=== PATIENT | female | born 1990 | race Caucasian/White ===

== ENCOUNTER 2017-10-12 15:37 | Emergency (ER) | payer MEDICAID, SELFPAY ==
[2017-10-12 15:39] VITALS: BP 134/77; PULSE 123; RESP 15; TEMP 36.8; O2SAT 99; BMI 17.4
--- NOTE | 2017-10-12 16:13 | ED.VIS.GEN ---
History of Present Illness Chief Complaint: Allergic Reaction Informant: Patient Onset: Yesterday Context: Gradual Onset Timing: Continuous Quality: itchy hives Location: all over Current Severity: Severe Maximum Severity: Moderate Worsened by: nothing in particular Relieved by: benadryl yest but hasn't tried any today. cool shower. Associated Symptoms: cough, congestion x 3d. mild chest discomfort and SOB now. Narrative: States she has had this before and has a history of environmental allergies her testing that she had remotely. She states she has not been outside today, the only thing she can think of is that there is black mold growing in the basement and she is allergic to that. She denies any lightheadedness, syncope, oral mucous membrane involvement, or skin pain. Past Medical History - Allergies and Home Meds Allergies/Adverse Reactions: Allergies No Known Allergies Allergy (Verified 10/12/17 15:38) Primary Care Physician: Syed Terry MD [Primary Care Provider] - Past Medical History: - - environmental allergies Smoking Status: Never smoker Drugs: None Review of Systems All systems negative except as indicated General: Denies: Chills, Fever ENT: Denies: Bilateral ear pain Cardiovascular: Reports: Chest pain Respiratory: Reports: Dyspnea, Cough, Sputum Gastrointestinal: Denies: Abdominal pain, Nausea, Vomiting, Diarrhea, Melena, Hematochezia Genitourinary: Denies: Dysuria, Hematuria, Frequency Skin: Reports: Rash Allergy: Reports: Uticaria. Denies: Swelling of the mouth, Swelling of the tongue Physical Exam Vital Signs/Narrative: Vital Signs Temp Pulse Resp BP Pulse Ox 10/12/17 15:39 98.2 F 123 H 15 134/77 H 99 Inital Vital Signs reviewed: Yes General: Well nourished, Well developed, - - Well-appearing, NAD Head: Normocephalic, Atraumatic Eyes: Perrl, EOMI ENT: Moist mucous membranes, No rhinorrhea, - - Posterior oropharynx clear. No oral mucosal lesions. No trismus. Neck: Supple, Nontender, No lymphadenopathy Cardiovascular: Regular rate, Regular rhythm Respiratory: No distress, CTA bilaterally, Chest nontender Extremities: Nontender, No edema Skin: Rash - Diffuse urticaria of various sizes, no bullae. Nontender. No petechiae. Neurological: Alert, Oriented x3, Cranial nerves II-XII grossly intact, Normal Strength, Normal Sensation Psychological: Normal affect Diagnostic/Tx/Re-eval Chest X-Ray - ED: 2 View, Read by Radiologist, No Acute Disease Clinical Impression(s) from Imaging Studies Chest X-Ray 10/12/17 16:20 IMPRESSION: Normal x-ray examination of the chest. Electronically Signed: Chencho Hinson MD at 16:35 EDT , Service support , - Medical Decision Making Improved after Benadryl. Chest x-ray is normal, she likely has a viral illness with regards to her URI symptoms, and a separate environmental allergic reaction that I will treat her with prednisone for. She is comfortable with that plan, supportive care otherwise advised and close outpatient follow-up. ED Disposition - Plan for ED Patient: Disposition: Home or Assisted Living Chief Complaint: Allergic Reaction Diagnosis: Allergic urticaria, Viral URI with cough Instructions: ED Allergic Reaction General Other, ED Upper Resp Infec No Abx Tx Prescriptions: Benzonatate [Tessalon Perle] 200 mg PO TID PRN PRN #20 cap PRN Reason: Cough Prednisone 40 mg PO DAILY #10 tab Referrals: Syed Terry MD [Primary Care Provider] - 1 Week if not improving
[2017-10-12] MEDS: predniSONE 20 MG Tablet 40 MG PO (16:14)
[2017-10-12] MEDS: DiphenhydrAMINE 25 MG Capsule 50 MG PO (16:14)
[2017-10-12 16:17] VITALS: BP 141/95; PULSE 97; RESP 16; O2SAT 100
--- NOTE | 2017-10-12 16:20 | RAD_ITS ---
STUDY: X-RAY CHEST REASON FOR EXAM: Female, 26 years old. Cough and short of breath. TECHNIQUE: Frontal and lateral views of the chest. COMPARISON: 04/08/2016. FINDINGS: The lungs are clear and expanded. There is no demonstrated pleural abnormality. Normal size heart. Normal mediastinum and jason. Normal visualized pulmonary arteries. Normal visualized aortic arch and descending thoracic aorta. Normal visualized thoracic spine. Normal visualized ribs, clavicles, and shoulders. There is no demonstrated abnormality of the visualized soft tissue structures of the upper abdomen. RAD/Chest PA and Lateral IMPRESSION: Normal x-ray examination of the chest. Electronically Signed: Chencho Hinson MD at 16:35 EDT , Service support ,
== END 2017-10-12 17:21 | disposition home or self-care (01) ==
PROVIDERS: Emergency Provider Emergency Medicine; Family Provider Family Medicine; PCP Family Medicine
DX: L50.0 Allergic urticaria (principal); J06.9 Acute upper respiratory infection, unspecified; R05 Cough
CPT/HCPCS: 71046; 99281

== ENCOUNTER 2018-08-30 14:33 | Emergency (ER) | payer MEDICAID, SELFPAY ==
[2018-08-30 14:35] VITALS: BP 95/81; PULSE 83; RESP 18; TEMP 37.1; O2SAT 100; BMI 22.2
--- NOTE | 2018-08-30 15:03 | ED.VISSUMM ---
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 Otherwise unremarkable. Patient states yesterday evening started having nausea vomiting. No diarrhea. No abdominal pain. States she feels lightheaded as a mail keep much down. Denies any dysuria. No vaginal bleeding or discharge. No fever. Denies any abdominal pain. Physical Examination: Young female vital signs initial blood pressure is 95/81. Heart rate 83. Afebrile. Pulse ox 100% on room air. Patient does not look septic or toxic. She does look mildly dehydrated. H EENT exam mild dry mixed memories. Otherwise unremarkable. Neck nontender no lymphadenopathy. Lungs clear to auscultation bilaterally. Heart regular rhythm no murmur rate of 83. Abdomen soft, nontender, nondistended normal bowel sounds no peritoneal signs. No signs of obstruction. No hernias or masses. No right upper right lower quadrant tenderness. Patient moving all 4 extremities. Neurovascular intact. Skin is pallor. Neurologically patient awake alert with no focal motor deficits. Test Results: Chemistry panel shows no acute abnormality. Normal gap. Normal BUN and creatinine. Emergency Department Course and Treatment: Clinically this appears to be a viral syndrome. Patient appears dehydrated. Will be treated with a liter normal saline and Zofran. P.o. challenge to be obtained. He is having no abdominal pain or tenderness. Repeat exam patient is a liter of fluid. She tried to hold down some apple juice which she threw up. Explained though we should not do apple juice may be tried water. Given a second dose of Zofran another liter of fluid and reassess. Treatment Plan: Zofran at home for nausea. Fluids and rest. Return if worse or follow-up if not improving. Disposition: Discharge Impression: Acute nausea and vomiting secondary to viral syndrome Dehydration This note was generated with [employer] dictation software. It may contain incorrect words, spelling, and punctuation that were not noted in review of the chart prior to signing ED Disposition - Plan for ED Patient: Referrals: Syed Terry MD [Primary Care Provider] -
[2018-08-30] MEDS: 0.9% Normal Saline 1,000 ML 1000 ML IV (15:12)
[2018-08-30] MEDS: Ondansetron 4 MG/2 ML Vial IV ×2 (15:12→16:24)
[2018-08-30 15:21] LABS: Anion Gap 9 (5-15); BUN 12 mg/dL (7-18); BUN/Creat Ratio 14.1 RATIO (10-20); Calcium,Total 9.1 mg/dL (8.5-10.1); Chloride 106 mmol/L (98-107); Creatinine, Serum 0.85 mg/dL (0.55-1.02); EST Glomerular Filtration Rate 85 mL/min (>60); Est Glom Filt Rate - Afr Amer 102 mL/min (>60); Estimated Creatinine Clearance 93.07 ml/min; Glucose 111 mg/dL (74-106); Potassium 3.8 mmol/L (3.5-5.1); Sodium Level 138 mmol/L (136-145)
--- NOTE | 2018-08-30 15:52 | ED.RN ---
pt drinking apple juice. states remains dizzy. tolerating po well
[2018-08-30] MEDS: 0.9% Normal Saline 1,000 ML 999 ML IV (16:24)
--- NOTE | 2018-08-30 16:38 | ED.DEP ---
ED Disposition - Plan for ED Patient: Disposition: Home or Assisted Living Prescriptions: Ondansetron [Zofran Odt] 4 mg PO Q8H PRN PRN #7 tab PRN Reason: Nausea Prescription Printed Referrals: Syed Terry MD [Primary Care Provider] - 1-2 Days if not improving Additional Instructions: Zofran as needed for nausea. Plenty of fluids and rest. Start with water and increase your diet very slowly. Follow-up with your doctor if not feeling better return if you are feeling worse.
[2018-08-30 17:14] VITALS: BP 109/72; PULSE 65; RESP 17; O2SAT 100
--- NOTE | 2018-08-30 17:14 | ED.RN ---
IV DC'ED, CATHETER INTACT, SMALL GAUZE DRESSING PLACED. DISCHARGE INSTRUCTIONS GIVEN TO AND REVIEWED WITH PATIENT, PATIENT DENIES QUESTIONS OR CONCERNS AND VOICES UNDERSTANDING OF DISCHARGE INSTRUCTIONS. PT AMBULATES OUT OF ROOM WITHOUT DIFFICULTY.
== END 2018-08-30 17:14 | disposition home or self-care (01) ==
PROVIDERS: Emergency Provider Emergency Medicine; Family Provider Family Medicine; PCP Family Medicine
DX: R11.2 Nausea with vomiting, unspecified (principal); B34.9 Viral infection, unspecified; E86.0 Dehydration; Z72.0 Tobacco use
CPT/HCPCS: 80048; 96361; 96374; 96376; 99285; J7030; A4216; J2405

== ENCOUNTER 2018-10-01 21:08 | Emergency (ER) | payer MEDICAID, SELFPAY ==
[2018-10-01 21:09] VITALS: BP 135/81; PULSE 60; RESP 18; TEMP 36.7; O2SAT 98; BMI 18.3
--- NOTE | 2018-10-01 21:35 | ED.RN ---
EDEMA UNDERNEATH HER RIGHT MIDDLE FINGER THAT HAS A VERY TIGHT RING ON IT.
--- NOTE | 2018-10-01 21:40 | ED.DEP ---
ED Disposition - Plan for ED Patient: Instructions: ALLERGIC REACTION, Other (General) Prescriptions: Prednisone [Deltasone] 40 mg PO DAILY #10 tablet Referrals: Syed Terry MD [Primary Care Provider] -
--- NOTE | 2018-10-01 21:42 | ED.VISSUMM ---
- ER Visit Summary Date of Service: 10/01/18 Chief Complaint: Allergic reaction History of Present Illness: The patient is a 27 F presenting with allergic reaction. Patient states this started today. She states that she has frequent hives. She states she is usually treated with prednisone. She states she has been diagnosed with environmental allergies. She has no known new irritants. She denies new soaps, lotions, medications, pets, foods. She denies difficulty breathing or swallowing. She complains of rash to left lower extremity and right hand. She had difficulty removing her ring from her right middle finger today. Denies other complaints. Physical Examination: Vitals are stable. Patient is afebrile. Alert no acute distress. HEENT exam is unremarkable. No tongue swelling. No pharyngeal edema. Neck is supple. Lungs are clear and equal bilaterally. Heart is regular rate and rhythm. Abdomen is soft nontender nondistended. Extremities are unremarkable. Skin is warm and dry. Scattered urticaria left lower extremity, right hand. No focal neurologic deficit. Remainder of exam is unremarkable. Emergency Department Course and Treatment: Patient was given prednisone. Attempted removal of ring without success. She will continue to ice at home. She declines further attempts. She has normal cap refill. Advised to return to the ED for worsening complaints. Disposition: Discharge home Impression: Allergic reaction This note was generated with [employer] dictation software. It may contain incorrect words, spelling, and punctuation that were not noted in review of the chart prior to signing ED Disposition - Plan for ED Patient: Instructions: ALLERGIC REACTION, Other (General) Prescriptions: Prednisone [Deltasone] 40 mg PO DAILY #10 tab Prescription Printed Referrals: Syed Terry MD [Primary Care Provider] -
--- NOTE | 2018-10-01 22:03 | ED.RN ---
MULTIPLE ATTEMPTS MADE TO GET HER RING OFF. THE RING IS A DOUBLE RING MADE OUT OF [employer] STEEL. DR. BENNETT WAS MADE AWARE OF THIS AND WE ARE TRYING DECREASE SWELLING WITH ICE AND WATER.
[2018-10-01] MEDS: predniSONE 20 MG Tablet 60 MG PO (22:07)
[2018-10-01 22:25] VITALS: BP 139/82; PULSE 62; RESP 20; O2SAT 96
--- NOTE | 2018-10-01 22:25 | ED.RN ---
PATIENT FEELS COMFORTABLE TO GO HOME AND ICE AND ELEVATE HER FINGER TO TRY AND DECREASE SWELLING SO SHE CAN GET HER RING OFF. DR. BENNETT AWARE.
== END 2018-10-01 22:26 | disposition home or self-care (01) ==
LOC: ED 22:20
PROVIDERS: Emergency Provider Emergency Medicine; Family Provider Family Medicine; PCP Family Medicine
DX: T78.40XA Allergy, unspecified, initial encounter (principal); L50.0 Allergic urticaria; X58.XXXA Exposure to other specified factors, initial encounter; Z87.891 Personal history of nicotine dependence
CPT/HCPCS: 99283

== ENCOUNTER 2022-02-24 18:53 | Emergency (ER) | payer MEDICAID, SELFPAY ==
[2022-02-24 18:54] VITALS: BP 117/93; PULSE 93; RESP 18; TEMP 36.4; O2SAT 96; BMI 16.8
--- NOTE | 2022-02-24 19:05 | EX.ED.DYSGE1 ---
HPI History of Present Illness Chief Complaint: General Illness Detail of Chief Complaint: Cough, congestion, fever, body aches Informant: patient Onset/Context/Timing Onset: Days (3 days) Context: Gradual Onset Narrative Narrative: Patient present secondary to congestion, cough, fever, body aches. Her daughter was ill first and then she got sick 2 days ago. She had some vomiting but that seems to be improving. PFSH PFSH Medical History no medical history no medical history Home Medications prednisone 20 mg tablet 40 mg PO DAILY #10 tabs 10/01/18 [Rx Last Taken Unknown] Allergy/AdvReac Type Severity Reaction Status Date / Time No Known Allergies Allergy Verified 02/24/22 18:55 Social History Smoking Status: Former smoker ROS ROS ED Constitutional Constitutional ED: Reports chills and fever(s) Eyes Eyes: Denies change in vision or discharge from eye(s) ENT ENT ED: Reports other Details: Congestion ; Denies discharge from eye(s), rhinorrhea or sore throat Cardiovascular Cardiovascular: Denies chest pain or palpitations Respiratory/Chest Respiratory/Chest: Reports cough; Denies dyspnea Gastrointestinal Gastrointestinal: Reports nausea and vomiting; Denies abdominal pain or diarrhea Genitourinary Genitourinary ED: Denies difficulty urinating or dysuria Musculoskeletal Musculoskeletal: Reports myalgias; Denies back pain or extremity pain Integumentary Denies Abrasions or rash Neurologic Neurologic: Denies headache(s) or weakness Psychiatric Psychiatric: Denies anxiety or depression Allergic/Immunologic Allergic/Immunologic ED: Denies lip swelling or urticaria EXAM Physical Exam Const Vital Signs: 02/24/22 18:54 02/24/22 19:07 Temperature 97.6 F L Temperature Source Temporal Pulse Rate 93 Respiratory Rate 18 Respiratory Effort Normal Blood Pressure 117/93 H Blood Pressure Mean 101 Pulse Ox 96 Oxygen Delivery Method Room Air Positive well nourished and well developed General Appearance ED: well developed HEENT Reports normocephalic, head/scalp atraumatic and moist mucous membranes Eyes PERRL and EOMs intact bilaterally Neck supple Chest Wall inspection of chest normal and palpation of chest normal Resp normal respiratory effort and clear to auscultation bilaterally Cardio regular rate and regular rhythm GI normal to inspection, nondistended, normoactive bowel sounds Palpation: soft Back/Spine no CVA tenderness Extremity normal to inspection Neuro oriented x3 and no sensory deficits noted Sensorium / Orientation: alert Motor Exam: strength 5/5 throughout Psych mental status grossly normal Skin no rashes or lesions noted MDM MDM MDM Narrative Medical decision making narrative: Swab for COVID and influenza sent. COVID test is negative. Influenza test is positive for flu A. Patient is outside the window for Tamiflu. Supportive cares discussed. Return instructions given. Discharge Plan Triage Chief Complaint: General Illness ED Provider: Aislinn Guadalupe Dx/Rx/DC Orders Clinical Impression: Influenza A Instructions: ED Influenza (Adult) Prescriptions: No Action prednisone 20 MG tablet 40 mg PO DAILY Qty: 10 0RF Rx Instructions: With food Primary Care Provider: Syed Terry Referrals: Syed Terry MD [Primary Care Provider] - As Needed Disposition Disposition: Home, Self Care
== END 2022-02-24 19:57 | disposition home or self-care (01) ==
PROVIDERS: Emergency Provider Emergency Medicine; PCP Family Medicine; Visit Provider Emergency Medicine
DX: J10.1 Influenza due to other identified influenza virus with other respiratory manifestations (principal); Z87.891 Personal history of nicotine dependence
CPT/HCPCS: 87428; 99282

== ENCOUNTER 2022-11-06 17:57 | Emergency (ER) | payer MEDICAID, SELFPAY ==
[2022-11-06 17:59] VITALS: BP 113/99; PULSE 130; RESP 14; TEMP 36.7; O2SAT 94; BMI 18.0
--- NOTE | 2022-11-06 18:11 | EDS_ITS ---
<Statement entered by Aislinn Guadalupe MD - 11/06/22 18:51> I have personally performed a face to face assessment of the patient and have reviewed the HUBER Note. Patient presents secondary to urticaria. She has a history of multiple allergies and is currently undergoing allergy injections. Due to some head congestion and sinus pressure recently she took 3 doses of Sudafed yesterday. She thinks her last dose was at 4 AM this morning. She noted generalized hives and itching. She is taking Benadryl. She states she knows when she gets hives as bad she usually requires a course of steroids. Head neck examination unremarkable. Patient speaks with a strong voice and is tolerating secretions well. Heart is tachycardic and regular. Lung sounds are clear. Abdomen is soft and nontender. Skin examination reveals urticarial lesions diffusely on her face, trunk, extremities. No evidence of infection. Patient treated with p.o. prednisone and Pepcid. Prescription sent to the pharmacy for her. She will also continue Benadryl. Return instructions provided. HPI History of Present Illness Chief Complaint: Rash Narrative Narrative: Patient is a 31-year-old female with history of seasonal allergies who presents to the emergency department for hives. Patient states that she has been having some congestion, runny nose and she took a Sudafed 2 doses yesterday. Patient today woke up with significant hives on her face, upper and lower extremity as well as her trunk. Patient denies any shortness of breath, denies any rash in her mouth. PFSH PFSH Medical History no medical history Home Medications prednisone 20 mg tablet 40 mg (2 x 20 mg) PO DAILY #10 tabs 10/01/18 [Rx Last Taken Unknown] famotidine 40 mg tablet (Pepcid) 40 mg PO DAILY #14 tabs 11/06/22 [Rx Last Taken Unknown] prednisone 50 mg tablet 50 mg PO DAILY #5 tabs 11/06/22 [Rx Last Taken Unknown] Allergy/AdvReac Type Severity Reaction Status Date / Time pseudoephedrine Allergy Mild Rash Verified 11/06/22 18:25 Social History Smoking Status: Former smoker ROS ROS ED ROS Narrative Constitutional: Negative for fever, chills, weight loss, weakness Eyes: Negative for vision loss, vision change, double vision ENT: Negative for any sore throat, ear pain, congestion Cardiovascular: Negative for any chest pain, tightness, palpitations Respiratory: Negative for any cough, sputum production, hemoptysis, dyspnea, dyspnea on exertion, orthopnea Gastrointestinal: Negative for any abdominal pain, nausea, vomiting, diarrhea, constipation, blood in stool, blood in vomit : Negative for any urinary frequency, dysuria, retention, blood in urine Muscle skeletal: Negative for any muscle joint pain, stiffness, myalgias, arthralgias, neck pain, back pain Neurological: Negative for any headache, syncope, numbness or tingling, dizziness Skin: Negative for any lumps, itching, abrasions, lacerations. Positive for rash full body, hives Psychiatric: Negative for any depression, anxiety, stress, suicidal ideation, homicidal ideation Hematologic: Negative for any easy bruising, excessive bruising, easy bleeding Allergies: Negative for any eczema, hives, rash EXAM Physical Exam Narrative Exam Narrative: Vital signs reviewed. Patient appears generally well, patient is in no respiratory distress. HEET: Head normocephalic atraumatic, TMs clear bilaterally. Posterior pharynx is clear, moist mucous membranes. Nares clear bilaterally. Patient does have hives over the left eyebrow, slight redness to the neck. Posterior pharynx clear, no stridor. No oral lesions Neck: Supple with no lymphadenopathy or tenderness. No signs of meningismus, negative jolt sign. Cardiac: Regular rate and rhythm no murmurs gallops or rubs, equal peripheral pulses bilaterally. Respiratory: Lungs clear to auscultation bilaterally. No chest tenderness. Abdomen: Soft, nontender, nondistended. No abdominal bruit or pulsatile masses. No hepatosplenomegaly Extremities: No peripheral edema, no signs of gross trauma or deformity. Active full range of motion of all extremities. Hives to both arms, legs. Neuro: Cranial nerves II through XII intact, no focal neurological deficits. Skin: Clean dry and intact with no rash, purpura, petechiae, vesicles or pustules. Backs/flank: No CVA tenderness, no midline spinal tenderness, no deformity. Psych: Normal mood and affect. No SI, HI or acute psychosis. Const Vital Signs: 11/06/22 17:59 08/26/23 18:22 Temperature 98.0 F Temperature Source Temporal Pulse Rate 130 H 95 Respiratory Rate 14 Blood Pressure 113/99 H Blood Pressure Mean 103 Pulse Ox 94 95 Oxygen Delivery Method Room Air Room Air Positive well nourished and well developed General Appearance ED: well developed MDM MDM Treatment and Re-Evaluation :: Patient appears generally well, patient appears nontoxic, vital signs are stable. Patient presents to the emergency department for hives following taking Sudafed yesterday. Patient has been taking Benadryl however she think she needs steroids. Patient does have history of this and has had hives this severe in the past. Patient will be given Pepcid, Benadryl, prednisone 60 mg here. She begin a prescription for Pepcid as well as prednisone. The prednisone to be for 5 days. All questions answered, patient stable for discharge. At this time, is no evidence of anaphylaxis, cellulitis. Discharge Plan Triage Chief Complaint: Rash ED Midlevel Provider: Vamshi Caruso ED Provider: Aislinn Guadalupe Dx/Rx/DC Orders Clinical Impression: Acute urticaria Instructions: ED Hives (Adult) Prescriptions: New prednisone 50 mg tablet 50 mg PO DAILY Qty: 5 0RF famotidine [Pepcid] 40 mg tablet 40 mg PO DAILY Qty: 14 0RF No Action prednisone 20 MG tablet 40 mg PO DAILY Qty: 10 0RF Rx Instructions: With food Primary Care Provider: Syed Terry Referrals: Syed Terry MD [Primary Care Provider] - Activity Restrictions/Additional Instructions: Please take prednisone until finished. May use the Pepcid. Continue take Benadryl. Cool showers may help. Disposition Disposition: Home, Self Care
[2022-11-06] MEDS: predniSONE 20 MG Tablet 60 MG PO (18:20)
[2022-11-06] MEDS: DiphenhydrAMINE 25 MG Capsule PO (18:20)
[2022-11-06] MEDS: Famotidine 20 MG Tablet 40 MG PO (18:20)
[2022-11-06 18:22] VITALS: PULSE 95; O2SAT 95
== END 2022-11-06 18:52 | disposition home or self-care (01) ==
LOC: ED 18:50
PROVIDERS: Emergency Provider Emergency Medicine; Visit Provider Emergency Medicine
DX: L50.9 Urticaria, unspecified (principal); Z87.891 Personal history of nicotine dependence
CPT/HCPCS: 99283

== ENCOUNTER 2023-01-02 13:15 | Emergency (ER) | payer MEDICAID, SELFPAY ==
[2023-01-02 13:16] VITALS: BP 120/60; PULSE 77; RESP 18; TEMP 35.5; O2SAT 99; BMI 18.0
--- NOTE | 2023-01-02 13:29 | EDS_ITS ---
<Statement entered by Aislinn Guadalupe MD - 01/02/23 13:46> I have personally performed a face to face assessment of the patient and have reviewed the HUBER Note. Patient presents secondary to left upper back pain. About a week ago she was carrying a laundry basket down some steps when she slipped and twisted. She had pain to the left upper back and around her left axilla since that time. Pain is worse with movement of her left arm and deep breathing. Patient sitting in bedside chair in no acute distress. Head and neck examination feels no external sign of trauma. Heart is regular rate and rhythm. Lung sounds are clear with good air movement bilaterally. Abdomen is soft and nontender. Back examination reveals reproducible muscular tenderness in the left upper mit[address] and over the lateral upper chest wall. Full range of motion of the arms. I do not feel imaging is needed at this time. Patient be treated with anti- inflammatories. Return instructions given. HPI History of Present Illness Chief Complaint: Back Narrative Narrative: Patient is a 32-year-old female with history of anxiety presents to the emergency department with complaints of left upper back pain. Patient states 1 week ago she was carrying down her laundry basket when she tripped down the stairs, turning while carrying a basket. Since then, she had pain in her armpit area on the left as well as the right with worsening pain on rotation. PFSH PFS Home Medications prednisone 20 mg tablet 40 mg (2 x 20 mg) PO DAILY #10 tabs 10/01/18 [Rx Last Taken Unknown] famotidine 40 mg tablet (Pepcid) 40 mg PO DAILY #14 tabs 11/06/22 [Rx Last Taken Unknown] prednisone 50 mg tablet 50 mg PO DAILY #5 tabs 11/06/22 [Rx Last Taken Unknown] naproxen 500 mg tablet (Naprosyn) 500 mg PO BID PRN pain #20 tabs 01/02/23 [Rx Last Taken Unknown] Allergy/AdvReac Type Severity Reaction Status Date / Time pseudoephedrine Allergy Mild Rash Verified 01/02/23 13:17 Social History Smoking Status: Former smoker ROS ROS ED ROS Narrative Constitutional: Negative for fever, chills, weight loss, weakness Eyes: Negative for vision loss, vision change, double vision ENT: Negative for any sore throat, ear pain, congestion Cardiovascular: Negative for any chest pain, tightness, palpitations Respiratory: Negative for any cough, sputum production, hemoptysis, dyspnea, dyspnea on exertion, orthopnea Gastrointestinal: Negative for any abdominal pain, nausea, vomiting, diarrhea, constipation, blood in stool, blood in vomit : Negative for any urinary frequency, dysuria, retention, blood in urine Muscle skeletal: Negative for any muscle joint pain, stiffness, myalgias, arthralgias, neck pain. Positive for left upper back pain, left anterior chest pain. Neurological: Negative for any headache, syncope, numbness or tingling, dizziness Skin: Negative for any rashes, lumps, itching, abrasions, lacerations Psychiatric: Negative for any depression, anxiety, stress, suicidal ideation, homicidal ideation Hematologic: Negative for any easy bruising, excessive bruising, easy bleeding Allergies: Negative for any eczema, hives, rash EXAM Physical Exam Narrative Exam Narrative: Vital signs reviewed. HEET: Head normocephalic atraumatic, TMs clear bilaterally. Posterior pharynx is clear, moist mucous membranes. Nares clear bilaterally. Neck: Supple with no lymphadenopathy or tenderness. No signs of meningismus, negative jolt sign. Cardiac: Regular rate and rhythm no murmurs gallops or rubs, equal peripheral pulses bilaterally. Respiratory: Lungs clear to auscultation bilaterally. Patient is worsening pain on palpation to the anterior chest to the lateral and anterior chest. Just below the axilla. Equal breath sounds in all quadrants. Worsening pain with moving her arms and rotation. Abdomen: Soft, nontender, nondistended. No abdominal bruit or pulsatile masses. No hepatosplenomegaly Extremities: No peripheral edema, no signs of gross trauma or deformity. Active full range of motion of all extremities. Neuro: Cranial nerves II through XII intact, no focal neurological deficits. Skin: Clean dry and intact with no rash, purpura, petechiae, vesicles or pustules. Backs/flank: No CVA tenderness, no midline spinal tenderness, no deformity. Psych: Normal mood and affect. No SI, HI or acute psychosis. Const Vital Signs: 01/02/23 13:16 Temperature 96 F L Temperature Source Temporal Pulse Rate 77 Respiratory Rate 18 Blood Pressure 120/60 Blood Pressure Mean 80 Pulse Ox 99 Oxygen Delivery Method Room Air [facility] Treatment and Re-Evaluation :: Patient appears generally well, patient appears nontoxic, vital signs are stable. Presents the emergency department with upper back pain after a slip while carrying a laundry basket 1 week ago. Physical examination consistent with muscle skeletal pain. Initial diagnosis include pneumonia, thoracic strain, chest wall strain. Patient be treated with naproxen, there is no indication for any advanced imaging. She denies any shortness of breath, fever or chills. Patient will continue to perform gentle stretching, ice and heat as well as giving a prescription for naproxen. Stable for discharge. Discharge Plan Triage Chief Complaint: Back ED Midlevel Provider: Vamshi Caruso ED Provider: Aislinn Guadalupe Dx/Rx/DC Orders Clinical Impression: Acute thoracic myofascial strain, Chest wall muscle strain Instructions: ED Back Sprain/Strain, ED Chest Wall Strain Prescriptions: New naproxen [Naprosyn] 500 mg tablet 500 mg PO BID PRN (Reason: pain) Qty: 20 0RF No Action prednisone 20 MG tablet 40 mg PO DAILY Qty: 10 0RF Rx Instructions: With food prednisone 50 mg tablet 50 mg PO DAILY Qty: 5 0RF famotidine [Pepcid] 40 mg tablet 40 mg PO DAILY Qty: 14 0RF Primary Care Provider: Care Physician,No Primary Referrals: Care Physician,No Primary [Primary Care Provider] - Activity Restrictions/Additional Instructions: Please follow-up outpatient. Disposition Disposition: Home, Self Care
== END 2023-01-02 14:04 | disposition home or self-care (01) ==
LOC: ED 13:55
PROVIDERS: Emergency Provider Emergency Medicine; Visit Provider Emergency Medicine
DX: S29.011A Strain of muscle and tendon of front wall of thorax, initial encounter (principal); S29.012A Strain of muscle and tendon of back wall of thorax, initial encounter; X58.XXXA Exposure to other specified factors, initial encounter; Z87.891 Personal history of nicotine dependence
CPT/HCPCS: 99282

== ENCOUNTER 2023-02-09 13:32 | Emergency (ER) | payer MEDICAID, SELFPAY ==
[2023-02-09 13:33] VITALS: BP 133/99; PULSE 90; RESP 16; TEMP 36.3; O2SAT 98; BMI 18.1
--- NOTE | 2023-02-09 14:08 | EDS_ITS ---
HPI History of Present Illness Chief Complaint: Allergic Reaction Detail of Chief Complaint: Generalized hives. Informant: patient Onset/Context/Timing Onset: Days Context: Gradual Onset Timing: Continuous Current Severity: Mild Maximum Severity: Mild Narrative Narrative: 32-year-old female history of generalized allergic reactions in which she gets hives. Thinks she may have ate some several days ago that she had allergic reaction to. She has hives on her back and upper and lower extremities. She has been using Benadryl but is not resolved. She has needed steroids before due to resolve this. Currently no trouble breathing or swallowing. Prior similar symptoms: Yes Recent Illness/Hospitalization: No PFSH PFSH Home Medications prednisone 20 mg tablet 40 mg (2 x 20 mg) PO DAILY #10 tabs 10/01/18 [Rx Last Taken Unknown] famotidine 40 mg tablet (Pepcid) 40 mg PO DAILY #14 tabs 11/06/22 [Rx Last Taken Unknown] prednisone 50 mg tablet 50 mg PO DAILY #5 tabs 11/06/22 [Rx Last Taken Unknown] naproxen 500 mg tablet (Naprosyn) 500 mg PO BID PRN pain #20 tabs 01/02/23 [Rx Last Taken Unknown] prednisone 20 mg tablet 40 mg (2 x 20 mg) PO DAILY 7 days #14 tabs 02/09/23 [Rx Last Taken Unknown] Allergy/AdvReac Type Severity Reaction Status Date / Time pseudoephedrine Allergy Mild Rash Verified 02/09/23 13:35 Social History Smoking Status: Former smoker ROS ROS ED ROS Narrative No recent illness. Itching and hives. Review of Systems ROS Unobtainable: Denies due to encephalopathy Constitutional Constitutional ED: Denies chills or fever(s) Eyes Eyes: Denies blurry vision ENT ENT ED: Denies ear pain Cardiovascular Cardiovascular: Denies chest pain Respiratory/Chest Respiratory/Chest: Denies cough or dyspnea Gastrointestinal Gastrointestinal: Denies abdominal pain Genitourinary Genitourinary ED: Denies dysuria or hematuria Musculoskeletal Musculoskeletal: Denies arthralgias, back pain, myalgias or neck pain Integumentary Reports rash and other Details: Hives. ; Denies abscess or Abrasions Neurologic Neurologic: Denies headache(s) Psychiatric Psychiatric: Denies anxiety Endocrine Endocrinology: Denies cold intolerance Hematologic/Lymphatic Hematologic/Lymphatic: Reports none Allergic/Immunologic Allergic/Immunologic ED: Denies mouth swelling, tongue swelling or urticaria EXAM Physical Exam Narrative Exam Narrative: Wearing 32-year-old female. Vital signs are stable afebrile. Pulse ox is 98% on room air. No hypoxia. No respiratory distress. H EENT exam unremarkable. She will neck nontender. Lungs are clear equal and symmetrical bilaterally. No wheezing. Heart regular rhythm no murmur rate about 85. Abdomen soft nontender. Moving all 4 extremities. 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 Back nontender. Skin diffuse hives on lower extremities and back. No petechiae or purpura. She is awake and alert. Const Vital Signs: 02/09/23 13:33 Temperature 97.4 F L Temperature Source Temporal Pulse Rate 90 Respiratory Rate 16 Blood Pressure 133/99 H Blood Pressure Mean 110 Pulse Ox 98 Oxygen Delivery Method Room Air Positive well nourished and well developed; Negative for obese, cachectic, contractures or unkempt General Appearance ED: well developed and NAD; Negative for unkempt, cachectic, contractures, cyanotic, diaphoretic or pallor Nutritional Appearance: Negative for cachectic or obese HEENT Reports moist mucous membranes; Denies dry mucous membranes Negative for trauma or tenderness Mouth ED: No dry mucous membranes Mouth: No dry mucous membranes Eyes PERRL and EOMs intact bilaterally General Eye ED: Negative for pale conjunctiva, scleral icterus or other Neck no lymphadenopathy, supple and no JVD General: Negative for tenderness Lymph Lymphatic: Negative for other Chest Wall inspection of chest normal and palpation of chest normal Chest: Negative for other Resp normal respiratory effort and clear to auscultation bilaterally Effort and Inspection: Negative for retractions Auscultation: Negative for rales, rhonchi or wheezes Cardio regular rate, regular rhythm, S1 normal heart sound, S2 normal heart sound and no murmurs Rhythm: Negative for abnormal rhythm GI normal to inspection, nondistended, normoactive bowel sounds, non-tender, non- distended and no masses Inspection: Negative for abdominal distention Auscultation: normoactive bowel sounds Palpation: soft; Negative for tender or guarding Back/Spine no CVA tenderness General Back: Negative for CVA tenderness Cervical Spine: Negative for cervical spine tenderness Thoracic Spine / Upper Back: Negative for thoracic spinal tenderness Lumbar Spine / Lower Back: Negative for lumbar spinal tenderness Extremity normal to inspection Extremity Narrative: Hives. General Extremety ED: Negative for edema or tenderness General Extremity: Negative for edema Neuro oriented x3 and CN's II-XII intact bilaterally Sensorium / Orientation: alert; Negative for orientation impaired Motor Exam: strength 5/5 throughout Psych mental status grossly normal Appearance: Negative for unkempt Attitude: No agitated Mood & Affect: Negative for depressed, anxious or tearful Skin No no rashes or lesions noted, no wounds and skin turgor normal Skin Narrative: Hives. General Skin Exam: elasticity normal; Negative for jaundice or pallor Lesions: No lesion noted Rashes: rashes noted Trauma: Negative for abrasion Wounds: Negative for wounds noted MDM MDM MDM Narrative Medical decision making narrative: 32-year-old female history of food allergies with prior allergic reactions. She has gotten hives before in the past. She has had this for 3 days. She been taking Benadryl. She will be started on prednisone given first dose here in 40 mg a day for a week but she may we will stop it early. Patient is comfortable with the plan. Discharge Plan Triage Chief Complaint: Allergic Reaction ED Provider: Jamison Jordan Dx/Rx/DC Orders Clinical Impression: Hives, Allergic reaction Instructions: ED General Allergic Reactions, ED Hives (Adult) Prescriptions: New prednisone 20 mg tablet 40 mg PO DAILY 7 Days Qty: 14 0RF No Action prednisone 20 MG tablet 40 mg PO DAILY Qty: 10 0RF Rx Instructions: With food prednisone 50 mg tablet 50 mg PO DAILY Qty: 5 0RF famotidine [Pepcid] 40 mg tablet 40 mg PO DAILY Qty: 14 0RF naproxen [Naprosyn] 500 mg tablet 500 mg PO BID PRN (Reason: pain) Qty: 20 0RF Primary Care Provider: Care Physician,No Primary Referrals: Parvin Joshi MD [Med Staff - Active Staff] - As Needed Care Physician,No Primary [Primary Care Provider] - Activity Restrictions/Additional Instructions: Prednisone 40 mg a day until the hives are gone. Continue to use your Benadryl. Follow-up with your doctor as needed. Return if feeling worse. Disposition Disposition: Home, Self Care
[2023-02-09] MEDS: predniSONE 20 MG Tablet 60 MG PO (14:20)
== END 2023-02-09 14:26 | disposition home or self-care (01) ==
LOC: ED 14:25
PROVIDERS: Emergency Provider Emergency Medicine; Visit Provider Emergency Medicine
DX: L50.9 Urticaria, unspecified (principal); T78.40XA Allergy, unspecified, initial encounter; Z87.891 Personal history of nicotine dependence; X58.XXXA Exposure to other specified factors, initial encounter
CPT/HCPCS: 99282

== ENCOUNTER 2023-04-29 11:42 | Emergency (ER) | payer MEDICAID, SELFPAY ==
[2023-04-29 11:43] VITALS: BP 111/101; PULSE 104; RESP 16; TEMP 36.6; O2SAT 100; BMI 17.7
--- NOTE | 2023-04-29 12:41 | EX.ED.DYSGE1 ---
HPI History of Present Illness Chief Complaint: General Illness Informant: patient Narrative Narrative: Patient is a 32-year-old female with history of multiple environmental allergies (receives allergy shots regularly) and recent surgery for influenza from her son who actually had to be admitted for myositis at [facility] presenting with flulike symptoms and hives. Patient started having symptoms 2 days ago including congestion, cough and hives. She is she does have a history of hives with viral illnesses as well as bronchitis. Has been taking Benadryl most recently had it last night. She is complaining of itchy rash on her extremities and back. She had some mild nausea but no vomiting. Denies any fever. Does have myalgias, sore throat, headache and cough that is nonproductive. She also notes that she had some Ho chocolates and some ketchup which has tomatoes in it which could also be causing her hives. She has difficulty breathing. Patient takes a mood stabilizer for her anxiety (she thinks it starts with a P) as well as hydroxyzine and vitamin D supplement. Denies any recent change in medications. Denies any sores in her mouth or pain with urination/genital sores. No other complaints or concerns at this time. PFSH PFSH Home Medications prednisone 20 mg tablet 40 mg (2 x 20 mg) PO DAILY #10 tabs 10/01/18 [Rx Last Taken Unknown] famotidine 40 mg tablet (Pepcid) 40 mg PO DAILY #14 tabs 11/06/22 [Rx Last Taken Unknown] prednisone 50 mg tablet 50 mg PO DAILY #5 tabs 11/06/22 [Rx Last Taken Unknown] naproxen 500 mg tablet (Naprosyn) 500 mg PO BID PRN pain #20 tabs 01/02/23 [Rx Last Taken Unknown] prednisone 20 mg tablet 40 mg (2 x 20 mg) PO DAILY 7 days #14 tabs 02/09/23 [Rx Last Taken Unknown] albuterol sulfate 90 mcg/actuation aerosol inhaler (Ventolin HFA) 1 - 2 puff inhalation Q4H PRN PRN Wheezing #1 inh 04/29/23 [Rx Last Taken Unknown] epinephrine 0.3 mg/0.3 mL injection, auto-injector (EpiPen) 0.3 mg (0.3 mL) IM Q15M PRN anaphylaxis #2 ea 04/29/23 [Rx Last Taken Unknown] famotidine 20 mg tablet (Pepcid) 20 mg PO BID #14 tabs 04/29/23 [Rx Last Taken Unknown] prednisone 20 mg tablet 40 mg (2 x 20 mg) PO DAILY #8 TABLETS 04/29/23 [Rx Last Taken Unknown] Allergy/AdvReac Type Severity Reaction Status Date / Time pseudoephedrine Allergy Mild Rash Verified 04/29/23 11:44 Social History Smoking Status: Former smoker ROS ROS ED Constitutional Constitutional ED: Denies chills or fever(s) Eyes Eyes: Denies change in vision ENT ENT ED: Reports sore throat and other Details: Positive nasal congestion ; Denies ear pain or rhinorrhea Cardiovascular Cardiovascular: Denies chest pain Respiratory/Chest Respiratory/Chest: Reports cough; Denies dyspnea, dyspnea on exertion or sputum Gastrointestinal Gastrointestinal: Reports nausea; Denies abdominal pain or vomiting Musculoskeletal Musculoskeletal: Reports myalgias; Denies arthralgias Integumentary Reports rash Neurologic Neurologic: Reports headache(s); Denies paresthesias or weakness Psychiatric Psychiatric: Reports anxiety EXAM Physical Exam Const Vital Signs: 04/29/23 11:43 04/29/23 12:48 04/29/23 14:38 Temperature 98 F Temperature Source Temporal Pulse Rate 104 H 95 100 Respiratory Rate 16 17 20 H Respiratory Pattern Normal Blood Pressure 111/101 H 115/99 H Blood Pressure Mean 104 104 Pulse Ox 100 94 Oxygen Delivery Method Room Air Room Air 04/29/23 15:41 Temperature 98 F Temperature Source Pulse Rate 60 Respiratory Rate 16 Respiratory Pattern Blood Pressure 139/87 H Blood Pressure Mean 104 Pulse Ox 98 Oxygen Delivery Method Positive well nourished and well developed General Appearance ED: well developed and NAD HEENT Reports moist mucous membranes HEENT Narrative: Dry lips but mucosal membranes are moist. Injection and mild erythema of the posterior oropharynx. No exudate of the tonsils or enlargement appreciated. Uvula is midline. Normal phonation. Eyes PERRL and EOMs intact bilaterally Neck supple and no JVD Neck Narrative: No stridor Chest Wall inspection of chest normal and palpation of chest normal Resp normal respiratory effort Resp Narrative: Slightly diminished breath sounds (right worse than left). No wheezing appreciated. Auscultation: Negative for rhonchi or wheezes Cardio regular rate and regular rhythm GI normal to inspection, nondistended, normoactive bowel sounds and non-tender Back/Spine no CVA tenderness Extremity normal to inspection Extremity Narrative: Congenital deformity to the left distal arm/hand General Extremety ED: Negative for edema or tenderness General Extremity: Negative for edema Neuro oriented x3 Sensorium / Orientation: alert Motor Exam: Negative for general weakness Psych mental status grossly normal Skin Skin Narrative: Scattered erythematous/raised lesions on the extremities as well as the back consistent with urticaria. Negative Nikolsky sign, no petechia. MDM MDM MDM Narrative Medical decision making narrative: Patient evaluated for flulike symptoms with exposure to influenza as well as rash. Rash is most consistent hives. She does not have findings concerning for anaphylaxis. Patient is given prednisone and Pepcid in the emergency room. She drove here with her son so do not want to give her Benadryl. She was given a breathing treatments for her cough and symptoms slightly diminished breath sounds. At this time I do not think she requires an EpiPen. Did discuss IV fluids as she looks mildly dehydrated however patient is currently drinking Sprite. Patient is comfortable to taking oral medicines at this time. Is ordered Tylenol, Pepcid and prednisone. On repeat evaluation and patient is stable. No significant progression of her hives. Is continue to drink fluids. Has negative flu, COVID/RSV swab. Will be treated symptomatically with steroids, given a refill of her EpiPen (her prior EpiPen's overall ) and a prescription for an HFA inhaler and Pepcid. Will continue to make Benadryl at home. Given return precautions. Discussed that this could be an allergic reaction versus viral syndrome causing hives. She verbalized agreement understanding with this. Discharge Plan Triage Chief Complaint: General Illness Other Complaint: Rash ED Provider: Raysa Garcia Dx/Rx/DC Orders Clinical Impression: Hives, Acute viral syndrome Instructions: ED Hives (Adult), ED Viral Syndrome (Adult) Prescriptions: New albuterol sulfate [Ventolin HFA] 90 mcg/actuation HFA aerosol inhaler 1 - 2 puff inhalation Q4H PRN PRN (Reason: Wheezing) Qty: 1 0RF prednisone 20 mg tablet 40 mg PO DAILY Qty: 8 0RF famotidine [Pepcid] 20 mg tablet 20 mg PO BID Qty: 14 0RF epinephrine [EpiPen] 0.3 mg/0.3 mL auto-injector 0.3 mg IM Q15M PRN (Reason: anaphylaxis) Qty: 2 0RF No Action prednisone 20 MG tablet 40 mg PO DAILY Qty: 10 0RF Rx Instructions: With food prednisone 50 mg tablet 50 mg PO DAILY Qty: 5 0RF famotidine [Pepcid] 40 mg tablet 40 mg PO DAILY Qty: 14 0RF prednisone 20 mg tablet 40 mg PO DAILY 7 Days Qty: 14 0RF naproxen [Naprosyn] 500 mg tablet 500 mg PO BID PRN (Reason: pain) Qty: 20 0RF Primary Care Provider: Care Physician,No Primary Referrals: Lilia Juarez [Non-Staff] - As soon as possible Care Physician,No Primary [Primary Care Provider] - Disposition Disposition: Home, Self Care Discharge Date/Time: 04/29/23 15:42
--- OUTSIDE RECORDS SUMMARY | 2023-04-29 12:44 | XMS RPT_ITS | CCD ---
Author Name Unknown Address [facility] [address] [place] [address] Organization [facility] Care Team Providers Care Boardinghouse Keeper Name Role Phone PROVIDER, UNKNOWN Admitting Unavailable NOE VILLA Attending Unavailable PATIENT, SELF Referring Unavailable CAORLE MENDOZA Referring Unavailable Allergies Allergy Classification Reported Allergen(s) Allergy Type Date of Onset Reaction(s) Facility (1 source) Environmental allergy; Translations: [ENVIRONMENTAL] Propensity to adverse reactions (disorder) [facility] ([facility]) OTHER; Translations: [OTHER] Propensity to adverse reactions (disorder) 5 [facility] Repository Problems Problem Classification Problem Date Documented Da te Episodic/Chronic Nutritional deficiencies (1 source) Vitamin D deficiency, unspecified; Translations: [Vitamin D deficiency] Onset: 01-18-2023 Chronic Other aftercare (1 source) Other nursing home (current) drug therapy; Translations: [Encounter for long-term (current) drug use] Onset: 01-18-2023 Episodic Results Test Name Value Interpretation Reference Range Facil ity Encounters Encounter Date Encounter Type Care Provider Facility Start: 01-18-2023 End: 01-19-2023 ambulatory CAROLE MENDOZA Facility:[facility] Start: 06-20-2015 Patient encounter procedure UNKNOWN PROVIDER Facility:[facility] Procedures Date Procedure Procedure Detail Performing Clinician Start: 06-20-2015 Extraction erupted tooth/exr UNKNOWN PROVIDER Payers Date Payer Category Payer Medicaid [id number] 2013 Unknown [id number] 1990 Unknown [id number] Summary Purpose Family History No Family History Records FoundNo Family History Records Found Advance Directives No Advanced Directives Records FoundNo Advanced Directives Records Found Additional Source Comments INFORMATION SOURCE (unrecogn ized section and content) DATE CREATED AUTHOR AUTHOR'S AGUSTO LOWRY 01/19/2023 [facility] FOR RECORDS PERTAINING TO PATIENTS WHO ARE OR HAVE BEEN ENROLLED IN A CHEMICAL DEPENDENCY/SUBSTANCEABUSE PROGRAM, SOME INFORMATION MAY BE OMITTED. This clinical summary was aggregated from multiple sources. Caution should be exercised in using it in the provision of clinical care. This summary normalizes information from multiple sources, and as a consequence, information in this document may materially change the coding, format and clinical context of patient data. In addition, data may be omitted in some cases. CLINICAL DECISIONS SHOULD BE BASED ON THE PRIMARY CLINICAL RECORDS. [employer] provides no warranty or guarantee of the accuracy or completeness of information in this document.
[2023-04-29] MEDS: Ipratropium/Albuterol Sulfate 3 ML AMPUL.NEB INHALATION (12:47)
[2023-04-29 12:48] VITALS: PULSE 95; RESP 17
[2023-04-29] MEDS: Acetaminophen 325 MG Tablet 650 MG PO (13:46)
[2023-04-29] MEDS: predniSONE 20 MG Tablet 60 MG PO (13:46)
[2023-04-29] MEDS: Famotidine 20 MG Tablet PO (13:46)
[2023-04-29 14:38] VITALS: BP 115/99; PULSE 100; RESP 20; O2SAT 94
[2023-04-29 15:41] VITALS: BP 139/87; PULSE 60; RESP 16; TEMP 36.6; O2SAT 98
== END 2023-04-29 15:42 | disposition home or self-care (01) ==
PROVIDERS: Emergency Provider Emergency Medicine; Visit Provider Emergency Medicine
DX: B34.9 Viral infection, unspecified (principal); L50.8 Other urticaria; Z20.828 Contact with and (suspected) exposure to other viral communicable diseases; Z79.52 Long term (current) use of systemic steroids; Z87.891 Personal history of nicotine dependence
CPT/HCPCS: 87631; 94640; 99283

== ENCOUNTER 2023-06-07 18:42 | Emergency (ER) | payer MEDICAID, SELFPAY ==
[2023-06-07] VITALS (10 sets, daily range): BP systolic 90–146; BP diastolic 43–119; PULSE 76–112; RESP 12–19; TEMP 36.2–36.8; O2SAT 97–98; BMI 18.0
[2023-06-07] MEDS: MethylPREDNISolone 125 MG/2 ML Vial IV (18:55)
[2023-06-07] MEDS: Epi Pen (EQUIV) 0.3 MG Syringe IM (18:55)
--- NOTE | 2023-06-07 18:55 | EX.ED.DYSGE1 ---
HPI History of Present Illness Chief Complaint: Allergic Reaction Detail of Chief Complaint: Allergic reaction with hives and change in voice Informant: patient Onset/Context/Timing Onset: Yesterday Context: Sudden Onset Timing: Continuous Quality: Hives and change in voice Location: Generalized Current Severity: Moderate Maximum Severity: Moderate Worsened by: Unknown Relieved by: Nothing Associated Symptoms Associated Symptoms: Complains of shortness of breath as well Narrative Narrative: Patient is at 32-year-old woman with history of allergies. She is seeing by ENT. She is getting allergy shots. The cause of her urticaria per patient is unknown. Yesterday she noted to have a rash. She also had a change in voice. She has some difficulty swallowing. She denies fever, chills night sweats. She denies headache, visual, ocular auditory symptoms. She denies neck pain, drooling or inability to swallow. She denies chest pain, shortness of breath, dyspnea on exertion. She denies abdominal pain, nausea, vomiting or diarrhea. She states she contacted ENT with and not be able to see until later the week. Prior similar symptoms: Yes Recent Illness/Hospitalization: No [facility] Medical History (Updated 06/07/23 @ 22:[address] Collin Allen MD) Anxiety Home Medications prednisone 20 mg tablet 40 mg (2 x 20 mg) PO DAILY #10 tabs 10/01/18 [Rx Last Taken Unknown] famotidine 40 mg tablet (Pepcid) 40 mg PO DAILY #14 tabs 11/06/22 [Rx Last Taken Unknown] prednisone 50 mg tablet 50 mg PO DAILY #5 tabs 11/06/22 [Rx Last Taken Unknown] naproxen 500 mg tablet (Naprosyn) 500 mg PO BID PRN pain #20 tabs 01/02/23 [Rx Last Taken Unknown] prednisone 20 mg tablet 40 mg (2 x 20 mg) PO DAILY 7 days #14 tabs 02/09/23 [Rx Last Taken Unknown] albuterol sulfate 90 mcg/actuation aerosol inhaler (Ventolin HFA) 1 - 2 puff inhalation Q4H PRN PRN Wheezing #1 inh 04/29/23 [Rx Last Taken Unknown] epinephrine 0.3 mg/0.3 mL injection, auto-injector (EpiPen) 0.3 mg (0.3 mL) IM Q15M PRN anaphylaxis #2 ea 04/29/23 [Rx Last Taken Unknown] famotidine 20 mg tablet (Pepcid) 20 mg PO BID #14 tabs 04/29/23 [Rx Last Taken Unknown] prednisone 20 mg tablet 40 mg (2 x 20 mg) PO DAILY #8 TABLETS 04/29/23 [Rx Last Taken Unknown] famotidine 20 mg tablet (Pepcid) 20 mg PO BID #8 tabs 06/07/23 [Rx Last Taken Unknown] prednisone 20 mg tablet 40 mg (2 x 20 mg) PO DAILY #8 TABLETS 06/07/23 [Rx Last Taken Unknown] Allergy/AdvReac Type Severity Reaction Status Date / Time pseudoephedrine Allergy Mild Rash Verified 06/07/23 18:45 Environmental Allergies: Allergy Hives Verified 06/07/23 18:45 Uncoded Social History Smoking Status: Former smoker ROS ROS ED Constitutional Constitutional ED: Denies chills, fever(s), subjective, sweats or weight loss Eyes Eyes: Denies blurry vision, change in vision or diplopia ENT ENT ED: Reports other Details: Change in voice ; Denies ear pain, rhinorrhea or sore throat Cardiovascular Cardiovascular: Denies chest pain, orthopnea, palpitations or paroxysmal nocturnal dyspnea Respiratory/Chest Respiratory/Chest: Reports dyspnea; Denies cough, dyspnea on exertion, orthopnea or paroxysmal nocturnal dyspnea Gastrointestinal Gastrointestinal: Denies abdominal pain, constipation, diarrhea, nausea or vomiting Genitourinary Genitourinary ED: Denies dysuria or hematuria Musculoskeletal Musculoskeletal: Denies back pain or neck pain Integumentary Reports rash Neurologic Neurologic: Denies headache(s) Endocrine Endocrinology: Denies cold intolerance or heat intolerance Hematologic/Lymphatic Hematologic/Lymphatic: Reports systems reviewed and no addt'l complaints, except as documented Allergic/Immunologic Allergic/Immunologic ED: Reports mouth swelling and urticaria; Denies tongue swelling EXAM Physical Exam Const Vital Signs: 06/07/23 18:43 06/07/23 19:00 06/07/23 19:30 Temperature 97.2 F L Temperature Source Temporal Pulse Rate 76 112 H 104 H Respiratory Rate 16 17 15 Blood Pressure 118/102 H 146/99 H 135/88 H Blood Pressure Mean 107 114 103 Pulse Ox 97 Oxygen Delivery Method Room Air 06/07/23 20:00 06/07/23 20:30 06/07/23 21:00 Temperature Temperature Source Pulse Rate 93 79 Respiratory Rate 19 H 19 H Blood Pressure 90/43 L 116/83 H 134/119 H Blood Pressure Mean 53 94 125 Pulse Ox Oxygen Delivery Method 06/07/23 21:30 06/07/23 22:00 Temperature Temperature Source Pulse Rate 77 79 Respiratory Rate 12 18 Blood Pressure 122/85 H 115/78 Blood Pressure Mean 97 89 Pulse Ox Oxygen Delivery Method Positive well nourished and well developed Constitutional Narrative: Vital signs are noted. She is not hypoxic. Patient has a muffled voice. General Appearance ED: well developed and NAD; Negative for pallor HEENT Reports moist mucous membranes HEENT Narrative: There is swelling of the uvula and soft palate. There is no trismus. There is no swelling of the tongue or lips. There is no erythema or exudate of the posterior pharynx. Eyes PERRL and EOMs intact bilaterally General Eye ED: Negative for pale conjunctiva or scleral icterus Neck no lymphadenopathy, supple and no JVD Neck Narrative: Trachea is midline. There is no inspiratory expiratory stridor. 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 Neuro oriented x3, CN's II-XII intact bilaterally and no sensory deficits noted Sensorium / Orientation: alert Motor Exam: strength 5/5 throughout Psych mental status grossly normal Skin No no rashes or lesions noted, no wounds and skin turgor normal Skin Narrative: Patient has generalized urticaria. General Skin Exam: elasticity normal; Negative for jaundice or pallor MDM MDM MDM Narrative Medical decision making narrative: Patient with known allergies seen ENT. She has evidence of angioedema with urticaria. She has a left allergic angioedema. Will treat with epinephrine, Benadryl, Solu-Medrol and IV Pepcid. Will reevaluate as needed. Treatment and Re-Evaluation :: Patient was reassessed at 1926. Rash has improved slightly. The angioedema has improved by at minimum of 50%. Her voice is no longer muffled. Patient was reassessed at 2000. Angioedema has resolved. Rash has improved markedly. Spoke to patient. She is getting allergy shots for dust and mold etc. She has environmental allergies not to any medications. Patient was assessed at 2104. Her rash is improved by 75 to 90%. Her voice is normal. There is no angioedema. Patient was able to eat without difficulty. Patient was reassessed at 2140. She has faint rash noted on her right and left leg anteriorly. Will reassess in 30 minutes. Patient was reassessed at 2228. There is no angioedema. There is no hoarse voice. There is no stridor. Lungs are clear to auscultation. Heart is regular without murmur, gallop or rub. Rate is normal. Patient has a couple of faint hives noted on the upper extremity. Plan is to discharge with prescription for prednisone and Pepcid. She is to call Dr. Jered Brady who she sees for environmental allergies and allergy shots. Critical Care Time Critical Care Time: Yes Critical care time (excluding procedures): 30-74 minutes (31), Including time spent: (History, physical, documentation, treatment for allergic angioedema with epinephrine and other IV meds, review of prior records), Discussing w/Patient &/or Family/Director Of Staff Development and Performing Direct Patient Care at Bedside Discharge Plan Triage Chief Complaint: Allergic Reaction ED Provider: Collin Allen Dx/Rx/DC Orders Clinical Impression: Allergic angioedema, Urticaria Instructions: ED General Allergic Reactions, ED Angioedema Prescriptions: New famotidine [Pepcid] 20 mg tablet 20 mg PO BID Qty: 8 0RF prednisone 20 mg tablet 40 mg PO DAILY Qty: 8 0RF No Action prednisone 20 MG tablet 40 mg PO DAILY Qty: 10 0RF Rx Instructions: With food prednisone 50 mg tablet 50 mg PO DAILY Qty: 5 0RF famotidine [Pepcid] 40 mg tablet 40 mg PO DAILY Qty: 14 0RF prednisone 20 mg tablet 40 mg PO DAILY 7 Days Qty: 14 0RF naproxen [Naprosyn] 500 mg tablet 500 mg PO BID PRN (Reason: pain) Qty: 20 0RF albuterol sulfate [Ventolin HFA] 90 mcg/actuation HFA aerosol inhaler 1 - 2 puff inhalation Q4H PRN PRN (Reason: Wheezing) Qty: 1 0RF prednisone 20 mg tablet 40 mg PO DAILY Qty: 8 0RF famotidine [Pepcid] 20 mg tablet 20 mg PO BID Qty: 14 0RF epinephrine [EpiPen] 0.3 mg/0.3 mL auto-injector 0.3 mg IM Q15M PRN (Reason: anaphylaxis) Qty: 2 0RF Primary Care Provider: Care Physician,No Primary Referrals: Jered Brady MD [Med Staff - Active Staff] - 3-5 Days Care Physician,No Primary [Primary Care Provider] - Activity Restrictions/Additional Instructions: Take 1 Benadryl tablet/capsule every 6 hours for the next 4 days Disposition Disposition: Home, Self Care
[2023-06-07] MEDS: DiphenhydrAMINE 50 MG/ML Syringe 25 MG IV (18:56)
[2023-06-07] MEDS: Famotidine 200 MG/20 ML MDV 20 MG in 0.9% Normal Saline (Pres. free 8 ML 300 MG IV (19:30)
== END 2023-06-07 22:40 | disposition home or self-care (01) ==
PROVIDERS: Emergency Provider Emergency Medicine; Visit Provider Emergency Medicine
DX: T78.3XXA Angioneurotic edema, initial encounter (principal); T78.40XA Allergy, unspecified, initial encounter; Z87.891 Personal history of nicotine dependence; X58.XXXA Exposure to other specified factors, initial encounter
CPT/HCPCS: 96374; 96375; 99282; A4216; J3490

== ENCOUNTER → 2023-07-13 | Outpatient (CLI) | payer MEDICAID, SELFPAY | END | disposition home or self-care (01) | PROVIDERS: PCP Nurse Practitioner Family; Referring Provider Otolaryngology Otolaryngology/Facial Plastic Surgery; Visit Provider Otolaryngology Otolaryngology/Facial Plastic Surgery | DX: T78.40XA Allergy, unspecified, initial encounter (principal) | CPT/HCPCS: 36415; 86003 ==

== ENCOUNTER → 2023-07-20 | Outpatient (CLI) | payer MEDICAID, SELFPAY ==
[2023-07-21 05:07] LABS: Immunoglobulin A 342 mg/dL (87-352)
== END | disposition home or self-care (01) ==
LOC: LAB 11:31
PROVIDERS: PCP Nurse Practitioner Family; Referring Provider Internal Medicine Nephrology; Visit Provider Internal Medicine Nephrology
DX: R31.29 Other microscopic hematuria (principal)
CPT/HCPCS: 36415; 82784

== ENCOUNTER → 2023-08-05 | Outpatient (CLI) | payer MEDICAID, SELFPAY ==
[2023-08-05 13:45] LABS: Bacteria 0 SEEN /hpf (None Seen); Mucous, Urine 0 SEEN /hpf (<or=2+)
[2023-08-05 14:36] LABS: Color, Urine Yellow (Yellow); Glucose, Dipstick Normal (Normal); Ketone-Dipstick Negative (Negative); Leukocyte Esterase-Dipstick 25 /ul (Negative); Nitrite-Dipstick Negative (Negative); Occult Blood-Urine 250 /ul (Negative); Protein-Dipstick Negative (Negative); Urine Bilirubin Dipstick Negative (Negative); Urine Clarity Sl. Cloudy (Clear); Urine Urobilinogen Normal (Normal); Urine pH 6.5 (5.0 - 8.0)
[2023-08-05 14:45] LABS: Red Blood Cells-Urine 25-50 SEEN /hpf (0-5); Squamous Epithelial Cells - UA 0-5 SEEN /hpf (5-10); White Blood Cells 0-5 SEEN /hpf (0-5)
== END | disposition home or self-care (01) ==
LOC: LAB 13:40
PROVIDERS: PCP Nurse Practitioner Family; Referring Provider Internal Medicine Nephrology; Visit Provider Internal Medicine Nephrology
DX: R31.29 Other microscopic hematuria (principal)
CPT/HCPCS: 81001

== ENCOUNTER 2023-08-06 12:27 | Emergency (ER) | payer MEDICAID, SELFPAY ==
[2023-08-06 12:28] VITALS: BP 159/101; PULSE 81; RESP 14; TEMP 36.6; O2SAT 98; BMI 17.4
--- NOTE | 2023-08-06 12:44 | EX.ED.DYSGE1 ---
HPI <JOHNSON Sagastume - Last Filed: 08/06/23 12:55> History of Present Illness Chief Complaint: Allergic Reaction Narrative Narrative: Patient is a 32-year-old female with no significant medical history other than anxiety, depression who presents to the emergency department with complaints hive-like rash. Patient is recently tested for multiple allergies, she is allergic to corn, peanuts, multiple foods. Patient was eating tortilla chips yesterday and states that last evening she developed some hives on her lower legs, itchiness, the hives are getting worse, she is here for evaluation. She denies any other hives on her upper body, denies any difficulty breathing, denies any chest discomfort. Denies any anaphylaxis like symptoms. Denies rash on her hands or feet PFS <JOHNSON Sagastume - Last Filed: 08/06/23 12:55> [facility] Medical History (Updated 08/06/23 @ 12:51 by JOHNSON Sagastume) Anxiety Home Medications ?Medication ?Instructions ?Recorded ?Last Taken ?Type naproxen 500 mg tablet (Naprosyn) 500 mg PO BID PRN pain #20 tabs 01/02/23 Unknown Rx epinephrine 0.3 mg/0.3 mL 0.3 mg (0.3 mL) IM Q15M PRN 04/29/23 Unknown Rx injection, auto-injector (EpiPen) anaphylaxis #2 ea cholecalciferol (vitamin D3) 50 50 mcg PO DAILY 08/06/23 Unknown History mcg (2,000 unit) capsule (Vitamin D3) famotidine 20 mg tablet (Pepcid) 20 mg PO BID #14 tabs 08/06/23 Unknown Rx fluoxetine 20 mg capsule 20 mg PO DAILY 08/06/23 Unknown History hydroxyzine pamoate 25 mg capsule 25 mg PO BID 08/06/23 Unknown History prednisone 50 mg tablet 50 mg PO DAILY #5 tabs 08/06/23 Unknown Rx Allergy/AdvReac Type Severity Reaction Status Date / Time corn Allergy Severe Hives Verified 08/06/23 12:33 peanut (peanuts) Allergy Severe Hives Verified 08/06/23 12:33 sesame seed Allergy Severe Hives Verified 08/06/23 12:33 shellfish derived Allergy Severe Hives Verified 08/06/23 12:33 pseudoephedrine Allergy Mild Rash Verified 06/07/23 18:45 Environmental Allergies: Allergy Hives Verified 06/07/23 18:45 Uncoded Family History no significant family his Social History (Updated 08/06/23 @ 12:34 by Iona Hernandez) household members: children Smoking Status: Former smoker ROS <JOHNSON Sagastume - Last Filed: 08/06/23 12:55> ROS ED ROS Narrative Constitutional: Negative for fever, chills, weight loss, weakness Eyes: Negative for vision loss, vision change, double vision ENT: Negative for any sore throat, ear pain, congestion Cardiovascular: Negative for any chest pain, tightness, palpitations Respiratory: Negative for any cough, sputum production, hemoptysis, dyspnea, dyspnea on exertion, orthopnea Gastrointestinal: Negative for any abdominal pain, nausea, vomiting, diarrhea, constipation, blood in stool, blood in vomit : Negative for any urinary frequency, dysuria, retention, blood in urine Muscle skeletal: Negative for any neck pain, back pain Neurological: Negative for any headache, syncope, dizziness Skin: Negative for any abrasions, lacerations. Positive for rash, hives to bilateral legs, right buttock Psychiatric: Negative for any depression, anxiety, stress, suicidal ideation, homicidal ideation Hematologic: Negative for any excessive bruising, easy bleeding EXAM <JOHNSON Sagastume - Last Filed: 08/06/23 12:55> Physical Exam Narrative Exam Narrative: Vital signs reviewed. HEET: Head normocephalic atraumatic, TMs clear bilaterally. Posterior pharynx is clear, moist mucous membranes. Nares clear bilaterally. No oral airway swelling, no rash to the posterior pharynx Neck: Supple with no lymphadenopathy or tenderness. No signs of meningismus. Cardiac: Regular rate and rhythm no murmurs gallops or rubs, equal peripheral pulses bilaterally. Respiratory: Lungs clear to auscultation bilaterally. No chest tenderness. Abdomen: Soft, nontender, nondistended. No abdominal bruit or pulsatile masses. No hepatosplenomegaly Extremities: No peripheral edema, no signs of gross trauma or deformity. Active full range of motion of all extremities. Neuro: Cranial nerves II through XII intact, no focal neurological deficits. Skin: Clean dry and intact with no purpura, petechiae, vesicles or pustules. Patient has hive-like rash to bilateral lower extremities, as well as the right buttock. Backs/flank: No CVA tenderness, no midline spinal tenderness, no deformity. Psych: Normal mood and affect. No SI, HI or acute psychosis. Const Vital Signs: 08/06/23 12:28 08/06/23 12:51 08/06/23 13:06 Temperature 98 F 97.6 F L Temperature Source Temporal Pulse Rate 81 80 76 Respiratory Rate 14 14 14 Blood Pressure 159/101 H 122/87 H 148/90 H Blood Pressure Mean 120 98 109 Pulse Ox 98 99 95 Oxygen Delivery Method Room Air <Dr. Lokesh Lopez DO - Last Filed: 08/06/23 13:21> Physical Exam Const Vital Signs: 08/06/23 12:28 08/06/23 12:51 08/06/23 13:06 Temperature 98 F 97.6 F L Temperature Source Temporal Pulse Rate 81 80 76 Respiratory Rate 14 14 14 Blood Pressure 159/101 H 122/87 H 148/90 H Blood Pressure Mean 120 98 109 Pulse Ox 98 99 95 Oxygen Delivery Method Room Air MDM <JOHNSON Sagastume - Last Filed: 08/06/23 12:55> MDM Treatment and Re-Evaluation :: Differential diagnosis includes however is not limited to: Anaphylaxis, food allergy, environmental allergy, hives, cellulitis Patient appears to be in no obvious respiratory distress, patient's vital signs are stable. Patient presents to the emergency department for hive-like rash. This has happened in the past. Patient does have a known allergy to the tortilla chips she ate yesterday. Patient did try Benadryl at home however the rash is continuing. I believe the patient will benefit from a short course of steroids, Pepcid. Patient is agreeable, she states she has had this combination before and it helped her. She will continue to read the ingredients of all the food she eats. She instructed to follow-up outpatient. All questions answered, stable for discharge. <Dr. Lokesh Lopez DO - Last Filed: 08/06/23 13:21> MDM Treatment and Re-Evaluation :: Differential diagnosis includes however is not limited to: Anaphylaxis, food allergy, environmental allergy, hives, cellulitis Patient appears to be in no obvious respiratory distress, patient's vital signs are stable. Patient presents to the emergency department for hive-like rash. This has happened in the past. Patient does have a known allergy to the tortilla chips she ate yesterday. Patient did try Benadryl at home however the rash is continuing. I believe the patient will benefit from a short course of steroids, Pepcid. Patient is agreeable, she states she has had this combination before and it helped her. She will continue to read the ingredients of all the food she eats. She instructed to follow-up outpatient. All questions answered, stable for discharge. I have personally performed a face to face assessment of the patient and have reviewed the HUBER Note. I performed a substantive portion of the visit including all aspects of the following. My story findings include: History is 32-year-old female with history of multiple food allergies ingested corn tortilla chips yesterday. She was unaware that it contained corn. Patient states she developed hives on her legs that are seem worse today. She has been utilizing Benadryl without success. She states she has had the same hives before and responded well to prednisone, Pepcid, Benadryl therapy. Patient denies any diarrhea. No hives on her upper torso. She denies any oral pharyngeal symptoms. Exam is patient appears to have hives of the lower extremity. No acute distress. No oral pharyngeal swelling noted. Medical Decison Making patient will continue Benadryl and take prednisone and Pepcid. Return if any concerns or not improving. Discharge Plan Triage Chief Complaint: Allergic Reaction ED Midlevel Provider: Vamshi Caruso ED Provider: Lokesh Lopez Dx/Rx/DC Orders Clinical Impression: Allergic reaction, Acute urticaria Instructions: ED Hives (Adult) Prescriptions: New prednisone 50 mg tablet 50 mg PO DAILY Qty: 5 0RF famotidine [Pepcid] 20 mg tablet 20 mg PO BID Qty: 14 0RF No Action naproxen [Naprosyn] 500 mg tablet 500 mg PO BID PRN (Reason: pain) Qty: 20 0RF epinephrine [EpiPen] 0.3 mg/0.3 mL auto-injector 0.3 mg IM Q15M PRN (Reason: anaphylaxis) Qty: 2 0RF fluoxetine 20 mg capsule 20 mg PO DAILY hydroxyzine pamoate 25 mg capsule 25 mg PO BID cholecalciferol (vitamin D3) [Vitamin D3] 50 mcg (2,000 unit) capsule 50 mcg PO DAILY Primary Care Provider: Iman Peace QUALITY ASSURANCE LAB TECHNICIAN Referrals: Iman Peace QUALITY ASSURANCE LAB TECHNICIAN, QUALITY ASSURANCE LAB TECHNICIAN-C [Primary Care Provider] - Activity Restrictions/Additional Instructions: Continue to take the prednisone, Pepcid continue to read the back of labels of the food you eat. Print Language: Yakut Disposition Disposition: Home, Self Care Discharge Date/Time: 08/06/23 13:09
[2023-08-06] MEDS: Famotidine 20 MG Tablet PO (12:50)
[2023-08-06] MEDS: predniSONE 20 MG Tablet 60 MG PO (12:50)
[2023-08-06 12:51] VITALS: BP 122/87; PULSE 80; RESP 14; O2SAT 99
[2023-08-06 13:06] VITALS: BP 148/90; PULSE 76; RESP 14; TEMP 36.4; O2SAT 95
== END 2023-08-06 13:09 | disposition home or self-care (01) ==
LOC: ED 13:03
PROVIDERS: Emergency Provider Emergency Medicine; PCP Nurse Practitioner Family; Visit Provider Emergency Medicine
DX: L50.0 Allergic urticaria (principal); Z87.891 Personal history of nicotine dependence
CPT/HCPCS: 99283

== ENCOUNTER 2023-08-12 09:30 | Outpatient (RCR) | payer MEDICAID, SELFPAY ==
--- NOTE | 2023-08-03 11:55 | HP.PTEVAL_ITS ---
Patient's Visit Information Visit Information Visit Information: KERA BELL is a 32 year old F referred to Physical Therapy by TONY SUAREZ with a diagnosis of B knee weakness. Date of Evaluation: 08/03/23 Physical Therapist: Mac Forrest DPT Visit Plan Frequency: 1x/Week Duration: 6 Weeks Plan: 1) B quad, glute and core strengthening. Initially in [place] progressing to [place] as tolerated. 2) progress core stability and knee stability exercises to reduce resting on joints for stability. 3) work on squat mechanics to prevent risk of knee injury. HEP at IE: clamshell, band bridge, SL hip series, standing hip abd and mini squats to table Subjective Subjective: Pt. is here today for her initial evaluation with diagnosis of B LE weakness. Pt. reports going to physician about getting checked out for an autoimmune disorder and was found to have some food allergies, but also physician was concerned about her hypermobility and risk for joint injuries. Pt. reports overall doing okay, but has had some pain in B knees with stairs and with prolonged activities. Pt. 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 She reports doing lots of chores around the house. No consistent exercises reported. Pt. denies N/T in either LE. Pt. reports no new sudden issues, but does report easily fatigued in her LEs. Pt. is hopeful to get exercises to work on BLE strength in prevention of further issues. PMH: 3 pregnancies, no surgeries noted. Pain R knee: Pain Intensity (Out of 10): 0 L knee: Pain Intensity (Out of 10): 0 Pain Intensity Range: 0 and 1 Objective Objective: POSTURE: Pt. has general normal posture in stance. Slight femoral IR noted, but no major knee valgus/varus noted. PALPATION: Pt. reports no pain with palpation throughout BLEs. NEURO: normal throughout. ROM: R knee 0-0-140deg, L knee 0-0-140deg. HS length excessive, hip ROM, 150deg flexion, ER 90deg, IR 45deg. Pt. is generally hypermobile throughout B knees and hips. MMT: RLE: ankle 5/5 throughout; knee: ext 34.1#, flexion 21.9#; hip: flexion 18.4#, abd 17.9#. LLE ankle 5/5 throughout; knee: ext 31.8#, flexion 20.1#; hip: flexion 19.3#, abd 17.4#. GAIT: Pt. has fairly normal gait pattern, slight increase in B IR with gait, but not consistent. STAIRS: normal without increase in symptoms. SQUAT: Pt. tends to complete more of a knee bend rather than a squat, increased anterior knee translation. Better after VCing. Special Tests R Knee Valentín - Meniscus: Negative R Knee Anterior Drawer - ACL: Negative R Knee Posterior Drawer - PCL: Negative R Knee Valgus - MCL: Negative R Knee Varus - LCL: Negative R Knee Patellar Apprehension - PFS: Negative L Knee Valentín - Meniscus: Negative L Knee Anterior Drawer - ACL: Negative L Knee Posterior Drawer - PCL: Negative L Knee Valgus - MCL: Negative L Knee Varus - LCL: Negative L Knee Patellar Apprehension - PFS: Negative Balance/Special Test Scores Lower Extremity Functional Score: 58 Goals Goal 1:: LTG: Pt. to be I with HEP for BLE and core strength. Goal Time Frame: 4-6 Weeks Goal 2:: STG: Pt. be able to perform a squat with good technique to reduce stress to B knees. Goal Time Frame: 2 Weeks Goal 3:: LTG: Pt. to have increase in B knee and hip strength by 5# throughout to reduce stress to B knee and hip joints with all recreational and household activities. 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 Goal Time Frame: 4-6 Weeks Rehabilitation Potential Physical Therapy Diagnosis: Pt. has signs and symptoms consistent with hypermobility throughout BLEs. Pt. would benefit from PT to improve her overall strength and stability in her BLEs to reduce risk of joint pathology. Rehabilitation Potential: Excellent Anticipated Interventions Patient/Client Instruction: Educate patient on: Condition, Plan of Care, Risk Factors and Benefits of Fitness Program For the Purpose of:: To facilitate caregiver knowledge, To improve self management, To prevent re-injury, To improve ability to perform tasks related to life management and To improve tolerance to ADL's Therapeutic Exercise to Include: Strength training, Power training, Endurance training and Dynamic Lumbar Stabilization For the Purpose of:: To improve nutrient delivery to tissue, To increase oxygenation perfusion, To improve muscle performance and motor function, To improve ability to perform ADL's, To increase tolerance to activity/condition/position, To improve performance and independence with ADL's and To decrease level of supervision to perform tasks Text: Thank you for the opportunity to evaluate your patient. For Medicare and Medicare HMO plans, please review the plan of care and approve it. It will need to be FAXED BACK to us at [phone] for Medicare purposes. For Medicare only, by signing this I certify the plan of care. Please let me know if there are questions or concerns regarding this plan of care. Physician Signature: Date:
== END 2023-08-12 19:00 | disposition home or self-care (01) ==
LOC: PT 09:30
PROVIDERS: PCP Nurse Practitioner Family
DX: M25.50 Pain in unspecified joint (principal)
CPT/HCPCS: 97110; 97161

== ENCOUNTER 2023-10-05 15:17 | Emergency (ER) | payer MEDICAID, SELFPAY ==
[2023-10-05 15:18] VITALS: BP 151/87; PULSE 90; RESP 16; TEMP 37.1; O2SAT 95; BMI 19.1
[2023-10-05] MEDS: predniSONE 20 MG Tablet 60 MG PO (15:33)
--- NOTE | 2023-10-05 15:33 | EX.ED.DYSGE1 ---
HPI History of Present Illness Chief Complaint: Allergic Reaction Narrative Narrative: Patient with multiple disease and recently allergy tested. She states she is allergic to corn, peanuts, shellfish, sesame seeds. She believes she used to be allergic to soy and she was better at looking out for this ingredient. She recently found out about the corner and now she believes she is having a rash on her skin secondary to eating fruit Gummies that have corn syrup. She only has the hives. She does not have any difficulty swallowing or breathing. No abdominal pain. She has had this in the past similarly. She states usually she has to be on prednisone. She tried Benadryl today and it did not help. [facility] Medical History Anxiety Home Medications ?Medication ?Instructions ?Recorded ?Last Taken ?Type naproxen 500 mg tablet (Naprosyn) 500 mg PO BID PRN pain #20 tabs 01/02/23 Unknown Rx epinephrine 0.3 mg/0.3 mL 0.3 mg (0.3 mL) IM Q15M PRN 04/29/23 Unknown Rx injection, auto-injector (EpiPen) anaphylaxis #2 ea cholecalciferol (vitamin D3) 50 50 mcg PO DAILY 08/06/23 Unknown History mcg (2,000 unit) capsule (Vitamin D3) famotidine 20 mg tablet (Pepcid) 20 mg PO BID #14 tabs 08/06/23 Unknown Rx fluoxetine 20 mg capsule 20 mg PO DAILY 08/06/23 Unknown History hydroxyzine pamoate 25 mg capsule 25 mg PO BID 08/06/23 Unknown History prednisone 50 mg tablet 50 mg PO DAILY #5 tabs 08/06/23 Unknown Rx prednisone 50 mg tablet 50 mg PO DAILY #5 tabs 10/05/23 Unknown Rx Allergy/AdvReac Type Severity Reaction Status Date / Time corn Allergy Severe Hives Verified 10/05/23 15:18 peanut (peanuts) Allergy Severe Hives Verified 10/05/23 15:18 sesame seed Allergy Severe Hives Verified 10/05/23 15:18 shellfish derived Allergy Severe Hives Verified 10/05/23 15:18 pseudoephedrine Allergy Mild Rash Verified 10/05/23 15:18 Social History household members: children Smoking Status: Former smoker ROS ROS ED Constitutional Constitutional ED: Denies chills, fever(s) or sweats Eyes Eyes: Denies blurry vision or change in vision ENT ENT ED: Denies ear pain or sore throat Cardiovascular Cardiovascular: Denies chest pain, palpitations or racing heartbeat Respiratory/Chest Respiratory/Chest: Denies cough, dyspnea or sputum Gastrointestinal Gastrointestinal: Denies abdominal pain, constipation, diarrhea, nausea or vomiting Genitourinary Genitourinary ED: Denies dysuria, hematuria or urinary frequency Musculoskeletal Musculoskeletal: Denies arthralgias, myalgias or neck pain Integumentary Reports rash; Denies abscess or Abrasions Neurologic Neurologic: Denies headache(s), paresthesias or weakness Psychiatric Psychiatric: Denies anxiety, depression, suicidal ideation or suicidal thoughts Endocrine Endocrinology: Denies polydipsia or polyuria EXAM Physical Exam Const Vital Signs: 10/05/23 15:18 Temperature 98.7 F Temperature Source Temporal Pulse Rate 90 Respiratory Rate 16 Blood Pressure 151/87 H Blood Pressure Mean 108 Pulse Ox 95 Oxygen Delivery Method Room Air Positive well nourished General Appearance ED: cyanotic Eyes PERRL and EOMs intact bilaterally Neck no lymphadenopathy and supple Chest Wall inspection of chest normal Resp normal respiratory effort and clear to auscultation bilaterally Cardio regular rate and regular rhythm Extremity normal to inspection Neuro oriented x3 Sensorium / Orientation: alert Motor Exam: strength 5/5 throughout Psych mental status grossly normal Skin Skin Narrative: Urticarial rash noted on the left lower extremity, left arm, left upper shoulder posteriorly. Nontender. MDM MDM MDM Narrative Medical decision making narrative: Patient presenting with urticarial rash. She believes it is due to allergy to corn. She request prednisone which she was given 60 mg in the ED. She is given a burst for 5 days after this. She can still use Benadryl at this return precautions were discussed. Impression: 1. Urticaria Discharge Plan Triage Chief Complaint: Allergic Reaction ED Provider: Pepe Conway Dx/Rx/DC Orders Instructions: ED General Allergic Reactions Prescriptions: New prednisone 50 mg tablet 50 mg PO DAILY Qty: 5 0RF No Action naproxen [Naprosyn] 500 mg tablet 500 mg PO BID PRN (Reason: pain) Qty: 20 0RF epinephrine [EpiPen] 0.3 mg/0.3 mL auto-injector 0.3 mg IM Q15M PRN (Reason: anaphylaxis) Qty: 2 0RF fluoxetine 20 mg capsule 20 mg PO DAILY hydroxyzine pamoate 25 mg capsule 25 mg PO BID cholecalciferol (vitamin D3) [Vitamin D3] 50 mcg (2,000 unit) capsule 50 mcg PO DAILY prednisone 50 mg tablet 50 mg PO DAILY Qty: 5 0RF famotidine [Pepcid] 20 mg tablet 20 mg PO BID Qty: 14 0RF Primary Care Provider: Iman Peace NP Referrals: Iman Peace NP, PRE PLANNING ADVISOR-C [Primary Care Provider] - Print Language: Belgian Disposition Disposition: Home, Self Care
[2023-10-05 15:38] VITALS: BP 151/87; PULSE 90; RESP 16; TEMP 37.1; O2SAT 95
== END 2023-10-05 15:40 | disposition home or self-care (01) ==
LOC: ED 15:39
PROVIDERS: Emergency Provider Student in an Organized Health Care Education/Training Program; PCP Nurse Practitioner Family; Visit Provider Student in an Organized Health Care Education/Training Program
DX: L50.0 Allergic urticaria (principal); Z87.891 Personal history of nicotine dependence
CPT/HCPCS: 99282

== ENCOUNTER 2023-10-27 10:51 | Emergency (ER) | payer MEDICAID, SELFPAY ==
[2023-10-27 10:52] VITALS: BP 174/100; PULSE 88; RESP 14; TEMP 36.6; O2SAT 98
--- NOTE | 2023-10-27 10:59 | EDS_ITS ---
HPI History of Present Illness Chief Complaint: Laceration Detail of Chief Complaint: Laceration volar surface left forearm Informant: patient Occured/Mechanism Mechanism/Context: Yes other see comment below Comment: Cutting a box open. Knife slipped. She stained a laceration of the volar surface of her left forearm. Onset/Context/Timing Onset: Hours Context: Sudden Onset Timing: Continuous Quality of Pain: - (No pain) Location: Proximal ulnar forearm on volar side Current Severity: Patient has no complaint of pain Maximum Severity: Moderate Worsened by: Initial injury Relieved by: Nonapplicable Associated Symptoms Associated Symptoms: Negative for Parasthesia, Weakness or Loss of Funtion Narrative Narrative: Patient is a 32-year-old [id number] woman who presents with laceration to the volar proximal left forearm on the ulnar side. She was cutting the box. Blade slipped. She denies paresthesia, anesthesia motors. She has a remanent of her thumb. 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 Tetanus was 17 years ago. Tetanus Immunization: >10 years Prior similar symptoms: No Recent Illness/Hospitalization: No [facility] Medical History Anxiety Home Medications ?Medication ?Instructions ?Recorded ?Last Taken ?Type naproxen 500 mg tablet (Naprosyn) 500 mg PO BID PRN pain #20 tabs 01/02/23 Unknown Rx epinephrine 0.3 mg/0.3 mL 0.3 mg (0.3 mL) IM Q15M PRN 04/29/23 Unknown Rx injection, auto-injector (EpiPen) anaphylaxis #2 ea cholecalciferol (vitamin D3) 50 50 mcg PO DAILY 08/06/23 Unknown History mcg (2,000 unit) capsule (Vitamin D3) famotidine 20 mg tablet (Pepcid) 20 mg PO BID #14 tabs 08/06/23 Unknown Rx fluoxetine 20 mg capsule 20 mg PO DAILY 08/06/23 Unknown History hydroxyzine pamoate 25 mg capsule 25 mg PO BID 08/06/23 Unknown History prednisone 50 mg tablet 50 mg PO DAILY #5 tabs 08/06/23 Unknown Rx prednisone 50 mg tablet 50 mg PO DAILY #5 tabs 10/05/23 Unknown Rx Allergy/AdvReac Type Severity Reaction Status Date / Time corn Allergy Severe Hives Verified 10/27/23 10:53 peanut (peanuts) Allergy Severe Hives Verified 10/27/23 10:53 sesame seed Allergy Severe Hives Verified 10/27/23 10:53 shellfish derived Allergy Severe Hives Verified 10/27/23 10:53 pseudoephedrine Allergy Mild Rash Verified 10/27/23 10:53 Family History no significant family his Social History household members: children Smoking Status: Former smoker ROS ROS ED Musculoskeletal Musculoskeletal: Denies back pain, myalgias or neck pain Integumentary Reports other Details: Laceration forearm. Neurologic Neurologic: Denies paresthesias or weakness Hematologic/Lymphatic Hematologic/Lymphatic: Denies easy bleeding or easy bruising EXAM Physical Exam Const Vital Signs: 10/27/23 10:52 Temperature 98 F Temperature Source Temporal Pulse Rate 88 Respiratory Rate 14 Blood Pressure 174/100 H Blood Pressure Mean 124 Pulse Ox 98 Oxygen Delivery Method Room Air Positive well nourished and well developed General Appearance ED: well developed and NAD HEENT Reports moist mucous membranes normocephalic and atraumatic Eyes PERRL and EOMs intact bilaterally Neck full ROM and supple Resp normal respiratory effort Cardio regular rate and regular rhythm Extremity Negative for normal to inspection Extremity Narrative: Sensation distal to the laceration is normal. Unable to assess for median, radial and ulnar function due to the congenital anomaly. Radial pulses palpable. Neuro oriented x3 and CN's II-XII intact bilaterally Sensorium / Orientation: alert Psych Mood & Affect: anxious Skin Skin Narrative: Laceration left forearm. MDM MDM MDM Narrative Medical decision making narrative: Patient has a laceration. Patient will require repair. Patient has no neurovascular mice and there is no concern for foreign body. Therefore imaging and testing was not indicated nor was it ordered. Procedures Other Procedures Procedure(s): Laceration left forearm 2.7 cm: Patient was prepped draped sterile fashion. Area was anesthetized by local filtration with 1% lidocaine without epinephrine. Wound was cleansed. Using 5- 0 Ethilon horizontal mattress stitches placed. Total of 5 placed. Patient tolerated procedure. Discharge Plan Triage Chief Complaint: Laceration ED Provider: Collin Allen Dx/Rx/DC Orders Clinical Impression: Laceration of forearm, left Instructions: ED Laceration Extremity Prescriptions: No Action naproxen [Naprosyn] 500 mg tablet 500 mg PO BID PRN (Reason: pain) Qty: 20 0RF epinephrine [EpiPen] 0.3 mg/0.3 mL auto-injector 0.3 mg IM Q15M PRN (Reason: anaphylaxis) Qty: 2 0RF fluoxetine 20 mg capsule 20 mg PO DAILY hydroxyzine pamoate 25 mg capsule 25 mg PO BID cholecalciferol (vitamin D3) [Vitamin D3] 50 mcg (2,000 unit) capsule 50 mcg PO DAILY prednisone 50 mg tablet 50 mg PO DAILY Qty: 5 0RF famotidine [Pepcid] 20 mg tablet 20 mg PO BID Qty: 14 0RF prednisone 50 mg tablet 50 mg PO DAILY Qty: 5 0RF Primary Care Provider: Iman Peace NP Referrals: Iman Peace NP, OUTSIDE PHYSICAL DAMAGE APPRAISER-C [Primary Care Provider] - 10 Day for suture removal Activity Restrictions/Additional Instructions: 1. Keep wound clean and dry for the next 24 to 48 hours 2. Apply bacitracin ointment 2-3 times a day Print Language: Kiswahili Disposition Disposition: Home, Self Care
[2023-10-27 11:36] VITALS: BP 153/106; PULSE 91; RESP 16; TEMP 36.6; O2SAT 98
== END 2023-10-27 11:37 | disposition home or self-care (01) ==
PROVIDERS: Emergency Provider Emergency Medicine; PCP Nurse Practitioner Family; Visit Provider Emergency Medicine
DX: S51.812A Laceration without foreign body of left forearm, initial encounter (principal); Z87.891 Personal history of nicotine dependence; W26.0XXA Contact with knife, initial encounter; Y93.89 Activity, other specified; F41.9 Anxiety disorder, unspecified; Z79.899 Other long term (current) drug therapy
CPT/HCPCS: 12002; 90471; 90715; 99283

== ENCOUNTER 2023-11-09 19:14 | Emergency (ER) | payer MEDICAID, SELFPAY ==
[2023-11-09 19:14] VITALS: BP 138/92; PULSE 78; RESP 16; TEMP 36.6; O2SAT 98; BMI 19.8
[2023-11-09] MEDS: predniSONE 20 MG Tablet 60 MG PO (20:10)
[2023-11-09] MEDS: Penicillin Vk 250 MG Tablet 500 MG PO (20:10)
[2023-11-09] MEDS: DiphenhydrAMINE 50 MG/ML Syringe 25 MG IV (20:10)
[2023-11-09 20:25] VITALS: BP 142/98; PULSE 72; RESP 18; O2SAT 95
[2023-11-09] MEDS: Famotidine 200 MG/20 ML MDV 20 MG in 0.9% Normal Saline (Pres. free 8 ML 300 MG IV (20:42)
--- NOTE | 2023-11-09 21:01 | EX.ED.DYSGE1 ---
HPI History of Present Illness Chief Complaint: Rash Detail of Chief Complaint: Urticaria and dental pain tooth #18. Informant: patient Onset/Context/Timing Onset: Days (Rash started 3 days ago. Dental problems for several days.) Context: Sudden Onset Timing: Continuous Quality: Urticaria and dental pain Location: Lower extremities predominantly Current Severity: Mild Maximum Severity: Moderate Worsened by: Eating Relieved by: Nothing Associated Symptoms Associated Symptoms: none Narrative Narrative: patient is a 32-year-old female who presents with rash and dental pain. This started several days ago. She denies lightheadedness, shortness of breath, wheezing, change, chest discomfort or swelling of her lips, tongue throat. Patient has had recurrent urticaria. She has several food allergies and is concerned she may have consumed something that contained peanuts or sesame seeds since she had a burger with bun. She denies facial swelling, she denies difficulty open closing her mouth. She denies change in voice. She denies difficulty swallowing. She denies a traumatic fever, heart murmur, SBE or being on immunosuppressive meds. Prior similar symptoms: Yes Recent Illness/Hospitalization: No [facility] Medical History Anxiety Home Medications ?Medication ?Instructions ?Recorded ?Last Taken ?Type epinephrine 0.3 mg/0.3 mL 0.3 mg (0.3 mL) IM Q15M PRN 04/29/23 Unknown Rx injection, auto-injector (EpiPen) anaphylaxis #2 ea cholecalciferol (vitamin D3) 50 50 mcg PO DAILY 08/06/23 Unknown History mcg (2,000 unit) capsule (Vitamin D3) famotidine 20 mg tablet (Pepcid) 20 mg PO BID #14 tabs 08/06/23 Unknown Rx fluoxetine 20 mg capsule 20 mg PO DAILY 08/06/23 Unknown History hydroxyzine pamoate 25 mg capsule 25 mg PO BID 08/06/23 Unknown History prednisone 50 mg tablet 50 mg PO DAILY #5 tabs 10/05/23 Unknown Rx albuterol sulfate 90 mcg/actuation 1 - 2 puff inhalation Q4H PRN PRN 11/09/23 Unknown History aerosol inhaler wheezing diphenhydramine HCl 25 mg capsule 25 mg PO TID #10 caps 11/09/23 Unknown Rx (Benadryl) famotidine 20 mg tablet (Pepcid) 20 mg PO BID #10 tabs 11/09/23 Unknown Rx naproxen 500 mg tablet 500 mg PO BID #14 tabs 11/09/23 Unknown Rx penicillin V potassium 250 mg 500 mg (2 x 250 mg) PO 4X/DAY #40 11/09/23 Unknown Rx tablet tabs prednisone 20 mg tablet 40 mg (2 x 20 mg) PO DAILY #8 11/09/23 Unknown Rx TABLETS prednisone 50 mg tablet 50 mg PO DAILY PRN allergic 11/09/23 Unknown History reaction Allergy/AdvReac Type Severity Reaction Status Date / Time corn Allergy Severe Hives Verified 11/09/23 19:17 peanut (peanuts) Allergy Severe Hives Verified 11/09/23 19:17 sesame seed Allergy Severe Hives Verified 11/09/23 19:17 shellfish derived Allergy Severe Hives Verified 11/09/23 19:17 pseudoephedrine Allergy Mild Rash Verified 11/09/23 19:17 Social History household members: children Smoking Status: Former smoker ROS ROS ED Constitutional Constitutional ED: Denies chills, fever(s), subjective or sweats Eyes Eyes: Denies blurry vision or change in vision ENT ENT ED: Denies rhinorrhea or sore throat Cardiovascular Cardiovascular: Denies chest pain or palpitations Respiratory/Chest Respiratory/Chest: Denies cough, dyspnea or dyspnea on exertion Gastrointestinal Gastrointestinal: Denies abdominal pain, diarrhea, nausea or vomiting Integumentary Reports rash Neurologic Neurologic: Denies paresthesias or weakness Endocrine Endocrinology: Denies cold intolerance or heat intolerance Hematologic/Lymphatic Hematologic/Lymphatic: Reports systems reviewed and no addt'l complaints, except as documented Allergic/Immunologic Allergic/Immunologic ED: Denies mouth swelling, tongue swelling or urticaria EXAM Physical Exam Const Vital Signs: 11/09/23 19:14 11/09/23 20:25 Temperature 97.8 F Temperature Source Temporal Pulse Rate 78 72 Respiratory Rate 16 18 Blood Pressure 138/92 H 142/98 H Blood Pressure Mean 107 112 Pulse Ox 98 95 Oxygen Delivery Method Room Air Room Air Positive well nourished and well developed General Appearance ED: well developed and NAD; Negative for cyanotic, diaphoretic or pallor HEENT Reports moist mucous membranes HEENT Narrative: Patient has poor dentition with periodontal disease and gingivitis. There is significant tartar buildup on her teeth. Tooth #18 has a large cavity. She informed that the filling fell out. She denies sensitivity to hot or cold. She denies difficulty opening closing mouth is no evidence of trismus. No evidence of facial cellulitis or facial swelling. There is no concern or evidence of Justen's angina. There is no submandibular or anterior cervical lymphadenopathy. 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 General Extremety ED: Negative for edema or tenderness General Extremity: Negative for edema Neuro oriented x3, CN's II-XII intact bilaterally and no sensory deficits noted Sensorium / Orientation: alert Motor Exam: strength 5/5 throughout Psych mental status grossly normal Skin no rashes or lesions noted, no wounds and skin turgor normal General Skin Exam: elasticity normal; Negative for jaundice or pallor MDM MDM MDM Narrative Medical decision making narrative: Patient most likely has a dental infection. Will treat with penicillin and NSAIDs for pain. Patient was treated with Cipro prednisone, Pepcid and Benadryl for her urticaria. There is no concern for systemic anaphylactic reaction and reason epinephrine was not given. Patient was reassessed at 2103. Patient's rash has essentially resolved. Plan is to discharge to home with appropriate ongoing structures and medication. She is to follow-up with a dentist. She states she has an appointment. Discharge Plan Triage Chief Complaint: Rash ED Provider: Collin Allen Dx/Rx/DC Orders Clinical Impression: Contact urticaria due to food allergen, Dental infection, Gingival and periodontal disease, Dental caries into pulp Instructions: ED Dental Abscess, ED Hives (Adult) Prescriptions: New diphenhydramine HCl [Benadryl] 25 mg capsule 25 mg PO TID Qty: 10 0RF famotidine [Pepcid] 20 mg tablet 20 mg PO BID Qty: 10 0RF penicillin V potassium 250 mg tablet 500 mg PO 4X/DAY Qty: 40 0RF prednisone 20 mg tablet 40 mg PO DAILY Qty: 8 0RF naproxen 500 mg tablet 500 mg PO BID Qty: 14 0RF No Action epinephrine [EpiPen] 0.3 mg/0.3 mL auto-injector 0.3 mg IM Q15M PRN (Reason: anaphylaxis) Qty: 2 0RF prednisone 50 mg tablet 50 mg PO DAILY PRN (Reason: allergic reaction) albuterol sulfate 90 mcg/actuation HFA aerosol inhaler 1 - 2 puff inhalation Q4H PRN PRN (Reason: wheezing) fluoxetine 20 mg capsule 20 mg PO DAILY hydroxyzine pamoate 25 mg capsule 25 mg PO BID cholecalciferol (vitamin D3) [Vitamin D3] 50 mcg (2,000 unit) capsule 50 mcg PO DAILY famotidine [Pepcid] 20 mg tablet 20 mg PO BID Qty: 14 0RF prednisone 50 mg tablet 50 mg PO DAILY Qty: 5 0RF Primary Care Provider: Iman Peace NP Referrals: Iman Peace NP, SR. OPERATIONS MANAGER-C [Primary Care Provider] - As Needed Dentist,Your [STAFF PHYSICIAN] - Keep [place] appointment Print Language: Argentine Disposition Disposition: Home, Self Care
[2023-11-09 21:33] VITALS: BP 129/90; PULSE 82; RESP 20; TEMP 36.4; O2SAT 98
== END 2023-11-09 21:35 | disposition home or self-care (01) ==
PROVIDERS: Emergency Provider Emergency Medicine; PCP Nurse Practitioner Family; Visit Provider Emergency Medicine
DX: L50.6 Contact urticaria (principal); K04.7 Periapical abscess without sinus; K02.63 Dental caries on smooth surface penetrating into pulp; K05.10 Chronic gingivitis, plaque induced; Z87.891 Personal history of nicotine dependence
CPT/HCPCS: 96374; 96375; 99282; A4216; J3490

== ENCOUNTER 2024-01-03 23:45 | Emergency (ER) | payer MEDICAID, SELFPAY ==
[2024-01-03 23:47] VITALS: BP 145/103; PULSE 91; RESP 18; TEMP 36.8; O2SAT 99
--- OUTSIDE RECORDS SUMMARY | 2024-01-04 00:23 | XMS RPT_ITS | CCD ---
Author Organization [facility] [place] [facility] Care Team Providers Care Graphic Illustrator Name Role Phone PROVIDER, UNKNOWN Admitting Unavailable NOE VILLA Attending Unavailable PATIENT, SELF Referring Unavailable Queden CPA TAX.FLEX Iman A Primary Care Provider Queden CPA TAX.FLEX Iman A Primary Care Provider QUEDEN, IMAN A Primary Care Unavailable DANIELA, RAJESH Attending Unavailable QUEDEN, IMAN A Primary Care Unavailable DANIELA, RAJESH Referring Unavailable QUEDEN, IMAN A Primary Care Unavailable QUEDEN, IMAN A Referring Unavailable DANIELA, RAJESH Attending Unavailable LUAN PRA, CAROLE A Referring Unavailable QUEDEN, IMAN A Primary Care Unavailable DANIELA, RAJESH Referring Unavailable QUEDEN, IMAN A Primary Care Unavailable DANIELA, RAJESH Referring Unavailable QUEDEN, IMAN A Primary Care Unavailable DANIELA, RAJESH Referring Unavailable QUEDEN, IMAN A Primary Care Unavailable DANIELA, RAJESH Referring Unavailable QUEDEN, IMAN A Attending Unavailable QUEDEN, IMAN A Primary Care Unavailable QUEDEN, IMAN A Referring Unavailable QUEDEN, IMAN A Primary Care Unavailable Allergies Allergy Classification Reported Allergen(s) Allergy Type Date of Onset Reaction(s) Facility (1 source) Environmental allergy; Translations: [ENVIRONMENTAL] Propensity to adverse reactions (disorder) 5 [facility] [employer] [facility] Repository (15 sources) environmental [Other] Propensity to adverse reactions 5 [facility] Work Phone: (2 sources) OTHER; Translations: [OTHER] Propensity to adverse reactions (disorder) 5 [facility] Repository Medications Current Medications Medication Drug Class(es) Dates Sig (Normalized) Sig (Original) cholecalciferol 0.05 mg oral capsule (12 sources) Vitamin D Start: 06-29-2023 take 1 capsule by mouth once daily Cholecalciferol, Vitamin D3, (VITAMIN D-3) 50 mcg (2,000 unit) cap Indications: Vitamin D insufficiency Take 1 capsule by mouth once daily. 90 capsule 1 06/29/2023 Active Comment on above: Take 1 capsule by mo [facility] once daily. diphenhydrAMINE hydrochloride 25 mg oral tablet (15 sources) Histamine-1 Receptor Antagonist take 1 tablet by mouth every six hours as needed diphenhydrAMINE (BENADRYL ALLERGY) 25 mg tablet Take 25 mg by mouth every 6 hours as needed. Active Comment on above: Take 25 mg by mouth every 6 hours as needed. famotidine 20 mg oral tablet (11 sources) Histamine-2 Receptor Antagonist Start: 06-28-2023 End: 09-26-2023 take 1 tablet by mouth every twelve hours as needed famotidine (PEPCID) 20 mg tablet Take 1 tablet by mouth two times a day as needed. 60 tablet 2 06/28/2023 09/26/2023 Active Comment on above: Take 1 tablet by [facility] two times a day as needed. FLUoxetine 20 mg oral capsule (15 sources) Serotonin Reuptake Inhibitor Start: 05-21-2023 take 1 capsule by mouth once FLUoxetine (PROZAC) 20 mg capsule Take 1 capsule by mouth every afternoon. 05/21/2023 Active Comment on above: Take 1 capsule by mo [facility] every afternoon. hydrOXYzine pamoate 25 mg oral capsule (15 sources) Antihistamine Start: 05-30-2023 take 1 capsule by mouth twice daily hydrOXYzine pamoate (VISTARIL) 25 mg capsule Take 1 Capsule By Oral Route 2 times per day 05/30/2023 Active Comment on above: Take 1 Capsule By Or al Route 2 times per day nitrofurantoin, macrocrystals 100 mg oral capsule (1 source) Nitrofuran Antibacterial Start: 07-13-2023 End: 07-18-2023 take 1 capsule by mouth twice daily nitrofurantoin macrocrystal (MACRODANTIN) 100 mg capsule 1 capsule by ORAL/FEEDING TUBE route two times a day for 5 days. 10 capsule 0 07/13/2023 07/18/2023 Active microencapsulated potassium chloride 20 meq extended release oral tablet (12 sources) Start: 06-29-2023 take 1 tablet by mouth once daily potassium chloride ER (KLOR-CON M20) 20 mEq tablet Indications: Hypokalemia Take 1 tablet by mouth once daily. 3 tablet 06/29/2023 Active Comment on above: Take 1 tablet by juliocesar th once daily. sulfamethoxazole 800 mg / trimethoprim 160 mg oral tablet (2 sources) Dihydrofolate Reductase Inhibitor Antibacterial, Sulfonamide Antimicrobial Start: 06-29-2023 End: 07-02-2023 take 1 tablet by mouth twice daily sulfamethoxazole-tr imethoprim (BACTRIM DS) 800-160 mg per tablet Indications: Acute cystitis with hematuria Take 1 tablet by mouth two times a day for 3 days. 6 tablet 0 06/29/2023 07/02/2023 Active Comment on above: Take 1 tablet by juliocesar th two times a day for 3 days. Problems Active Problems Problem Classification Problem Date Documented Date Episodic/Chronic Fluid and electrolyte disorders (1 source) Hypokalemia; Translations: [Hypokalemia] 06-29-2023 Episodic Immunizations and screening for infectious disease (2 sources) Anti-nuclear factor positive; Translations: [Other specified abnormal immunological findings in serum] Onset: 07-11-2023 07-11-2023 Episodic Malaise and fatigue (2 sources) Asthenia; Translations: [Weakness] Onset: 07-11-2023 07-11-2023 Episodic Nutritional deficiencies (4 sources) Vitamin D deficiency; Translations: [Vitamin D deficiency, unspecified] Onset: 01-18-2023 06-29-2023 Chronic Other congenital anomalies (15 sources) Congenital anomaly of upper limb; 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), including shoulder girdle] Onset: 09-19-2008 03-09-2021 Chronic Other lower respiratory disease (5 sources) Dyspnea; Translations: [Shortness of breath] 07-25-2023 Episodic Other lower respiratory disease (1 source) Shortness of breath; Translations: [Shortness of breath] Onset: 07-29-2023 Episodic Other non-traumatic joint disorders (2 sources) Joint pain; Translations: [Pain in unspecified joint] 06-27-2023 Episodic Systemic lupus erythematosus and connective tissue disorders (6 sources) Sjogren's syndrome; Translations: [Sicca syndrome, unspecified] Onset: 07-29-2023 07-25-2023 Chronic Urinary tract infections (1 source) Acute cystitis; Translations: [Acute cystitis with hematuria] 06-29-2023 Episodic Past or Other Problems Problem Classification Problem Date Documented Date Episodic/Chronic Abdominal pain (2 sources) Flank pain; Translations: [Unspecified abdominal pain] Onset: 06-27-2023 06-27-2023 Episodic Administrative/social admission (15 sources) Support system deficit; Translations: [Other specified problems related to psychosocial circumstances] Onset: 10-23-2013 03-09-2021 Episodic Allergic reactions (20 sources) Urticaria; Translations: [Urticaria, unspecified] Onset: 04-26-2007 Resolved: 09-19-2008 06-28-2023 Episodic Genitourinary symptoms and ill-defined conditions (3 sources) Blood in urine; Translations: [Hematuria, unspecified] Onset: 06-27-2023 06-27-2023 Episodic Inflammatory diseases of female pelvic organs (11 sources) Bacterial vaginosis; Translations: [Acute vaginitis] Onset: 10-25-2013 Resolved: 06-20-2014 03-09-2021 Episodic Other aftercare (1 source) Other intermediate designer (current) drug therapy; Translations: [Encounter for long-term (current) drug use] Onset: 01-18-2023 Episodic Other and unspecified benign neoplasm (11 sources) Benign neoplasm of skin of trunk; Translations: [Other benign neoplasm of skin of trunk] Onset: 02-17-2006 Resolved: 07-08-2011 07-08-2011 Episodic Other complications of (11 sources) High risk ; Translations: [Supervision of high risk , unspecified, unspecified trimester] Onset: 06-09-2009 Resolved: 10-22-2009 10-22-2009 Episodic Other complications of (11 sources) Supervision of other high risk pregnancies, unspecified trimester; Translations: [Supervision of other high-risk ] Onset: 06-10-2011 Resolved: 08-30-2011 08-30-2011 Episodic Other complications of (11 sources) Group B Streptococcus carrier; Translations: [Streptococcus B carrier state complicating ] Onset: 07-12-2011 Resolved: 08-30-2011 08-30-2011 Episodic Other complications of (11 sources) Maternal tobacco use in ; Translations: [Smoking (tobacco) complicating , unspecified trimester] Onset: 10-23-2013 Resolved: 08-20-2014 03-09-2021 Episodic Other complications of (11 sources) Uterine size for dates discrepancy; Translations: [Uterine size-date discrepancy, unspecified trimester] Onset: 03-25-2014 Resolved: 06-20-2014 06-20-2014 Episodic Other non-traumatic joint disorders (1 source) Pain in unspecified joint; Translations: [Arthralgia, unspecified joint] Onset: 06-27-2023 Episodic Other and delivery including normal (20 sources) with uncertain dates; Translations: [Encounter for supervision of normal , unspecified, unspecified trimester] Onset: 10-23-2013 Resolved: 06-20-2014 03-09-2021 Episodic Other screening for suspected conditions (not mental disorders or infectious disease) (17 sources) Abnormal cervical Papanicolaou smear; Translations: [Unspecified abnormal cytological findings in specimens from cervix uteri] Onset: 11-02-2013 03-09-2021 Episodic Other skin disorders (11 sources) Disorder of skin pigmentation; Translations: [Disorder of pigmentation, unspecified] Onset: 02-17-2006 Resolved: 07-08-2011 07-08-2011 Episodic Other skin disorders (11 sources) Keloid scar; Translations: [Hypertrophic scar] Onset: 02-17-2006 Resolved: 07-08-2011 07-08-2011 Episodic Other skin disorders (11 sources) Scar conditions and fibrosis of skin; Translations: [Scar conditions and fibrosis of skin] Onset: 02-17-2006 Resolved: 07-08-2011 07-08-2011 Episodic Viral infection (11 sources) Verruca vulgaris; Translations: [Viral wart, unspecified] Onset: 03-23-2007 Resolved: 07-08-2011 07-08-2011 Episodic Results Test Name Value Interpretation Reference Range Facility XR CHEST 2V FRONTAL/LATon XR CHEST 2V FRONTAL/LAT * * *Final Report* * * DATE OF EXAM: Jul 29 2023 8:15AM [id number] - XR CHEST 2V FRONTAL/LAT / PROCEDURE REASON: multiple diagnoses * * * * Physician Interpretation * * * * EXAMINATION: CHEST RADIOGRAPH (2 VIEW FRONTAL and LATERAL) CLINICAL HISTORY: Sjogren's syndrome, with unspecified organ involvement (HCC) Shortness of breath MQ: XC2_6 EXAM DATE/TIME: 07/29/2023 8:15 AM COMPARISON: Chest x-ray on 12/07/2018 RESULT: Lines, tubes, and devices: None. Lungs and pleura: No consolidation. No lung mass. No pleural effusion. No pneumothorax. Cardiomediastinal silhouette: Normal cardiomediastinal silhouette. Bones and soft tissues: Unremarkable. IMPRESSION: No acute radiographic abnormality. [employer]hold Appliances Service Technician: PSC Transcribe Date/Time: Jul 29 2023 9:18A Dictated by : KUNAL CLINTON MD This examination was interpreted and the report reviewed and electronically signed by: KUNAL CLINTON MD on Jul 29 2023 9:18AM EST [id number] Normal [facility] XR Chest PA and Lateralon IMPRESSION: No acute radiographic abnormality. Household Appliances Service Technician: [facility] Transcribe Date/Time: Jul 29 2023 9:18A Dictated by : KUNAL CLINTON MD This examination was interpreted and the report reviewed and electronically signed by: KUNAL CLINTON MD on Jul 29 2023 9:18AM EST DIVISION OF RADIOLOGY * * *Final Report* * * DATE OF EXAM: Jul 29 2023 8:15AM [id number] - XR CHEST 2V FRONTAL/LAT / PROCEDURE REASON: multiple diagnoses * * * * Physician Interpretation * * * * EXAMINATION: CHEST RADIOGRAPH (2 VIEW FRONTAL & LATERAL) CLINICAL HISTORY: Sjogren's syndrome, with unspecified organ involvement (HCC) Shortness of breath MQ: XC2_6 EXAM DATE/TIME: 07/29/2023 8:15 AM COMPARISON: Chest x-ray on 12/07/2018 RESULT: Lines, tubes, and devices: None. Lungs and pleura: No consolidation. No lung mass. No pleural effusion. No pneumothorax. Cardiomediastinal silhouette: Normal cardiomediastinal silhouette. Bones and soft tissues: Unremarkable. DIVISION OF RADIOLOGY Provider, [facility] - 07/29/2023 * * *Final Report* * * DATE OF EXAM: Jul 29 2023 8:15AM [id number] - XR CHEST 2V FRONTAL/LAT / PROCEDURE REASON: multiple diagnoses * * * * Physician Interpretation * * * * EXAMINATION: CHEST RADIOGRAPH (2 VIEW FRONTAL & LATERAL) CLINICAL HISTORY: Sjogren's syndrome, with unspecified organ involvement (HCC) Shortness of breath MQ: XC2_6 EXAM DATE/TIME: 07/29/2023 8:15 AM COMPARISON: Chest x-ray on 12/07/2018 RESULT: Lines, tubes, and devices: None. Lungs and pleura: No consolidation. No lung mass. No pleural effusion. No pneumothorax. Cardiomediastinal silhouette: Normal cardiomediastinal silhouette. Bones and soft tissues: Unremarkable. IMPRESSION IMPRESSION: No acute radiographic abnormality. Household Appliances Service Technician: ERIC Transcribe Date/Time: Jul 29 2023 9:18A Dictated by : KUNAL CLINTON MD This examination was interpreted and the report reviewed and electronically signed by: KUNAL CLINTON MD on Jul 29 2023 9:18AM EST [facility] Radiology Study observation (narrative) [facility] XR Chest PA and LateralOrder ed By: [facility] Provider on 07-29-2023 [facility] 07-21-2023 CNPN Telephone (RHEUMN) KERA MELENDEZ ([id number]) 1990 F Date Time Provider Department 07/21/23 RAJESH SANTIAGO During your visit today, we recorded the following information about you: Kayli Sims Ma 07/21/2023 9:11 AM Signed Patients mother called. Patient saw nephrology yesterday. She had a few lab tests done. The SSA came back normal but the SSB antibody came back abnormal. The consulting project director told her to see rheumatology for this abnormal result. Please call her mother Maryann at [phone] More Kaufman RN 07/21/2023 9:33 AM Signed Called patients mother. Can schedule virtual visit to discuss further, Dr. Spicer aware of this result per result note under lab tab. No answer, left message for her to return the call. CAMILO King Alyssa, RN 07/21/2023 11:02 AM Signed Spoke with patients mother. Patient scheduled for phone visit 07/24 to discuss further. CAMILO King Binita, MD 07/21/2023 2:[address] is Dr Santiago patient More Kaufman RN 07/21/2023 2:48 PM Signed Patient scheduled with Dr. Santiago at 330PM on 07/24. More Kaufman RN Allergies As of Date: 07/21/2023 Noted Allergy Reaction environmental [Other] 10/23/2004 Date Reviewed: 07/11/2023 Reviewed by: Trudy Dasilva MA - Fully Assessed Reason for Visit: Patient Update [1234] Prescriptions as of 07/21/2023 - potassium chloride ER (KLOR-CON M20) 20 mEq tablet Take 1 tablet by mouth once daily. - Cholecalciferol, Vitamin D3, (VITAMIN D-3) 50 mcg (2,000 unit) cap Take 1 capsule by mouth once daily. - famotidine (PEPCID) 20 mg tablet Take 1 tablet by mouth two times a day as needed. - FLUoxetine (PROZAC) 20 mg capsule Take 1 capsule by mouth every afternoon. - hydrOXYzine pamoate (VISTARIL) 25 mg capsule Take 1 Capsule By Oral Route 2 times per day - diphenhydrAMINE (BENADRYL ALLERGY) 25 mg tablet Take 25 mg by mouth every 6 hours as needed. Meds Comments as of 11/04/2010: Problem List As Of Date 07/21/2023 Noted Resolved SOLAR LENGINES///DYSCHROMIA OTHER [L81.9] 02/17/2006 07/08/2011 Benign neoplasm of skin of trunk, except scrotu*02/17/2006 07/08/2011 Keloid scar [L91.0] 02/17/2006 07/08/2011 Scar condition and fibrosis of skin [L90.5] 02/17/2006 07/08/2011 Viral warts, unspecified [B07.9] 03/23/2007 07/08/2011 DERMATITIS NEC [L25.8] 04/26/2007 09/19/2008 DERMATITIS NOS [L25.9] 04/26/2007 09/19/2008 Unspecified congenital anomaly of upper limb [Q*09/19/2008 Unspecified High-Risk [O09.90] 06/09/2009 10/22/2009 SUPRF HIGH RISK NEC [V23.89] [O09.899]06/10/2011 08/30/2011 GBS (group B Streptococcus carrier), +RV cultur*07/12/2011 08/30/2011 Support system deficit [Z65.8] 10/23/2013 Tobacco use in [O99.330] 10/23/2013 08/20/2014 Uncertain dates, antepartum [Z34.90] 10/23/2013 10/25/2013 Hives [L50.9] 10/23/2013 Bacterial vaginal infection [N76.0, B96.89] 10/25/2013 06/20/2014 Abnormal Pap smear of cervix [R87.619] 11/02/2013 Supervision of other normal [Z34.80] 11/22/2013 06/20/2014 Uterine size date discrepancy [O26.849] 03/25/2014 06/20/2014 Encounter Status:Closed by MORE KAUFMAN on 07/21/23 Normal [facility] ALDOLASE BLDon 07-11-2023 Aldolase [Catalytic activity/Vol] 3.3 mU/mL 1.5 - 8.1 U/L [facility] Comment on above: This test was fausto cruz and its performance characteristics determined by [facility]'s [employer] [facility] Pathology and Laboratory Medicine [place] ([facility]). It has not been cleared or approved by the FDA. [facility] is regulated under CLIA as qualified to perform high-complexity testing. This test is used for clinical purposes. It should not be regarded as investigational or for research. Aldolase SerPl-cCnanu 2023 Aldolase [Catalytic activity/Vol] 3.3 mU/mL Normal 1.5-8.1 [facility] Comment on above: Order Comment: Speci men Type: URINE SPECIMEN Ordering Facility: [facility] Address: [address] [place] [address] Result Comment: This test was developed and its performance characteristics determined by [facility]'s [employer] [employer] [facility] Pathology and Laboratory Medicine [place] ([facility]). It has not been cleared or approved by the FDA. [facility] is regulated under CLIA as qualified to perform high-complexity testing. This test is used for clinical purposes. It should not be regarded as investigational or for research. Performed By: #### 2 4356-8 #### [facility] CLIA [id number] [address] [place] [address] [place] Aldolase [Catalytic activity /Vol]on 07-11-2023 Interpretation and review of laboratory results Normal [facility] C3 COMPLEMENTon 07-11-2023 Complement C3 [Mass/Vol] 95 mg/dL 86 - 166 mg/dL [facility] C3 SerPl-mCncon 07-11-2023 Complement C3 [Mass/Vol] 95 mg/dL Normal 86-166 [facility] Comment on above: Order Comment: Speci men Type: BLOOD SPECIMEN Ordering Facility: [facility] Address: [address] [place] [address] Performed By: #### 2 4323-8, 3016-3, 64592-0 #### [facility] CLIA [id number] [address] [place] [address] [place] C4 COMPLEMENTon 07-11-2023 Complement C4 [Mass/Vol] 16 mg/dL 13 - 46 mg/dL [facility] C4 SerPl-mCncon 07-11-2023 Complement C4 [Mass/Vol] 16 mg/dL Normal 13-46 [facility] Comment on above: Order Comment: Speci men Type: BLOOD SPECIMEN Ordering Facility: [facility] Address: [address] [place] [address] Performed By: #### 2 4323-8, 3016-3, 37237-4 #### [facility] CLIA [id number] [address] [place] [address] [place] CK SerPl-cCncon 07-11-2023 CK [Catalytic activity/Vol] 57 U/L Normal 42-196 [facility] Comment on above: Order Comment: Speci men Type: BLOOD SPECIMEN Ordering Facility: [facility] Address: [address] [place] [address] Performed By: #### 2 4323-8, 3016-3, 38188-2 #### [facility] CLIA [id number] [address] [place] [address] [place] CNOVon 07-11-2023 CNOV Office Visit (RHEUMN ) KERA MELENDEZ ([id number]) 1990 F Date Time Provider Department 07/11/23 8:00 AM RAJESH SANTIAGO During your visit today, we recorded the following information about you: Temperature Pulse Blood pressure Weight 98.6 degrees 81/minute 126/87 54.9 kg Rajesh Santiago MD 07/11/2023 7:01 PM Signed Rheumatology CONSULTATION Date of Service: 07/11/2023 Patient: Kera Melendez Primary Care Physician: Iman Park APRN.[facility] Last Rheumatology visit: None at [facility] Referring Provider: Iman Park [address] [place] [id number] Kera Melendez is here today at request of Dr. Park specifically for consultation of my opinion in regards to the chief complaint listed below. Correspondence will be shared today via the [facility] electronic health record or through regular mail, where applicable. History of Present Illness Kera Melendez is a 32 year old White female who presents on 07/11/2023 for an in-person visit for evaluation of Abnormal Lab (+LEONOR). Kera is RF negative - 9 (06/27/2023). Her most recent LEONOR was positive (06/27/2023). LEONOR 1:60, no LAUREN nor complements checked for urticaria and arthralgia. Normal SED/CRP Symptoms started after of her second child. For 10 years she has been getting hives but over the last 5 years there has been an increase in frequency. She gets hives frequently. When she scratches this hives get bigger and bigger. Described as burning and itching. Eye lids and lips will get swollen. Last time she went to ED for this she was told that the back of her throat was swollen. After she has hives, she feels that her muscles get weak. She will get episodic weakness of her thighs but also with pain. SOB only with hives No dysphagia Shoulder, elbows, wrists, knees will ache. Upper and lower back will also ache. Back and shoulder is a consistent pain. No specific EMS Peripheral joint pain only with hives. Improves with massage and heat Exacerbated by lifting/activity She gets frequent sinus infections and bronchitis yearly (though bronchitis has improved since stopping smoking). She gets allergy shots through ENT. She to allergy 4-5 years ago in [place] and was told she is not allergic to anything. Prednisone helped the most. Benadryl just makes her sleepy. Also started on pepcid for the hives. This the allergy shots help more. 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 Pain Evaluation 10/09/2020 Pain Evaluation Pain Score 6 Location Back-Lower Description Aching;Sharp Duration (#) 1 Duration (Timeframe) Days Frequency Continuous Patient-Entered Data PROMIS Assessments No data to display No data to display No data to display No data to display RAPID 3 Charles Activities of Daily Living No Data Dress self? - Get in and out of bed? - Walk outdoors? - Wash and dry body? - Get in and out of car? - RAPID 3 Disease Activity Weighed Score Levels: 0 - 1: Near Remission 1.3 - 2.0: Low Severity 2.3 - 4.0: Moderate Severity 4.3 - 10.0: High Severity No data to display Review of Systems ROS RHEUMATOLOGYAll other reviewed and negative other than HPI. Past Medical History PAST MEDICAL HISTORY Diagnosis Date Abnormal Pap smear of cervix 11/02/2013 Chlamydia 03/2013 MRSA (methicillin resistant staph aureus) culture positive 08/2010 PMH - PAST MEDICAL HISTORY OF left hand deformity PMH - PAST MEDICAL HISTORY OF 01-12-97 normal color vision Unspecified and jaundice Hives Past Surgical History PAST SURGICAL HISTORY Procedure Laterality Date NONE Family History FAMILY HISTORY Problem Relation Age of Onset Hypothyroidism Mother other (other) Mother blood pressure Hypertension Mother other (depression [Other]) Maternal Grandmother Bipolar with suicide attempt. other (manic depression [Other]) Maternal Grandmother Alcohol/Drug Maternal Grandmother ETOH Stroke Maternal Grandfather Heart Paternal Grandfather No Known Problems Daughter No Known Problems Daughter No Known Problems Son Breast Cancer Maternal Aunt Son: vasculitis Half-sister: hives Mom: thyroid Social History Social History Tobacco Use Smoking status: Former Packs/day: 0.00 Years: 0.30 Additional pack years: 0.00 Total pack years: 0.00 Types: Cigarettes Smokeless tobacc (more content not included)... Normal [facility] CREATINE KINASE/CKon 024 CK [Catalytic activity/Vol] 57 U/L 42 - 196 U/L [facility] Centromere Ab IF Ql (S)on Centromere Ab Qn (S) <0.2 Normal <1.0 [facility] [facility] Comment on above: Order Comment: Speci men Type: BLOOD SPECIMEN Ordering Facility: [facility] Address: [address] [place] [address] Result Comment: Anti -centromere antibody is used as in aid in diagnosis of systemic sclerosis. Clinical correlation is required. Test Methodology: Multiplex flow immunoassay. Performed By: #### 5 1775-5, 20129-3, 19668-4, 96195-7, 42648-1, 54270-6, 39154-2, 70693-7 #### [facility] CLIA [id number] [address] [place] [address] [place] CENTROMERE AB QUAL Negative Normal Negative [facility] Comment on above: Order Comment: Speci men Type: BLOOD SPECIMEN Ordering Facility: [facility] Address: [address] [place] [address] Performed By: #### 5 1775-5, 94929-8, 17023-7, 24768-3, 98360-7, 12704-4, 95620-4, 10868-0 #### [facility] CLIA [id number] [address] [place] [address] [place] Chromatin Ab Qnon 07-11-2023 CHROMATIN AB QUAL Negative Normal Negative [facility] Comment on above: Order Comment: Speci men Type: BLOOD SPECIMEN Ordering Facility: [facility] Address: [address] [place] [address] Performed By: #### 5 1775-5, 16993-1, 81768-3, 36291-2, 50749-7, 03471-1, 60739-5, 74107-1 #### [facility] CLIA [id number] [address] [place] [address] [place] Chromatin Ab SerPl-aCncon Chromatin Ab Qn <0.2 Normal <1.0 [facility] Comment on above: Order Comment: Speci men Type: BLOOD SPECIMEN Ordering Facility: [facility] Address: [address] [place] [address] Result Comment: Test Methodology: Multiplex flow immunoassay. Performed By: #### 5 1775-5, 73113-8, 44807-2, 34855-4, 48757-5, 29349-0, 01664-4, 40211-4 #### [facility] CLIA [id number] [address] [place] [address] [place] LAUREN Jo1 Ab Ser-aCncon 2023 Sita-1 extractable nuclear Ab Qn (S) <0.2 Normal <1.0 [facility] Comment on above: Order Comment: Speci men Type: URINE SPECIMEN Ordering Facility: [facility] Address: [address] [place] [address] Performed By: #### 2 4356-8 #### [facility] CLIA [id number] [address] [place] [address] [place] LAUREN VENEER TAPER Ab Ser-aCncon 2023 Ribonucleoprotein extractable nuclear Ab Qn (S) <0.2 Normal <1.0 [facility] Comment on above: Order Comment: Speci men Type: BLOOD SPECIMEN Ordering Facility: [facility] Address: [address] [place] [address] Performed By: #### 5 1775-5, 93503-3, 57499-1, 54655-3, 68329-8, 03837-0, 57925-9, 30956-5 #### [facility] CLIA [id number] [address] [place] [address] [place] Order Comment: Speci men Type: URINE SPECIMEN Ordering Facility: [facility] Address: [address] [place] [address] Performed By: #### 2 4356-8 #### [facility] CLIA [id number] [address] [place] [address] [place] LAUREN SM IgG Ser-aCncon 2023 Jiménez extractable nuclear IgG Qn (S) <0.2 Normal <1.0 [facility] Comment on above: Order Comment: Speci men Type: BLOOD SPECIMEN Ordering Facility: [facility] Address: [address] [place] [address] Performed By: #### 5 1775-5, 64489-7, 56795-3, 64948-6, 52745-5, 43756-1, 64422-4, 92751-2 #### [facility] CLIA [id number] [address] [place] [address] [place] LAUREN SS-A Ab Ser-aCncon 07-10 Sjogrens syndrome-A extractable nuclear Ab Qn (S) <0.2 Normal <1.0 [facility] Comment on above: Order Comment: Speci men Type: URINE SPECIMEN Ordering Facility: [facility] Address: [address] [place] [address] Result Comment: Test Methodology: Multiplex flow immunoassay. Performed By: #### 2 4356-8 #### [facility] CLIA [id number] [address] [place] [address] [place] LAUREN SS-B Ab Ser-aCncon 07-10 Sjogrens syndrome-B extractable nuclear Ab Qn (S) 6.0 AI High <1.0 [facility] Comment on above: Order Comment: Speci men Type: BLOOD SPECIMEN Ordering Facility: [facility] Address: [address] [place] [address] Result Comment: Anti -SSB (anti-La) antibody is used as an aid in diagnosis of a variety of systemic autoimmune diseases, especially for Sjogren's syndrome and systemic lupus erythematosus. Clinical correlation is required. Test Methodology: Multiplex flow immunoassay. Performed By: #### 5 1775-5, 37745-5, 47102-2, 24731-9, 80647-9, 73279-9, 36545-8, 47977-0 #### [facility] CLIA [id number] [address] [place] [address] [place] Sita-1 extractable nuclear Ab Qn (S)on 07-11-2023 SITA 1 ANTIBODY QUAL Negative Normal Negative [facility] Comment on above: Order Comment: Speci men Type: URINE SPECIMEN Ordering Facility: [facility] Address: [address] [place] [address] Result Comment: Anti -SITA-1 antibody is used as an aid in diagnosis of polymyositis and dermatomyositis especially with pulmonary involvement. A negative result cannot rule out polymyositis or dermatomyositis. Clinical correlation is required. Test Methodology: Multiplex flow immunoassay. Performed By: #### 2 4356-8 #### [facility] CLIA [id number] [address] [place] [address] [place] No Panel Informationon 07-10 Interpretation and review of laboratory results Normal [facility] PROTEIN / CREATININE RATIOon 07-11-2023 Protein/Creatinine (U) [Mass ratio] 0.07 mg/mg NINF - 0.15 mg/mg [facility] Comment on above: Adult Proteinuria Ca tegories: <0.15 mg/mg is considered normal to mildly increased 0.15 - 0.50 mg/mg is considered moderately increased >0.50 mg/mg is considered severely increased KDIGO. (2013). KDIGO 2012 Clinical Practice Guideline for the Evaluation and Management of Chronic Kidney Disease. Official Journal of the International Society of Nephrology, 3(1), 1-150. Prot/Creat Uron 07-11-2023 Protein/Creatinine (U) [Mass ratio] 0.07 mg/mg Normal <0.15 [facility] Comment on above: Order Comment: Speci men Type: URINE SPECIMEN Ordering Facility: [facility] Address: [address] [place] [address] Result Comment: Adul t Proteinuria Categories: <0.15 mg/mg is considered normal to mildly increased 0.15 - 0.50 mg/mg is considered moderately increased >0.50 mg/mg is considered severely increased KDIGO. (2013). KDIGO 2012 Clinical Practice Guideline for the Evaluation and Management of Chronic Kidney Disease. Official Journal of the International Society of Nephrology, 3(1), 1-150. Performed By: #### 2 890-2 #### [facility] CLIA [id number] [address] [place] [address] [place] Protein/Creatinine (U) [Mass ratio]on 07-11-2023 Creatinine (U) [Mass/Vol] 145.2 mg/dL 20.0 - 300.0 mg/dL [facility] Interpretation and review of laboratory results Normal [facility] Protein (U) [Mass/Vol] 10 mg/dL 0 - 20 mg/dL [facility] Creatinine (U) [Mass/Vol] 145.2 mg/dL Normal 20.0-300.0 [facility] Comment on above: Order Comment: Speci men Type: URINE SPECIMEN Ordering Facility: [facility] Address: [address] [place] [address] Performed By: #### 2 890-2 #### [facility] CLIA [id number] [address] [place] [address] [place] Protein (U) [Mass/Vol] 10 mg/dL Normal 0-20 [facility] Comment on above: Order Comment: Speci men Type: URINE SPECIMEN Ordering Facility: [facility] Address: [address] [place] [address] Performed By: #### 2 890-2 #### [facility] CLIA [id number] [address] [place] [address] [place] Ribonucleoprotein extractabl e nuclear Ab Qn (S)on 07-11-2023 ANTI-VENEER TAPER QUAL Negative Normal Negative [facility] Comment on above: Order Comment: Speci men Type: URINE SPECIMEN Ordering Facility: [facility] Address: [address] [place] [address] Performed By: #### 2 4356-8 #### [facility] CLIA [id number] [address] [place] [address] [place] RIBOSOMAL VENEER TAPER QUAL Negative Normal Negative [facility] Comment on above: Order Comment: Speci men Type: BLOOD SPECIMEN Ordering Facility: [facility] Address: [address] [place] [address] Result Comment: Anti -Ribosomal RNA (Ribosomal P) antibody is used as an aid in diagnosis of systemic autoimmune diseases especially systemic lupus erythematosus and mixed connective tissue disease. Cross-reactivity with Anti-jiménez antibody is not uncommon. Clinical correlation is required. Test Methodology: Multiplex flow immunoassay. Performed By: #### 5 1775-5, 71158-2, 18540-8, 58557-3, 96629-0, 01842-9, 74920-0, 38911-4 #### [facility] CLIA [id number] [address] [place] [address] [place] SCL-70 extractable nuclear I gG IA Qn (S)on 07-11-2023 SCLERODERMA AB QUAL Negative Normal Negative [facility] Comment on above: Order Comment: Speci men Type: URINE SPECIMEN Ordering Facility: [facility] Address: [address] [place] [address] Performed By: #### 2 4356-8 #### [facility] CLIA [id number] [address] [place] [address] [place] SCLERODERMA IGG AB <0.2 Normal <1.0 [facility] Comment on above: Order Comment: Speci men Type: URINE SPECIMEN Ordering Facility: [facility] Address: [address] [place] [address] Result Comment: Scl- 70/Scleroderma antibody test is used as an aid in diagnosis of systemic sclerosis especially the diffuse cutaneous form. A negative result cannot rule out systemic sclerosis. The final interpretation should consider clinical picture and other test results such as anti-centromere antibody. Test Methodology: Multiplex flow immunoassay. Performed By: #### 2 4356-8 #### [facility] CLIA [id number] [address] [place] [address] [place] Sjogrens syndrome-A extracta ble nuclear Ab Qn (S)on 07-11-2023 SSA ANTIBODY QUAL Negative Normal Negative [facility] Comment on above: Order Comment: Speci men Type: URINE SPECIMEN Ordering Facility: [facility] Address: [address] [place] [address] Performed By: #### 2 4356-8 #### [facility] CLIA [id number] [address] [place] [address] [place] Sjogrens syndrome-B extracta ble nuclear Ab Qn (S)on 07-11-2023 SSB ANTIBODY QUAL Positive Abnormal Negative [facility] Comment on above: Order Comment: Speci men Type: BLOOD SPECIMEN Ordering Facility: [facility] Address: [address] [place] [address] Performed By: #### 5 1775-5, 05209-3, 83003-7, 14594-4, 36723-6, 06006-7, 84662-9, 86201-3 #### [facility] CLIA [id number] [address] [place] [address] [place] Jiménez extractable nuclear Ig G Qn (S)on 07-11-2023 SM ANTIBODY QUAL Negative Normal Negative [facility] Comment on above: Order Comment: Speci men Type: BLOOD SPECIMEN Ordering Facility: [facility] Address: [address] [place] [address] Result Comment: Anti -Sm (Jiménez) antibody is used as an aid in diagnosis of systemic lupus erythematosus and its presence is associated with renal disease. A negative result cannot rule out systemic lupus erythematosus. Clinical correlation is required. Test Methodology: Multiplex flow immunoassay. Performed By: #### 5 1775-5, 01564-4, 51583-2, 77008-9, 56672-6, 91921-7, 52925-5, 91090-3 #### [facility] CLIA [id number] [address] [place] [address] [place] Urinalysis complete panel (U )on 07-11-2023 Bacteria uL 1375.9 uL High Negative [facility] Bilirubin Ql (U) Negative Negative [facility] Clarity (Unsp spec) Clear Clear [facility] Color (U) Yellow Yellow [facility] Epithelial cells LM.HPF (Urine sed) [#/Area] Moderate /HPF [facility] Glucose Test strip (U) [Mass/Vol] Negative Negative [facility] Hemoglobin Ql (U) 3+ Abnormal Negative [facility] Hyaline casts (Urine sed) [#/Area] 0 /[LPF] 0 /LPF [facility] Interpretation and review of laboratory results Abnormal [facility] Ketones Ql (U) Negative Negative [facility] Leukocyte esterase Test strip Ql (U) 1+ [facility]normal [facility] Nitrite Ql (U) Negative Negative [facility] pH (U) 5.5 [pH] NINF - 8.5 [facility] Protein (U) [Mass/Vol] Negative Negative [facility] RBC LM.HPF (Urine sed) [#/Area] 3-5 /HPF Abnormal 0-2 /HPF [facility] Specific gravity (U) [Rel density] 1.019 1.005 - 1.030 [facility] Urobilinogen Ql (U) 0.2 EU/dL 0.2-1.0 EU/dL [facility] WBC LM.HPF (Urine sed) [#/Area] 6-10 /HPF Abnormal 0-5 /HPF [facility] This test was developed and its performance characteristics determined by [facility]'s [facility] [place] ([facility]). It has not been cleared or approved by the FDA. -[facility] is regulated under CLIA as qualified to perform high-complexity testing. This test is used for clinical purposes. It should not be regarded as investigational or for research. [facility] BACTERIA UL 1375.9 uL High Negative [facility] Comment on above: Order Comment: Speci men Type: URINE SPECIMEN Ordering Facility: [facility] Address: [address] [place] [address] Performed By: #### 2 4356-8 #### [facility] CLIA [id number] [address] [place] [address] [place] Bilirubin Ql (U) Negative Normal Negative [facility] Comment on above: Order Comment: Speci men Type: URINE SPECIMEN Ordering Facility: [facility] Address: [address] [place] [address] Performed By: #### 2 4356-8 #### [facility] CLIA [id number] [address] [place] [address] [place] Clarity (Unsp spec) Clear Normal Clear [facility] Comment on above: Order Comment: Speci men Type: URINE SPECIMEN Ordering Facility: [facility] Address: [address] [place] [address] Performed By: #### 2 4356-8 #### [facility] CLIA [id number] [address] [place] [address] [place] Color (U) Yellow Normal Yellow [facility] Comment on above: Order Comment: Speci men Type: URINE SPECIMEN Ordering Facility: [facility] Address: [address] [place] [address] Performed By: #### 2 4356-8 #### [facility] CLIA [id number] [address] [place] [address] [place] Epithelial cells LM.HPF (Urine sed) [#/Area] Moderate Normal [facility] Comment on above: Order Comment: Speci men Type: URINE SPECIMEN Ordering Facility: [facility] Address: [address] [place] [address] Performed By: #### 2 4356-8 #### [facility] CLIA [id number] [address] [place] [address] [place] Glucose Test strip (U) [Mass/Vol] Negative Normal Negative [facility] Comment on above: Order Comment: Speci men Type: URINE SPECIMEN Ordering Facility: [facility] Address: [address] [place] [address] Performed By: #### 2 4356-8 #### [facility] CLIA [id number] [address] [place] [address] [place] Hemoglobin Ql (U) 3+ Abnormal Negative [facility] Comment on above: Order Comment: Speci men Type: URINE SPECIMEN Ordering Facility: [facility] Address: [address] [place] [address] Performed By: #### 2 4356-8 #### [facility] CLIA [id number] [address] [place] [address] [place] Hyaline casts (Urine sed) [#/Area] 0 /[LPF] Normal 0 /LPF [facility] Comment on above: Order Comment: Speci men Type: URINE SPECIMEN Ordering Facility: [facility] Address: [address] [place] [address] Performed By: #### 2 4356-8 #### [facility] CLIA [id number] [address] [place] [address] [place] Ketones Ql (U) Negative Normal Negative [facility] Comment on above: Order Comment: Speci men Type: URINE SPECIMEN Ordering Facility: [facility] Address: [address] [place] [address] Performed By: #### 2 4356-8 #### [facility] CLIA [id number] [address] [place] [address] [place] Leukocyte esterase Test strip Ql (U) 1+ Abnormal Negative [facility] Comment on above: Order Comment: Speci men Type: URINE SPECIMEN Ordering Facility: [facility] Address: [address] [place] [address] Performed By: #### 2 4356-8 #### [facility] CLIA [id number] [address] [place] [address] [place] Nitrite Ql (U) Negative Normal Negative [facility] Comment on above: Order Comment: Speci men Type: URINE SPECIMEN Ordering Facility: [facility] Address: [address] [place] [address] Performed By: #### 2 4356-8 #### [facility] CLIA [id number] [address] [place] [address] [place] pH (U) 5.5 [pH] Normal <8.5 [facility] Comment on above: Order Comment: Speci men Type: URINE SPECIMEN Ordering Facility: [facility] Address: [address] [place] [address] Performed By: #### 2 4356-8 #### [facility] CLIA [id number] [address] [place] [address] [place] Protein (U) [Mass/Vol] Negative Normal Negative [facility] Comment on above: Order Comment: Speci men Type: URINE SPECIMEN Ordering Facility: [facility] Address: [address] [place] [address] Performed By: #### 2 4356-8 #### [facility] CLIA [id number] [address] [place] [address] [place] RBC LM.HPF (Urine sed) [#/Area] 3-5 /HPF Abnormal 0-2 /HPF [facility] Comment on above: Order Comment: Speci men Type: URINE SPECIMEN Ordering Facility: [facility] Address: [address] [place] [address] Performed By: #### 2 4356-8 #### [facility] CLIA [id number] [address] [place] [address] [place] Specific gravity (U) [Rel density] 1.019 Normal 1.005-1.030 [facility] Comment on above: Order Comment: Speci men Type: URINE SPECIMEN Ordering Facility: [facility] Address: [address] [place] [address] Performed By: #### 2 4356-8 #### [facility] CLIA [id number] [address] [place] [address] [place] Urobilinogen Ql (U) 0.2 EU/dL Normal 0.2-1.0 EU/dL [facility] Comment on above: Order Comment: Speci men Type: URINE SPECIMEN Ordering Facility: [facility] Address: [address] [place] [address] Performed By: #### 2 4356-8 #### [facility] CLIA [id number] [address] [place] [address] [place] WBC LM.HPF (Urine sed) [#/Area] 6-10 /HPF Abnormal 0-5 /HPF [facility] Comment on above: Order Comment: Speci men Type: URINE SPECIMEN Ordering Facility: [facility] Address: [address] [place] [address] Performed By: #### 2 4356-8 #### [facility] CLIA [id number] [address] [place] [address] [place] LEONOR BY IFA SCREENon 06-29-19 Nuclear Ab pattern (S) [Interp] Nuclear homogeneous [facility] Nuclear Ab Ql (S) Positive Abnormal Negative [facility] Nuclear Ab Ql (S) 1:640 [facility] CNPNon 06-29-2023 CNPN Telephone (AGFAMPLE) KERA MELENDEZ ([id number]) 1990 F Date Time Provider Department 06/29/23 IMAN PARK AGFAMPLE During your visit today, we recorded the following information about you: Marissa Doran MA 06/29/2023 12:57 PM Signed Patients mother lm on requesting lab results. Please advise. FANNY Caraballo Brittny A, APRN.[facility] 06/29/2023 1:20 PM Signed LEONOR is still pending. Her potassium was on low end of normal- will send in 3 day replacement. Vitamin D was low- will need daily replacement of 2,000 international unit(s) daily. BS was 72 on CMP but this is not concerningly low. Will monitor periodically. Make sure she is eating regularly. Remaining labs were normal. Inflammatory markers and Rheumatoid factor was negative. Iman Park APRN.[facility] 06/29/2023 1:24 PM Signed Addended by: IMAN PARK on: 06/29/2023 01:24 PM Modules accepted: Marissa Banks MA 06/29/2023 5:06 PM Signed Pt. Received my chart message. FANNY Caraballo Brittny A, APRN.[facility] 06/30/2023 10:37 AM Signed LEONOR was positive (marker for possible autoimmune). Referral placed for Rheumatology. There is a practice at [facility] [phone] [facility] Appointment: Iman Park APRN.CNP 06/30/2023 10:37 AM Signed Addended by: IMAN PARK on: 06/30/2023 10:37 AM Modules accepted: Marissa Banks MA 07/01/2023 10:03 AM Signed Patient read her my chart message. Marissa Doran MA Allergies As of Date: 06/29/2023 Noted Allergy Reaction environmental [Other] 10/23/2004 Date Reviewed: 06/27/2023 Reviewed by: Iman Park APRN.[facility] - Fully Assessed Reason for Visit: Results [95] Primary Visit Diagnosis:Hypokalemia [E87.6] Other Visit Diagnoses:Vitamin D insufficiency [E55.9] Positive LEONOR (antinuclear antibody) [R76.8] Order(s):potassium chloride ER (KLOR-CON M20) 20 mEq tabletTake 1 tablet by mouth once daily.Disp: 3 tabletRfl: 0 Cholecalciferol, Vitamin D3, (VITAMIN D-3) 50 mcg (2,000 unit) capTake 1 capsule by mouth once daily.Disp: 90 capsuleRfl: 1 CONSULT TO RHEUM/IMMUN DISEASE [9039] Order #: [id number]: 1 FUTURE Prescriptions as of 07/01/2023 - sulfamethoxazole-trime thoprim (BACTRIM DS) 800-160 mg per tablet Take 1 tablet by mouth two times a day for 3 days. - potassium chloride ER (KLOR-CON M20) 20 mEq tablet Take 1 tablet by mouth once daily. - Cholecalciferol, Vitamin D3, (VITAMIN D-3) 50 mcg (2,000 unit) cap Take 1 capsule by mouth once daily. - famotidine (PEPCID) 20 mg tablet Take 1 tablet by mouth two times a day as needed. - FLUoxetine (PROZAC) 20 mg capsule Take 1 capsule by mouth every afternoon. - hydrOXYzine pamoate (VISTARIL) 25 mg capsule Take 1 Capsule By Oral Route 2 times per day - diphenhydrAMINE (BENADRYL ALLERGY) 25 mg tablet Take 25 mg by mouth every 6 hours as needed. 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 Unspecified High-Risk [O09.90] 06/09/2009 10/22/2009 SUPRF HIGH RISK NEC [V23.89] [O09.899]06/10/2011 08/30/2011 GBS (group B Streptococcus carrier), +RV cultur*07/12/2011 08/30/2011 Support system deficit [Z65.8] 10/23/2013 Tobacco use in [O99.330] 10/23/2013 08/20/2014 Uncertain dates, antepartum [Z34.90] 10/23/2013 10/25/2013 Hives [L50.9] 10/23/2013 Bacterial vaginal infection [N76.0, B96.89] 10/25/2013 06/20/2014 Abnormal Pap smear of cervix [R87.619] 11/02/2013 Supervision of other normal [Z34.80] 11/22/2013 06/20/2014 Uterine size date discrepancy [O26.849] 03/25/2014 06/20/2014 Prescriptions ordered this encounter Disp Refills Start End POTASSIUM CHLORIDE ER 20 MEQ TABLET,* 3 ta* 0 06/29/2023 Route: ORAL Sig: Take 1 tablet by mouth once daily. CHOLECALCIFEROL (VITAMIN D3) 50 MCG * 90 c* 1 06/29/2023 Route: ORAL Sig: Take 1 capsule by mouth once daily. Encounter Status:Closed by MARISSA DORAN on 06/29/23 [facility] CNPN Telephone (FALE) KERA MELENDEZ ([id number]) 1990 F Date Time Provider Department 06/29/23 [facility] During your visit today, we recorded the following information about you: Anuradha Delong MA 06/29/2023 12:23 PM Signed Patient's mother left message stating they saw patient's results on MyChart and she is worried she needs an antibiotic due to her UA results. Please advise. FANNY Sullivan Kimberly C, DO 06/29/2023 12:27 PM Signed I will send in Rx for antibiotic DO Nancy Tran Mary, MA 06/29/2023 12:57 PM Signed Patients mother notified. Marissa Doran MA Allergies As of Date: 06/29/2023 Noted Allergy Reaction environmental [Other] 10/23/2004 Date Reviewed: 06/27/2023 Reviewed by: Iman Park APRN.BOAT DECKHAND - Fully Assessed Reason for Visit: Patient Question [0257] Results [95] Primary Visit Diagnosis:Acute cystitis with hematuria [N30.01] Order(s):sulfamethoxaz ole-trimethoprim (BACTRIM DS) 800-160 mg per tabletTake 1 tablet by mouth two times a day for 3 days.Disp: 6 tabletRfl: 0 Prescriptions as of 06/29/2023 - sulfamethoxazole-trime thoprim (BACTRIM DS) 800-160 mg per tablet Take 1 tablet by mouth two times a day for 3 days. - famotidine (PEPCID) 20 mg tablet Take 1 tablet by mouth two times a day as needed. - FLUoxetine (PROZAC) 20 mg capsule Take 1 capsule by mouth every afternoon. - hydrOXYzine pamoate (VISTARIL) 25 mg capsule Take 1 Capsule By Oral Route 2 times per day - diphenhydrAMINE (BENADRYL ALLERGY) 25 mg tablet Take 25 mg by mouth every 6 hours as needed. 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 Unspecified High-Risk [O09.90] 06/09/2009 10/22/2009 SUPRF HIGH RISK NEC [V23.89] [O09.899]06/10/2011 08/30/2011 GBS (group B Streptococcus carrier), +RV cultur*07/12/2011 08/30/2011 Support system deficit [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 Encounter Status:Closed by MARISSA DORAN on 06/29/23 [facility] 06-28-2023 MARK Telephone (AGFAMPLE) NORAKERA ([id number]) 1990 F Date Time Provider Department 06/28/23 [facility] During your visit today, we recorded the following information about you: Estelle Rodriguez MA 06/28/2023 11:31 AM Signed Patient called requesting another script of Pepcid sent to [facility] because she is having another flare up of her hives FANNY Martínez Brittny A, APRN.[facility] 06/28/2023 11:47 AM Signed Rx sent in. Iman Park APRN.[facility] 06/28/2023 11:48 AM Signed Addended by: IMAN PARK on: 06/28/2023 11:48 AM Modules accepted: Orders Estelle Rodriguez MA 06/28/2023 11:50 AM Signed Patient's mother is informed Estelle Rodriguez MA Allergies As of Date: 06/28/2023 Noted Allergy Reaction environmental [Other] 10/23/2004 Date Reviewed: 06/27/2023 Reviewed by: Iman Park APRN.BOAT DECKHAND - Fully Assessed Reason for Visit: Refill Request [94] Primary Visit Diagnosis:Urticaria [L50.9] Order(s):famotidine (PEPCID) 20 mg tabletTake 1 tablet by mouth two times a day as needed.Disp: 60 tabletRfl: 2 Prescriptions as of 06/28/2023 - famotidine (PEPCID) 20 mg tablet Take 1 tablet by mouth two times a day as needed. - FLUoxetine (PROZAC) 20 mg capsule Take 1 capsule by mouth every afternoon. - hydrOXYzine pamoate (VISTARIL) 25 mg capsule Take 1 Capsule By Oral Route 2 times per day - diphenhydrAMINE (BENADRYL ALLERGY) 25 mg tablet Take 25 mg by mouth every 6 hours as needed. 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 Unspecified High-Risk [O09.90] 06/09/2009 10/22/2009 SUPRF HIGH RISK NEC [V23.89] [O09.899]06/10/2011 08/30/2011 GBS (group B Streptococcus carrier), +RV cultur*07/12/2011 08/30/2011 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 Encounter Status:Closed by ESTELLE RODRIGUEZ on 06/28/23 Normal [facility] RHEUMATOID FACTORon 06-28-19 24 Rheumatoid factor Qn <16 IU/mL [facility] THYROID PEROXIDASE ANTIBODYo n 06-28-2023 TPO Ab Qn <5.6 IU/mL [facility] 25(OH)D3 SerPl-mCncon 2023 25-hydroxyvitamin D3 [Mass/Vol] 26.6 ng/mL Low >=30.0 [facility] Comment on above: Order Comment: Ingrid mariee Type: BLOOD SPECIMEN Ordering Facility: [facility] Address: [address] [place] [address] Result Comment: Clas sification of 25 [place] Vitamin D status: Deficiency: <= 20.0 ng/ml. Insufficiency: 21.0-29.0 ng/ml. Sufficiency: >= 30.0 ng/ml. Performed By: #### 1 989-3 #### [facility] CLIA [id number] [address] [place] [address] STATES OF [facility] LEONOR BY IFA SCREENon 06-27-19 Nuclear Ab pattern (S) [Interp] Nuclear homogeneous Normal [facility] Comment on above: Order Comment: Ingrid mariee Type: BLOOD SPECIMEN Ordering Facility: [facility] Address: [address] [place] [address] Performed By: #### A NAIFS #### [facility] CLIA [id number] [address] [place] [address] [place] Nuclear Ab Ql (S) Positive Abnormal Negative [place] Comment on above: Order Comment: Ingrid mariee Type: BLOOD SPECIMEN Ordering Facility: [facility] Address: [address] [place] [address] Result Comment: Anti -nuclear antibody test is used as an aid in diagnosis of systemic autoimmune diseases. Where positive and clinically warranted, follow-up using disease-specific testing is recommended. Low positive titers are not uncommon with advanced age, certain chronic infections, and malignancies among others. Test methodology: Indirect fluorescence immunoassay (IFA) using HEp-2 cells. 1:640 Performed By: #### A NAIFS #### [facility] CLIA [id number] [address] [place] [address] [place] C-REACTIVE PROTEINon 024 CRP [Mass/Vol] <0.9 mg/dL [facility] CBC W Auto Differential pane l (Bld)on 06-27-2023 Basophils (Bld) [#/Vol] <0.11 k/uL [facility] Basophils/100 WBC (Bld) 0.2 % [facility] Differential cell count method Nom (Bld) Auto [facility] Eosinophils (Bld) [#/Vol] 0.35 10*3/uL <0.46 k/uL [facility] Eosinophils/100 WBC (Bld) 5.4 % [facility] Erythrocyte distribution width (RBC) [Ratio] 13.4 % 11.5 - 15.0 % [facility] Hematocrit (Bld) [Volume fraction] 42.2 % 36.0 - 46.0 % [facility] Hemoglobin (Bld) [Mass/Vol] 13.8 g/dL 11.5 - 15.5 g/dL [facility] Immature granulocytes (Bld) [#/Vol] <0.10 k/uL [facility] Immature granulocytes/100 WBC (Bld) 0.2 % [facility] Lymphocytes (Bld) [#/Vol] 1.56 10*3/uL 1.00 - 4.00 k/uL [facility] Lymphocytes/100 WBC (Bld) 24.2 % [facility] MCH (RBC) [Entitic mass] 29.1 pg 26.0 - 34.0 pg [facility] MCHC (RBC) [Mass/Vol] 32.7 g/dL 30.5 - 36.0 g/dL [facility] MCV (RBC) [Entitic vol] 89.0 fL 80.0 - 100.0 fL [facility] Monocytes (Bld) [#/Vol] 0.36 10*3/uL <0.87 k/uL [facility] Monocytes/100 WBC (Bld) 5.6 % [facility] Neutrophils (Bld) [#/Vol] 4.15 10*3/uL 1.45 - 7.50 k/uL [facility] Neutrophils/100 WBC (Bld) 64.4 % [facility] Nucleated RBC (Bld) [#/Vol] [facility] Nucleated RBC/100 WBC (Bld) [Ratio] [facility] Platelet mean volume (Bld) [Entitic vol] 9.0 fL 9.0 - 12.7 fL [facility] Platelets (Bld) [#/Vol] 310 10*3/uL 150 - 400 k/uL [facility] RBC (Bld) [#/Vol] 4.74 10*6/uL 3.90 - 5.2 0 m/uL [facility] WBC (Bld) [#/Vol] 6.44 10*3/uL 3.70 - 11. 00 k/uL [facility] Basophils (Bld) [#/Vol] 10*3/uL Normal <0.11 [facility] Comment on above: Order Comment: Speci men Type: BLOOD SPECIMEN Ordering Facility: [facility] Address: [address] [place] [address] Performed By: #### 5 7021-8 #### [facility] CLIA [id number] [address] [place] [address] [place] Basophils/100 WBC (Bld) 0.2 % Normal [facility] Comment on above: Order Comment: Speci men Type: BLOOD SPECIMEN Ordering Facility: [facility] Address: [address] [place] [address] Performed By: #### 5 7021-8 #### [facility] CLIA [id number] [address] [place] [address] [place] Differential cell count method Nom (Bld) Auto Normal [facility] Comment on above: Order Comment: Speci men Type: BLOOD SPECIMEN Ordering Facility: [facility] Address: [address] [place] [address] Performed By: #### 5 7021-8 #### [facility] CLIA [id number] [address] [place] [address] [place] Eosinophils (Bld) [#/Vol] 0.35 10*3/uL Normal <0.46 [facility] Comment on above: Order Comment: Speci men Type: BLOOD SPECIMEN Ordering Facility: [facility] Address: [address] [place], [place] [address] Performed By: #### 5 7021-8 #### [facility] CLIA [id number] [address] [place] [address] [place] Eosinophils/100 WBC (Bld) 5.4 % Normal [facility] Comment on above: Order Comment: Speci men Type: BLOOD SPECIMEN Ordering Facility: [facility] Address: [address] [place] [address] Performed By: #### 5 7021-8 #### [facility] CLIA [id number] [address] [place] [address] [place] Erythrocyte distribution width (RBC) [Ratio] 13.4 % Normal 11.5-15.0 [facility] Comment on above: Order Comment: Speci men Type: BLOOD SPECIMEN Ordering Facility: [facility] Address: [address] [place] [address] Performed By: #### 5 7021-8 #### [facility] CLIA [id number] [address] [place] [address] [place] Hematocrit (Bld) [Volume fraction] 42.2 % Normal 36.0-46.0 [facility] Comment on above: Order Comment: Speci men Type: BLOOD SPECIMEN Ordering Facility: [facility] Address: [address] [place] [address] Performed By: #### 5 7021-8 #### [facility] CLIA [id number] [address] [place] [address] [place] Hemoglobin (Bld) [Mass/Vol] 13.8 g/dL Normal 11.5-15.5 [facility] Comment on above: Order Comment: Speci men Type: BLOOD SPECIMEN Ordering Facility: [facility] Address: [address] [place] [address] Performed By: #### 5 7021-8 #### [facility] CLIA [id number] [address] [place] [address] [place] Immature granulocytes (Bld) [#/Vol] 10*3/uL Normal <0.10 [facility] Comment on above: Order Comment: Speci men Type: BLOOD SPECIMEN Ordering Facility: [facility] Address: [address] [place] [address] Performed By: #### 5 7021-8 #### [facility] CLIA [id number] [address] [place] [address] [facility] Immature granulocytes/100 WBC (Bld) 0.2 % Normal [facility] Comment on above: Order Comment: Speci men Type: BLOOD SPECIMEN Ordering Facility: [facility] Address: [address] [place] [address] Performed By: #### 5 7021-8 #### [facility] CLIA [id number] [address] [place] [id number] [place] Lymphocytes (Bld) [#/Vol] 1.56 10*3/uL Normal 1.00-4.00 [facility] Comment on above: Order Comment: Speci men Type: BLOOD SPECIMEN Ordering Facility: [facility] Address: [address] [place] [address] Performed By: #### 5 7021-8 #### [facility] CLIA [id number] [address] Lymphocytes/100 WBC (Bld) 24.2 % Normal [facility] Comment on above: Order Comment: Speci men Type: BLOOD SPECIMEN Ordering Facility: [facility] Address: [address] [place] [address] Performed By: #### 5 7021-8 #### [facility] CLIA [id number] [address] [place] [address] [place] MCH (RBC) [Entitic mass] 29.1 pg Normal 26.0-34.0 [facility] Comment on above: Order Comment: Speci men Type: BLOOD SPECIMEN Ordering Facility: [facility] Address: [address] [place] [address] Performed By: #### 5 7021-8 #### [facility] CLIA [id number] [address] [place], [place] [id number] [place] [address] [place] MCHC (RBC) [Mass/Vol] 32.7 g/dL Normal 30.5-36.0 [facility] Comment on above: Order Comment: Speci men Type: BLOOD SPECIMEN Ordering Facility: [facility] Address: [address] [place] [address] Performed By: #### 5 7021-8 #### [facility] CLIA [id number] [address] [place] [address] [place] MCV (RBC) [Entitic vol] 89.0 fL Normal 80.0-100.0 [facility] Comment on above: Order Comment: Speci men Type: BLOOD SPECIMEN Ordering Facility: [facility] Address: [address] [place] [address] Performed By: #### 5 7021-8 #### [facility] CLIA [id number] [address] [place] [address] [place] Monocytes (Bld) [#/Vol] 0.36 10*3/uL Normal <0.87 [facility] Comment on above: Order Comment: Speci men Type: BLOOD SPECIMEN Ordering Facility: [facility] Address: [address] [place] [address] Performed By: #### 5 7021-8 #### [facility] CLIA [id number] [address] [place], [place] [address] [place] [address] [place] Monocytes/100 WBC (Bld) 5.6 % Normal [facility] Comment on above: Order Comment: Speci men Type: BLOOD SPECIMEN Ordering Facility: [facility] Address: [address] [place] [address] Performed By: #### 5 7021-8 #### [facility] CLIA [id number] [address] [place] [address] [place] Neutrophils (Bld) [#/Vol] 4.15 10*3/uL Normal 1.45-7.50 [facility] Comment on above: Order Comment: Speci men Type: BLOOD SPECIMEN Ordering Facility: [facility] Address: [address] [place], [place] [address] Performed By: #### 5 7021-8 #### [facility] CLIA [id number] [address] [place] [address] [place] Neutrophils/100 WBC (Bld) 64.4 % Normal [facility] Comment on above: Order Comment: Speci men Type: BLOOD SPECIMEN Ordering Facility: [facility] Address: [address] [place] [address] Performed By: #### 5 7021-8 #### [facility] CLIA [id number] [address] [place] [address] [place] Nucleated RBC (Bld) [#/Vol] Normal [facility] Comment on above: Order Comment: Speci men Type: BLOOD SPECIMEN Ordering Facility: [facility] Address: [address] [place] [address] Performed By: #### 5 7021-8 #### [facility] CLIA [id number] [address] [place] [address] [place] Nucleated RBC/100 WBC (Bld) [Ratio] Normal [facility] Comment on above: Order Comment: Speci men Type: BLOOD SPECIMEN Ordering Facility: [facility] Address: [address] [place] [address] Performed By: #### 5 7021-8 #### [facility] CLIA [id number] [address] [place] [address] [place] Platelet mean volume (Bld) [Entitic vol] 9.0 fL Normal 9.0-12.7 [facility] Comment on above: Order Comment: Speci men Type: BLOOD SPECIMEN Ordering Facility: [facility] Address: [address] [place] [address] Performed By: #### 5 7021-8 #### [facility] CLIA [id number] [address] [place] [address] [place] Platelets (Bld) [#/Vol] 310 10*3/uL Normal 150-400 [facility] Comment on above: Order Comment: Speci men Type: BLOOD SPECIMEN Ordering Facility: [facility] Address: [address] [place], [place] [address] Performed By: #### 5 7021-8 #### [facility] CLIA [id number] [address] [place] [address] [facility] RBC (Bld) [#/Vol] 4.74 10*6/uL Normal 3.90-5.20 [facility] Comment on above: Order Comment: Speci men Type: BLOOD SPECIMEN Ordering Facility: [facility] Address: [address] [place] [address] Performed By: #### 5 7021-8 #### [facility] CLIA [id number] [address] [place] [address] [facility] WBC (Bld) [#/Vol] 6.44 10*3/uL Normal 3.70-11.00 [facility] Comment on above: Order Comment: Speci men Type: BLOOD SPECIMEN Ordering Facility: [facility] Address: [address] [place] [address] Performed By: #### 5 7021-8 #### [facility] CLIA [id number] [address] [place] [address] [facility] CNOVon 06-27-2023 CNOV Office Visit (AGFAMPLE) KERA MELENDEZ ([id number]) 1990 F Date Time Provider Department 06/27/23 10:40 AM [facility]AN P[facility] During your visit today, we recorded the following information about you: Temperature Pulse Respiration Blood pressure 98.1 degrees 83/minute 16/minute 118/70 Weight Height 53.5 kg 1.708 m Iman Park, CPA TAX.BOAT DECKHAND 06/30/2023 12:03 PM Signed [facility] Iman Park CPA TAX-BOAT DECKHAND [address] [place] [address] Dept Dept. Visit Date: June 27, 2023 Ms.Sarah Irma Melendez Date of : 1990 MRN/E #: [id number] Chief Complaint: Patient presents with: New Patient: Establish care previous pcp was Dr. Terry. Would like to discuss allergies hives/swelling on legs, arms, face last time she was in the ER she was told her throat was swollen and they gave he an Epi pen injection. Worried it is an immune issue. History of Present Illness Kera Melendez is a 32 year old female presents today as a new patient. Her mother is with her today. I reviewed past medical, surgical, social, and family histories today and updated chart. Allergies, chronic medications, and supplements were also reviewed. Their main concern today is recurrent hives. Urticaria- unknown etiology Angioedema with throat [facility] in May for urticaria and angioedema Has been tested for food allergies Has been to the ER about 5 times in the last 6 months Always gets Pepcid and Prednisone Get itchy, hot Spreads all over Takes Benadryl prn Has an Epi-pen Albuterol inhaler Doesn't get them with food or environmental exposure Mother thinks it is may be from toxins, mold? Son is 9 years old and developed vasculitis in 2020 Influenza A and then developed the myositis Dad had hx of thrombosis Hx of panic attacks, anxiety Sees psychiatry Quit smoking 2 years ago Does not drink alcohol No vaping or marijuana use PAST MEDICAL HISTORY Diagnosis Date Abnormal Pap smear of cervix 11/02/2013 Chlamydia 03/2013 MRSA (methicillin resistant staph aureus) culture positive 08/2010 [facility] - PAST MEDICAL HISTORY OF left hand deformity [facility] - PAST MEDICAL HISTORY OF 01-12-97 normal color vision Unspecified and jaundice PAST SURGICAL HISTORY Procedure Laterality Date NONE Social History Tobacco Use Smoking status: Former Packs/day: 0.00 Years: 0.30 Additional pack years: 0.00 Total pack years: 0.00 Types: Cigarettes Smokeless tobacco: Never Tobacco comments: 5-6 CIGARETTES A DAY for 4 years Vaping Use Vaping Use: Never used Substance Use Topics Alcohol use: Yes Comment: rarely Drug use: No Social History Social History Narrative Not on file Family History Reviewed Including Cardiac Diseases, Psychiatric Diseases, AND Substance Abuse Problem: Hypothyroidism Relation: Mother Age of Onset: (Not Specified) Problem: other (other) Relation: Mother Age of Onset: (Not Specified) Comment: blood pressure Problem: Hypertension Relation: Mother Age of Onset: (Not Specified) Problem: other (depression [Other]) Relation: Maternal Grandmother Age of Onset: (Not Specified) Comment: Bipolar with suicide attempt. Problem: other (manic depression [Other]) Relation: Maternal Grandmother Age of Onset: (Not Specified) Problem: Alcohol/Drug Relation: Maternal Grandmother Age of Onset: (Not Specified) Comment: ETOH Problem: Stroke Relation: Maternal Grandfather Age of Onset: (Not Specified) Problem: Heart Relation: Paternal Grandfather Age of Onset: (Not Specified) Comment: Problem: No Known Problems Relation: Daughter Age of Onset: (Not Specified) Problem: No Known Problems Relation: Daughter Age of Onset: (Not Specified) Problem: No Known Problems Relation: Son Age of Onset: (Not Specified) Problem: Breast Cancer Relation: Maternal Aunt Age of Onset: (Not Specified) Comment: ALLERGIES Allergen Reactions Environmental [Othe* Current Outpatient Medications Medication Sig FLUoxetine (PROZAC) 20 mg capsule Take 1 capsule by mouth every afternoon. hydrOXYzine pamoate (VISTARIL) 25 mg capsule Take 1 Capsule By Oral Route 2 times per day diphenhydrAMINE (BENADRYL ALLERGY) 25 mg tablet Take 25 mg by mouth every 6 hours as needed. sulfamethoxazole-trime thoprim (BACTRIM DS) 800-160 mg per tablet Take 1 tablet by mouth two times a day for 3 days. potassium chloride ER (KLOR-CON M20) 20 mEq tablet Take 1 tablet by mouth once daily. Cholecalciferol, Vitamin D3, (VITAMIN D-3) 50 mcg (2,000 unit) cap Take 1 capsule by mouth once daily. famotidine (PEPCID) 20 mg tablet Take 1 tablet by mouth two times a day as needed. No current facility-administered medications for this visit. Review of Systems (more content not included)... Normal [facility] CRP SerPl-mCncon 06-27-2023 CRP [Mass/Vol] mg/L Normal <0.9 [facility] Comment on above: Order Comment: Speci men Type: BLOOD SPECIMENOrdering Facility: [facility] Address: [address] [place] [address] Performed By: #### 2 4323-8, 1987-, 3016-3 ####[facility]ART[facility] [place] LABCLIA [id number] [place] [address] [facility] Comprehensive metabolic 2000 panelon 06-27-2023 Albumin [Mass/Vol] 4.0 g/dL 3.9 - 4.9 g/dL [facility] ALP [Catalytic activity/Vol] 53 U/L 34 - 123 U/L [facility] ALT With P-5'-P [Catalytic activity/Vol] 12 U/L 7 - 38 U/L [facility] Anion gap [Moles/Vol] 11 mmol/L 9 - 18 mmol/L [facility] AST With P-5'-P [Catalytic activity/Vol] 17 U/L 13 - 35 U/L [facility] Bilirubin [Mass/Vol] 0.4 mg/dL 0.2 - 1 .3 mg/dL [facility] Calcium [Mass/Vol] 9.0 mg/dL 8.5 - 10. 2 mg/dL [facility] Chloride [Moles/Vol] 103 mmol/L 97 - 10 5 mmol/L [facility] CO2 [Moles/Vol] 25 mmol/L 22 - 30 mmol/L [facility] Creatinine [Mass/Vol] 0.90 mg/dL 0.58 - 0.96 mg/dL [facility] Estimated Glomerular Filtration Rate 87 mL/min/1.73m >=60 mL/min/1.73m [facility] Glucose [Mass/Vol] 72 mg/dL Low 74 - 99 mg/dL [facility] Potassium [Moles/Vol] 3.5 mmol/L Low 3.7 - 5.1 mmol/L [facility] Protein [Mass/Vol] 7.1 g/dL 6.3 - 8.0 g/dL [facility] Sodium [Moles/Vol] 139 mmol/L 136 - 144 mmol/L [facility] Urea nitrogen [Mass/Vol] 10 mg/dL 7 - 21 mg/dL [facility] Albumin [Mass/Vol] 4.0 g/dL Normal 3.9-4.9 [facility] Comment on above: Order Comment: Speci men Type: BLOOD SPECIMENOrdering Facility: [facility] Address: [address] [place] [address] Performed By: #### 2 4328, 1987-07, 3015-05 ####[facility] LABCLIA [id number] [place] [address] [place] [facility] ALP [Catalytic activity/Vol] 53 U/L Normal 34-123 [facility] Comment on above: Order Comment: Speci men Type: BLOOD SPECIMENOrdering Facility: [facility] Address: [address] [place] [address] Performed By: #### 2 4328, 1987-07, 3015-05 ####[facility] LABCLIA [id number] [facility] [place] [address] [place] [facility] ALT With P-5'-P [Catalytic activity/Vol] 12 U/L Normal 7-38 [facility] Comment on above: Order Comment: Speci men Type: BLOOD SPECIMENOrdering Facility: [facility] Address: [address] [place] [address] Performed By: #### 2 4328, 1987-07, 3015-05 ####[facility] LABCLIA [id number] [facility] [place] [address] [place] [facility] Anion gap [Moles/Vol] 11 mmol/L Normal 9-18 [facility] Comment on above: Order Comment: Speci men Type: BLOOD SPECIMENOrdering Facility: [facility] Address: [address] [place] [address] Performed By: #### 2 43238, 1987-07, 3015-05 ####[facility] [place] LABCLIA [id number] [facility] [place] [address] [place] [facility] AST With P-5'-P [Catalytic activity/Vol] 17 U/L Normal 13-35 [facility] Comment on above: Order Comment: Speci men Type: BLOOD SPECIMENOrdering Facility: [facility] Address: [address] [place] [address] Performed By: #### 2 4328, 1987-07, 3015-05 ####[facility] [place] LABCLIA [id number] [place] [address] [place] Bilirubin [Mass/Vol] 0.4 mg/dL Normal 0.2-1.3 [facility] Comment on above: Order Comment: Speci men Type: BLOOD SPECIMENOrdering Facility: [facility] Address: [address] [place], [place] [address] Performed By: #### 2 4328, 1987-07, 3015-05 ####[facility] [place] LABCLIA [id number] [place] [address] [place] Calcium [Mass/Vol] 9.0 mg/dL Normal 8.5-10.2 [facility] Comment on above: Order Comment: Speci men Type: BLOOD SPECIMENOrdering Facility: [facility] Address: [address] [place] [address] Performed By: #### 2 4328, 1987-07, 3015-05 ####[facility] LABCLIA [id number] [place] [address] [place] Chloride [Moles/Vol] 103 mmol/L Normal 97-105 [facility] Comment on above: Order Comment: Speci men Type: BLOOD SPECIMENOrdering Facility: [facility] Address: [address] [place] [address] Performed By: #### 2 4328, 1987-07, 3015-05 ####[facility] LABCLIA [id number] [place] [address] [place] CO2 [Moles/Vol] 25 mmol/L Normal 22-30 [facility] Comment on above: Order Comment: Speci men Type: BLOOD SPECIMENOrdering Facility: [facility] Address: [address] [place] [address] Performed By: #### 2 43205-19, 1987-07, 3015-05 ####[facility] LABCLIA [id number] [place] [address] [place] [facility] Creatinine [Mass/Vol] 0.90 mg/dL Normal 0.58-0.96 [facility] Comment on above: Order Comment: Ingrid mariee Type: BLOOD SPECIMENOrdering Facility: [facility] Address: [address] [place] [address] Performed By: #### 2 43205-19, 1987-07, 3015-05 ####[facility] LABIA [id number] [place] [address] [facility] Creatinine and Glomerular filtration rate.predicted panel (S/P/Bld) 87 mL/min/1.73m??? Normal >=60 [facility] Comment on above: Order Comment: [facility] Type: BLOOD SPECIMENOrdering Facility: [facility] Address: [address] [place] [address] Result Comment: Areli mated Glomerular Filtration Rate (eGFR) is calculated using the 2020 CKD-EPI creatinine equation. This equation utilizes serum creatinine, sex, and age as parameters. The creatinine assay has traceable calibration to isotope dilution-mass spectrometry. Refer to KDIGO guidelines for clinical interpretation. In patients with unstable renal function, e.g. those with acute kidney injury, the eGFR may not accurately reflect actual GFR. Performed By: #### 2 4322-10, 1987-07, 3015-05 ####[facility] LABIA [id number] [place] [address] [place] Glucose [Mass/Vol] 72 mg/dL Low 74-99 [facility] Comment on above: Order Comment: In[facility] Type: BLOOD SPECIMENOrdering Facility: [facility] Address: [address] [place] [address] Result Comment: The [place] Diabetes Association (ADA) provides guidance for cutoff values for fasting glucose and random glucose. The ADA defines fasting as no caloric intake for at least 8 hours. Fasting plasma glucose results between 100 to 125 mg/dL indicate increased risk for diabetes (prediabetes). Fasting plasma glucose results greater than or equal to 126 mg/dL meet the criteria for diagnosis of diabetes. In the absence of unequivocal hyperglycemia, results should be confirmed by repeat testing. In a patient with classic symptoms of hyperglycemia or hyperglycemic crisis, random plasma glucose results greater than or equal to 200 mg/dL meet the criteria for diagnosis of diabetes. Reference: Standards of Medical Care in Diabetes 2016, [place] Diabetes Association. Diabetes Care. 2016.39(Suppl 1). Performed By: #### 2 4328, 1987-07, 3015-05 ####[facility] [employer] LABCLIA [id number] [place] [address] [place] Potassium [Moles/Vol] 3.5 mmol/L Low 3.7-5.1 [facility] Comment on above: Order Comment: Ingrid mariee Type: BLOOD SPECIMENOrdering Facility: [facility] Address: [address] [place], [place] [address] Performed By: #### 2 43205-19, 1987-07, 3015-05 ####[facility] [employer] LABCLIA [id number] [place] [address] [place] Protein [Mass/Vol] 7.1 g/dL Normal 6.3-8.0 [facility] Comment on above: Order Comment: Ingrid mariee Type: BLOOD SPECIMENOrdering Facility: [facility] Address: [address] [place], [place] [address] Performed By: #### 2 4328, 1987-07, 3015-05 ####[facility] [employer] LABCLIA [id number] [place] [address] [place] Sodium [Moles/Vol] 139 mmol/L Normal 136-144 [facility] Comment on above: Order Comment: Ingrid mariee Type: BLOOD SPECIMENOrdering Facility: [facility] Address: [address] [place] [address] Performed By: #### 2 4328, 1987-07, 3015-05 ####[facility] [employer] LABCLIA [id number] [place] [address] [place] Urea nitrogen [Mass/Vol] 10 mg/dL Normal 7-21 [facility] Comment on above: Order Comment: Speci men Type: BLOOD SPECIMENOrdering Facility: [facility] Address: [address] [place] [address] Performed By: #### 2 4323-8, 1988-5, 3016-3 ####[facility] LABCLIA [id number] [place] [address] [place] ESR Westergren method (Bld) [Velocity]on 06-27-2023 ESR (Bld) [Velocity] 6 mm/h 0 - 20 mm/hr Cl [facility] ESR (Bld) [Velocity] 6 mm/h Normal 0-20 [facility] Comment on above: Order Comment: Speci men Type: BLOOD SPECIMENOrdering Facility: [facility] Address: [address] [place] [address] Performed By: #### 4 537-7 ####[facility] LABCLIA [id number] [place] [id number] [place] Rheumatoid fact SerPl-aCncon 06-27-2023 Rheumatoid factor Qn [IU]/mL Normal <16 [facility] Comment on above: Order Comment: Speci men Type: BLOOD SPECIMEN [facility] Address: [address] [place] [address] Performed By: #### 1 1572-5 #### [facility] CLIA [id number] [address] [place] [address] OF [place] THYROID PEROXIDASE ANTIBODYo n 06-27-2023 TPO Ab Qn [IU]/mL Normal <5.6 [facility] Comment on above: Order Comment: Speci men Type: BLOOD SPECIMEN [facility] Address: [address] [place] [address] Result Comment: Thyr oid Peroxidase Antibody test is used as an aid in diagnosis of autoimmune thyroid disease. Clinical correlation is required. Performed By: #### M ICRO #### [facility] CLIA [id number] [address] [id number] [address] [place] THYROID STIMULATING HORMONEo n 06-27-2023 TSH Qn 2.100 m[IU]/L 0.270 - 4.200 mIU/L [facility] TSH SerPl-aCncon 06-27-2023 TSH Qn 2.100 m[IU]/L Normal 0.270-4.200 [facility] Comment on above: Order Comment: Speci men Type: BLOOD SPECIMENOrdering Facility: [facility] Address: [address] [place] [address] Result Comment: If t he patient is , TSH reference range varies by gestational period: First Trimester (weeks 9-12): 0.180-2.990 mIU/L Second Trimester: 0.110-3.980 mIU/L Third Trimester: 0.480-4.710 mIU/L [employer] Perez et al. A Practical Approach for the Verifications and Determination of Site- and Trimester-Specific Reference Intervals for Thyroid Function tests in . Thyroid, 2019:29:3:412-420. Xu Varela, et al. 2017 Guidelines of the [place] Thyroid Association for the Diagnosis and Management of Thyroid Disease during and the . Thyroid, 2017:27:3:315-389. Performed By: #### 2 4323-8, 1988-5, 3016-3 ####[facility] LABCLIA [id number] [place] [address] [place] Urinalysis complete panel (U )on 06-27-2023 Bacteria LM.HPF (Urine sed) [#/Area] Moderate Abnormal None Seen /HPF [facility] Bilirubin Ql (U) Negative Negative [facility] Clarity (Unsp spec) Slightly Cloudy Abnormal Clear [facility] Color (U) Yellow [facility] Epithelial cells LM.HPF (Urine sed) [#/Area] Few Abnormal None Seen /HPF [facility] Glucose Test strip (U) [Mass/Vol] Negative Negative [facility] Hemoglobin Ql (U) 2+ Abnormal Negative [facility] Ketones Ql (U) Negative Negative [facility] Leukocyte esterase Test strip Ql (U) Negative Negative [facility] Nitrite Ql (U) Negative Negative [facility] pH (U) 5.5 [pH] 5.0 - 8.0 [facility] Protein (U) [Mass/Vol] Negative Negative [facility] RBC LM.HPF (Urine sed) [#/Area] 3-5 /HPF Abnormal 0-3 /HPF [facility] Specific gravity (U) [Rel density] High 1.005 - 1.030 [facility] Urobilinogen Ql (U) 0.2 EU/dL 0.2-1.0 EU/dL [facility] WBC LM.HPF (Urine sed) [#/Area] 0-5 /HPF 0-5 /HPF [facility] Bacteria LM.HPF (Urine sed) [#/Area] Moderate Abnormal None Seen [facility] Comment on above: Order Comment: Speci men Type: URINE SPECIMEN [facility] Address: [address] [place] [address] Performed By: #### 2 4356-8 #### [facility] CLIA [id number] [address] [place] [address] [place] Bilirubin Ql (U) Negative Normal Negative [facility] Comment on above: Order Comment: Speci men Type: URINE SPECIMEN [facility] Address: [address] [place] [address] Performed By: #### 2 4356-8 #### [facility] LAB CLIA [id number] [address] [place] [address] [facility] [place] Clarity (Unsp spec) Slightly Cloudy Abnormal Clear [facility] Comment on above: Order Comment: Speci men Type: URINE SPECIMEN [facility] Address: [address] [place] [address] Performed By: #### 2 4356-8 #### [facility] CLIA [id number] [address] [place] [address] [facility] [place] Color (U) Yellow Normal Yellow [facility] Comment on above: Order Comment: Speci men Type: URINE SPECIMEN [facility] Address: [address] [place] [address] Performed By: #### 2 4356-8 #### [facility] CLIA [id number] [address] [place] [address] [facility] Epithelial cells LM.HPF (Urine sed) [#/Area] Few Normal [facility] Comment on above: Order Comment: Speci men Type: URINE SPECIMEN [facility] Address: [address] [place] [address] Result Comment: Few Performed By: #### 2 4356-8 #### [facility] CLIA [id number] [address] [place] [address] [facility] [place] Glucose Test strip (U) [Mass/Vol] Negative Normal Negative [facility] Comment on above: Order Comment: Speci men Type: URINE SPECIMEN [facility] Address: [address] [place] [address] Performed By: #### 2 4356-8 #### [facility] CLIA [id number] [address] [place] [address] [facility] Hemoglobin Ql (U) 2+ Abnormal Negative [facility] [place] [facility] Comment on above: Order Comment: Speci men Type: URINE SPECIMEN [facility] Address: [address] [place] [address] Performed By: #### 2 4356-8 #### [facility] CLIA [id number] [address] [place] [address] [facility] [place] Ketones Ql (U) Negative Normal Negative [facility] Comment on above: Order Comment: Speci men Type: URINE SPECIMEN [facility] Address: [address] [place] [address] Performed By: #### 2 4356-8 #### [facility] CLIA [id number] [address] [place] [address] [facility] [place] Leukocyte esterase Test strip Ql (U) Negative Normal Negative [facility] Comment on above: Order Comment: Speci men Type: URINE SPECIMEN [facility] Address: [address] [place] [address] Performed By: #### 2 4356-8 #### [facility] CLIA [id number] [address] [place] [address] [place] Nitrite Ql (U) Negative Normal Negative [facility] Comment on above: Order Comment: Speci men Type: URINE SPECIMEN [facility] Address: [address] [place] [address] Performed By: #### 2 4356-8 #### [facility] CLIA [id number] [address] [place] [address] [place] pH (U) 5.5 [pH] Normal 5.0-8.0 [facility] Comment on above: Order Comment: Speci men Type: URINE SPECIMEN [facility] Address: [address] [place] [address] Performed By: #### 2 4356-8 #### [facility] CLIA [id number] [address] Protein (U) [Mass/Vol] Negative Normal Negative [facility] Comment on above: Order Comment: Speci men Type: URINE SPECIMEN [facility] Address: [address] [place] [address] Performed By: #### 2 4356-8 #### [facility] CLIA [id number] [address] [place] [address] [place] RBC LM.HPF (Urine sed) [#/Area] 3-5 /HPF Abnormal 0-3 /HPF [facility] Comment on above: Order Comment: Speci men Type: URINE SPECIMEN [facility] Address: [address] [place] [address] Performed By: #### 2 4356-8 #### [facility] CLIA [id number] [address] [place], [place] [id number] [facility] [place] Specific gravity (U) [Rel density] >=1.030 High 1.005-1.030 [facility] Comment on above: Order Comment: Speci men Type: URINE SPECIMEN [facility] Address: [address] [place] [address] Performed By: #### 2 4356-8 #### [facility] CLIA [id number] [address] [place] [address] [place] Urobilinogen Ql (U) 0.2 EU/dL Normal 0.2-1.0 EU/dL [facility] Comment on above: Order Comment: Speci men Type: URINE SPECIMEN [facility] Address: [address] [place] [address] Performed By: #### 2 4356-8 #### [facility] CLIA [id number] [address] [place] [address] [place] WBC LM.HPF (Urine sed) [#/Area] 0-5 /HPF Normal 0-5 /HPF [facility] Comment on above: Order Comment: Speci men Type: URINE SPECIMEN [facility] Address: [address] [place] [address] Performed By: #### 2 4356-8 #### [facility] CLIA [id number] [address] [place], [place] [id number] [place] VITAMIN D 25 HYDROXYon 06-26 25-hydroxyvitamin D3 [Mass/Vol] 26.6 ng/mL Low >=30.0 ng/mL [facility] 25(OH)D3 SerPl-ncon 2022 25-hydroxyvitamin D3 [Mass/Vol] 10.8 ng/mL Low 31.0-80.0 [facility] Comment on above: Order Comment: Speci men Type: BLOOD SPECIMEN [facility] Address: [address] [place] [address] Performed By: #### 2 4323-8, 3016-3, 80105-6 #### [facility] CLIA [id number] [address] [place] [address] [place] CBC panel Auto (Bld)on 01-18 Erythrocyte distribution width (RBC) [Ratio] 12.9 % Normal 11.5-15.0 [facility] Comment on above: Order Comment: Speci men Type: BLOOD SPECIMEN [facility]ing [facility]: [facility] Address: [address] [place] [address] Performed By: #### 2 4323-8, 6-3, 01371-4 #### [facility] CLIA [id number] [address] [place] [address] [place] Hematocrit (Bld) [Volume fraction] 44.0 % Normal 36.0-46.0 [facility] Comment on above: Order Comment: Speci men Type: BLOOD SPECIMEN Ordering Facility: [facility] Address: [address] [place], [place] [address] Performed By: #### 2 4323-8, 3, 29646-8 #### [facility] CLIA [id number] [address] [place] [address] [place] Hemoglobin (Bld) [Mass/Vol] 14.2 g/dL Normal 11.5-15.5 [facility] Comment on above: Order Comment: Speci men Type: BLOOD SPECIMEN Ordering Facility: [facility] Address: [address] [place] [address] Performed By: #### 2 4323-8, 3015-3, 40160-2 #### [facility] CLIA [id number] [address] [place] [address] [place] MCH (RBC) [Entitic mass] 29.8 pg Normal 26.0-34.0 [facility] Comment on above: Order Comment: Speci men Type: BLOOD SPECIMEN Ordering Facility: [facility] Address: [address] [place] [address] Performed By: #### 2 4323-8, 3015-3, 87533-3 #### [facility] CLIA [id number] [address] [place] [address] [place] MCHC (RBC) [Mass/Vol] 32.3 g/dL Normal 30.5-36.0 [facility] Comment on above: Order Comment: Speci men Type: BLOOD SPECIMEN Ordering Facility: [facility] Address: [address] [place] [address] Performed By: #### 2 4323-8, 3015-3, 80879-0 #### [facility] CLIA [id number] [address] [address] [place] MCV (RBC) [Entitic vol] 92.2 fL Normal 80.0-100.0 [facility] Comment on above: Order Comment: Speci men Type: BLOOD SPECIMEN Ordering Facility: [facility] Address: [address] [place] [address] Performed By: #### 2 4323-8, 3, 04313-9 #### [facility] CLIA [id number] [address] [place] [address] [place] Nucleated RBC (Bld) [#/Vol] 10*3/uL Normal <0.01 [facility] Comment on above: Order Comment: Speci men Type: BLOOD SPECIMEN Ordering Facility: [facility] Address: [address] [place] [address] Performed By: #### 2 4323-8, 3, 82212-3 #### [facility] CLIA [id number] [address] [place] [id number] [place] Platelet mean volume (Bld) [Entitic vol] 11.0 fL Normal 9.0-12.7 [facility] Comment on above: Order Comment: Speci men Type: BLOOD SPECIMEN Ordering Facility: [facility] Address: [address] [place] [address] Performed By: #### 2 4323-8, 3, 74840-0 #### [facility] CLIA [id number] [address] [place] [id number] [place] Platelets (Bld) [#/Vol] 284 10*3/uL Normal 150-400 [facility] Comment on above: Order Comment: Speci men Type: BLOOD SPECIMEN Ordering Facility: [facility] Address: [address] [place] [address] Performed By: #### 2 4323-8, 3016-3, 99840-9 #### [facility] CLIA [id number] [address] [address] [place] RBC (Bld) [#/Vol] 4.77 10*6/uL Normal 3.90-5.20 [facility] Comment on above: Order Comment: Speci men Type: BLOOD SPECIMEN Ordering Facility: [facility] Address: [address] [place] [address] Performed By: #### 2 4323-8, 3016-3, 16019-8 #### [facility] CLIA [id number] [address] [place] [address] [place] WBC (Bld) [#/Vol] 5.10 10*3/uL Normal 3.70-11.00 [facility] Comment on above: Order Comment: Speci men Type: BLOOD SPECIMEN Ordering Facility: [facility] Address: [address] [place] [address] Performed By: #### 2 4323-8, 3016-3, 60100-1 #### [facility] CLIA [id number] [address] [place] [id number] [place] Comprehensive metabolic 2000 panelon 01-18-2023 Albumin [Mass/Vol] 4.1 g/dL Normal 3.9-4.9 [facility] Comment on above: Order Comment: Speci men Type: BLOOD SPECIMEN Ordering Facility: [facility] Address: [address] [place] [address] Performed By: #### 2 4323-8, 3016-3, 58633-5 #### [facility] CLIA [id number] [address] [address] [place] ALP [Catalytic activity/Vol] 49 U/L Normal 34-123 [facility] Comment on above: Order Comment: Speci men Type: BLOOD SPECIMEN Ordering Facility: [facility] Address: [address] [place] [address] Performed By: #### 2 4323-8, 3016-3, 82693-0 #### [facility] CLIA [id number] [address] [place] [id number] [place] ALT [Catalytic activity/Vol] 9 U/L Normal 7-38 [facility] Comment on above: Order Comment: Speci men Type: BLOOD SPECIMEN Ordering Facility: [facility] Address: [address] [place] [address] Performed By: #### 2 4323-8, 6-3, 74451-6 #### [facility] CLIA [id number] [address] [place] [address] [place] Anion gap [Moles/Vol] 12 mmol/L Normal 9-18 [facility] Comment on above: Order Comment: Speci men Type: BLOOD SPECIMEN Ordering Facility: [facility] Address: [address] [place] [address] Performed By: #### 2 4323-8, 3016-3, 98371-5 #### [facility] CLIA [id number] [address] [place] [id number] [place] AST [Catalytic activity/Vol] 15 U/L Normal 13-35 [facility] Comment on above: Order Comment: Speci men Type: BLOOD SPECIMEN Ordering Facility: [facility] Address: [address] [place] [address] Performed By: #### 2 4323-8, 3016-3, 24299-1 #### [facility] CLIA [id number] [address] [place] [address] [place] Bilirubin [Mass/Vol] 0.4 mg/dL Normal 0.2-1.3 [facility] Comment on above: Order Comment: Speci men Type: BLOOD SPECIMEN Ordering Facility: [facility] Address: [address] [place] [address] Performed By: #### 2 4323-8, 3016-3, 64495-8 #### [facility] CLIA [id number] [address] [place] [address] [place] Calcium [Mass/Vol] 9.2 mg/dL Normal 8.5-10.2 [facility] Comment on above: Order Comment: Speci men Type: BLOOD SPECIMEN Ordering Facility: [facility] Address: [address] [place] [address] Performed By: #### 2 4323-8, 6-3, 96378-0 #### [facility] CLIA [id number] [address] [place] [address] [place] Chloride [Moles/Vol] 103 mmol/L Normal 97-105 [facility] Comment on above: Order Comment: Speci men Type: BLOOD SPECIMEN Ordering Facility: [facility] Address: [address] [place] [address] Performed By: #### 2 4323-8, 3016-3, 75288-7 #### [facility] CLIA [id number] [address] [place] [id number] [place] CO2 [Moles/Vol] 21 mmol/L Low 22-30 [facility] Comment on above: Order Comment: Speci men Type: BLOOD SPECIMEN Ordering Facility: [facility] Address: [address] [place] [address] Performed By: #### 2 4323-8, 3016-3, 68432-6 #### [facility] CLIA [id number] [address] [address] [place] Creatinine [Mass/Vol] 0.89 mg/dL Normal 0.58-0.96 [facility] Comment on above: Order Comment: Ingrid mariee Type: BLOOD SPECIMEN Ordering Facility: [facility] Address: [address] [place] [address] Performed By: #### 2 4323-8, 3016-3, 93553-3 #### [facility] CLIA [id number] [address] [place] [address] [place] Creatinine and Glomerular filtration rate.predicted panel (S/P/Bld) 88 mL/min/1.73m??? Normal >=60 [facility] Comment on above: Order Comment: Ingrid mariee Type: BLOOD SPECIMEN Ordering Facility: [facility] Address: [address] [place] [address] Result Comment: Areli mated Glomerular Filtration Rate (eGFR) is calculated using the 2020 CKD-EPI creatinine equation. This equation utilizes serum creatinine, sex, and age as parameters. The creatinine assay has traceable calibration to isotope dilution-mass spectrometry. Refer to KDIGO guidelines for clinical interpretation. In patients with unstable renal function, e.g. those with acute kidney injury, the eGFR may not accurately reflect actual GFR. Performed By: #### 2 4323-8, 3016-3, 42520-7 #### [facility] CLIA [id number] [address] [place], [place] [id number] [place] Glucose [Mass/Vol] 63 mg/dL Low 74-99 [facility] Comment on above: Order Comment: Speci men Type: BLOOD SPECIMEN Ordering Facility: [facility] Address: [address] [place] [address] Result Comment: The [place] Diabetes Association (ADA) provides guidance for cutoff values for fasting glucose and random glucose. The ADA defines fasting as no caloric intake for at least 8 hours. Fasting plasma glucose results between 100 to 125 mg/dL indicate increased risk for diabetes (prediabetes). Fasting plasma glucose results greater than or equal to 126 mg/dL meet the criteria for diagnosis of diabetes. In the absence of unequivocal hyperglycemia, results should be confirmed by repeat testing. In a patient with classic symptoms of hyperglycemia or hyperglycemic crisis, random plasma glucose results greater than or equal to 200 mg/dL meet the criteria for diagnosis of diabetes. Reference: Standards of Medical Care in Diabetes 2016, [place] Diabetes Association. Diabetes Care. 2016.39(Suppl 1). Performed By: #### 2 4323-8, 6-3, 91538-5 #### [facility] CLIA [id number] [address] [place] [address] [place] Potassium [Moles/Vol] 4.5 mmol/L Normal 3.7-5.1 [facility] Comment on above: Order Comment: Speci men Type: BLOOD SPECIMEN Ordering Facility: [facility] Address: [address] [place] [address] Performed By: #### 2 4323-8, 3015-3, 30156-7 #### [facility] CLIA [id number] [address] [place] [address] [place] Protein [Mass/Vol] 6.9 g/dL Normal 6.3-8.0 [facility] Comment on above: Order Comment: Speci men Type: BLOOD SPECIMEN Ordering Facility: [facility] Address: [address] [place] [address] Performed By: #### 2 4323-8, 3015-3, 94522-6 #### [facility] CLIA [id number] [address] [place] [address] [place] Sodium [Moles/Vol] 136 mmol/L Normal 136-144 [facility] Comment on above: Order Comment: Speci men Type: BLOOD SPECIMEN Ordering Facility: [facility] Address: [address] [place] [address] Performed By: #### 2 4323-8, 3015-3, 72022-5 #### [facility] CLIA [id number] [address] [place] [address] [place] Urea nitrogen [Mass/Vol] 10 mg/dL Normal 7-21 [facility] Comment on above: Order Comment: Ingrid mariee Type: BLOOD SPECIMEN Ordering Facility: [facility] Address: [address] [place] [address] Performed By: #### 2 4323-8, 6-3, 57560-7 #### [facility] CLIA [id number] [facility] [place] [address] [place] HbA1c (Bld)on 01-18-2023 Average glucose Estimated from glycated hemoglobin (Bld) [Mass/Vol] 82 mg/dL Normal [facility] Comment on above: Order Comment: Ingrid mariee Type: BLOOD SPECIMEN Ordering Facility: [facility] Address: [address] [place] [address] Result Comment: eAG: (Estimated average glucose) is a calculated value from HgbA1c and is retail sales representative of the average blood glucose level in the last 2-3 month period. Performed By: #### 2 4323-8, 3015-3, 42405-6 #### [facility] CLIA [id number] [address] [place] [address] [place] HbA1c (Bld) [Mass fraction] 4.5 % Normal 4.3-5.6 [facility] Comment on above: Order Comment: Ingrid mariee Type: BLOOD SPECIMEN Ordering Facility: [facility] Address: [address] [place] [address] Result Comment: [place] Diabetes Association guidelines indicate that patients with HgbA1c in the range 5.7-6.4% are at increased risk for development of diabetes, and intervention by lifestyle modification may be beneficial. HgbA1c greater or equal to 6.5% is considered diagnostic of diabetes. Performed By: #### 2 4323-8, 6-3, 85530-8 #### [facility] CLIA [id number] [address] [place] [address] [place] Iron and Iron binding capaci ty panelon 01-18-2023 Iron [Mass/Vol] 79 ug/dL Normal 41-186 [facility] Comment on above: Order Comment: Speci men Type: BLOOD SPECIMEN Ordering Facility: [facility] Address: [address] [place] [address] Performed By: #### 2 4323-8, 3016-3, 47468-9 #### [facility] CLIA [id number] [address] [place] [address] [place] Iron binding capacity [Mass/Vol] 286 ug/dL Normal 232-386 [facility] Comment on above: Order Comment: Speci men Type: BLOOD SPECIMEN Ordering Facility: [facility] Address: [address] [place] [address] Performed By: #### 2 4323-8, 3016-3, 19790-4 #### [facility] CLIA [id number] [address] [place] [address] [place] Iron/TIBC [Molar ratio] 27.6 % Normal 15.0-57.0 [facility] Comment on above: Order Comment: Speci men Type: BLOOD SPECIMEN Ordering Facility: [facility] Address: [address] [place] [address] Performed By: #### 2 4323-8, 3016-3, 80889-9 #### [facility] CLIA [id number] [address] [place], [place] [address] [place] TSH SerPl-aCncon 01-18-2023 TSH Qn 1.290 m[IU]/L Normal 0.270-4.200 [facility] Comment on above: Order Comment: Speci men Type: BLOOD SPECIMEN Ordering Facility: [facility] Address: [address] [place] [address] Result Comment: If t he patient is , TSH reference range varies by gestational period: First Trimester (weeks 9-12): 0.180-2.990 mIU/L Second Trimester: 0.110-3.980 mIU/L Third Trimester: 0.480-4.710 mIU/L Grupo Perez et al. A Practical Approach for the Verifications and Determination of Site- and Trimester-Specific Reference Intervals for Thyroid Function tests in . Thyroid, 2019:29:3:412-420. Xu E, et al. 2017 Guidelines of the [place] Thyroid Association for the Diagnosis and Management of Thyroid Disease during and the . Thyroid, 2017:27:3:315-389. Performed By: #### 2 4323-8, 3016-3, 21239-6 #### [facility] CLIA [id number] [address] [place] [address] [place] [facility] Vital Signs Date Time Vital Sign Value Performing Clinician Alanna snow 07-29-2023 08:58-0400 Body height 171 cm Pulm Wstr Work Phone: [facility] 07-29-2023 08:58-0400 Body mass index (BMI) [Ratio] 18.61 kg/m2 Pulm Wstr Work Phone: [facility] 07-29-2023 08:58-0400 Body weight 54.43 kg Pulm Wstr Work Phone: [facility] 07-29-2023 08:58-0400 Heart rate 83 /min Pulm Wstr Work Phone: [facility] 07-29-2023 08:58-0400 Respiratory rate 14 /min Pulm Wstr Work Phone: [facility] 07-29-2023 08:58-0400 SaO2% (BldA) [Mass fraction] 97 % Pulm Wstr Work Phone: [facility] 07-11-2023 07:56-0400 Body mass index (BMI) [Ratio] 18.82 kg/m2 Rajesh Santiago MD Work Phone: [facility] 07-11-2023 07:56-0400 Body temperature 98.6 [degF] Rajesh Santiago MD Work Phone: [facility] 07-11-2023 07:56-0400 Body weight 54.9 kg Rajesh Santiago MD Work Phone: [facility] 07-11-2023 07:56-0400 Diastolic blood pressure 87 mm[Hg] Rajesh Santiago MD Work Phone: [facility] 07-11-2023 07:56-0400 Heart rate 81 /min Rajesh Santiago MD Work Phone: [facility] 07-11-2023 07:56-0400 Systolic blood pressure 126 mm[Hg] Rajesh Santiago MD Work Phone: [facility] 06-27-2023 10:43-0400 Body height 170.8 cm Iman Queden [employer] Work Phone: [facility] 06-27-2023 10:43-0400 Body temperature 98.1 [degF] Iman Queden [employer] Work Phone: [facility] 06-27-2023 10:43-0400 Body weight 53.52 kg Iman Queden [employer] Work Phone: [facility] 06-27-2023 10:43-0400 Diastolic blood pressure 70 mm[Hg] Iman Queden [employer] Work Phone: [facility] 06-27-2023 10:43-0400 Heart rate 83 /min Iman Queden [employer] Work Phone: [facility] 06-27-2023 10:43-0400 Respiratory rate 16 /min Iman Queden [employer] Work Phone: [facility] 06-27-2023 10:43-0400 SaO2% (BldA) [Mass fraction] 98 % Iman Queden [employer] Work Phone: [facility] 06-27-2023 10:43-0400 Systolic blood pressure 118 mm[Hg] Iman Queden [employer] Work Phone: [facility] Encounters Encounter Date Encounter Type Care Provider Facility Start: 11-11-2023 End: 11-11-2023 ambulatory Capri Elizabeth TERMINAL CARMAN [facility] Start: 10-28-2023 ambulatory [facility] Start: 10-06-2023 ambulatory Capri Elizabeth TERMINAL [facility] Start: 07-29-2023 End: 07-29-2023 ambulatory IMAN Cindy VIVIAN Facility:[facility] Start: 07-29-2023 End: 07-29-2023 ambulatory Pulm [facility] Work Phone: PULM LAB [facility] Comment on above: Spirometry Start: 07-29-2023 End: 07-29-2023 Patient encounter procedure [facility] Work Phone: PULM LAB [facility] Start: 07-29-2023 End: 07-29-2023 Subsequent hospital visit by physician X[facility] Sebastian Mob Work Phone: Radiology Comment on above: Sjogren's syndrome, with unspecified organ involvement (HCC) [M35.00] Start: 07-25-2023 End: 07-26-2023 ambulatory IMAN Cindy VIVIAN Facility:[facility] Start: 07-25-2023 End: 07-25-2023 ambulatory Rajesh Santiago MD Work Phone: Rheumatology Comment on above: Sjogren's syndrome, with unspecified organ involvement (HCC) (Primary Dx); Shortness of breath Start: 07-25-2023 End: 07-25-2023 Telemedicine consultation with patient Rajesh Santiago MD Work Phone: Rheumatology Start: 07-21-2023 Telephone encounter Rajesh Funez Work Phone: Rheumatology Comment on above: Patient Update Start: 07-13-2023 Orders Only Rajesh Santiago MD Work Phone: Rheumatology Comment on above: Hematuria, unspecifi ed type (Primary Dx) Start: 07-11-2023 End: 07-12-2023 ambulatory IMAN PARK Facility:[facility] Start: 07-11-2023 End: 07-11-2023 Office outpatient new 60 minutes Rajesh Santiago MD Work Phone: Rheumatology Comment on above: Urticaria (Primary D x); Positive LEONOR (antinuclear antibody); Hypermobility arthralgia; Weakness Start: 06-29-2023 Telephone encounter Iman Park [employer] Work Phone: [facility] Comment on above: Patient Question; Re sults Results Start: 06-28-2023 Telephone encounter Iman Park [employer] Work Phone: [facility] Comment on above: Refill Request Start: 06-27-2023 End: 06-27-2023 ambulatory IMAN PARK Facility:[facility] Start: 06-27-2023 End: 06-27-2023 Patient encounter procedure Iman Park [employer] Work Phone: [facility] Comment on above: Urticaria (Primary D x); Arthralgia, unspecified joint; Vitamin D deficiency; Hematuria, unspecified type; Flank pain; Screening for thyroid disorder Start: 06-27-2023 End: 06-27-2023 ambulatory IMAN PARK Facility:[facility] Start: 01-18-2023 End: 01-19-2023 ambulatory CAROLE White LUAN ALTMAN Facility:[facility] Start: 06-20-2015 Patient encounter procedure UNKNOWN PROVIDER Facility:[facility] Procedures Date Procedure Procedure Detail Performing Clinician Start: 07-29-2023 Brncdilat rspse spmt ry pre&post-brncdilat admn Rajesh Santiago MD Work Phone: Start: 07-29-2023 Radiologic exam ches t 2 views Rajesh Santiago MD Work Phone: Start: 06-20-2015 Extraction erupted tooth/exr UNKNOWN PROVIDER Plan of Treatment Date Care Activity Detail Author Start: 10-26-2033 Urine microalbumin profile DTaP,Tdap,Td Vaccine (9 - Td or Tdap) [facility] Start: 10-21-2025 Screening for malign ant neoplasm of cervix [facility] Start: 06-26-2024 Covid-19 Vaccine () Covid-19 Vaccine () [facility] Comment on above: Postponed from 11/12 (Declined at this time) Start: 03-11-2024 Urine microalbumin profile DTaP,Tdap,Td Vaccine (8 - Td or Tdap) [facility] Start: 11-13-2023 Influenza vaccination C [facility] Start: 07-25-2023 End: 07-25-2023 Follow-up encounter 07/25/2023 3:30 PM EDT [facility] [address] [place] [id number] Rajesh Santiago MD [address] [address] Follow up Rheumatology Comment on above: Follow up Start: 07-11-2023 End: 10-10-2023 Extractable nuclear Ab panel - Serum [facility] Work Phone: Comment on above: Expected: 07/11/2023 , Expires: 10/10/2023 Start: 03-14-2023 Behavioral Health Screening Behavioral Health Screening [facility] Start: 2020 Screening for malign ant neoplasm of cervix HPV Testing [facility] Start: 2008 Anxiety Screening Anxiety Screening [facility] Start: 2008 Depression Screening Depression Scre ening [facility] End: 08-23-2024 LUNG DIFFUSION CAPACITY (DLCO) LUNG DIFFUSION CAPACITY (DLCO) PFT Routine Sjogren's syndrome, with unspecified organ involvement (HCC) Shortness of breath 1 Occurrences starting 07/25/2023 until 08/23/2024 [facility] Comment on above: 1 Occurrences starti ng 07/25/2023 until 08/23/2024 LUNG DIFFUSION CAPAC ITY (DLCO) LUNG DIFFUSION CAPACITY (DLCO) PFT Routine Sjogren's syndrome, with unspecified organ involvement (HCC) Shortness of breath 07/29/2023 8:18 AM EDT [facility] Work Phone: End: 08-23-2024 LUNG VOLUMES LUNG VOLUMES PFT Routine Sjogren's syndrome, with unspecified organ involvement (HCC) Shortness of breath 1 Occurrences starting 07/25/2023 until 08/23/2024 [facility] Work Phone: Comment on above: 1 Occurrences starti ng 07/25/2023 until 08/23/2024 LUNG VOLUMES LUNG VOLUMES PFT Routine Sjogren's syndrome, with unspecified organ involvement (HCC) Shortness of breath 07/29/2023 8:18 AM EDT [facility] Work Phone: End: 08-23-2024 SPIROMETRY - BASELINE AND POST DILATOR SPIROMETRY - BASELINE AND POST DILATOR PFT Routine Sjogren's syndrome, with unspecified organ involvement (HCC) Shortness of breath 1 Occurrences starting 07/25/2023 until 08/23/2024 [facility] Comment on above: 1 Occurrences starti ng 07/25/2023 until 08/23/2024 SPIROMETRY - BASELIN E AND POST DILATOR SPIROMETRY - BASELINE AND POST DILATOR PFT Routine Sjogren's syndrome, with unspecified organ involvement (HCC) Shortness of breath 07/29/2023 8:18 AM EDT [facility] Work Phone: End: 08-23-2024 XR Chest PA and Lateral XR CHEST 2V FRONTAL/LAT Radiology Routine Sjogren's syndrome, with unspecified organ involvement (HCC) Shortness of breath 1 Occurrences starting 07/25/2023 until 08/23/2024 [facility] Comment on above: 1 Occurrences starti ng 07/25/2023 until 08/23/2024 Immunizations Immunization Date Immunization Notes Care Provider Hardik [facility] 01-10-2018 influenza, injectabl e, quadrivalent, preservative free Iman Queden [employer] Work Phone: [facility] 01-10-2018 influenza virus vaccine, unspecified formulation Iman Queden [employer] Work Phone: [facility] 01-22-2016 influenza, injectabl e, quadrivalent, contains preservative Iman Queden [employer] Work Phone: [facility] 03-11-2014 tetanus toxoid, redu alfonso diphtheria toxoid, and acellular pertussis vaccine, adsorbed Iman Queden [facility] Work Phone: [facility] 12-20-2013 influenza, seasonal, injectable Iman Queden [employer] Work Phone: [facility] 01-24-2013 influenza, injectabl e, quadrivalent, preservative free Iman Queden [employer] Work Phone: [facility] 01-22-2012 influenza virus vaccine, unspecified formulation Iman Queden [employer] Work Phone: [facility] 01-22-2010 influenza virus vaccine, unspecified formulation Iman Queden [employer] Work Phone: [facility] 12-31-2008 influenza virus vaccine, live, attenuated, for intranasal use Iman Queden [employer] Work Phone: [facility] Work Phone: 03-20-2008 human papilloma viru s vaccine, quadrivalent Iman Queden [employer] Work Phone: [facility] Work Phone: 01-19-2008 influenza virus vaccine, unspecified formulation Iman Queden [employer] Work Phone: [facility] Work Phone: 11-17-2007 human papilloma viru s vaccine, quadrivalent Iman Queden [employer] Work Phone: [facility] Work Phone: 09-16-2007 human papilloma viru s vaccine, quadrivalent Iman Queden [employer] Work Phone: [facility] Work Phone: 04-24-2007 hepatitis A vaccine, unspecified formulation Iman Queden [employer] Work Phone: [facility] Work Phone: 01-17-2007 influenza virus vaccine, unspecified formulation Iman Queden [employer] Work Phone: [facility] 10-10-2006 hepatitis A vaccine, unspecified formulation Iman Queden [employer] Work Phone: [facility] 10-10-2006 Meningococcal, MCV4, unspecified conjugate formulation(groups A, C, Y and W-135) Iman Queden [employer] Work Phone: [facility] 10-10-2006 tetanus toxoid, redu alfonso diphtheria toxoid, and acellular pertussis vaccine, adsorbed Iman Queden [employer] Work Phone: [facility] 01-18-2003 influenza, seasonal, injectable Iman Queden [employer] Work Phone: [facility] 01-25-2002 influenza virus vaccine, unspecified formulation Iman Queden [employer] Work Phone: [facility] 04-01-2001 tuberculin skin test ; purified protein derivative solution, intradermal Capri Castle LPN [facility] 03-08-2001 hepatitis B vaccine, pediatric or pediatric/adolescent dosage Iman Queden CPA TAX.BOAT DECKHAND Work Phone: [facility] 02-06-2001 influenza virus vaccine, unspecified formulation Iman Queden CPA TAX.[employer] Work Phone: [facility] 09-22-2000 hepatitis B vaccine, pediatric or pediatric/adolescent dosage Iman Queden CPA TAX.[employer] Work Phone: [facility] 08-12-2000 hepatitis B vaccine, pediatric or pediatric/adolescent dosage Iman Queden CPA TAX.[employer] Work Phone: [facility] 08-12-2000 measles, mumps and rubella virus vaccine Iman Queden CPA TAX.[employer] Work Phone: [facility] 02-08-1996 diphtheria, tetanus toxoids and acellular pertussis vaccine Iman Queden CPA TAX.[employer] Work Phone: [facility] 02-08-1996 trivalent poliovirus vaccine, live, oral Iman Queden CPA TAX.[facility] Work Phone: [facility] Work Phone: 05-30-1995 tuberculin skin test ; purified protein derivative solution, intradermal Capri Castle LPN [facility] 03-25-1993 diphtheria, tetanus toxoids and pertussis vaccine Iman Queden CPA TAX.[employer] Work Phone: [facility] Work Phone: 03-25-1993 trivalent poliovirus vaccine, live, oral Iman Queden CPA TAX.[facility] Work Phone: [facility] Work Phone: 03-26-1992 haemophilus influenz ae type b vaccine, HbOC conjugate Iman Queden CPA TAX.[employer] Work Phone: [facility] 03-26-1992 measles, mumps and rubella virus vaccine Iman Queden CPA TAX.[employer] Work Phone: [facility] 03-14-1992 chicken pox (disease) Brittn y Queden CPA TAX.[employer] Work Phone: [facility] Work Phone: 07-16-1991 diphtheria, tetanus toxoids and pertussis vaccine Iman Queden CPA TAX.[employer] Work Phone: [facility] Work Phone: 07-16-1991 haemophilus influenz ae type b vaccine, HbOC conjugate Iman Queden CPA TAX.[employer] Work Phone: [facility] 04-17-1991 diphtheria, tetanus toxoids and pertussis vaccine Iman Queden CPA TAX.[employer] Work Phone: [facility] Work Phone: 04-17-1991 haemophilus influenz ae type b vaccine, HbOC conjugate Iman Queden CPA TAX.[employer] Work Phone: [facility] 04-17-1991 trivalent poliovirus vaccine, live, oral Iman Queden CPA TAX.[employer] Work Phone: [facility] Work Phone: 02-13-1991 diphtheria, tetanus toxoids and pertussis vaccine Iman Queden CPA TAX.[facility] Work Phone: [facility] Work Phone: 02-13-1991 haemophilus influenz ae type b vaccine, HbOC conjugate Iman Queden CPA TAX.[facility] Work Phone: [facility] 02-13-1991 trivalent poliovirus vaccine, live, oral Iman Queden CPA TAX.[facility] Work Phone: [facility] Work Phone: Payers Date Payer Category Payer Medicaid [employer] [facility] MEDICAID [id number] 2022-Present [phone] [address] [place] [address] Medicaid [id number] 2022 Medicaid [id number] 2013 Unknown [id number] 1990 Unknown [id number] Social History Date Type Detail Facility Start: [facility]27[facility]23 [facility] History of tobacco use Current smoker [facility] History of tobacco use Cigarette Smoker [facility] Start: 06-27-2023 End: 07-25-2023 Cigarette pack-years [facility] Start: 06-27-2023 Tobacco use and exposure Smoke less tobacco non-user [facility] Start: 06-27-2023 End: 07-29-2023 Alcohol intake Current drinker of alcohol (finding) [facility] Start: 06-27-2023 End: 07-25-2023 Tobacco use panel [facility] National Score (1-10 0), lower number is lower risk 89 [facility] Start: 06-27-2023 Tobacco Comment 5-6 CIGARETTES A DAY for 4 years [facility] Start: 06-27-2023 Alcohol Comment rarely [facility] Start: 1990 Sex Assigned At Not on file [facility] Clinical Notes 03-25-2014 to 11-11-2023 Capri Castle LPN - 11/11/2023 10:50 AM Capri Cardoso LPN - 10/28/2023 3:09 PM Capri Cardoso LPN - 10/06/2023 3:48 PM Krunal Daniel RPFT - 07/29/2023 8:58 AM EDT Note Date & Type Note Facility 11-11-2023 History of Presen t illness Narrative ED Follow Up: Patient discharged from [facility] ED on 11/09/2023. 1. How are you feeling since your ED visit? Left message for pt to call office. Have your symptoms improved or resolved? Left message for pt to call office. 2. Were you prescribed any medications while in the ED or advised to stop any medication? Left message for pt to call office. - If yes, were you able to fill your prescriptions? Left message for pt to call office. -if stopped medication, what was the medication? Left message for pt to call office. 3. Were you advised to schedule a follow up appointment with your provider? Left message for pt to call office. - If no, Do you feel like you need an appointment scheduled? Left message for pt to call office. - If yes, Do you need this scheduled now or has this already been scheduled? Left message for pt to call office. 4. Were you able to contact the office or cash applications specialist provider prior to your ED visit? Left message for pt to call office. 5. Is there anything else I can do for you today? Left message for pt to call office. documented in this encounter [facility] 10-28-2023 Note HNO ID: [id number] Author: CAPRI CASTLE LPN Service: ? Author Type: LICENSED NURSE Type: Progress Notes Filed: 10/28/2023 15:11 Note Text: ED Follow Up: Patient discharged from [facility] ED on 10/27/2023. 1. How are you feeling since your ED visit? Left message for pt to call office. Have your symptoms improved or resolved? Left message for pt to call office. 2. Were you prescribed any medications while in the ED or advised to stop any medication? Left message for pt to call office. - If yes, were you able to fill your prescriptions? Left message for pt to call office. -if stopped medication, what was the medication? Left message for pt to call office. 3. Were you advised to schedule a follow up appointment with your provider? Left message for pt to call office. - If no, Do you feel like you need an appointment scheduled? Left message for pt to call office. - If yes, Do you need this scheduled now or has this already been scheduled? Left message for pt to call office. 4. Were you able to contact the office or cash applications specialist provider prior to your ED visit? Left message for pt to call office. 5. Is there anything else I can do for you today? Left message for pt to call office. [facility] 10-28-2023 History of Presen t illness Narrative ED Follow Up: Patient discharged from [facility] ED on 10/27/2023. 1. How are you feeling since your ED visit? Left message for pt to call office. Have your symptoms improved or resolved? Left message for pt to call office. 2. Were you prescribed any medications while in the ED or advised to stop any medication? Left message for pt to call office. - If yes, were you able to fill your prescriptions? Left message for pt to call office. -if stopped medication, what was the medication? Left message for pt to call office. 3. Were you advised to schedule a follow up appointment with your provider? Left message for pt to call office. - If no, Do you feel like you need an appointment scheduled? Left message for pt to call office. - If yes, Do you need this scheduled now or has this already been scheduled? Left message for pt to call office. 4. Were you able to contact the office or cash applications specialist provider prior to your ED visit? Left message for pt to call office. 5. Is there anything else I can do for you today? Left message for pt to call office. documented in this encounter [facility] 10-28-2023 Note Patient Outreach (AG FAMPLE) KERA MELENDEZ ([id number]) 1990 F Date Time Provider Department 10/28/23 CAPRI CASTLE During your visit today, we recorded the following information about you: Capri Castle LPN 10/28/2023 3:11 PM Signed ED Follow Up: Patient discharged from [facility] ED on 10/27/2023. 1. How are you feeling since your ED visit? Left message for pt to call office. Have your symptoms improved or resolved? Left message for pt to call office. 2. Were you prescribed any medications while in the ED or advised to stop any medication? Left message for pt to call office. - If yes, were you able to fill your prescriptions? Left message for pt to call office. -if stopped medication, what was the medication? Left message for pt to call office. 3. Were you advised to schedule a follow up appointment with your provider? Left message for pt to call office. - If no, Do you feel like you need an appointment scheduled? Left message for pt to call office. - If yes, Do you need this scheduled now or has this already been scheduled? Left message for pt to call office. 4. Were you able to contact the office or cash applications specialist provider prior to your ED visit? Left message for pt to call office. 5. Is there anything else I can do for you today? Left message for pt to call office. Allergies As of Date: 10/28/2023 Noted Allergy Reaction environmental [Other] 10/23/2004 Date Reviewed: 07/11/2023 Reviewed by: Trudy Dasilva MA - Fully Assessed Prescriptions as of 10/28/2023 - potassium chloride ER (KLOR-CON M20) 20 mEq tablet Take 1 tablet by mouth once daily. - Cholecalciferol, Vitamin D3, (VITAMIN D-3) 50 mcg (2,000 unit) cap Take 1 capsule by mouth once daily. - FLUoxetine (PROZAC) 20 mg capsule Take 1 capsule by mouth every afternoon. - hydrOXYzine pamoate (VISTARIL) 25 mg capsule Take 1 Capsule By Oral Route 2 times per day - diphenhydrAMINE (BENADRYL ALLERGY) 25 mg tablet Take 25 mg by mouth every 6 hours as needed. 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 Unspecified High-Risk [O09.90] 06/09/2009 10/22/2009 SUPRF HIGH RISK NEC [V23.89] [O09.899]06/10/2011 08/30/2011 GBS (group B Streptococcus carrier), +RV cultur*07/12/2011 08/30/2011 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 Author Type: LICENSED NURSE Type: Progress Notes Filed: 10/06/2023 15:59 Note Text: ED Follow Up: Patient discharged from [facility] ED on 10/06/2023. 1. How are you feeling since your ED visit? Left message for pt to call office. Have your symptoms improved or resolved? Left message for pt to call office. 2. Were you prescribed any medications while in the ED or advised to stop any medication? Left message for pt to call office. - If yes, were you able to fill your prescriptions? Left message for pt to call office. -if stopped medication, what was the medication? Left message for pt to call office. 3. Were you advised to schedule a follow up appointment with your provider? Left message for pt to call office. - If no, Do you feel like you need an appointment scheduled? Left message for pt to call office. - If yes, Do you need this scheduled now or has this already been scheduled? Left message for pt to call office. 4. Were you able to contact the office or cash applications specialist provider prior to your ED visit? Left message for pt to call office. 5. Is there anything else I can do for you today? Left message for pt to call office. [facility] 10-06-2023 History of Presen t illness Narrative ED Follow Up: Patient discharged from [facility] ED on 10/06/2023. 1. How are you feeling since your ED visit? Left message for pt to call office. Have your symptoms improved or resolved? Left message for pt to call office. 2. Were you prescribed any medications while in the ED or advised to stop any medication? Left message for pt to call office. - If yes, were you able to fill your prescriptions? Left message for pt to call office. -if stopped medication, what was the medication? Left message for pt to call office. 3. Were you advised to schedule a follow up appointment with your provider? Left message for pt to call office. - If no, Do you feel like you need an appointment scheduled? Left message for pt to call office. - If yes, Do you need this scheduled now or has this already been scheduled? Left message for pt to call office. 4. Were you able to contact the office or cash applications specialist provider prior to your ED visit? Left message for pt to call office. 5. Is there anything else I can do for you today? Left message for pt to call office. documented in this encounter [facility] 10-06-2023 Note Patient Outreach (CLARITA MEADOWS) KERA MELENDEZ ([id number]) 1990 F Date Time Provider Department 10/06/23 CAPRI CASTLE During your visit today, we recorded the following information about you: Capri Castle LPN 10/06/2023 3:59 PM Signed ED Follow Up: Patient discharged from [facility] ED on 10/06/2023. 1. How are you feeling since your ED visit? Left message for pt to call office. Have your symptoms improved or resolved? Left message for pt to call office. 2. Were you prescribed any medications while in the ED or advised to stop any medication? Left message for pt to call office. - If yes, were you able to fill your prescriptions? Left message for pt to call office. -if stopped medication, what was the medication? Left message for pt to call office. 3. Were you advised to schedule a follow up appointment with your provider? Left message for pt to call office. - If no, Do you feel like you need an appointment scheduled? Left message for pt to call office. - If yes, Do you need this scheduled now or has this already been scheduled? Left message for pt to call office. 4. Were you able to contact the office or cash applications specialist provider prior to your ED visit? Left message for pt to call office. 5. Is there anything else I can do for you today? Left message for pt to call office. Allergies As of Date: 10/06/2023 Noted Allergy Reaction environmental [Other] 10/23/2004 Date Reviewed: 07/11/2023 Reviewed by: Trudy Dasilva MA - Fully Assessed Prescriptions as of 10/06/2023 - potassium chloride ER (KLOR-CON M20) 20 mEq tablet Take 1 tablet by mouth once daily. - Cholecalciferol, Vitamin D3, (VITAMIN D-3) 50 mcg (2,000 unit) cap Take 1 capsule by mouth once daily. - FLUoxetine (PROZAC) 20 mg capsule Take 1 capsule by mouth every afternoon. - hydrOXYzine pamoate (VISTARIL) 25 mg capsule Take 1 Capsule By Oral Route 2 times per day - diphenhydrAMINE (BENADRYL ALLERGY) 25 mg tablet Take 25 mg by mouth every 6 hours as needed. 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 Unspecified High-Risk [O09.90] 06/09/2009 10/22/2009 SUPRF HIGH RISK NEC [V23.89] [O09.899]06/10/2011 08/30/2011 GBS (group B Streptococcus carrier), +RV cultur*07/12/2011 08/30/2011 Support 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 Author Type: Respiratory Therapist Type: Progress Notes Filed: 07/29/2023 09:00 Note Text: PULM FUNCTION SMARTBLOCK: Provider: Rajesh Santiago MD Assisting Tech: Krunal Lowry RPFT Spirometry w/BD: 1 DLCO: 1 LV - Box: 1 [facility] 07-29-2023 Note HNO ID: [id number] Author: SUZANNE COTTRELL RT(R) Service: ? Author Type: Riding Coach Type: Progress Notes Filed: 07/29/2023 08:15 Note Text: Radiology Service Progress Note PATIENT NAME: Kera Melendez DATE OF SERVICE: July 29, 2023 TIME: 8:04 AM PATIENT IDENTITY VERIFICATION COMPLETED USING TWO (2) IDENTIFIERS: Name and Date of confirmed by patient verbally. FALL SCREENING: Has the patient had 2 falls in the last year or 1 fall with injury or currently using an Ambulatory Assistive Device (Walker, Cane, Wheelchair, Crutches, etc.)? No PATIENT GENDER DATA: Female. status: : No status: NO. PATIENT RELEVANT IMPLANT DATA REVIEWED: Yes PATIENT PRESENTS WITH AN IMPLANTABLE OR ATTACHED DISTANCE EDUCATION FACULTY LIAISON: No RADIOLOGY DEPARTMENT: General X-ray: Exam(s) Completed: Chest X-Ray PERIPHERAL IV DATA: Not applicable SIGNED BY: RT Vinnie(R) July 29, 2023 8:04 AM [facility] 07-29-2023 History of Presen t illness Narrative PULM FUNCTION SMARTBLOCK: Provider: Rajesh Santiago MD Assisting Tech: Krunal Lowry RPFT Spirometry w/BD: 1 DLCO: 1 LV - Box: 1 documented in this encounter [facility] 07-29-2023 History of Presen t illness Narrative Radiology Service Progress Note PATIENT NAME: Kera Melendez DATE OF SERVICE: July 29, 2023 TIME: 8:04 AM PATIENT IDENTITY VERIFICATION COMPLETED USING TWO (2) IDENTIFIERS: Name and Date of confirmed by patient verbally. FALL SCREENING: Has the patient had 2 falls in the last year or 1 fall with injury or currently using an Ambulatory Assistive Device (Walker, Cane, Wheelchair, Crutches, etc.)? No PATIENT GENDER DATA: Female. status: : No status: NO. PATIENT RELEVANT IMPLANT DATA REVIEWED: Yes PATIENT PRESENTS WITH AN IMPLANTABLE OR ATTACHED DISTANCE EDUCATION FACULTY LIAISON: No RADIOLOGY DEPARTMENT: General X-ray: Exam(s) Completed: Chest X-Ray PERIPHERAL IV DATA: Not applicable SIGNED BY: RT Vinnie(R) July 29, 2023 8:04 AM documented in this encounter [facility] 07-25-2023 Note HNO ID: [id number] Author: RAJESH SANTIAGO MD Service: ? Author Type: Physician Type: Progress Notes Filed: 07/25/2023 18:41 Note Text: VIRTUAL VISIT PROGRESS NOTE This is a virtual visit using Audio Only Visit. It required patient-provider interaction for the medical decision making as documented below. I have communicated my name and active licensure. The patient's identity and physical location were verified at the time of this visit. Either the patient or their legal retail sales representative has been informed of the risks and benefits of -- and alternatives to -- treatment through a remote evaluation and consents to proceed with the evaluation remotely. Kera Melendez is a 32 year old female seen for Abnormal Lab (+SSB). No specialty comments available. Bone Density: None on file Please see 07/11/2023 [facility] for full details In brief - >10 years she has been getting hives that are worsening associated with eye lid/lip swelling, probable angioedema (posterior throat swelling). Most improved with steroids - Arthralgias in shoulder, elbow, wrists, knees, and joint pain is only with hives and worse with use. - Frequent sinus infections/bronchitis though improved since stopping smoking. - family history is notable for son with HSP and post viral myositis - +LEONOR 1:160 and LAUREN only with +SSB, normal C3, C4 07/25/2023 - having some lower abd discomfort. 07/13/2023 prescribed. - She was seen by nephrology for hematuria. - Dry mouth (one cavity:prior filling, does get cavities), dry eyes (only when she wakes up, but still able to wear contacts), dry skin, no vaginal dryness. No cough but some SOB, numbness/tingling. Thinks her hands do turn white. -Hospitalized for dehydration before - start seeing PT next Tuesday for hypermobility - reports that she was recently evaluated and found to have many food allergies PATIENT ENTERED DATA: PROMIS Assessments No data to display No data to display No data to display No data to display RAPID 3 [place] Activities of Daily Living No Data Dress self? - Get in and out of bed? - Walk outdoors? - Wash and dry body? - Get in and out of car? - RAPID 3 Disease Activity Weighed Score Levels: 0 - 1: Near Remission 1.3 - 2.0: Low Severity 2.3 - 4.0: Moderate Severity 4.3 - 10.0: High Severity No data to display Patient Health Questionnaire (PHQ-9) No data to display (0-4) minimal depression, (5-9) mild depression, (10-14) moderate depression, (15-19) moderately severe depression, (20-27) severe depression OTHER HISTORY REVIEWED (electronic chart updated): PAST MEDICAL HISTORY Diagnosis Date Abnormal Pap smear of cervix 11/02/2013 Chlamydia 03/2013 MRSA (methicillin resistant staph aureus) culture positive 08/2010 PMH - PAST MEDICAL HISTORY OF left hand deformity PMH - PAST MEDICAL HISTORY OF 01-12-97 normal color vision Unspecified and jaundice PAST SURGICAL HISTORY Procedure Laterality Date NONE FAMILY HISTORY Problem Relation Age of Onset Hypothyroidism Mother other (other) Mother blood pressure Hypertension Mother other (depression [Other]) Maternal Grandmother Bipolar with suicide attempt. other (manic depression [Other]) Maternal Grandmother Alcohol/Drug Maternal Grandmother ETOH Stroke Maternal Grandfather Heart Paternal Grandfather No Known Problems Daughter No Known Problems Daughter No Known Problems Son Breast Cancer Maternal Aunt Social History Tobacco Use Smoking status: Former Packs/day: 0.00 Years: 0.30 Additional pack years: 0.00 Total pack years: 0.00 Types: Cigarettes Smokeless tobacco: Never Tobacco comments: 5-6 CIGARETTES A DAY for 4 years Vaping Use Vaping Use: Never used Substance Use Topics Alcohol use: Yes Comment: rarely Drug use: No Current Outpatient Medications Medication Sig potassium chloride ER (KLOR-CON M20) 20 mEq tablet Take 1 tablet by mouth once daily. Cholecalciferol, Vitamin D3, (VITAMIN D-3) 50 mcg (2,000 unit) cap Take 1 capsule by mouth once daily. famotidine (PEPCID) 20 mg tablet Take 1 tablet by mouth two times a day as needed. FLUoxetine (PROZAC) 20 mg capsule Take 1 capsule by mouth every afternoon. hydrOXYzine pamoate (VISTARIL) 25 mg capsule Take 1 Capsule By Oral Route 2 times per day diphenhydrAMINE (BENADRYL ALLERGY) 25 mg tablet Take 25 mg by mouth every 6 hours as needed. No current facility-administered medications for this visit. ALLERGIES Allergen Reactions Environmental [Othe* REVIEW OF SYSTEMS: ROS RHEUMATOLOGYAll other reviewed and negative other than HPI. PHYSICAL EXAMINATION: VIDEO EXAM: (if completed, performed via video enabled technology) No exam performed 07/11/2023 06/27/2023 01/28/2021 10/21/2020 10/21/2020 Weight Weight 121 lb 0.5 oz 118 lb 134 lb 143 lb 9.6 oz 143 lb 07/11/2023 06/27/2023 01/28/2021 10/21/2020 10/21/2020 Blood Pressure Systolic 126 (more content not included)... [facility] 07-25-2023 History of Presen t illness Narrative Images from the original note were not included. VIRTUAL VISIT PROGRESS NOTE This is a virtual visit using Audio Only Visit. It required patient-provider interaction for the medical decision making as documented below. I have communicated my name and active licensure. The patient's identity and physical location were verified at the time of this visit. Either the patient or their legal retail sales representative has been informed of the risks and benefits of -- and alternatives to -- treatment through a remote evaluation and consents to proceed with the evaluation remotely. Kera Melendez is a 32 year old female seen for Abnormal Lab (+SSB). No specialty comments available. Bone Density: None on file Please see 07/11/2023 H&P for full details In brief - >10 years she has been getting hives that are worsening associated with eye lid/lip swelling, probable angioedema (posterior throat swelling). Most improved with steroids - Arthralgias in shoulder, elbow, wrists, knees, and joint pain is only with hives and worse with use. - Frequent sinus infections/bronchitis though improved since stopping smoking. - family history is notable for son with HSP and post viral myositis - +LEONOR 1:160 and LAUREN only with +SSB, normal C3, C4 07/25/2023 - having some lower abd discomfort. 07/13/2023 prescribed. - She was seen by nephrology for hematuria. - Dry mouth (one cavity:prior filling, does get cavities), dry eyes (only when she wakes up, but still able to wear contacts), dry skin, no vaginal dryness. No cough but some SOB, numbness/tingling. Thinks her hands do turn white. -Hospitalized for dehydration before - start seeing PT next Tuesday for hypermobility - reports that she was recently evaluated and found to have many food allergies PATIENT ENTERED DATA: PROMIS Assessments No data to display No data to display No data to display No data to display RAPID 3 [place] Activities of Daily Living No Data Dress self? - Get in and out of bed? - Walk outdoors? - Wash and dry body? - Get in and out of car? - RAPID 3 Disease Activity Weighed Score Levels: 0 - 1: Near Remission 1.3 - 2.0: Low Severity 2.3 - 4.0: Moderate Severity 4.3 - 10.0: High Severity No data to display Patient Health Questionnaire (PHQ-9) No data to display (0-4) minimal depression, (5-9) mild depression, (10-14) moderate depression, (15-19) moderately severe depression, (20-27) severe depression OTHER HISTORY REVIEWED (electronic chart updated): PAST MEDICAL HISTORY Diagnosis Date Abnormal Pap smear of cervix 11/02/2013 Chlamydia 03/2013 MRSA (methicillin resistant staph aureus) culture positive 08/2010 PMH - PAST MEDICAL HISTORY OF left hand deformity PMH - PAST MEDICAL HISTORY OF 01-12-97 normal color vision Unspecified and jaundice PAST SURGICAL HISTORY Procedure Laterality Date NONE FAMILY HISTORY Problem Relation Age of Onset Hypothyroidism Mother other (other) Mother blood pressure Hypertension Mother other (depression [Other]) Maternal Grandmother Bipolar with suicide attempt. other (manic depression [Other]) Maternal Grandmother Alcohol/Drug Maternal Grandmother ETOH Stroke Maternal Grandfather Heart Paternal Grandfather No Known Problems Daughter No Known Problems Daughter No Known Problems Son Breast Cancer Maternal Aunt Social History Tobacco Use Smoking status: Former Packs/day: 0.00 Years: 0.30 Additional pack years: 0.00 Total pack years: 0.00 Types: Cigarettes Smokeless tobacco: Never Tobacco comments: 5-6 CIGARETTES A DAY for 4 years Vaping Use Vaping Use: Never used Substance Use Topics Alcohol use: Yes Comment: rarely Drug use: No Current Outpatient Medications Medication Sig potassium chloride ER (KLOR-CON M20) 20 mEq tablet Take 1 tablet by mouth once daily. Cholecalciferol, Vitamin D3, (VITAMIN D-3) 50 mcg (2,000 unit) cap Take 1 capsule by mouth once daily. famotidine (PEPCID) 20 mg tablet Take 1 tablet by mouth two times a day as needed. FLUoxetine (PROZAC) 20 mg capsule Take 1 capsule by mouth every afternoon. hydrOXYzine pamoate (VISTARIL) 25 mg capsule Take 1 Capsule By Oral Route 2 times per day diphenhydrAMINE (BENADRYL ALLERGY) 25 mg tablet Take 25 mg by mouth every 6 hours as needed. No current facility-administered medications for this visit. ALLERGIES Allergen Reactions Environmental [Othe* REVIEW OF SYSTEMS: ROS RHEUMATOLOGYAll other reviewed and negative other than HPI. PHYSICAL EXAMINATION: VIDEO EXAM: (if completed, performed via video enabled technology) No exam performed 07/11/2023 06/27/2023 01/28/2021 10/21/2020 10/21/2020 Weight Weight 121 lb 0.5 oz 118 lb 134 lb 143 lb 9.6 oz 143 lb 07/11/2023 06/27/2023 01/28/2021 10/21/2020 10/21/2020 Blood Pressure Systolic 126 118 122 110 116 Diastolic 87 70 80 80 72 ASSESSMENT AND PLAN: No specialty comments available. Diagnoses: (M35.00) Sjogren's syndrome, with unspecified organ involvement (HCC) (primary encounter diagnosis) (R06.02) Shortness of breath 32 year old woman with history of allergies and hives who presents for evaluation of worsening hives associated with angioedema, weakness, and arthralgias found to have +LEONOR. In work up of +LEONOR found to have +SSB and microscopic hematuria again (though also +LE, WBC, RBC, bacteria). +SSA/SSB could be Sjogren's but less likely to be related to the hives and angioedema # +LEONOR, +SSB, mild sicca sx (+cavities and dry mouth but dry eyes only upon waking and can wear contacts). Consider primary Sjogren's. Lower suspicion for SLE/CTD as her only SLE suggestive symptoms currently are joint swelling (but this is only with hives without specific EMS and no synovitis to suggest inflammatory arthrtis) and microscopic hematuria (though may have been on the tail end of her period). Lower suspicion for urticarial vasculitis with hives and +LEONOR but normal markers of inflammation, no known eye inflammation (uveitis/episcleritis), glomerulonephritis, nor abdominal pain and normal complement - Discussed that Sjogren's is tx symptomatically and based on sx manifestations. Currently sicca sx not bothersome enough to require secretogogues. - PFTs, CXR for SOB to evaluate ILD. If PFTs abnl, HRCT chest. - Referred to nephrology who will repeat her UA when she is sure she is off her period. - Consider HCQ if sx worsen or for her arthralgias or renal/pulmonary work up unremarkable - If she does not respond to optimized allergy/urticarial treatment through allergy/immunology and/or has low complement, consider derm referral to see if her hives are c/w LCV to suggest urticarial vasculitis. # Abnl UA: +LE, WBC, RBC, bacteria w reported abnl pain - Did not know that 07/12 abx prescription for nitrofurantoin was sent and no notification to pick it up - Encourage her to take. Repeat as scheduled with nephrology. # Hives with throat swelling/angioedema with reported eye and lip swelling: concerned for allergies/angioedema/urticarial rash. Pictures of her rash that she shows appear to be consistent with hives. Favor that her current symptoms are related to allergies/hives as she does not have joint pain nor weakness when she does not have urticarial rash. Currently lower suspicion for SLE/CTD as her only specific symptoms on labs and ROS would be microscopic hematuria (while she might have been at the end of her period). - Currently taking pepcid but no other anti-histamines - Encourage her to make allergy immunology appointment (referral was previously placed) # Arthralgias: w hives and also hypermobility on exam. No organ rupture to suggest hEDS - Continue PT to prevent development of hypermobility arthralgias/DJD Orders this visit: [facility] on 07/25/23 XR CHEST 2V FRONTAL/LAT LUNG VOLUMES LUNG DIFFUSION CAPACITY (DLCO) SPIROMETRY - BASELINE AND POST DILATOR No follow-ups on file.after nephrology visit/PFTs/CXR or next time she is in town for allergy appt I spent a total of 26 minutes on the date of the service which included counseling and educating the patient/family/caregiver and communicating results to the patient/family/caregiver Rajesh Santiaog MD documented in this encounter [facility] 07-21-2023 Telephone encounter Note Patient scheduled with Dr. Santiago at 330PM on 07/24. More Kaufman RN [facility] 07-21-2023 Miscellaneous Notes Patient scheduled with Dr. Santiago at 330PM on 07/24. More Kaufman RN This is Dr Santiago patient Spoke with patients mother. Patient scheduled for phone visit 07/24 to discuss further. More Kaufman RN Called patients mother. Can schedule virtual visit to discuss further, Dr. Spicer aware of this result per result note under lab tab. No answer, left message for her to return the call. More Kaufman RN Patients mother called. Patient saw nephrology yesterday. She had a few lab tests done. The SSA came back normal but the SSB antibody came back abnormal. The consulting project director told her to see rheumatology for this abnormal result. Please call her mother Maryann at [phone] documented in this encounter [facility] 07-21-2023 Telephone encounter Note This is Dr Santiago patient [facility] Work Phone: 07-21-2023 Telephone encounter Note Spoke with patients mother. Patient scheduled for phone visit 07/24 to discuss further. More Kaufman RN [facility] 07-21-2023 Telephone encounter Note Called patients mother. Can schedule virtual visit to discuss further, Dr. Spicer aware of this result per result note under lab tab. No answer, left message for her to return the call. More Kaufman RN [facility] 07-21-2023 Telephone encounter Note Patients mother called. Patient saw nephrology yesterday. She had a few lab tests done. The SSA came back normal but the SSB antibody came back abnormal. The consulting project director told her to see rheumatology for this abnormal result. Please call her mother Maryann at [phone] [facility] 07-13-2023 Note HNO ID: [id number] Author: RAJESH SANTIAGO MD Service: ? Author Type: Physician Type: Progress Notes Filed: 07/13/2023 13:45 Note Text: Probable Sjogren's. Persistent hematuria. Referral to nephrology for hematuria Try nitrofurantoin [facility] 07-13-2023 History of Presen t illness Narrative Probable Sjogren's. Persistent hematuria. Referral to nephrology for hematuria Try nitrofurantoin documented in this encounter [facility] 07-11-2023 Note HNO ID: [id number] Author: RAJESH SANTIAGO MD Service: ? Author Type: Physician Type: Progress Notes Filed: 07/11/2023 19:01 Note Text: Rheumatology CONSULTATION Date of Service: 07/11/2023 Patient: Kera Melendez Primary Care Physician: Iman Park APRN.BOAT DECKHAND Last Rheumatology visit: None at [facility] Referring Provider: Iman Park [address] [facility] [id number] Kera Melendez is here today at request of Dr. Park specifically for consultation of my opinion in regards to the chief complaint listed below. Correspondence will be shared today via the [facility] electronic health record or through regular mail, where applicable. History of Present Illness Kera Melendez is a 32 year old White female who presents on 07/11/2023 for an in-person visit for evaluation of Abnormal Lab (+LEONOR). Kera is RF negative - 9 (06/27/2023). Her most recent LEONOR was positive (06/27/2023). LEONOR 1:60, no LAUREN nor complements checked for urticaria and arthralgia. Normal SED/CRP Symptoms started after of her second child. For 10 years she has been getting hives but over the last 5 years there has been an increase in frequency. She gets hives frequently. When she scratches this hives get bigger and bigger. Described as burning and itching. Eye lids and lips will get swollen. Last time she went to ED for this she was told that the back of her throat was swollen. After she has hives, she feels that her muscles get weak. She will get episodic weakness of her thighs but also with pain. SOB only with hives No dysphagia Shoulder, elbows, wrists, knees will ache. Upper and lower back will also ache. Back and shoulder is a consistent pain. No specific EMS Peripheral joint pain only with hives. Improves with massage and heat Exacerbated by lifting/activity She gets frequent sinus infections and bronchitis yearly (though bronchitis has improved since stopping smoking). She gets allergy shots through ENT. She to allergy 4-5 years ago in [place] and was told she is not allergic to anything. Prednisone helped the most. Benadryl just makes her sleepy. Also started on pepcid for the hives. This the allergy shots help more. 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 Pain Evaluation 10/09/2020 Pain Evaluation Pain Score 6 Location Back-Lower Description Aching;Sharp Duration (#) 1 Duration (Timeframe) Days Frequency Continuous Patient-Entered Data PROMIS Assessments No data to display No data to display No data to display No data to display RAPID 3 [place] Activities of Daily Living No Data Dress self? - Get in and out of bed? - Walk outdoors? - Wash and dry body? - Get in and out of car? - RAPID 3 Disease Activity Weighed Score Levels: 0 - 1: Near Remission 1.3 - 2.0: Low Severity 2.3 - 4.0: Moderate Severity 4.3 - 10.0: High Severity No data to display Review of Systems ROS RHEUMATOLOGYAll other reviewed and negative other than HPI. Past Medical History PAST MEDICAL HISTORY Diagnosis Date Abnormal Pap smear of cervix 11/02/2013 Chlamydia 03/2013 MRSA (methicillin resistant staph aureus) culture positive 08/2010 PMH - PAST MEDICAL HISTORY OF left hand deformity PMH - PAST MEDICAL HISTORY OF 01-12-97 normal color vision Unspecified and jaundice Hives Past Surgical History PAST SURGICAL HISTORY Procedure Laterality Date NONE Family History FAMILY HISTORY Problem Relation Age of Onset Hypothyroidism Mother other (other) Mother blood pressure Hypertension Mother other (depression [Other]) Maternal Grandmother Bipolar with suicide attempt. other (manic depression [Other]) Maternal Grandmother Alcohol/Drug Maternal Grandmother ETOH Stroke Maternal Grandfather Heart Paternal Grandfather No Known Problems Daughter No Known Problems Daughter No Known Problems Son Breast Cancer Maternal Aunt Son: vasculitis Half-sister: hives Mom: thyroid Social History Social History Tobacco Use Smoking status: Former Packs/day: 0.00 Years: 0.30 Additional pack years: 0.00 Total pack years: 0.00 Types: Cigarettes Smokeless tobacco: Never Tobacco comments: 5-6 CIGARETTES A DAY for 4 years Vaping Use Vaping Use: Never used Substance Use Topics Alcohol use: Yes Comment: rarely Drug use: No Currently at home with 3 kids Current Medications Current Outpatient Medications Medica (more content not included)... [facility] 07-11-2023 History of Presen t illness Narrative Images from the original note were not included. Rheumatology CONSULTATION Date of Service: 07/11/2023 Patient: Kera Melendez Primary Care Physician: Iman Park APRN.BOAT DECKHAND Last Rheumatology visit: None at [facility] Referring Provider: Iman Park [address] [facility] [id number] Kera Melendez is here today at request of Dr. Park specifically for consultation of my opinion in regards to the chief complaint listed below. Correspondence will be shared today via the [facility] electronic health record or through regular mail, where applicable. History of Present Illness Kera Melendez is a 32 year old White female who presents on 07/11/2023 for an in-person visit for evaluation of Abnormal Lab (+LEONOR). Kera is RF negative - 9 (06/27/2023). Her most recent LEONOR was positive (06/27/2023). LEONOR 1:60, no LAUREN nor complements checked for urticaria and arthralgia. Normal SED/CRP Symptoms started after of her second child. For 10 years she has been getting hives but over the last 5 years there has been an increase in frequency. She gets hives frequently. When she scratches this hives get bigger and bigger. Described as burning and itching. Eye lids and lips will get swollen. Last time she went to ED for this she was told that the back of her throat was swollen. After she has hives, she feels that her muscles get weak. She will get episodic weakness of her thighs but also with pain. SOB only with hives No dysphagia Shoulder, elbows, wrists, knees will ache. Upper and lower back will also ache. Back and shoulder is a consistent pain. No specific EMS Peripheral joint pain only with hives. Improves with massage and heat Exacerbated by lifting/activity She gets frequent sinus infections and bronchitis yearly (though bronchitis has improved since stopping smoking). She gets allergy shots through ENT. She to allergy 4-5 years ago in [place] and was told she is not allergic to anything. Prednisone helped the most. Benadryl just makes her sleepy. Also started on pepcid for the hives. This the allergy shots help more. 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 Pain Evaluation 10/09/2020 Pain Evaluation Pain Score 6 Location Back-Lower Description Aching;Sharp Duration (#) 1 Duration (Timeframe) Days Frequency Continuous Patient-Entered Data PROMIS Assessments No data to display No data to display No data to display No data to display RAPID 3 [place] Activities of Daily Living No Data Dress self? - Get in and out of bed? - Walk outdoors? - Wash and dry body? - Get in and out of car? - RAPID 3 Disease Activity Weighed Score Levels: 0 - 1: Near Remission 1.3 - 2.0: Low Severity 2.3 - 4.0: Moderate Severity 4.3 - 10.0: High Severity No data to display Review of Systems ROS RHEUMATOLOGYAll other reviewed and negative other than HPI. Past Medical History PAST MEDICAL HISTORY Diagnosis Date Abnormal Pap smear of cervix 11/02/2013 Chlamydia 03/2013 MRSA (methicillin resistant staph aureus) culture positive 08/2010 PMH - PAST MEDICAL HISTORY OF left hand deformity PMH - PAST MEDICAL HISTORY OF 01-12-97 normal color vision Unspecified and jaundice Hives Past Surgical History PAST SURGICAL HISTORY Procedure Laterality Date NONE Family History FAMILY HISTORY Problem Relation Age of Onset Hypothyroidism Mother other (other) Mother blood pressure Hypertension Mother other (depression [Other]) Maternal Grandmother Bipolar with suicide attempt. other (manic depression [Other]) Maternal Grandmother Alcohol/Drug Maternal Grandmother ETOH Stroke Maternal Grandfather Heart Paternal Grandfather No Known Problems Daughter No Known Problems Daughter No Known Problems Son Breast Cancer Maternal Aunt Son: vasculitis Half-sister: hives Mom: thyroid Social History Social History Tobacco Use Smoking status: Former Packs/day: 0.00 Years: 0.30 Additional pack years: 0.00 Total pack years: 0.00 Types: Cigarettes Smokeless tobacco: Never Tobacco comments: 5-6 CIGARETTES A DAY for 4 years Vaping Use Vaping Use: Never used Substance Use Topics Alcohol use: Yes Comment: rarely Drug use: No Currently at home with 3 kids Current Medications Current Outpatient Medications Medication Sig potassium chloride ER (KLOR-CON M20) 20 mEq tablet Take 1 tablet by mouth once daily. Cholecalciferol, Vitamin D3, (VITAMIN D-3) 50 mcg (2,000 unit) cap Take 1 capsule by mouth once daily. famotidine (PEPCID) 20 mg tablet Take 1 tablet by mouth two times a day as needed. FLUoxetine (PROZAC) 20 mg capsule Take 1 capsule by mouth every afternoon. hydrOXYzine pamoate (VISTARIL) 25 mg capsule Take 1 Capsule By Oral Route 2 times per day diphenhydrAMINE (BENADRYL ALLERGY) 25 mg tablet Take 25 mg by mouth every 6 hours as needed. Labs Latest Ref Rng & Units 03/11/2014 12/25/2014 01/18/2023 06/27/2023 CBC WBC 3.70 - 11.00 k/uL 7.21 9.45 5.10 6.44 Hemoglobin 11.5 - 15.5 g/dL 12.0 13.2 14.2 13.8 Hematocrit 36.0 - 46.0 % 35.8 39.6 44.0 42.2 Platelet Count 150 - 400 k/uL 206 280 284 310 Abs Neut (ANC) 1.45 - 7.50 k/uL 5.37 7.19 4.15 Abs Lymph 1.00 - 4.00 k/uL 1.26 1.71 1.56 Latest Ref Rng & Units 12/25/2014 03/04/2016 01/18/2023 06/27/2023 CMP Sodium 136 - 144 mmol/L 136 139 Potassium 3.7 - 5.1 mmol/L 4.5 3.5 Chloride 97 - 105 mmol/L 103 103 CO2 22 - 30 mmol/L 21 25 Glucose 74 - 99 mg/dL 80 63 72 BUN 7 - 21 mg/dL 10 10 Creatinine 0.58 - 0.96 mg/dL 0.89 0.90 Calcium 8.5 - 10.2 mg/dL 9.2 9.0 AST 13 - 35 U/L 14 15 17 ALT 7 - 38 U/L 11 9 12 Alkaline Phosphatase 34 - 123 U/L 53 49 53 Latest Ref Rng & Units 12/25/2014 06/27/2023 ESR, WSR WSR 0 - 20 mm/hr 6 Sed Rate, Westergren 0 - 15 mm/hr 8 Latest Ref Rng & Units 06/27/2023 CRP CRP <0.9 mg/dL <0.3 Latest Ref Rng & Units 07/11/2023 C3, C4 C3 86 - 166 mg/dL 95 C4 13 - 46 mg/dL 16 Latest Ref Rng & Units 07/11/2023 CK CK 42 - 196 U/L 57 Latest Ref Rng & Units 06/27/2023 RF and CCP Rheumatoid Factor <16 IU/mL <10 Latest Ref Rng & Units 05/22/2009 04/06/2011 10/29/2013 Hepatitis Screen Hep B Surface Ag NEGAT Negative Negative Negative Latest Ref Rng & Units 06/27/2023 Antibodies LEONOR Negative Positive LEONOR Titer 1:640 LEONOR Pattern Nuclear homogeneous Latest Ref Rng & Units 05/01/2014 05/06/2014 06/27/2023 07/11/2023 Urinalysis Protein, Urine Negative trace negative Negative Negative RBC, Urine 0-2 /HPF 3-5 /HPF 3-5 /HPF Latest Ref Rng & Units 12/25/2014 TPMT amd G6PD G6PD Scn Normal Normal Imaging Last XR Chest - Impression Only XR CHEST 2V FRONTAL/LAT Exam End: 12/07/2018 12:08 PM (Final result) Impression: IMPRESSION: Hyperinflated lungs. No focal consolidation. Household Appliances Service Technician: ERIC ... Health Maintenance Current Immunizations Reviewed on 07/11/2023 Name Date Haemophilus influenzae b (HbOC) vaccine 03/26/1992 , 07/16/1991 , 04/17/1991 , 02/13/1991 chicken pox (disease) 03/14/1992 diphtheria tetanus pertussis (DTP) vaccine 03/25/1993 , 07/16/1991 , 04/17/1991 , 02/13/1991 diphtheria tetanus pertussis (DTaP) vaccine, pediatric 02/08/1996 hepatitis A (HepA) vaccine 04/24/2007 , 10/10/2006 hepatitis B (HepB) vaccine 03/08/2001 , 09/22/2000 , 08/12/2000 human papillomavirus (HPV4) vaccine 03/20/2008 , 11/17/2007 , 09/16/2007 influenza (IIV3) vaccine 12/20/2013 , 01/18/2003 influenza (IIV4) vaccine 01/10/2018 , 01/22/2016 , 01/24/2013 influenza (LAIV3) vaccine 12/31/2008 influenza vaccine 01/22/2012 , 01/22/2010 , 01/19/2008 , 01/17/2007 , 01/25/2002 , 02/06/2001 measles mumps rubella (MMR) vaccine 08/12/2000 , 03/26/1992 meningococcal (MenACYW) vaccine 10/10/2006 poliovirus (OPV) vaccine 02/08/1996 , 03/25/1993 , 04/17/1991 , 02/13/1991 tetanus diphtheria pertussis (Tdap) vaccine 03/11/2014 , 10/10/2006 tuberculin skin test (TST-PPD) 04/01/2001 , 05/30/1995 Physical Exam VITAL SIGNS: BP 126/87 Pulse 81 Temp (Src) 98.6 (Temporal) Wt 121 lb 0.5 oz (54.9kg) LMP 10/12/2020 Physical Exam GEN: NAD SKIN: Mild red patch on her posterior left calf, no nail pitting EYES: no eye erythema HENT: No oral ulcers, normal external examination of the ears and nose, lips, oropharynx and tongue, normal salivary flow NECK: No mass or asymmetry. RESPIRATORY: Normal respiratory effort. CTAB CARDIOVASCULAR: RRR without gallop, murmur, or rub ABDOMEN: BS normal. No tenderness NEUROLOGIC: 5/5 strength in biceps/triceps, 5/5 strength in quads/hamstring, 5/5 knee flexors/extensors MUSCULOSKELETAL EXAMINATION: Full ROM of UE and LE with the following exceptions: -No exceptions - Hypermobility: beighton 2 for elbows that extend past 190 No tenderness, synovitis effusion of the neck, bl shoulders, elbows, wrists, hands, SI, trochanteric bursa, knees, ankles, and toes with the following exceptions: - Negative Srinath's, - Left hand with missing fingers - tenderness and swelling as per homunculus otherwise normal There is currently no information documented on the homunculus. Go to the Rheumatology activity and complete the homunculus joint exam. Joint Exam 07/11/2023 No joint exam has been documented for this visit Joint Exam Data (across time) Impression/Plan Diagnoses: (L50.9) Urticaria (primary encounter diagnosis) (R76.8) Positive LEONOR (antinuclear antibody) (M25.50) Hypermobility arthralgia (R53.1) Weakness 32 year old woman with history of allergies and hives who presents for evaluation of worsening hives associated with angioedema, weakness, and arthralgias found to have +LEONOR. Pictures of her rash that she shows appear to be consistent with hives. Favor that her current symptoms are related to allergies/hives as she does not have joint pain nor weakness when she does not have urticarial rash. Currently lower suspicion for SLE/CTD as her only specific symptoms on labs and ROS would be microscopic hematuria (while she might have been at the end of her period). # Hives with throat swelling/angioedema with reported eye and lip swelling: concerned for allergies/angioedema/urticarial rash - Currently taking pepcid but no other anti-histamines - Encourage her to make allergy immunology appointment (referral was previously placed) # +LEONOR: 1:640, low suspicion for SLE/CTD as her only SLE suggestive symptoms currently are joint swelling (but this is only with hives without specific EMS and no synovitis to suggest inflammatory arthrtis) and microscopic hematuria (though may have been on the tail end of her period) - LAUREN panel, C3, C4, repeat UA, Urine prot/cr - Discussed that +LEONOR can be found in 5-20% of the normal population and is not indicative of underlying autoimmune condition without specific associated sx. As this time, there is no evidence of SLE/CTD but if pt develops new symptoms, please come back for evaluation. - Consider urticarial vasculitis with hives and +LEONOR but normal markers of inflammation, no known eye inflammation (uveitis/episcleritis), glomerulonephritis, nor abdominal pain. - If she does not respond to optimized allergy/urticarial treatment through allergy/immunology and/or has low complement, consider derm referral to see if her hives are c/w LCV to suggest urticarial vasculitis. - Pt/family also concerned that she could have DM or scleroderma. However, hives are not typcially associated with either condition. Discussed that she does not have Raynaud's nor sclerodactyly, making scleroderma unlikely. She does not have classic DM rashes (gottrons, heliotrope, shawl, etc). # Weakness: normal strength on exam making inflammatory myositisless likely - CK, aldolase # Arthralgias: w hives and also hypermobility on exam. No organ rupture to suggest hEDS - Refer PT to prevent development of hypermobility arthralgias/DJD Orders this visit: Office Visit on 07/11/23 ANTI LAUREN ID [id number] COMPLEMENT C3 COMPLEMENT CREATINE KINASE/CK ALDOLASE BLD URINALYSIS, WITH MICROSCOPIC PROTEIN / CREATININE RATIO IGG SUBCLASS 4 ONLY *Canceled* CONSULT TO RHEUM/IMMUN DISEASE CONSULT TO PHYSICAL THERAPY Return pending work up and if not improved after seeing allergy/immunology. I spent a total of 60 minutes on the date of the service which included preparing to see the patient, [id number] patient care, completing clinical documentation, obtaining and/or reviewing separately obtained history, performing a medically appropriate examination, counseling and educating the patient/family/caregiver, and communicating results to the patient/family/caregiver. Rajesh Santiago MD PhD Rheumatology documented in this encounter [facility] 06-29-2023 Miscellaneous Notes Pt. Received my chart message. Marissa Doran MA Addended by: IMAN PARK on: 06/29/2023 01:24 PM Modules accepted: Orders LEONOR is still pending. Her potassium was on low end of normal- will send in 3 day replacement. Vitamin D was low- will need daily replacement of 2,000 international unit(s) daily. BS was 72 on CMP but this is not concerningly low. Will monitor periodically. Make sure she is eating regularly. Remaining labs were normal. Inflammatory markers and Rheumatoid factor was negative. Patients mother lm on requesting lab results. Please advise. Marissa Doran MA documented in this encounter [facility] 06-29-2023 Miscellaneous Notes Patients mother notified. Marissa Doran MA I will send in Rx for antibiotic Reny Loya DO Patient's mother left message stating they saw patient's results on MyChart and she is worried she needs an antibiotic due to her UA results. Please advise. Anuradha Delong MA documented in this encounter [facility] 06-28-2023 Miscellaneous Notes Patient's mother is informed Estelle Rodriguez MA Addended by: IMAN PARK on: 06/28/2023 11:48 AM Modules accepted: Orders Rx sent in. Patient called requesting another script of Pepcid sent to [facility] because she is having another flare up of her hives Estelle Rodriguez MA documented in this encounter [facility] 06-27-2023 Note HNO ID: [id number] Author: IMAN PARK APRN.CNP Service: ? Author Type: Nurse Practitioner Type: Progress Notes Filed: 06/30/2023 12:03 Note Text: [facility] [place] [facility] [address] [place] [address] Dept Dept. Visit Date: June 27, 2023 Ms.Sarah Irma Melendez Date of : 1990 MRN/E #: [id number] Chief Complaint: Patient presents with: New Patient: Establish care previous pcp was Dr. Terry. Would like to discuss allergies hives/swelling on legs, arms, face last time she was in the ER she was told her throat was swollen and they gave he an Epi pen injection. Worried it is an immune issue. History of Present Illness Kera Melendez is a 32 year old female presents today as a new patient. Her mother is with her today. I reviewed past medical, surgical, social, and family histories today and updated chart. Allergies, chronic medications, and supplements were also reviewed. Their main concern today is recurrent hives. Urticaria- unknown etiology Angioedema with throat [facility] in May for urticaria and angioedema Has been tested for food allergies Has been to the ER about 5 times in the last 6 months Always gets Pepcid and Prednisone Get itchy, hot Spreads all over Takes Benadryl prn Has an Epi-pen Albuterol inhaler Doesn't get them with food or environmental exposure Mother thinks it is may be from toxins, mold? Son is 9 years old and developed vasculitis in 2020 Influenza A and then developed the myositis Dad had hx of thrombosis Hx of panic attacks, anxiety Sees psychiatry Quit smoking 2 years ago Does not drink alcohol No vaping or marijuana use PAST MEDICAL HISTORY Diagnosis Date Abnormal Pap smear of cervix 11/02/2013 Chlamydia 03/2013 MRSA (methicillin resistant staph aureus) culture positive 08/2010 PMH - PAST MEDICAL HISTORY OF left hand deformity PMH - PAST MEDICAL HISTORY OF 01-12-97 normal color vision Unspecified and jaundice PAST SURGICAL HISTORY Procedure Laterality Date NONE Social History Tobacco Use Smoking status: Former Packs/day: 0.00 Years: 0.30 Additional pack years: 0.00 Total pack years: 0.00 Types: Cigarettes Smokeless tobacco: Never Tobacco comments: 5-6 CIGARETTES A DAY for 4 years Vaping Use Vaping Use: Never used Substance Use Topics Alcohol use: Yes Comment: rarely Drug use: No Social History Social History Narrative Not on file Family History Reviewed Including Cardiac Diseases, Psychiatric Diseases, AND Substance Abuse Problem: Hypothyroidism Relation: Mother Age of Onset: (Not Specified) Problem: other (other) Relation: Mother Age of Onset: (Not Specified) Comment: blood pressure Problem: Hypertension Relation: Mother Age of Onset: (Not Specified) Problem: other (depression [Other]) Relation: Maternal Grandmother Age of Onset: (Not Specified) Comment: Bipolar with suicide attempt. Problem: other (manic depression [Other]) Relation: Maternal Grandmother Age of Onset: (Not Specified) Problem: Alcohol/Drug Relation: Maternal Grandmother Age of Onset: (Not Specified) Comment: ETOH Problem: Stroke Relation: Maternal Grandfather Age of Onset: (Not Specified) Problem: Heart Relation: Paternal Grandfather Age of Onset: (Not Specified) Comment: Problem: No Known Problems Relation: Daughter Age of Onset: (Not Specified) Problem: No Known Problems Relation: Daughter Age of Onset: (Not Specified) Problem: No Known Problems Relation: Son Age of Onset: (Not Specified) Problem: Breast Cancer Relation: Maternal Aunt Age of Onset: (Not Specified) Comment: ALLERGIES Allergen Reactions Environmental [Othe* Current Outpatient Medications Medication Sig FLUoxetine (PROZAC) 20 mg capsule Take 1 capsule by mouth every afternoon. hydrOXYzine pamoate (VISTARIL) 25 mg capsule Take 1 Capsule By Oral Route 2 times per day diphenhydrAMINE (BENADRYL ALLERGY) 25 mg tablet Take 25 mg by mouth every 6 hours as needed. sulfamethoxazole-trimethoprim (BACTRIM DS) 800-160 mg per tablet Take 1 tablet by mouth two times a day for 3 days. potassium chloride ER (KLOR-CON M20) 20 mEq tablet Take 1 tablet by mouth once daily. Cholecalciferol, Vitamin D3, (VITAMIN D-3) 50 mcg (2,000 unit) cap Take 1 capsule by mouth once daily. famotidine (PEPCID) 20 mg tablet Take 1 tablet by mouth two times a day as needed. No current facility-administered medications for this visit. Review of Systems Review of Systems Constitutional: Positive for fatigue. Negative for appetite change, chills, diaphoresis, fever and unexpected weight change. Eyes: Negative for visual disturbance. Respiratory: Positive for shortness of breath. Negative for cough, chest tightness and wheezing. Cardiovascular: Positive for (more content not included)... [facility] 06-27-2023 History of Presen t illness Narrative Images from the original note were not included. [facility] [place] [address] [place] [address] Dept Dept. Visit Date: June 27, 2023 Ms.Sarah Irma Melendez Date of : 1990 MRN/E #: [id number] Chief Complaint: Patient presents with: New Patient: Establish care previous pcp was Dr. Terry. Would like to discuss allergies hives/swelling on legs, arms, face last time she was in the ER she was told her throat was swollen and they gave he an Epi pen injection. Worried it is an immune issue. History of Present Illness Kera Melendez is a 32 year old female presents today as a new patient. Her mother is with her today. I reviewed past medical, surgical, social, and family histories today and updated chart. Allergies, chronic medications, and supplements were also reviewed. Their main concern today is recurrent hives. Urticaria- unknown etiology Angioedema with throat [facility] in May for urticaria and angioedema Has been tested for food allergies Has been to the ER about 5 times in the last 6 months Always gets Pepcid and Prednisone Get itchy, hot Spreads all over Takes Benadryl prn Has an Epi-pen Albuterol inhaler Doesn't get them with food or environmental exposure Mother thinks it is may be from toxins, mold? Son is 9 years old and developed vasculitis in 2020 Influenza A and then developed the myositis Dad had hx of thrombosis Hx of panic attacks, anxiety Sees psychiatry Quit smoking 2 years ago Does not drink alcohol No vaping or marijuana use PAST MEDICAL HISTORY Diagnosis Date Abnormal Pap smear of cervix 11/02/2013 Chlamydia 03/2013 MRSA (methicillin resistant staph aureus) culture positive 08/2010 PMH - PAST MEDICAL HISTORY OF left hand deformity PMH - PAST MEDICAL HISTORY OF 01-12-97 normal color vision Unspecified and jaundice PAST SURGICAL HISTORY Procedure Laterality Date NONE Social History Tobacco Use Smoking status: Former Packs/day: 0.00 Years: 0.30 Additional pack years: 0.00 Total pack years: 0.00 Types: Cigarettes Smokeless tobacco: Never Tobacco comments: 5-6 CIGARETTES A DAY for 4 years Vaping Use Vaping Use: Never used Substance Use Topics Alcohol use: Yes Comment: rarely Drug use: No Social History Social History Narrative Not on file Family History Reviewed Including Cardiac Diseases, Psychiatric Diseases, & Substance Abuse Problem: Hypothyroidism Relation: Mother Age of Onset: (Not Specified) Problem: other (other) Relation: Mother Age of Onset: (Not Specified) Comment: blood pressure Problem: Hypertension Relation: Mother Age of Onset: (Not Specified) Problem: other (depression [Other]) Relation: Maternal Grandmother Age of Onset: (Not Specified) Comment: Bipolar with suicide attempt. Problem: other (manic depression [Other]) Relation: Maternal Grandmother Age of Onset: (Not Specified) Problem: Alcohol/Drug Relation: Maternal Grandmother Age of Onset: (Not Specified) Comment: ETOH Problem: Stroke Relation: Maternal Grandfather Age of Onset: (Not Specified) Problem: Heart Relation: Paternal Grandfather Age of Onset: (Not Specified) Comment: Problem: No Known Problems Relation: Daughter Age of Onset: (Not Specified) Problem: No Known Problems Relation: Daughter Age of Onset: (Not Specified) Problem: No Known Problems Relation: Son Age of Onset: (Not Specified) Problem: Breast Cancer Relation: Maternal Aunt Age of Onset: (Not Specified) Comment: ALLERGIES Allergen Reactions Environmental [Othe* Current Outpatient Medications Medication Sig FLUoxetine (PROZAC) 20 mg capsule Take 1 capsule by mouth every afternoon. hydrOXYzine pamoate (VISTARIL) 25 mg capsule Take 1 Capsule By Oral Route 2 times per day diphenhydrAMINE (BENADRYL ALLERGY) 25 mg tablet Take 25 mg by mouth every 6 hours as needed. sulfamethoxazole-trimethoprim (BACTRIM DS) 800-160 mg per tablet Take 1 tablet by mouth two times a day for 3 days. potassium chloride ER (KLOR-CON M20) 20 mEq tablet Take 1 tablet by mouth once daily. Cholecalciferol, Vitamin D3, (VITAMIN D-3) 50 mcg (2,000 unit) cap Take 1 capsule by mouth once daily. famotidine (PEPCID) 20 mg tablet Take 1 tablet by mouth two times a day as needed. No current facility-administered medications for this visit. Review of Systems Review of Systems Constitutional: Positive for fatigue. Negative for appetite change, chills, diaphoresis, fever and unexpected weight change. Eyes: Negative for visual disturbance. Respiratory: Positive for shortness of breath. Negative for cough, chest tightness and wheezing. Cardiovascular: Positive for palpitations. Negative for chest pain and leg swelling. Gastrointestinal: Positive for anal bleeding. Negative for abdominal pain, blood in stool, constipation, diarrhea, nausea, rectal pain and vomiting. Endocrine: Negative. Genitourinary: Positive for hematuria. Musculoskeletal: Positive for arthralgias. Negative for gait problem and joint swelling. Skin: Positive for rash. Allergic/Immunologic: Positive for environmental allergies. Neurological: Positive for light-headedness and headaches. Negative for dizziness, seizures and syncope. Hematological: Negative. Psychiatric/Behavioral: Positive for sleep disturbance. The patient is nervous/anxious. Vital Signs BP 118/70 Pulse 83 Temp 98.1 Resp 16 Ht 5' 7.25 (1.71m) Wt 118 lb (53.5kg) SpO2 98% LMP 10/12/2020 BMI 18.35 kg/(m^2). Physical Exam Vitals and nursing note reviewed. HENT: Mouth/Throat: Mouth: Mucous membranes are moist. Pharynx: Oropharynx is clear. Eyes: Pupils: Pupils are equal, round, and reactive to light. Cardiovascular: Rate and Rhythm: Normal rate and regular rhythm. Heart sounds: Normal heart sounds. Pulmonary: Effort: Pulmonary effort is normal. Breath sounds: Normal breath sounds. Musculoskeletal: Cervical back: Neck supple. Skin: General: Skin is warm and dry. Findings: Erythema and rash present. Rash is urticarial. Neurological: Mental Status: She is alert and oriented to person, place, and time. Sensory: Sensation is intact. Psychiatric: Behavior: Behavior is cooperative. Visit Diagnoses (L50.9) Urticaria (primary encounter diagnosis) (M25.50) Arthralgia, unspecified joint (E55.9) Vitamin D deficiency (R31.9) Hematuria, unspecified type (R10.9) Flank pain (Z13.29) Screening for thyroid disorder Assessment and Plan 1. Urticaria - ICD9: 708.9, ICD10: L50.9 (primary diagnosis) - Treatment with antihistamine- Atarax 25mg po QHS and H2 kamron- famodtidine (Pepcid) - Labs CBC with Diff, Sed Rate, and TSH - Anti itch therapy of OTC 1% Hydrocortisone cream and Oral Benydryl recommended prn - Follow up if symptoms persist or worsen. - COMPREHENSIVE METABOLIC PANEL - COMPLETE BLOOD COUNT AND DIFFERENTIAL - THYROID STIMULATING HORMONE - C-REACTIVE PROTEIN - SEDIMENTATION RATE, WESTERGREN - LEONOR BY IFA SCREEN - CONSULT TO ALLERGY/IMMUNOLOGY 2. Arthralgia, unspecified joint - ICD9: 719.40, ICD10: M25.50 - RHEUMATOID FACTOR - C-REACTIVE PROTEIN - SEDIMENTATION RATE, WESTERGREN - LEONOR BY IFA SCREEN 3. Vitamin D deficiency - ICD9: 268.9, ICD10: E55.9 - VITAMIN D 25 HYDROXY 4. Hematuria, unspecified type - ICD9: 599.70, ICD10: R31.9 - URINALYSIS WITH MICROSCOPIC, REFLEX CULTURE 5. Flank pain - ICD9: 789.09, ICD10: R10.9 - Labs of Urine analysis - URINALYSIS WITH MICROSCOPIC, REFLEX CULTURE 6. Screening for thyroid disorder - ICD9: V77.0, ICD10: Z13.29 - THYROID STIMULATING HORMONE - THYROID PEROXIDASE ANTIBODY Discussed above plan with patient and/or caregiver. Patient and/or caregiver agreeable with above plan. Follow up visit Return for will follow up after labs. [place] APRN.FLEX, signed on June 27, 2023 11:29 AM documented in this encounter [facility] 03-25-2014 History of Past i llness Narrative Problem Noted Date Diagnosed Date Resolved Date Uterine size date discrepancy 03/25/2014 06/20/2014 Supervision of other normal 11/22/2013 06/20/2014 Overview: Toby December 20, 2013 XY Camila Kurtz MD Bacterial vaginal infection 10/25/2013 06/20/2014 Overview: October 25, 2013 treated. Camila Kurtz MD Tobacco use in 10/23/201311/2014 Overview: 10/22/2013 Pt smokes 2-3 cigarettes a day, down from one half pack per day. Discussed risks of smoking during . Advised pt to quit. [place] tobacco quit line information given to patient. TKRDonald Uncertain dates, antepartum 10/23/2013 10/25/2013 Overview: 10/22/2013Patient has a history of irregular menses every 28-90 days. She is unsure when her last menstrual period was. She states it was either in June, July, or August. Patient states she believes she may have felt movement. Discussed with Dr. Magdalena Coleman. Ultrasound ordered by Dr. Coleman. TKRN GBS (group B Streptococcus c arrier), +RV culture, currently 07/12/2011 08/30/2011 SUPRF HIGH RISK NEC [V23.89] 06/10/2011 08/30/2011 Unspecified high-risk 06/09/2009 10/22/2009 Contact dermatitis and other eczema due to other specified agent 04/26/2007 09/19/2008 Contact dermatitis and other eczema, due to unspecified cause 04/26/2007 09/19/2008 Viral warts, unspecified 03/23/2007 SOLAR LENGINES///DYSCHROMIA OTHER 02/17/2006 07/08/2011 Benign neoplasm of skin of t runk, except scrotum 02/17/2006 07/08/2011 Keloid scar 02/17/2006 07/08/2011 Scar condition and fibrosis of skin 02/17/2006 07/08/2011 documented as of this encounter (statuses as of 06/29/2023) [facility] History of Past illness Narrative* Problem Noted Date Diagnosed Date Resolved Date Uterine size date discrepancy 03/25/2014 06/20/2014 Supervision of other normal 11/22/2013 06/20/2014 Overview: Toby December 20, 2013 XY Camila Kurtz MD Bacterial vaginal infection 10/25/2013 06/20/2014 Overview: October 25, 2013 treated. Camila Kurtz MD Tobacco use in 10/23/201311/2014 Overview: 10/22/2013 Pt smokes 2-3 cigarettes a day, down from one half pack per day. Discussed risks of smoking during . Advised pt to quit. [place] tobacco quit line information given to patient. TKRN Uncertain dates, antepartum 10/23/2013 10/25/2013 Overview: 10/22/2013Patient has a history of irregular menses every 28-90 days. She is unsure when her last menstrual period was. She states it was either in June, July, or August. Patient states she believes she may have felt movement. Discussed with Dr. Magdalena Coleman. Ultrasound ordered by Dr. Coleman. TKRN GBS (group B Streptococcus c arrier), +RV culture, currently 07/12/2011 08/30/2011 SUPRF HIGH RISK NEC [V23.89] 06/10/2011 08/30/2011 Unspecified high-risk 06/09/2009 10/22/2009 Contact dermatitis and other eczema due to other specified agent 04/26/2007 09/19/2008 Contact dermatitis and other eczema, due to unspecified cause 04/26/2007 09/19/2008 Viral warts, unspecified 03/23/2007 SOLAR LENGINES///DYSCHROMIA OTHER 02/17/2006 07/08/2011 Benign neoplasm of skin of t runk, except scrotum 02/17/2006 07/08/2011 Keloid scar 02/17/2006 07/08/2011 Scar condition and fibrosis of skin 02/17/2006 07/08/2011 documented as of this encounter (statuses as of 06/30/2023) [facility] History of Past illness Narrative* Problem Noted Date Diagnosed Date Resolved Date Uterine size date discrepancy 03/25/2014 06/20/2014 Supervision of other normal 11/22/2013 06/20/2014 Overview: Toby December 20, 2013 XY Camila Kurtz MD Bacterial vaginal infection 10/25/2013 06/20/2014 Overview: October 25, 2013 treated. Camila Kurtz MD Tobacco use in 10/23/201311/2014 Overview: 10/22/2013 Pt smokes 2-3 cigarettes a day, down from one half pack per day. Discussed risks of smoking during . Advised pt to quit. [place] tobacco quit line information given to patient. TKRN Uncertain dates, antepartum 10/23/2013 10/25/2013 Overview: 10/22/2013Patient has a history of irregular menses every 28-90 days. She is unsure when her last menstrual period was. She states it was either in June, July, or August. Patient states she believes she may have felt movement. Discussed with Dr. Magdalena Coleman. Ultrasound ordered by Dr. Coleman. TKRN GBS (group B Streptococcus c arrier), +RV culture, currently 07/12/2011 08/30/2011 SUPRF HIGH RISK NEC [V23.89] 06/10/2011 08/30/2011 Unspecified high-risk 06/09/2009 10/22/2009 Contact dermatitis and other eczema due to other specified agent 04/26/2007 09/19/2008 Contact dermatitis and other eczema, due to unspecified cause 04/26/2007 09/19/2008 Viral warts, unspecified 03/23/2007 SOLAR LENGINES///DYSCHROMIA OTHER 02/17/2006 07/08/2011 Benign neoplasm of skin of t runk, except scrotum 02/17/2006 07/08/2011 Keloid scar 02/17/2006 07/08/2011 Scar condition and fibrosis of skin 02/17/2006 07/08/2011 documented as of this encounter (statuses as of 06/30/2023) [facility] History of Past illness Narrative* Problem Noted Date Diagnosed Date Resolved Date Uterine size date discrepancy 03/25/2014 06/20/2014 Supervision of other normal 11/22/2013 06/20/2014 Overview: Toby December 20, 2013 XY Camila Kurtz MD Bacterial vaginal infection 10/25/2013 06/20/2014 Overview: October 25, 2013 treated. Camila Kurtz MD Tobacco use in 10/23/201311/2014 Overview: 10/22/2013 Pt smokes 2-3 cigarettes a day, down from one half pack per day. Discussed risks of smoking during . Advised pt to quit. [place] tobacco quit line information given to patient. TKRN Uncertain dates, antepartum 10/23/2013 10/25/2013 Overview: 10/22/2013Patient has a history of irregular menses every 28-90 days. She is unsure when her last menstrual period was. She states it was either in June, July, or August. Patient states she believes she may have felt movement. Discussed with Dr. Magdalena Coleman. Ultrasound ordered by Dr. Coleman. TKRN GBS (group B Streptococcus c arrier), +RV culture, currently 07/12/2011 08/30/2011 SUPRF HIGH RISK NEC [V23.89] 06/10/2011 08/30/2011 Unspecified high-risk 06/09/2009 10/22/2009 Contact dermatitis and other eczema due to other specified agent 04/26/2007 09/19/2008 Contact dermatitis and other eczema, due to unspecified cause 04/26/2007 09/19/2008 Viral warts, unspecified 03/23/2007 SOLAR LENGINES///DYSCHROMIA OTHER 02/17/2006 07/08/2011 Benign neoplasm of skin of t runk, except scrotum 02/17/2006 07/08/2011 Keloid scar 02/17/2006 07/08/2011 Scar condition and fibrosis of skin 02/17/2006 07/08/2011 documented as of this encounter (statuses as of 07/01/2023) [facility] Urticaria- Primary Urticaria, unspecified [facility] Diagnosis Acute cystitis with hematuria- Primary Acute cystitis [facility] Diagnosis Hypokalemia- Primary Hypopotassemia Vitamin D insufficiency Unspecified vitamin D deficiency [facility] Diagnosis Urticaria- Primary Urticaria, unspecified Arthralgia, unspecified joint Vitamin D deficiency Unspecified vitamin D deficiency Hematuria, unspecified type Flank pain Abdominal pain, unspecified site Screening for thyroid disorder documented in this encounter [facility] note* Diagnosis Urticaria- Primary Urticaria, unspecified Positive LEONOR (antinuclear antibody) Other and unspecified nonspecific immunological findings Hypermobility arthralgia Pain in joint, site unspecified Weakness Other malaise and fatigue documented in this encounter [facility] note* Diagnosis Hematuria, unspecified type- Primary documented in this encounter [facility] note* Diagnosis Sjogren's syndrome, with unspecified organ involvement (HCC)- Primary Shortness of breath documented in this encounter [facility] note* Diagnosis Sjogren's syndrome, with unspecified organ involvement (HCC) Shortness of breath documented in this encounter [facility] note* Diagnosis Sjogren's syndrome, with unspecified organ involvement (HCC) Shortness of breath documented in this encounter [facility] for referral (narrative)* Outpatient Procedure (Routine) - Pending Review Specialty Diagnoses / Procedures Referred By Kylie alexis Referred To [facility] [place] Diagnoses Sjogren's syndrome, with unspecified organ involvement (HCC) Shortness of breath Procedures SPIROMETRY - BASELINE AND POST DILATOR BRNCDILAT RSPSE SPMTRY PRE&POST-BRNCDILAT ADMN Rajesh Santiago MD [address] [place] [address] [place] [address] Referral ID Status Reason Start Date Expiration Date Visits Requested Visits Authorized [id number] Pending Review Auto-Generat ed Referral 07/25/2023 08/23/2024 1 1 * Outpatient Procedure (Routine) - Pending Review Specialty Diagnoses / Procedures Referred By Kylie alexis Referred To [facility] Diagnoses Sjogren's syndrome, with unspecified organ involvement (HCC) Shortness of breath Procedures LUNG DIFFUSION CAPACITY (DLCO) DIFFUSING CAPACITY Rajesh Santiago MD [address] [address] [address] Referral ID Status Reason Start Date Expiration Date Visits Requested Visits Authorized [id number] Pending Review Auto-Generat ed Referral 07/25/2023 08/23/2024 1 1 * Outpatient Procedure (Routine) - Pending Review Specialty Diagnoses / Procedures Referred By Contac t Referred To [facility] Diagnoses Sjogren's syndrome, with unspecified organ involvement (HCC) Shortness of breath Procedures LUNG VOLUMES Rajesh Santiago MD [address] [address] Referral ID Status Reason Start Date Expiration Date Visits Requested Visits Authorized [id number] Pending Review Auto-Generat ed Referral 07/25/2023 08/23/2024 1 1 [facility] Summary Purpose Family History No Family History Records FoundNo Family History Records FoundNo Family History Records Found Advance Directives No Advanced Directives Records FoundNo Advanced Directives Records FoundNo Advanced Directives Records Found Reason for Referral Specialty Diagnoses / Procedures Referred By Kylie t Referred To Contact Diagnoses Urticaria Procedures CONSULT TO ALLERGY/IMMUNOLOGY OFFICE/OUTPATIENT [facility] MDM 60 MINUTES Iman Park, CPA TAX.[facility] [address] [place] [address] Levi Bustillos MD [address] [facility] [address] [place] [address] Referral ID Status Reason Start Date Expiration Date Visits Requested Visits Authorized [id number] Authorized PCP Requested Referral 06/27/2023 06/26/2024 1 1 Specialty Diagnoses / Procedures Referred By Contac t Referred To Contact [facility] Diagnoses Hypermobility arthralgia Procedures CONSULT TO PHYSICAL THERAPY PHYSICAL THERAPY EVALUATION HIGH COMPLEX 45 MINS Rajesh Santiago MD [address] [address] [facility] [place] [address] [place] [address] Referral ID Status Reason Start Date Expiration Date Visits Requested Visits Authorized [id number] Pending Review Auto-Generat ed Referral 07/11/2023 07/10/2024 1 1 Specialty Diagnoses / Procedures Referred By Contac t Referred To Contact Nephrology Diagnoses Hematuria, unspecified type Procedures CONSULT TO NEPHROLOGY OFFICE/OUTPATIENT NEW HIGH MDM 60 MINUTES Rajesh Santiago MD [address] [address] Referral ID Status Reason Start Date Expiration Date Visits Requested Visits Authorized [id number] Authorized PCP Requested Referral 07/13/2023 07/12/2024 1 1 Additional Source Comments INFORMATION SOURCE (unrecogn ized section and content) DATE CREATED AUTHOR 04/06/2020 [employer] DATE CREATED AUTHOR AUTHOR'S ORGANIZ ATION 07/31/2023 [facility] DATE CREATED AUTHOR AUTHOR'S ORGANIZ ATION 10/30/2023 [facility] Source Comments (unrecognize d section and content) In the event this informatio n is protected by the Federal Confidentiality of Alcohol and Drug Abuse Patient Records regulations: The Federal rules restrict any use of the information to criminally investigate or prosecute any alcohol or drug abuse patient.[facility] the event this information is protected by the Federal Confidentiality of Alcohol and Drug Abuse Patient Records regulations: The Federal rules restrict any use of the information to criminally investigate or prosecute any alcohol or drug abuse patient.[facility] the event this information is protected by the Federal Confidentiality of Alcohol and Drug Abuse Patient Records regulations: The Federal rules restrict any use of the information to criminally investigate or prosecute any alcohol or drug abuse patient.[facility] the event this information is protected by the Federal Confidentiality of Alcohol and Drug Abuse Patient Records regulations: The Federal rules restrict any use of the information to criminally investigate or prosecute any alcohol or drug abuse patient.[facility] the event this information is protected by the Federal Confidentiality of Alcohol and Drug Abuse Patient Records regulations: The Federal rules restrict any use of the information to criminally investigate or prosecute any alcohol or drug abuse patient.[facility] the event this information is protected by the Federal Confidentiality of Alcohol and Drug Abuse Patient Records regulations: The Federal rules restrict any use of the information to criminally investigate or prosecute any alcohol or drug abuse patient.[facility] the event this information is protected by the Federal Confidentiality of Alcohol and Drug Abuse Patient Records regulations: The Federal rules restrict any use of the information to criminally investigate or prosecute any alcohol or drug abuse patient.[facility] the event this information is protected by the Federal Confidentiality of Alcohol and Drug Abuse Patient Records regulations: The Federal rules restrict any use of the information to criminally investigate or prosecute any alcohol or drug abuse patient.[facility] the event this information is protected by the Federal Confidentiality of Alcohol and Drug Abuse Patient Records regulations: The Federal rules restrict any use of the information to criminally investigate or prosecute any alcohol or drug abuse patient.[facility] the event this information is protected by the Federal Confidentiality of Alcohol and Drug Abuse Patient Records regulations: The Federal rules restrict any use of the information to criminally investigate or prosecute any alcohol or drug abuse patient.[facility] the event this information is protected by the Federal Confidentiality of Alcohol and Drug Abuse Patient Records regulations: The Federal rules restrict any use of the information to criminally investigate or prosecute any alcohol or drug abuse patient.[facility] the event this information is protected by the Federal Confidentiality of Alcohol and Drug Abuse Patient Records regulations: The Federal rules restrict any use of the information to criminally investigate or prosecute any alcohol or drug abuse patient.[facility] the event this information is protected by the Federal Confidentiality of Alcohol and Drug Abuse Patient Records regulations: The Federal rules restrict any use of the information to criminally investigate or prosecute any alcohol or drug abuse patient.[facility] the event this information is protected by the Federal Confidentiality of Alcohol and Drug Abuse Patient Records regulations: The Federal rules restrict any use of the information to criminally investigate or prosecute any alcohol or drug abuse patient.[facility] the event this information is protected by the Federal Confidentiality of Alcohol and Drug Abuse Patient Records regulations: The Federal rules restrict any use of the information to criminally investigate or prosecute any alcohol or drug abuse patient.[facility] Reason for Visit (unrecogniz ed section and content) Reason Onset Date Comments Refill Request 06/28/2023 Reason Comments Patient Question Results Reason Comments Results Reason Comments New Patient Establish care previ ous pcp was Dr. Terry. Would like to discuss allergies hives/swelling on legs, arms, face last time she was in the ER she was told her throat was swollen and they gave he an Epi pen injection. Worried it is an immune issue. Reason Comments Abnormal Lab +LEONOR Specialty Diagnoses / Procedures Referred By Kylie t Referred To Contact Rheumatology Diagnoses Positive LEONOR (antinuclear antibody) Procedures CONSULT TO RHEUM/IMMUN DISEASE OFFICE/OUTPATIENT NEW HIGH MDM 60 MINUTES Iman Park, CPA TAX.[facility] [address] [place] [id number] Referral ID Status Reason Start Date Expiration Date V isits Requested Visits Authorized [id number] Closed PCP Requested Referral 06/30/2023 06/29/2024 1 1 Reason Comments Patient Update Reason Comments Abnormal Lab +SSB Reason Comments Spirometry Specialty Diagnoses / Procedures Referred By Kylie t Referred To Contact [facility] Diagnoses Sjogren's syndrome, with unspecified organ involvement (HCC) Shortness of breath Procedures SPIROMETRY - BASELINE AND POST DILATOR BRNCDILAT RSPSE SPMTRY PRE&POST-BRNCDILAT ADMN Rajesh Santiago MD [address] [place] [id number] [facility] [place] [address] [place] [address] Referral ID Status Reason Start Date Expiration Date V isits Requested Visits Authorized [id number] Closed Auto-Generate d Referral 07/25/2023 08/23/2024 1 1 Specialty Diagnoses / Procedures Referred By Contac t Referred To [facility] [place] Diagnoses Sjogren's syndrome, with unspecified organ involvement (HCC) Shortness of breath Procedures LUNG VOLUMES PLETHYSMOGRAPHY LUNG VOLUMES W/WO AIRWAY RESIST Rajesh Santiago MD [address] [place] [address] [place] [address] Referral ID Status Reason Start Date Expiration Date V isits Requested Visits Authorized [id number] Closed Auto-Generate d Referral 07/26/2023 03/13/2024 1 1 Specialty Diagnoses / Procedures Referred By Contac t Referred To [facility] [place] Diagnoses Sjogren's syndrome, with unspecified organ involvement (HCC) Shortness of breath Procedures LUNG DIFFUSION CAPACITY (DLCO) DIFFUSING CAPACITY Rajesh Santiago MD [address] [place] [phone] [place] [address] Referral ID Status Reason Start Date Expiration Date V isits Requested Visits Authorized [id number] Closed Auto-Generate d Referral 07/25/2023 08/23/2024 1 1 Care Teams (unrecognized sec tion and content) Graphic Illustrator Relationship Specialty Start Date End Date Iman Park, CPA TAX.[facility] [address] [place] [address] PCP - General Family Medicine 06/27/23 Graphic Illustrator Relationship Specialty Start Date End Date Iman Park CPA TAX.[facility] [address] [place] [address] PCP - General Family Medicine 06/27/23 Graphic Illustrator Relationship Specialty Start Date End Date Iman Park A, CPA TAX.[facility] [address] [place] [address] PCP - General Family Medicine 06/27/23 Graphic Illustrator Relationship Specialty Start Date End Date Iman Park, CPA TAX.[facility] [address] [place] [address] PCP - General Family Medicine 06/27/23 Graphic Illustrator Relationship Specialty Start Date End Date Iman Park, CPA TAX.[facility] [address] [place] [address] PCP - General Family Medicine 06/27/23 Graphic Illustrator Relationship Specialty Start Date End Date Iman Park, CPA TAX.[facility] [address] [place] [address] PCP - General Family Medicine 06/27/23 Graphic Illustrator Relationship Specialty Start Date End Date Iman Park, CPA TAX.[facility] [address] [place] [address] PCP - General Family Medicine 06/27/23 Graphic Illustrator Relationship Specialty Start Date End Date Iman Park, CPA TAX.[facility] [address] [place] [address] PCP - General Family Medicine 06/27/23 FOR RECORDS PERTAINING TO PATIENTS WHO ARE [...] BE BASED ON THE PRIMARY CLINICAL RECORDS. [facility] [employer] [facility]. provides no warranty or guarantee of the accuracy or completeness of information in this document.
[2024-01-04] MEDS: DiphenhydrAMINE 50 MG/ML Syringe IV (01:33)
[2024-01-04] MEDS: MethylPREDNISolone 125 MG/2 ML Vial IV (01:33)
[2024-01-04] MEDS: Epi Pen (EQUIV) 0.3 MG Syringe IM (01:34)
[2024-01-04] MEDS: Famotidine 200 MG/20 ML MDV 40 MG in 0.9% Normal Saline (Pres. free 6 ML 300 MG IV (01:36)
--- NOTE | 2024-01-04 02:53 | EX.ED.DYSGE1 ---
HPI History of Present Illness Chief Complaint: Allergic Reaction Informant: patient Narrative Narrative: Patient is a 33-year-old female with past medical history of anxiety as well as environmental/food allergies. She states she took her kids axici-nd-yenbwsys and ate some of their candy and then noticed a rash that started on her legs and progressed up towards her abdomen and back and then onto her arms and face. She states it is pruritic and she denies any new exposure other than the food. She denies any trouble breathing or swallowing but as symptoms are not resolving with [id number] medication comes in for evaluation [facility] Medical History Anxiety Home Medications ?Medication ?Instructions ?Recorded ?Last Taken ?Type epinephrine 0.3 mg/0.3 mL 0.3 mg (0.3 mL) IM Q15M PRN 04/29/23 Unknown Rx injection, auto-injector (EpiPen) anaphylaxis #2 ea cholecalciferol (vitamin D3) 50 50 mcg PO DAILY 08/06/23 Unknown History mcg (2,000 unit) capsule (Vitamin D3) famotidine 20 mg tablet (Pepcid) 20 mg PO BID #14 tabs 08/06/23 Unknown Rx fluoxetine 20 mg capsule 20 mg PO DAILY 08/06/23 Unknown History hydroxyzine pamoate 25 mg capsule 25 mg PO BID 08/06/23 Unknown History prednisone 50 mg tablet 50 mg PO DAILY #5 tabs 10/05/23 Unknown Rx albuterol sulfate 90 mcg/actuation 1 - 2 puff inhalation Q4H PRN PRN 11/09/23 Unknown History aerosol inhaler wheezing diphenhydramine HCl 25 mg capsule 25 mg PO TID #10 caps 11/09/23 Unknown Rx (Benadryl) famotidine 20 mg tablet (Pepcid) 20 mg PO BID #10 tabs 11/09/23 Unknown Rx naproxen 500 mg tablet 500 mg PO BID #14 tabs 11/09/23 Unknown Rx penicillin V potassium 250 mg 500 mg (2 x 250 mg) PO 4X/DAY #40 11/09/23 Unknown Rx tablet tabs prednisone 20 mg tablet 40 mg (2 x 20 mg) PO DAILY #8 11/09/23 Unknown Rx TABLETS prednisone 50 mg tablet 50 mg PO DAILY PRN allergic 11/09/23 Unknown History reaction prednisone 20 mg tablet 40 mg (2 x 20 mg) PO DAILY 5 days 01/04/24 Unknown Rx #10 tabs Allergy/AdvReac Type Severity Reaction Status Date / Time corn Allergy Severe Hives Verified 11/09/23 19:17 peanut (peanuts) Allergy Severe Hives Verified 11/09/23 19:17 sesame seed Allergy Severe Hives Verified 11/09/23 19:17 shellfish derived Allergy Severe Hives Verified 11/09/23 19:17 pseudoephedrine Allergy Mild Rash Verified 11/09/23 19:17 Social History household members: children Smoking Status: Former smoker ROS ROS ED Constitutional Constitutional ED: Denies chills or fever(s) Eyes Eyes: Denies change in vision ENT ENT ED: Denies rhinorrhea or sore throat Cardiovascular Cardiovascular: Denies chest pain Respiratory/Chest Respiratory/Chest: Denies cough or dyspnea Gastrointestinal Gastrointestinal: Denies abdominal pain, diarrhea, nausea or vomiting Genitourinary Genitourinary ED: Denies dysuria Musculoskeletal Musculoskeletal: Denies myalgias Integumentary Reports rash Neurologic Neurologic: Denies headache(s) Hematologic/Lymphatic Hematologic/Lymphatic: Denies easy bleeding or easy bruising Allergic/Immunologic Allergic/Immunologic ED: Reports urticaria; Denies mouth swelling or tongue swelling EXAM Physical Exam Const Vital Signs: 01/03/24 23:47 Temperature 98.3 F Temperature Source Temporal Pulse Rate 91 Respiratory Rate 18 Blood Pressure 145/103 H Blood Pressure Mean 117 Pulse Ox 99 Oxygen Delivery Method Room Air Positive well nourished and well developed General Appearance ED: well developed HEENT Reports moist mucous membranes HEENT Narrative: No tongue or lip swelling no oral lesions no airway edema or compromise No secondary findings in the posterior pharynx to suggest infection Eyes PERRL and EOMs intact bilaterally General Eye ED: Negative for scleral icterus Neck supple Neck Narrative: No nuchal rigidity or meningeal signs Chest Wall palpation of chest normal Resp normal respiratory effort and clear to auscultation bilaterally Resp Narrative: No nasal flaring retractions tachypnea or accessory muscle use Cardio regular rate and regular rhythm Extremity Extremity Narrative: 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 The the urticarial lesions are erythematous and blanchable. No vesicular or pustule changes. No involvement of the palms or soles. MDM MDM MDM Narrative Medical decision making narrative: Patient arrived to the ER with history and exam consistent with allergic reaction most likely secondary to food. She does not have anaphylactic changes however with tongue or lip swelling or difficulty breathing or swallowing so there is no need for airway stabilization/intubation. Patient was given IV Solu-Medrol Benadryl and Pepcid and based on the diffuse nature of the rash I did feel that she would benefit from IM epinephrine even though there is no anaphylaxis. After receiving the medication she did have improvement of the rash and on reevaluation she remains in no respiratory distress without tongue or lip swelling or respiratory compromise. Therefore she is safe for discharge and can continue anti-inflammatory medication in the form of steroids and Benadryl at home History & Record Review Discussion w/independent historian: Patient Discharge Plan Triage Chief Complaint: Allergic Reaction ED Provider: Grant Pretty Dx/Rx/DC Orders Clinical Impression: Acute allergic reaction, Anxiety Instructions: ED General Allergic Reactions Prescriptions: New prednisone 20 mg tablet 40 mg PO DAILY 5 Days Qty: 10 0RF No Action epinephrine [EpiPen] 0.3 mg/0.3 mL auto-injector 0.3 mg IM Q15M PRN (Reason: anaphylaxis) Qty: 2 0RF prednisone 50 mg tablet 50 mg PO DAILY PRN (Reason: allergic reaction) albuterol sulfate 90 mcg/actuation HFA aerosol inhaler 1 - 2 puff inhalation Q4H PRN PRN (Reason: wheezing) diphenhydramine HCl [Benadryl] 25 mg capsule 25 mg PO TID Qty: 10 0RF famotidine [Pepcid] 20 mg tablet 20 mg PO BID Qty: 10 0RF penicillin V potassium 250 mg tablet 500 mg PO 4X/DAY Qty: 40 0RF prednisone 20 mg tablet 40 mg PO DAILY Qty: 8 0RF naproxen 500 mg tablet 500 mg PO BID Qty: 14 0RF fluoxetine 20 mg capsule 20 mg PO DAILY hydroxyzine pamoate 25 mg capsule 25 mg PO BID cholecalciferol (vitamin D3) [Vitamin D3] 50 mcg (2,000 unit) capsule 50 mcg PO DAILY famotidine [Pepcid] 20 mg tablet 20 mg PO BID Qty: 14 0RF prednisone 50 mg tablet 50 mg PO DAILY Qty: 5 0RF Primary Care Provider: Iman Peace NP Referrals: Iman Peace NP, TITLE I ASSISTANT-C [Primary Care Provider] - Activity Restrictions/Additional Instructions: Please continue the prednisone as directed at home to help control inflammation and rash from the allergic reaction. You also may take up to 2 Benadryl 3 times a day if the steroid is not enough to control symptoms. If you develop difficulty breathing or swallowing or have any further concerns please return to the hospital for repeat evaluation. Print Language: Lao Disposition Disposition: Home, Self Care Discharge Date/Time: 01/04/24 03:02
[2024-01-04 03:00] VITALS: BP 132/80; PULSE 65; RESP 18; TEMP 36.7; O2SAT 99
== END 2024-01-04 03:02 | disposition home or self-care (01) ==
PROVIDERS: Emergency Provider Emergency Medicine; PCP Nurse Practitioner Family; Visit Provider Emergency Medicine
DX: L50.0 Allergic urticaria (principal); F41.9 Anxiety disorder, unspecified; Z79.899 Other long term (current) drug therapy; Z87.891 Personal history of nicotine dependence
CPT/HCPCS: 96372; 96374; 96375; 99282; A4216; J3490

== ENCOUNTER 2024-01-14 03:47 | Emergency (ER) | payer MEDICAID, SELFPAY ==
[2024-01-14 03:47] VITALS: BP 176/103; PULSE 73; RESP 18; TEMP 36.6; O2SAT 98; BMI 20.3
--- NOTE | 2024-01-14 03:54 | EDS_ITS ---
HPI History of Present Illness Chief Complaint: Dental Informant: patient Onset/Context/Timing Onset: Today Context: Sudden Onset Timing: Continuous Quality: Stabbing Location: Left lower more Worsened by: Eating Relieved by: - (Nothing) Associated Symptoms Assocated Symptom - Dental: cold sensitivity and hot sensitivity; Negative for fever, jaw swelling or face swelling Narrative Narrative: Patient presents with dental pain that became worse today. Patient states that she has had some dental pain for the past several days. Patient states she knows she needs a root canal of her left lower molar. Patient states that tonight she was eating pizza and the pain became severe. Patient states it began rather suddenly tonight. Patient admits to hot and cold sensitivity. Patient denies any fevers or chills. [facility] Medical History Anxiety Home Medications ?Medication ?Instructions ?Recorded ?Last Taken ?Type epinephrine 0.3 mg/0.3 mL 0.3 mg (0.3 mL) IM Q15M PRN 04/29/23 Unknown Rx injection, auto-injector (EpiPen) anaphylaxis #2 ea cholecalciferol (vitamin D3) 50 50 mcg PO DAILY 08/06/23 Unknown History mcg (2,000 unit) capsule (Vitamin D3) fluoxetine 20 mg capsule 20 mg PO DAILY 08/06/23 Unknown History hydroxyzine pamoate 25 mg capsule 25 mg PO BID 08/06/23 Unknown History albuterol sulfate 90 mcg/actuation 1 - 2 puff inhalation Q4H PRN PRN 11/09/23 Unknown History aerosol inhaler wheezing cefdinir 300 mg capsule 300 mg PO Q12.TCU 01/14/24 Unknown History naproxen 500 mg tablet 500 mg PO BID PRN #20 tabs 01/14/24 Unknown Rx penicillin V potassium 500 mg 500 mg PO 4X/DAY #40 tabs 01/14/24 Unknown Rx tablet Allergy/AdvReac Type Severity Reaction Status Date / Time corn Allergy Severe Hives Verified 01/14/24 03:47 peanut (peanuts) Allergy Severe Hives Verified 01/14/24 03:47 sesame seed Allergy Severe Hives Verified 01/14/24 03:47 shellfish derived Allergy Severe Hives Verified 01/14/24 03:47 pseudoephedrine Allergy Mild Rash Verified 01/14/24 03:47 Surgical History no surgical history no surgical history Social History household members: children Smoking Status: Former smoker ROS ROS ED Constitutional Constitutional ED: Denies chills or fever(s) Eyes Eyes: Denies blurry vision or change in vision ENT ENT ED: Denies rhinorrhea or sore throat Cardiovascular Cardiovascular: Denies chest pain or palpitations Respiratory/Chest Respiratory/Chest: Denies cough or dyspnea Gastrointestinal Gastrointestinal: Reports nausea; Denies vomiting Genitourinary Genitourinary ED: Denies dysuria or hematuria Musculoskeletal Musculoskeletal: Reports neck pain; Denies back pain Integumentary Denies abscess or rash Neurologic Neurologic: Denies headache(s) or weakness Psychiatric Psychiatric: Reports anxiety Allergic/Immunologic Allergic/Immunologic ED: Denies mouth swelling or urticaria EXAM Physical Exam Const Vital Signs: 01/14/24 03:47 Temperature 97.9 F Temperature Source Oral Pulse Rate 73 Respiratory Rate 18 Blood Pressure 176/103 H Blood Pressure Mean 127 Pulse Ox 98 Oxygen Delivery Method Room Air Positive well nourished and well developed General Appearance ED: well developed and NAD HEENT HEENT Narrative: There is a large dental carry noted over the left lower second molar. There is tenderness to percussion of this tooth. There is some mild gingival edema. There is no discharge or drainage. There is no fluctuance or evidence of any abscess. There is no sublingual edema. There is no evidence of Justen's angina. Oropharynx is clear. Airway is patent. Teeth and Gingiva: abnormal tooth and associated gingiva Positive for tenderness (Left lower second molar) and associated gingival edema (Left lower second molar) and caries Throat: posterior oropharynx normal Neck supple and no JVD General: Negative for anterior neck swelling, tenderness or submandibular swelling Lymph Lymphatic: no lymphadenopathy noted Neuro oriented x3, CN's II-XII intact bilaterally, moves all extremities, no focal motor deficits and no sensory deficits noted Sensorium / Orientation: alert Motor Exam: strength 5/5 throughout Psych mental status grossly normal MDM MDM MDM Narrative Medical decision making narrative: Patient was advised that this is most likely infected dental carry. Patient was given a dose of Pen-Vee K and Naprosyn here. Patient was given prescription for Pen-Vee K and Naprosyn. Patient was instructed to follow-up with her dentist in 5 to 7 days. Patient was instructed return if worse in any way. Patient understood and was agreeable with the plan. All questions were answered. Discharge Plan Triage Chief Complaint: Dental ED Provider: Lev Santana Dx/Rx/DC Orders Clinical Impression: Infected dental caries, Odontalgia Instructions: ED Dental Pain, ED Dental Cavity Prescriptions: New penicillin V potassium 500 mg tablet 500 mg PO 4X/DAY Qty: 40 0RF naproxen 500 mg tablet 500 mg PO BID PRN Qty: 20 0RF No Action epinephrine [EpiPen] 0.3 mg/0.3 mL auto-injector 0.3 mg IM Q15M PRN (Reason: anaphylaxis) Qty: 2 0RF albuterol sulfate 90 mcg/actuation HFA aerosol inhaler 1 - 2 puff inhalation Q4H PRN PRN (Reason: wheezing) fluoxetine 20 mg capsule 20 mg PO DAILY hydroxyzine pamoate 25 mg capsule 25 mg PO BID cholecalciferol (vitamin D3) [Vitamin D3] 50 mcg (2,000 unit) capsule 50 mcg PO DAILY cefdinir 300 mg capsule 300 mg PO Q12.TCU Primary Care Provider: Iman Peace NP Referrals: Iman Peace NP, WEATHER ANCHOR-C [Primary Care Provider] - 5-7 Days Print Language: Thai Disposition Disposition: Home, Self Care
[2024-01-14] MEDS: Naproxen 500 MG Tablet PO (04:16)
[2024-01-14] MEDS: Penicillin Vk 250 MG Tablet 500 MG PO (04:16)
== END 2024-01-14 04:17 | disposition home or self-care (01) ==
LOC: ED 04:12
PROVIDERS: Emergency Provider Emergency Medicine; PCP Nurse Practitioner Family; Visit Provider Emergency Medicine
DX: K02.9 Dental caries, unspecified (principal); Z87.891 Personal history of nicotine dependence
CPT/HCPCS: 99282

== ENCOUNTER 2024-02-01 14:25 | Emergency (ER) | payer MEDICAID, SELFPAY ==
[2024-02-01 14:26] VITALS: BP 118/83; PULSE 76; RESP 16; TEMP 37; O2SAT 100; BMI 20.3
[2024-02-01 14:27] VITALS: BP 101/78; PULSE 78; RESP 18; TEMP 36.6; O2SAT 99
--- NOTE | 2024-02-01 14:41 | EX.ED.DYSGE1 ---
HPI History of Present Illness Chief Complaint: Cellulitis Detail of Chief Complaint: Concern for cellulitis left thumb stump site Informant: patient Onset/Context/Timing Onset: Weeks (Redness for 1 week with drainage from the center of the stump.) Context: Sudden Onset Timing: Continuous Quality: Redness Location: Left thumb stump Current Severity: Mild Maximum Severity: Mild Worsened by: Nothing Relieved by: Nothing Associated Symptoms Associated Symptoms: None Narrative Narrative: Patient is a 33-year-old [id number] woman who presents because of concern for cellulitis left thumb stump region. She is present on no antibiotics. She has no allergies to antibiotics. She denies fever, chills night sweats. Denies history medic fever, heart murmur, mitral prolapse or SBE. She is on no immunosuppressive meds. She has not noted a rash going up her arm or streak up her arm. She denies elbow tenderness. She was concerned that something may have bit her. She does not recall anything biting her. Prior similar symptoms: No Recent Illness/Hospitalization: No PFSH PFSH Medical History Anxiety Home Medications ?Medication ?Instructions ?Recorded ?Last Taken ?Type epinephrine 0.3 mg/0.3 mL 0.3 mg (0.3 mL) IM Q15M PRN 04/29/23 Unknown Rx injection, auto-injector (EpiPen) anaphylaxis #2 ea cholecalciferol (vitamin D3) 50 50 mcg PO DAILY 08/06/23 Unknown History mcg (2,000 unit) capsule (Vitamin D3) fluoxetine 20 mg capsule 20 mg PO DAILY 08/06/23 Unknown History hydroxyzine pamoate 25 mg capsule 25 mg PO BID 08/06/23 Unknown History albuterol sulfate 90 mcg/actuation 1 - 2 puff inhalation Q4H PRN PRN 11/09/23 Unknown History aerosol inhaler wheezing cefdinir 300 mg capsule 300 mg PO Q12.TCU 01/14/24 Unknown History naproxen 500 mg tablet 500 mg PO BID PRN #20 tabs 01/14/24 Unknown Rx penicillin V potassium 500 mg 500 mg PO 4X/DAY #40 tabs 01/14/24 Unknown Rx tablet doxycycline monohydrate 100 mg 100 mg PO BID #14 CAPSULES 02/01/24 Unknown Rx capsule Allergy/AdvReac Type Severity Reaction Status Date / Time corn Allergy Severe Hives Verified 02/01/24 14:27 peanut (peanuts) Allergy Severe Hives Verified 02/01/24 14:27 sesame seed Allergy Severe Hives Verified 02/01/24 14:27 shellfish derived Allergy Severe Hives Verified 02/01/24 14:27 pseudoephedrine Allergy Mild Rash Verified 02/01/24 14:27 Social History household members: children Smoking Status: Former smoker ROS ROS ED Constitutional Constitutional ED: Denies chills, fever(s), subjective or sweats Cardiovascular Cardiovascular: Denies chest pain, palpitations or racing heartbeat Respiratory/Chest Respiratory/Chest: Denies cough Gastrointestinal Gastrointestinal: Denies nausea or vomiting Hematologic/Lymphatic Hematologic/Lymphatic: Denies easy bleeding or easy bruising EXAM Physical Exam Const Vital Signs: 02/01/24 14:26 Temperature 98.6 F Temperature Source Oral Pulse Rate 76 Respiratory Rate 16 Blood Pressure 118/83 H Blood Pressure Mean 94 Pulse Ox 100 Oxygen Delivery Method Room Air Positive well nourished and well developed General Appearance ED: well developed and NAD HEENT Reports moist mucous membranes HEENT Narrative: Head is atraumatic normocephalic. 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 Patient has a stump where her thumb should be. There is what appears to be a small abscess blister in the center. There is an area of erythema that is approximate the size of a nickel. There is no lymphangitis. There is no epitrochlear lymphadenopathy. I was able to express some slightly cloudy fluid from the center portion. Patient has a remanent of the nail on the dorsal surface of the stump. Neuro oriented x3 and CN's II-XII intact bilaterally Sensorium / Orientation: alert Psych mental status grossly normal Skin Skin Narrative: Described under the extremity portion of the EMR MDM MDM MDM Narrative Medical decision making narrative: Patient has cellulitis of the left thumb stump with an infected blister or small at subcutaneous abscess. The area was open. Able to express purulent material. Since patient has no systemic findings no lymphangitis or lymphadenopathy; therefore, in my opinion laboratory testing is not needed. History & Record Review Additional record(s) reviewed:: Prior ED visit (Patient was prescribed penicillin on January 13 for dental infection. She was seen in December for anxiety and in October for urticaria.) and Prior labs Discharge Plan Triage Chief Complaint: Cellulitis ED Provider: Collin Allen Dx/Rx/DC Orders Clinical Impression: Cellulitis of left thumb, Subcutaneous abscess Instructions: ED Cellulitis Prescriptions: New doxycycline monohydrate 100 mg capsule 100 mg PO BID Qty: 14 0RF No Action epinephrine [EpiPen] 0.3 mg/0.3 mL auto-injector 0.3 mg IM Q15M PRN (Reason: anaphylaxis) Qty: 2 0RF albuterol sulfate 90 mcg/actuation HFA aerosol inhaler 1 - 2 puff inhalation Q4H PRN PRN (Reason: wheezing) fluoxetine 20 mg capsule 20 mg PO DAILY hydroxyzine pamoate 25 mg capsule 25 mg PO BID cholecalciferol (vitamin D3) [Vitamin D3] 50 mcg (2,000 unit) capsule 50 mcg PO DAILY cefdinir 300 mg capsule 300 mg PO Q12.TCU penicillin V potassium 500 mg tablet 500 mg PO 4X/DAY Qty: 40 0RF naproxen 500 mg tablet 500 mg PO BID PRN Qty: 20 0RF Primary Care Provider: Iman Peace NP Referrals: Iman Peace GREEN CHAIN OFFBEARER, GREEN CHAIN OFFBEARER-C [Primary Care Provider] - 2 Days Print Language: Wallisian Disposition Disposition: Home, Self Care
[2024-02-01] MEDS: Doxycycline 100 MG CAPSULE PO (14:46)
[2024-02-01 14:52] VITALS: BP 101/78; PULSE 78; RESP 18; TEMP 36.6; O2SAT 99
== END 2024-02-01 14:52 | disposition home or self-care (01) ==
LOC: ED 14:51
PROVIDERS: Emergency Provider Emergency Medicine; PCP Nurse Practitioner Family; Referring Provider Emergency Medicine; Visit Provider Emergency Medicine
DX: L03.012 Cellulitis of left finger (principal); L02.512 Cutaneous abscess of left hand; Z87.891 Personal history of nicotine dependence
CPT/HCPCS: 99282

== ENCOUNTER 2024-02-26 14:12 | Emergency (ER) | payer MEDICAID, SELFPAY ==
[2024-02-26 14:13] VITALS: BP 121/94; PULSE 91; RESP 16; TEMP 36.3; O2SAT 100; BMI 20.2
[2024-02-26] MEDS: predniSONE 20 MG Tablet 60 MG PO (14:25)
[2024-02-26] MEDS: Famotidine 20 MG Tablet PO (14:25)
--- NOTE | 2024-02-26 14:26 | EX.ED.DYSGE1 ---
HPI History of Present Illness Chief Complaint: Allergic Reaction Narrative Narrative: 33-year-old female with past medical history of multiple food allergies, especially corn and tree nuts, presents with hives that started on her legs, and now spread to her ears and to her arms as well. She has had previous reactions to food. Yesterday, she ate dinner at her mother's house. She states that she had a little bit of everything, but may have been subject to something with corn and it, or something that was processed with tree nuts. She denies any throat closing or difficulty breathing, and states that she had hives that started on her legs that have stayed there, but once again now she has itchiness of her ears along with redness, and hives that are spreading to her upper body. The last time that she had a reaction was a few months ago. She had to come to the emergency department then and was prescribed Pepcid, Benadryl, and a steroid. [facility] Medical History Anxiety Home Medications ?Medication ?Instructions ?Recorded ?Last Taken ?Type epinephrine 0.3 mg/0.3 mL 0.3 mg (0.3 mL) IM Q15M PRN 04/29/23 Unknown Rx injection, auto-injector (EpiPen) anaphylaxis #2 ea cholecalciferol (vitamin D3) 50 50 mcg PO DAILY 08/06/23 Unknown History mcg (2,000 unit) capsule (Vitamin D3) fluoxetine 20 mg capsule 20 mg PO DAILY 08/06/23 Unknown History hydroxyzine pamoate 25 mg capsule 25 mg PO BID 08/06/23 Unknown History albuterol sulfate 90 mcg/actuation 1 - 2 puff inhalation Q4H PRN PRN 11/09/23 Unknown History aerosol inhaler wheezing cefdinir 300 mg capsule 300 mg PO Q12.TCU 01/14/24 Unknown History naproxen 500 mg tablet 500 mg PO BID PRN #20 tabs 01/14/24 Unknown Rx penicillin V potassium 500 mg 500 mg PO 4X/DAY #40 tabs 01/14/24 Unknown Rx tablet doxycycline monohydrate 100 mg 100 mg PO BID #14 CAPSULES 02/01/24 Unknown Rx capsule famotidine 20 mg tablet (Pepcid AC) 20 mg PO BID #14 tabs 02/26/24 Unknown Rx prednisone 20 mg tablet 40 mg (2 x 20 mg) PO DAILY #14 tabs 02/26/24 Unknown Rx Allergy/AdvReac Type Severity Reaction Status Date / Time corn Allergy Severe Hives Verified 02/26/24 14:15 peanut (peanuts) Allergy Severe Hives Verified 02/26/24 14:15 sesame seed Allergy Severe Hives Verified 02/26/24 14:15 shellfish derived Allergy Severe Hives Verified 02/26/24 14:15 pseudoephedrine Allergy Mild Rash Verified 02/26/24 14:15 Social History household members: children Smoking Status: Former smoker ROS ROS ED ROS Narrative Review of systems positive for hives mainly on the legs. No throat closing, no dyspnea or difficulty breathing, no chest tightness. No exacerbating or alleviating factors. EXAM Physical Exam Narrative Exam Narrative: Afebrile. Vital signs noted. Nontoxic-appearing. Blanchable hives noted on bilateral lower extremities with areas of convalescence. Airway patent. No drooling or trismus. Neck without stridor. Cardiovascular examination reveals a regular rate and rhythm. Lungs are clear to auscultation bilaterally. Abdomen soft with positive bowel sounds. Const Vital Signs: 02/26/24 14:13 Temperature 97.4 F L Temperature Source Oral Pulse Rate 91 Respiratory Rate 16 Blood Pressure 121/94 H Blood Pressure Mean 103 Pulse Ox 100 Oxygen Delivery Method Room Air MDM MDM MDM Narrative Medical decision making narrative: I reviewed the patient's prior records, she has received Pepcid, Benadryl, and steroids in the past. Her symptoms have been ongoing since last evening. I do not feel that she needs an epinephrine pen. Differential diagnosis does include hives from food allergy versus anaphylaxis versus idiopathic hives.. As patient drove herself here, I will not give her Benadryl as an antihistamine. I do not feel she requires monitoring or epinephrine at this time. Her pulse ox is 100% on room air and she is not tachycardic or hypotensive. She was given a loading dose of prednisone 60 mg orally here and a dose of Pepcid. I wrote her prescriptions for Pepcid 20 mg to take twice daily for a week along with a prednisone burst for the remaining 7 days. I feel can be discharged to follow-up with her primary care provider. Return instructions to the emergency department were reviewed. Patient comfortable with the plan of oral medications, prescriptions, and discharge. Disposition is discharged home in stable condition. History & Record Review Discussion w/independent historian: Patient Additional record(s) reviewed:: Prior ED visit Discharge Plan Triage Chief Complaint: Allergic Reaction ED Provider: Hansel Robledo Dx/Rx/DC Orders Clinical Impression: Hives, Food allergy Instructions: ED Food Allergy, ED Hives (Adult) Prescriptions: New prednisone 20 mg tablet 40 mg PO DAILY Qty: 14 0RF famotidine [Pepcid AC] 20 mg tablet 20 mg PO BID Qty: 14 0RF No Action epinephrine [EpiPen] 0.3 mg/0.3 mL auto-injector 0.3 mg IM Q15M PRN (Reason: anaphylaxis) Qty: 2 0RF albuterol sulfate 90 mcg/actuation HFA aerosol inhaler 1 - 2 puff inhalation Q4H PRN PRN (Reason: wheezing) fluoxetine 20 mg capsule 20 mg PO DAILY hydroxyzine pamoate 25 mg capsule 25 mg PO BID cholecalciferol (vitamin D3) [Vitamin D3] 50 mcg (2,000 unit) capsule 50 mcg PO DAILY cefdinir 300 mg capsule 300 mg PO Q12.TCU penicillin V potassium 500 mg tablet 500 mg PO 4X/DAY Qty: 40 0RF naproxen 500 mg tablet 500 mg PO BID PRN Qty: 20 0RF doxycycline monohydrate 100 mg capsule 100 mg PO BID Qty: 14 0RF Primary Care Provider: Iman Peace NP Referrals: Iman Peace TANBARK PEELER, TANBARK PEELER-C [Primary Care Provider] - 3-5 Days if not improving Activity Restrictions/Additional Instructions: Continue [id number] Benadryl 25 to 50 mg every 4-6 hours by mouth. Take the steroid burst and the Pepcid as directed. Return with difficulty breathing, new or worsening symptoms. Print Language: Luxembourgish Disposition Disposition: Home, Self Care Discharge Date/Time: 02/26/24 14:34
== END 2024-02-26 14:34 | disposition home or self-care (01) ==
LOC: ED 14:30
PROVIDERS: Emergency Provider Emergency Medicine; PCP Nurse Practitioner Family; Visit Provider Emergency Medicine
DX: L50.0 Allergic urticaria (principal); Z87.891 Personal history of nicotine dependence
CPT/HCPCS: 99282

== ENCOUNTER 2024-04-10 10:36 | Emergency (ER) | payer MEDICAID, SELFPAY ==
[2024-04-10 10:36] VITALS: BP 128/99; PULSE 66; RESP 20; TEMP 36.2; O2SAT 100
[2024-04-10] MEDS: predniSONE 20 MG Tablet 60 MG PO (11:22)
--- NOTE | 2024-04-10 11:24 | EDS_ITS ---
HPI History of Present Illness Chief Complaint: Allergic Reaction Narrative Narrative: Patient is a 33-year-old female with past medical anxiety, multiple food allergies who presents with a concern for a allergic reaction to the food she ate yesterday. She states that yesterday she ate chocolate chip muffins as well as beef jerky. States that after eating the beef jerky she noted that she had a feeling of flushness. States that she took Benadryl and went to bed. States that when she woke up she had a rash noted near her right ankle and her right inner thigh. States that typically this is how the rashes will present with her food allergies. States that she has seen an customer experience strategist in the past. Patient notes that usually she is put on prednisone and this helps her symptoms. Patient did complain of sore throats but states that she has been eating and drinking and swallowing okay without any difficulty [facility] Medical History Anxiety Home Medications ?Medication ?Instructions ?Recorded ?Last Taken ?Type epinephrine 0.3 mg/0.3 mL 0.3 mg (0.3 mL) IM Q15M PRN 04/29/23 Unknown Rx injection, auto-injector (EpiPen) anaphylaxis #2 ea cholecalciferol (vitamin D3) 50 50 mcg PO DAILY 08/06/23 Unknown History mcg (2,000 unit) capsule (Vitamin D3) fluoxetine 20 mg capsule 20 mg PO DAILY 08/06/23 Unknown History hydroxyzine pamoate 25 mg capsule 25 mg PO BID 08/06/23 Unknown History albuterol sulfate 90 mcg/actuation 1 - 2 puff inhalation Q4H PRN PRN 11/09/23 Unknown History aerosol inhaler wheezing cefdinir 300 mg capsule 300 mg PO Q12.TCU 01/14/24 Unknown History naproxen 500 mg tablet 500 mg PO BID PRN #20 tabs 01/14/24 Unknown Rx penicillin V potassium 500 mg 500 mg PO 4X/DAY #40 tabs 01/14/24 Unknown Rx tablet doxycycline monohydrate 100 mg 100 mg PO BID #14 CAPSULES 02/01/24 Unknown Rx capsule famotidine 20 mg tablet (Pepcid AC) 20 mg PO BID #14 tabs 02/26/24 Unknown Rx prednisone 20 mg tablet 40 mg (2 x 20 mg) PO DAILY #14 tabs 02/26/24 Unknown Rx methylprednisolone 4 mg tablets in 4 mg PO DAILY #21 tabs 04/10/24 Unknown Rx a dose pack Allergy/AdvReac Type Severity Reaction Status Date / Time corn Allergy Severe Hives Verified 04/10/24 10:38 peanut (peanuts) Allergy Severe Hives Verified 04/10/24 10:38 sesame seed Allergy Severe Hives Verified 04/10/24 10:38 shellfish derived Allergy Severe Hives Verified 04/10/24 10:38 pseudoephedrine Allergy Mild Rash Verified 04/10/24 10:38 Social History household members: children Smoking Status: Former smoker ROS ROS ED ROS Narrative Constitutional: Denies any fevers, chills, headaches Eyes: Denies changes vision double vision blurry vision Cardiovascular: Denies chest pain Respiratory: Denies coughing wheezing shortness of breath Abdomen: Denies abdominal pain nausea vomit diarrhea Neurological: Denies numbness, weakness, tingling Skin: Complains of rash as noted above EXAM Physical Exam Narrative Exam Narrative: General: Patient is lying in bed rest comfortably did not appear to be in acute distress Head: Atraumatic, normocephalic Eyes: PERRL bilaterally, EOMI bilaterally, no conjunctival injection noted Neck: Soft, supple, trachea midline Cardiovascular: Regular rate and rhythm no murmurs gallops rubs noted Respiratory: Clear to auscultation bilaterally Abdomen: No tenderness palpation Extremities: +5/5 strength noted in the bilateral upper and lower extremities Neurological: Patient following commands knew that she was at [facility] year is 2024 Musculoskeletal: Patient is full range of motion of all her joints and has no pain specifically in her right ankle with the rash noted Skin: Patient has blanching rash noted to the medial aspect of her right ankle as well as the right inner thigh and some areas on her back. No petechia no purpura no sloughing of the skin Const Vital Signs: 04/10/24 10:36 Temperature 97.2 F L Temperature Source Temporal Pulse Rate 66 Respiratory Rate 20 H Blood Pressure 128/99 H Blood Pressure Mean 108 Pulse Ox 100 Oxygen Delivery Method Room Air MDM MDM MDM Narrative Medical decision making narrative: Patient is a 33-year-old female who presents to the emerged part with a chief complaint of allergic reaction to a food she ate yesterday. On the differential diagnose includes but not limited to food allergy as she states that this of this typically presents, cellulitis. Patient was given her first dose of prednisone here in the Emergency Department and will be placed on a taper pack. She was advised to follow-up with her primary care physician outpatient setting. She is encouraged return with worsening symptoms and concerns. She is agreeable to plan all question concerns answered she was discharged home in stable condition. Discharge Plan Triage Chief Complaint: Allergic Reaction ED Provider: Raymond Anthony Dx/Rx/DC Orders Clinical Impression: Allergy to food, Allergic reaction Prescriptions: New methylprednisolone 4 mg tablets,dose pack 4 mg PO DAILY Qty: 21 0RF No Action epinephrine [EpiPen] 0.3 mg/0.3 mL auto-injector 0.3 mg IM Q15M PRN (Reason: anaphylaxis) Qty: 2 0RF albuterol sulfate 90 mcg/actuation HFA aerosol inhaler 1 - 2 puff inhalation Q4H PRN PRN (Reason: wheezing) prednisone 20 mg tablet 40 mg PO DAILY Qty: 14 0RF famotidine [Pepcid AC] 20 mg tablet 20 mg PO BID Qty: 14 0RF fluoxetine 20 mg capsule 20 mg PO DAILY hydroxyzine pamoate 25 mg capsule 25 mg PO BID cholecalciferol (vitamin D3) [Vitamin D3] 50 mcg (2,000 unit) capsule 50 mcg PO DAILY cefdinir 300 mg capsule 300 mg PO Q12.TCU penicillin V potassium 500 mg tablet 500 mg PO 4X/DAY Qty: 40 0RF naproxen 500 mg tablet 500 mg PO BID PRN Qty: 20 0RF doxycycline monohydrate 100 mg capsule 100 mg PO BID Qty: 14 0RF Primary Care Provider: Iman Peace RESIDENT CARE PROVIDER Referrals: Iman Peace RESIDENT CARE PROVIDER, RESIDENT CARE PROVIDER-C [Primary Care Provider] - Activity Restrictions/Additional Instructions: Take steroids as prescribed. Return with worsening symptoms or other concerns. Follow-up your primary care physician outpatient setting. Print Language: Maori Disposition Disposition: Home, Self Care
== END 2024-04-10 11:47 | disposition home or self-care (01) ==
PROVIDERS: Emergency Provider Emergency Medicine; PCP Nurse Practitioner Family; Visit Provider Emergency Medicine
DX: T78.40XA Allergy, unspecified, initial encounter (principal); Z87.891 Personal history of nicotine dependence; X58.XXXA Exposure to other specified factors, initial encounter
CPT/HCPCS: 99282

== ENCOUNTER 2024-05-23 09:33 | Emergency (ER) | payer MEDICAID, SELFPAY ==
[2024-05-23 09:34] VITALS: BP 137/88; PULSE 67; RESP 15; TEMP 36.2; O2SAT 99; BMI 18.8
--- NOTE | 2024-05-23 09:59 | ED.VIS.DENTA ---
HPI History of Present Illness Chief Complaint: Dental Narrative Narrative: Chief complaint and HPI: Dental infection. 33-year-old female presents for evaluation of dental infection. Patient has known poor dentition. She follows with a dentist. She states that she has multiple damaged teeth that are scheduled for a root canal. Some have already received root canals. Patient states 4 days ago she developed pain in the left central incisor. She states this is one of the teeth that are scheduled to be repaired. She denies any fever, shortness of breath, chest pain, difficulty speaking or swallowing. Patient has been taking Tylenol. She denies history of diabetes or IV drug abuse. Patient states she is scheduled to see her dentist. Review of systems: See HPI Medications: As listed on the chart Allergies: As listed on the chart PFSH: Per chart Vital signs: As listed on the chart. Reviewed. Physical exam: Gen: A&O x3, NAD Head: Normocephalic, atraumatic Eyes: No sclera icterus, conjunctiva clear, PERRL, EOMI ENT: Moist mucous membranes, posterior oropharynx unremarkable, uvula midline, no Justen angina, patient has poor dentition with multiple broken and rotten teeth. Patient has some mild gingival irritation around the left central incisor-mildly tender to palpation. No dental abscess. Normal phonation. Tolerating secretions. No facial swelling. Neck: Trachea midline, No JVD, Full ROM, No meningismus, no swelling CV: RRR, no murmurs, no peripheral edema, no stridor Resp: Lungs CTA BL, no w/r/c Skin: Warm, dry, no rash Neuro: Alert, oriented, grossly intact, sensation intact Psych: Cooperative, appropriate mood and affect [facility] Medical History Anxiety Home Medications ?Medication ?Instructions ?Recorded ?Last Taken ?Type epinephrine 0.3 mg/0.3 mL 0.3 mg (0.3 mL) IM Q15M PRN 04/29/23 Unknown Rx injection, auto-injector (EpiPen) anaphylaxis #2 ea cholecalciferol (vitamin D3) 50 50 mcg PO DAILY 08/06/23 Unknown History mcg (2,000 unit) capsule (Vitamin D3) fluoxetine 20 mg capsule 20 mg PO DAILY 08/06/23 Unknown History hydroxyzine pamoate 25 mg capsule 25 mg PO BID 08/06/23 Unknown History albuterol sulfate 90 mcg/actuation 1 - 2 puff inhalation Q4H PRN PRN 11/09/23 Unknown History aerosol inhaler wheezing cefdinir 300 mg capsule 300 mg PO Q12.TCU 01/14/24 Unknown History naproxen 500 mg tablet 500 mg PO BID PRN #20 tabs 01/14/24 Unknown Rx penicillin V potassium 500 mg 500 mg PO 4X/DAY #40 tabs 01/14/24 Unknown Rx tablet doxycycline monohydrate 100 mg 100 mg PO BID #14 CAPSULES 02/01/24 Unknown Rx capsule famotidine 20 mg tablet (Pepcid AC) 20 mg PO BID #14 tabs 02/26/24 Unknown Rx prednisone 20 mg tablet 40 mg (2 x 20 mg) PO DAILY #14 tabs 02/26/24 Unknown Rx methylprednisolone 4 mg tablets in 4 mg PO DAILY #21 tabs 04/10/24 Unknown Rx a dose pack Allergy/AdvReac Type Severity Reaction Status Date / Time corn Allergy Severe Hives Verified 05/23/24 09:36 peanut (peanuts) Allergy Severe Hives Verified 05/23/24 09:36 sesame seed Allergy Severe Hives Verified 05/23/24 09:36 shellfish derived Allergy Severe Hives Verified 05/23/24 09:36 pseudoephedrine Allergy Mild Rash Verified 05/23/24 09:36 Social History household members: children Smoking Status: Former smoker EXAM Physical Exam Const Vital Signs: 05/23/24 09:34 Temperature 97.2 F L Temperature Source Temporal Pulse Rate 67 Respiratory Rate 15 Blood Pressure 137/88 H Blood Pressure Mean 104 Pulse Ox 99 Oxygen Delivery Method Room Air MDM MDM MDM Narrative Medical decision making narrative: 33-year-old female presents for evaluation of dental infection. Patient has known poor dentition. See physical exam findings. Differential diagnosis includes was not limited to dental abscess, dental infection. Patient does not have a dental abscess on physical exam. Concern is for a dental infection. Patient will be placed on Augmentin. Educated on Tylenol as needed for pain. Follow-up with dentist. She confirmed understand the plan. Return precautions explained. Impression: 1. Dental infection 2. Poor dentition Discharge Plan Triage Chief Complaint: Dental ED Provider: Mor Urena Dx/Rx/DC Orders Prescriptions: No Action epinephrine [EpiPen] 0.3 mg/0.3 mL auto-injector 0.3 mg IM Q15M PRN (Reason: anaphylaxis) Qty: 2 0RF albuterol sulfate 90 mcg/actuation HFA aerosol inhaler 1 - 2 puff inhalation Q4H PRN PRN (Reason: wheezing) prednisone 20 mg tablet 40 mg PO DAILY Qty: 14 0RF famotidine [Pepcid AC] 20 mg tablet 20 mg PO BID Qty: 14 0RF fluoxetine 20 mg capsule 20 mg PO DAILY hydroxyzine pamoate 25 mg capsule 25 mg PO BID cholecalciferol (vitamin D3) [Vitamin D3] 50 mcg (2,000 unit) capsule 50 mcg PO DAILY cefdinir 300 mg capsule 300 mg PO Q12.TCU penicillin V potassium 500 mg tablet 500 mg PO 4X/DAY Qty: 40 0RF naproxen 500 mg tablet 500 mg PO BID PRN Qty: 20 0RF doxycycline monohydrate 100 mg capsule 100 mg PO BID Qty: 14 0RF methylprednisolone 4 mg tablets,dose pack 4 mg PO DAILY Qty: 21 0RF Primary Care Provider: Iman Peace NP Referrals: Iman Peace NP, [employer] [Primary Care Provider] - Print Language: Bahamian
[2024-05-23 10:14] VITALS: BP 141/76; PULSE 81; RESP 14; TEMP 36.6; O2SAT 99
== END 2024-05-23 10:16 | disposition home or self-care (01) ==
LOC: ED 10:15
PROVIDERS: Emergency Provider Surgery; PCP Nurse Practitioner Family; Visit Provider Surgery
DX: K04.7 Periapical abscess without sinus (principal); Z87.891 Personal history of nicotine dependence
CPT/HCPCS: 99282

== ENCOUNTER 2024-05-31 20:30 | Emergency (ER) | payer MEDICAID, SELFPAY ==
[2024-05-31 20:32] VITALS: BP 144/94; PULSE 78; RESP 18; TEMP 36.4; O2SAT 97; BMI 20.2
[2024-05-31] MEDS: predniSONE 20 MG Tablet 60 MG PO (21:01)
[2024-05-31] MEDS: DiphenhydrAMINE 50 MG/ML Syringe 25 MG IV (21:02)
[2024-05-31] MEDS: Famotidine 200 MG/20 ML MDV 20 MG in 0.9% Normal Saline (Pres. free 8 ML 300 MG IV (21:04)
--- NOTE | 2024-05-31 21:50 | EX.ED.DYSGE1 ---
HPI History of Present Illness Chief Complaint: Allergic Reaction Detail of Chief Complaint: Patient presents with allergic reaction started yesterday after allergen Informant: patient Onset/Context/Timing Onset: Yesterday Context: Sudden Onset Timing: Continuous Quality: Hives that started on the ankle and now is generalized Location: Generalized Current Severity: Moderate Maximum Severity: Moderate Worsened by: Concern cell address and may have had sesame seed oil which she is allergic Relieved by: Nothing Associated Symptoms Associated Symptoms: No cardiovascular, respiratory or GI symptoms Narrative Narrative: Patient is a 33-year-old woman. She presents with rash. She had salad at restaurant. She states about 23 minutes after the salad she began to have itching of her ankles. Rash developed. She took a Benadryl capsule, 50 mg, last evening at 10 PM. She is taken nothing since. The hives have spread. She denies respiratory symptoms. She denies cardiac symptoms. She denies orthostatic symptoms. She denies GI symptoms. She denies swelling of her lips, tongue or throat. She denies change in voice. Prior similar symptoms: Yes Recent Illness/Hospitalization: No PFSH [facility] Medical History Anxiety Home Medications ?Medication ?Instructions ?Recorded ?Last Taken ?Type epinephrine 0.3 mg/0.3 mL 0.3 mg (0.3 mL) IM Q15M PRN 04/29/23 Unknown Rx injection, auto-injector (EpiPen) anaphylaxis #2 ea cholecalciferol (vitamin D3) 50 50 mcg PO DAILY 08/06/23 Unknown History mcg (2,000 unit) capsule (Vitamin D3) fluoxetine 20 mg capsule 20 mg PO DAILY 08/06/23 Unknown History hydroxyzine pamoate 25 mg capsule 25 mg PO BID 08/06/23 Unknown History albuterol sulfate 90 mcg/actuation 1 - 2 puff inhalation Q4H PRN PRN 11/09/23 Unknown History aerosol inhaler wheezing cefdinir 300 mg capsule 300 mg PO Q12.TCU 01/14/24 Unknown History naproxen 500 mg tablet 500 mg PO BID PRN #20 tabs 01/14/24 Unknown Rx penicillin V potassium 500 mg 500 mg PO 4X/DAY #40 tabs 01/14/24 Unknown Rx tablet doxycycline monohydrate 100 mg 100 mg PO BID #14 CAPSULES 02/01/24 Unknown Rx capsule famotidine 20 mg tablet (Pepcid AC) 20 mg PO BID #14 tabs 02/26/24 Unknown Rx prednisone 20 mg tablet 40 mg (2 x 20 mg) PO DAILY #14 tabs 02/26/24 Unknown Rx methylprednisolone 4 mg tablets in 4 mg PO DAILY #21 tabs 04/10/24 Unknown Rx a dose pack amoxicillin 875 mg-potassium 1 tab PO BID 7 days #14 tabs 05/23/24 Unknown Rx clavulanate 125 mg tablet diphenhydramine HCl 25 mg capsule 25 mg PO Q6H #14 caps 05/31/24 Unknown Rx (Benadryl) famotidine 20 mg tablet 20 mg PO BID #8 TABLETS 05/31/24 Unknown Rx prednisone 20 mg tablet 40 mg (2 x 20 mg) PO DAILY #8 05/31/24 Unknown Rx TABLETS Allergy/AdvReac Type Severity Reaction Status Date / Time corn Allergy Severe Hives Verified 05/31/24 20:32 peanut (peanuts) Allergy Severe Hives Verified 05/31/24 20:32 sesame seed Allergy Severe Hives Verified 05/31/24 20:32 shellfish derived Allergy Severe Hives Verified 05/31/24 20:32 pseudoephedrine Allergy Mild Rash Verified 05/31/24 20:32 Social History household members: children Smoking Status: Former smoker ROS ROS ED Constitutional Constitutional ED: Denies chills or fever(s) Eyes Eyes: Denies blurry vision or change in vision ENT ENT ED: Denies rhinorrhea or sore throat Cardiovascular Cardiovascular: Denies chest pain or palpitations Respiratory/Chest Respiratory/Chest: Denies cough, dyspnea or dyspnea on exertion Gastrointestinal Gastrointestinal: Denies abdominal pain, diarrhea, nausea or vomiting Integumentary Reports rash Hematologic/Lymphatic Hematologic/Lymphatic: Reports systems reviewed and no addt'l complaints, except as documented Allergic/Immunologic Allergic/Immunologic ED: Denies mouth swelling, tongue swelling or urticaria EXAM Physical Exam Const Vital Signs: 05/31/24 20:32 Temperature 97.6 F L Temperature Source Temporal Pulse Rate 78 Respiratory Rate 18 Blood Pressure 144/94 H Blood Pressure Mean 110 Pulse Ox 97 Oxygen Delivery Method Room Air Positive well nourished and well developed General Appearance ED: well developed and NAD; Negative for pallor HEENT Reports moist mucous membranes HEENT Narrative: Head is atraumatic normocephalic. Patient has multiple piercings of her lip and nose. Posterior pharynx normal. There is no evidence of angioedema. Eyes PERRL and EOMs intact bilaterally General Eye ED: Negative for pale conjunctiva or scleral icterus Neck no lymphadenopathy, supple and no JVD Resp normal respiratory effort and clear to auscultation bilaterally Cardio regular rate, regular rhythm, S1 normal heart sound, S2 normal heart sound and no murmurs GI normal to inspection, nondistended, normoactive bowel sounds, non-tender, non-distended and no masses; Negative for hepatosplenomegaly Extremity normal to inspection General Extremety ED: Negative for edema or tenderness General Extremity: Negative for edema Neuro oriented x3 and CN's II-XII intact bilaterally Sensorium / Orientation: alert Psych mental status grossly normal Skin no wounds and skin turgor normal Skin Narrative: Patient has generalized urticaria. General Skin Exam: elasticity normal; Negative for jaundice or pallor MDM MDM MDM Narrative Medical decision making narrative: Patient presents with urticaria. Suspect food allergen as the cause. Patient did take Benadryl with no improvement. Since she has no cardiovascular, hemodynamic stability or angioedema she was treated with H1 and H2 kamron and prednisone. Will reassess in 30 to 60 minutes. History & Record Review Additional record(s) reviewed:: Prior ED visit (She was seen earlier this month for dental infection. She had an allergic reaction March due to food and in February.) and Prior labs Treatment and Re-Evaluation :: Patient was reassessed at 2210. She had to be awakened. Her rash has improved 50 to 75%. Since she has no other symptoms will discharge on H1 H2 kamron and prednisone. Discharge Plan Triage Chief Complaint: Allergic Reaction ED Provider: Collin Allen Dx/Rx/DC Orders Clinical Impression: Urticaria due to food allergy, Elevated blood-pressure reading without diagnosis of hypertension Instructions: ED General Allergic Reactions, ED Hypertension, To Be Confirmed Prescriptions: New prednisone 20 mg tablet 40 mg PO DAILY Qty: 8 0RF famotidine 20 mg tablet 20 mg PO BID Qty: 8 0RF diphenhydramine HCl [Benadryl] 25 mg capsule 25 mg PO Q6H Qty: 14 0RF No Action epinephrine [EpiPen] 0.3 mg/0.3 mL auto-injector 0.3 mg IM Q15M PRN (Reason: anaphylaxis) Qty: 2 0RF albuterol sulfate 90 mcg/actuation HFA aerosol inhaler 1 - 2 puff inhalation Q4H PRN PRN (Reason: wheezing) prednisone 20 mg tablet 40 mg PO DAILY Qty: 14 0RF famotidine [Pepcid AC] 20 mg tablet 20 mg PO BID Qty: 14 0RF amoxicillin-pot clavulanate 875-125 mg tablet 1 tab PO BID 7 Days Qty: 14 0RF fluoxetine 20 mg capsule 20 mg PO DAILY hydroxyzine pamoate 25 mg capsule 25 mg PO BID cholecalciferol (vitamin D3) [Vitamin D3] 50 mcg (2,000 unit) capsule 50 mcg PO DAILY cefdinir 300 mg capsule 300 mg PO Q12.TCU penicillin V potassium 500 mg tablet 500 mg PO 4X/DAY Qty: 40 0RF naproxen 500 mg tablet 500 mg PO BID PRN Qty: 20 0RF doxycycline monohydrate 100 mg capsule 100 mg PO BID Qty: 14 0RF methylprednisolone 4 mg tablets,dose pack 4 mg PO DAILY Qty: 21 0RF Primary Care Provider: Iman Peace NP Referrals: Iman Peace [employer], [employer] [Primary Care Provider] - As Needed Print Language: Thai Disposition Disposition: Home, Self Care
[2024-05-31 22:18] VITALS: BP 128/84; PULSE 85; RESP 14; TEMP 36.6; O2SAT 99
== END 2024-05-31 22:19 | disposition home or self-care (01) ==
PROVIDERS: Emergency Provider Emergency Medicine; PCP Nurse Practitioner Family; Referring Provider Emergency Medicine; Visit Provider Emergency Medicine
DX: T78.1XXA Other adverse food reactions, not elsewhere classified, initial encounter (principal); L50.0 Allergic urticaria; R03.0 Elevated blood-pressure reading, without diagnosis of hypertension; Z87.891 Personal history of nicotine dependence; F41.9 Anxiety disorder, unspecified; Z79.899 Other long term (current) drug therapy
CPT/HCPCS: 96374; 96375; 99283; A4216

== ENCOUNTER 2024-07-24 20:25 | Emergency (ER) | payer MEDICAID, SELFPAY ==
[2024-07-24 20:26] VITALS: BP 143/95; PULSE 88; RESP 18; TEMP 36.8; O2SAT 98; BMI 20.4
[2024-07-24] MEDS: predniSONE 20 MG Tablet 60 MG PO (20:47)
[2024-07-24] MEDS: Famotidine 20 MG Tablet PO (20:47)
--- NOTE | 2024-07-24 20:58 | EX.ED.DYSGE1 ---
HPI History of Present Illness Chief Complaint: Allergic Reaction Informant: patient Narrative Narrative: Presents concerns allergy after eating pork ribs yesterday at [employer]. States after eating there is noted rash on her left leg this morning progressed to right hip right arm. Mild itching to the face. No lip or tongue swelling. She took Benadryl last evening. She has had allergies to foods including sesame seed peanuts and corn along with shellfish. She has been given epinephrine in the past. She is not a diabetic. She has an EpiPen at home. Did not use it. She states it could have been the gradients in the ribs that caused her symptoms. Prior similar symptoms: Yes [facility] Medical History Anxiety Home Medications ?Medication ?Instructions ?Recorded ?Last Taken ?Type epinephrine 0.3 mg/0.3 mL 0.3 mg (0.3 mL) IM Q15M PRN 04/29/23 Unknown Rx injection, auto-injector (EpiPen) anaphylaxis #2 ea cholecalciferol (vitamin D3) 50 50 mcg PO DAILY 08/06/23 Unknown History mcg (2,000 unit) capsule (Vitamin D3) fluoxetine 20 mg capsule 20 mg PO DAILY 08/06/23 Unknown History hydroxyzine pamoate 25 mg capsule 25 mg PO BID 08/06/23 Unknown History albuterol sulfate 90 mcg/actuation 1 - 2 puff inhalation Q4H PRN PRN 11/09/23 Unknown History aerosol inhaler wheezing naproxen 500 mg tablet 500 mg PO BID PRN #20 tabs 01/14/24 Unknown Rx penicillin V potassium 500 mg 500 mg PO 4X/DAY #40 tabs 01/14/24 Unknown Rx tablet famotidine 20 mg tablet (Pepcid AC) 20 mg PO BID #14 tabs 02/26/24 Unknown Rx prednisone 20 mg tablet 40 mg (2 x 20 mg) PO DAILY #14 tabs 02/26/24 Unknown Rx methylprednisolone 4 mg tablets in 4 mg PO DAILY #21 tabs 04/10/24 Unknown Rx a dose pack famotidine 20 mg tablet 20 mg PO BID #8 TABLETS 05/31/24 Unknown Rx prednisone 20 mg tablet 40 mg (2 x 20 mg) PO DAILY #8 05/31/24 Unknown Rx TABLETS famotidine 20 mg tablet 20 mg PO BID #10 TABLETS 07/24/24 Unknown Rx prednisone 20 mg tablet 60 mg (3 x 20 mg) PO DAILY #12 07/24/24 Unknown Rx TABLETS Allergy/AdvReac Type Severity Reaction Status Date / Time corn Allergy Severe Hives Verified 07/24/24 20:28 peanut (peanuts) Allergy Severe Hives Verified 07/24/24 20:28 sesame seed Allergy Severe Hives Verified 07/24/24 20:28 shellfish derived Allergy Severe Hives Verified 07/24/24 20:28 pseudoephedrine Allergy Mild Rash Verified 07/24/24 20:28 Social History household members: children Smoking Status: Former smoker ROS ROS ED Constitutional Constitutional ED: Denies fever(s) Cardiovascular Cardiovascular: Denies chest pain Respiratory/Chest Respiratory/Chest: Denies cough Gastrointestinal Gastrointestinal: Denies diarrhea or vomiting Musculoskeletal Musculoskeletal: Denies none Integumentary Reports rash; Denies wounds Neurologic Neurologic: Denies weakness EXAM Physical Exam Const Vital Signs: 07/24/24 20:26 07/24/24 21:01 Temperature 98.2 F 97.8 F Temperature Source Oral Pulse Rate 88 81 Respiratory Rate 18 16 Blood Pressure 143/95 H 167/86 H Blood Pressure Mean 111 113 Pulse Ox 98 99 Oxygen Delivery Method Room Air Positive well nourished and well developed General Appearance ED: well developed and NAD HEENT Reports moist mucous membranes HEENT Narrative: No lip or tongue swelling airway patent no stridor. normocephalic and atraumatic Eyes General Eye ED: Yes normal appearance of both eyes Neck full ROM Chest Wall Chest: Negative for tenderness Resp normal respiratory effort and normal air movement Effort and Inspection: symmetric chest movement; Negative for respiratory distress Cardio regular rate, regular rhythm and no murmurs Peripheral Pulses: pulses 2+ throughout GI normal to inspection, nondistended, normoactive bowel sounds and non-tender Palpation: Negative for guarding or rebound tenderness present Extremity normal to inspection Extremity Narrative: Rash to left calf, nontender, slightly raise. Small patch of rash on right hip. General Extremety ED: Negative for edema or tenderness General Extremity: Negative for edema Neuro oriented x3 and no sensory deficits noted Sensorium / Orientation: awake and alert Skin Skin Narrative: See above. Ischial erythema left maxillary. MDM MDM MDM Narrative Medical decision making narrative: Interventions / MDM: Differential diagnosis: Food allergy, allergic rash Diagnosis considered but do not suspect: No clinical anaphylaxis My EKG interpretation: N/A Imaging independently reviewed and interpreted by myself: N/A External documents reviewed: N/A Test considered but not ordered:N/A ED course: Patient noted rash after eating ribs yesterday. Ice to left calf right hip maxillary left side. No clinical anaphylaxis. She drove herself here. She was treated prednisone and Pepcid. She has Benadryl at home. Prescription sent to her pharmacy. She has EpiPen at home to use if worsens. Discussed return precautions otherwise follow-up with her PCP. All questions were answered. Re-evaluation: stable Disposition discussed with patient/family/significant other: Patient Case discussed with consulting clinician: N/A This note was generated with [employer] dictation software. It may contain incorrect words, spelling, and punctuation that were not noted in checking the note before signing. Discharge Plan Triage Chief Complaint: Allergic Reaction ED Provider: Ryan Granados Dx/Rx/DC Orders Clinical Impression: Allergic reaction, Rash due to allergy Instructions: ED Food Allergy Prescriptions: New prednisone 20 mg tablet 60 mg PO DAILY Qty: 12 0RF famotidine 20 mg tablet 20 mg PO BID Qty: 10 0RF No Action epinephrine [EpiPen] 0.3 mg/0.3 mL auto-injector 0.3 mg IM Q15M PRN (Reason: anaphylaxis) Qty: 2 0RF albuterol sulfate 90 mcg/actuation HFA aerosol inhaler 1 - 2 puff inhalation Q4H PRN PRN (Reason: wheezing) prednisone 20 mg tablet 40 mg PO DAILY Qty: 14 0RF famotidine [Pepcid AC] 20 mg tablet 20 mg PO BID Qty: 14 0RF fluoxetine 20 mg capsule 20 mg PO DAILY hydroxyzine pamoate 25 mg capsule 25 mg PO BID cholecalciferol (vitamin D3) [Vitamin D3] 50 mcg (2,000 unit) capsule 50 mcg PO DAILY penicillin V potassium 500 mg tablet 500 mg PO 4X/DAY Qty: 40 0RF naproxen 500 mg tablet 500 mg PO BID PRN Qty: 20 0RF methylprednisolone 4 mg tablets,dose pack 4 mg PO DAILY Qty: 21 0RF prednisone 20 mg tablet 40 mg PO DAILY Qty: 8 0RF famotidine 20 mg tablet 20 mg PO BID Qty: 8 0RF Primary Care Provider: Iman Peace NP Referrals: Iman Peace [employer], [employer] [Primary Care Provider] - 1 Week Activity Restrictions/Additional Instructions: Allergy likely food. No anaphylaxis signs. Finish prednisone and Pepcid use Benadryl as needed. You have epinephrine pen at home. Follow-up with your doctor. If you develop worsening symptoms not improve with medications, return to the ED for reevaluation. Print Language: Indonesian Disposition Disposition: Home, Self Care Discharge Date/Time: 07/24/24 21:03
[2024-07-24 21:01] VITALS: BP 167/86; PULSE 81; RESP 16; TEMP 36.6; O2SAT 99
== END 2024-07-24 21:03 | disposition home or self-care (01) ==
PROVIDERS: Emergency Provider Emergency Medicine; PCP Nurse Practitioner Family; Visit Provider Emergency Medicine
DX: T78.1XXA Other adverse food reactions, not elsewhere classified, initial encounter (principal); Z87.891 Personal history of nicotine dependence; F41.9 Anxiety disorder, unspecified; Z79.899 Other long term (current) drug therapy; R21 Rash and other nonspecific skin eruption; Y92.511 Restaurant or cafe as the place of occurrence of the external cause
CPT/HCPCS: 99282

== ENCOUNTER 2024-09-03 10:49 | Emergency (ER) | payer MEDICAID, SELFPAY ==
[2024-09-03 10:49] VITALS: BP 128/91; PULSE 75; RESP 16; TEMP 36.4; O2SAT 99; BMI 19.9
[2024-09-03 13:15] VITALS: BP 112/90; PULSE 72; RESP 18; O2SAT 100
--- NOTE | 2024-09-03 13:23 | EX.ED.DYSGE1 ---
HPI History of Present Illness Chief Complaint: Allergic Reaction Detail of Chief Complaint: Hives/allergic reaction Informant: patient Narrative Narrative: Patient presents to the emergency department with an allergic reaction. She states she started with a rash yesterday. She ate some muffins that apparently were in a peanut free factory but then also noted that there was corn product potentially in the muffins which she is allergic to. Started with a low bit of a rash yesterday. The rash continues today and she describes some itching associated with it. She denies lip or tongue swelling or difficulty swallowing. She states she sometimes gets anxious and feels somewhat short of breath. She has an EpiPen at home but did not feel like she needed it. Patient does get seasonal allergy injections. [facility] Medical History Anxiety Home Medications ?Medication ?Instructions ?Recorded ?Last Taken ?Type epinephrine 0.3 mg/0.3 mL 0.3 mg (0.3 mL) IM Q15M PRN 04/29/23 Unknown Rx injection, auto-injector (EpiPen) anaphylaxis #2 ea cholecalciferol (vitamin D3) 50 50 mcg PO DAILY 08/06/23 Unknown History mcg (2,000 unit) capsule (Vitamin D3) fluoxetine 20 mg capsule 20 mg PO DAILY 08/06/23 Unknown History hydroxyzine pamoate 25 mg capsule 25 mg PO BID 08/06/23 Unknown History albuterol sulfate 90 mcg/actuation 1 - 2 puff inhalation Q4H PRN PRN 11/09/23 Unknown History aerosol inhaler wheezing naproxen 500 mg tablet 500 mg PO BID PRN #20 tabs 01/14/24 Unknown Rx penicillin V potassium 500 mg 500 mg PO 4X/DAY #40 tabs 01/14/24 Unknown Rx tablet famotidine 20 mg tablet (Pepcid AC) 20 mg PO BID #14 tabs 02/26/24 Unknown Rx prednisone 20 mg tablet 40 mg (2 x 20 mg) PO DAILY #14 tabs 02/26/24 Unknown Rx methylprednisolone 4 mg tablets in 4 mg PO DAILY #21 tabs 04/10/24 Unknown Rx a dose pack famotidine 20 mg tablet 20 mg PO BID #8 TABLETS 05/31/24 Unknown Rx prednisone 20 mg tablet 40 mg (2 x 20 mg) PO DAILY #8 05/31/24 Unknown Rx TABLETS famotidine 20 mg tablet 20 mg PO BID #10 TABLETS 07/24/24 Unknown Rx prednisone 20 mg tablet 60 mg (3 x 20 mg) PO DAILY #12 07/24/24 Unknown Rx TABLETS prednisone 20 mg tablet 20 mg PO BID #6 tabs 09/03/24 Unknown Rx Allergy/AdvReac Type Severity Reaction Status Date / Time corn Allergy Severe Hives Verified 09/03/24 10:51 peanut (peanuts) Allergy Severe Hives Verified 09/03/24 10:51 sesame seed Allergy Severe Hives Verified 09/03/24 10:51 shellfish derived Allergy Severe Hives Verified 09/03/24 10:51 pseudoephedrine Allergy Mild Rash Verified 09/03/24 10:51 Social History household members: children Smoking Status: Former smoker ROS ROS ED Review of Systems ROS Unobtainable: other Constitutional Constitutional ED: Reports lethargy; Denies chills, fever(s), sweats or weight loss Eyes Eyes: Denies blurry vision, change in vision or diplopia ENT ENT ED: Denies rhinorrhea or sore throat Cardiovascular Cardiovascular: Denies chest pain, orthopnea or racing heartbeat Respiratory/Chest Respiratory/Chest: Denies cough, dyspnea, dyspnea on exertion, orthopnea or sputum Gastrointestinal Gastrointestinal: Denies abdominal pain, diarrhea, nausea or vomiting Genitourinary Genitourinary ED: Denies dysuria, hematuria or urinary frequency Musculoskeletal Musculoskeletal: Denies arthralgias, back pain, myalgias or neck pain Integumentary Reports rash; Denies abscess or Abrasions Neurologic Neurologic: Denies headache(s) or weakness Psychiatric Psychiatric: Denies anxiety, depression or suicidal thoughts Endocrine Endocrinology: Denies polydipsia, polyphagia or polyuria Hematologic/Lymphatic Hematologic/Lymphatic: Denies easy bleeding, easy bruising or lymphadenopathy Allergic/Immunologic Allergic/Immunologic ED: Denies mouth swelling, tongue swelling or urticaria EXAM Physical Exam Const Vital Signs: 09/03/24 10:49 09/03/24 13:15 Temperature 97.5 F L Temperature Source Oral Pulse Rate 75 72 Respiratory Rate 16 18 Blood Pressure 128/91 H 112/90 H Blood Pressure Mean 103 97 Pulse Ox 99 100 Oxygen Delivery Method Room Air Room Air Positive well nourished and well developed General Appearance ED: well developed and NAD HEENT Reports TM's clear and moist mucous membranes HEENT Narrative: No angioedema of the lips or tongue or oropharynx normocephalic and atraumatic; Negative for trauma or tenderness Tympanic Membrane ED: Yes TM's clear Eyes PERRL and EOMs intact bilaterally General Eye ED: Negative for pale conjunctiva or scleral icterus Neck no lymphadenopathy, supple and no JVD General: Negative for tenderness Chest Wall inspection of chest normal and palpation of chest normal Chest: Negative for tenderness Resp normal respiratory effort and clear to auscultation bilaterally Effort and Inspection: Negative for respiratory distress or pain with movement Auscultation: Negative for rhonchi, wheezes or diminished lung sounds Cardio regular rate, regular rhythm, S1 normal heart sound, S2 normal heart sound and no murmurs Peripheral Pulses: pulses 2+ throughout GI normal to inspection, nondistended, normoactive bowel sounds, soft to palpation, non-tender, non-distended and no masses Back/Spine no CVA tenderness and no thoracic nor lumbar tenderness Extremity normal to inspection General Extremety ED: Negative for edema General Extremity: Negative for edema Neuro oriented x3, CN's II-XII intact bilaterally, no sensory deficits noted and gait normal Sensorium / Orientation: awake, alert, oriented to person, oriented to place and oriented to time Motor Exam: strength 5/5 throughout and strength abnormal Psych mental status grossly normal Skin Skin Narrative: Patient with large urticaria involving the right lower extremity as well as her back. MDM MDM MDM Narrative Medical decision making narrative: Patient presents after eating muffins yesterday with rash that started last evening. No evidence for anaphylaxis. She does have urticaria. Will treat with prednisone and gave first dose in the emergency department. Will treat for 3 more days. Advised to return if lip or tongue swelling or difficulty breathing or condition should worsen anyway. Discharge Plan Triage Chief Complaint: Allergic Reaction ED Provider: Tre Huston Dx/Rx/DC Orders Clinical Impression: Allergic reaction, Urticaria Instructions: ED Allergic Reaction Local Other, ED Hives (Adult) Prescriptions: New prednisone 20 mg tablet 20 mg PO BID Qty: 6 0RF No Action epinephrine [EpiPen] 0.3 mg/0.3 mL auto-injector 0.3 mg IM Q15M PRN (Reason: anaphylaxis) Qty: 2 0RF albuterol sulfate 90 mcg/actuation HFA aerosol inhaler 1 - 2 puff inhalation Q4H PRN PRN (Reason: wheezing) prednisone 20 mg tablet 40 mg PO DAILY Qty: 14 0RF famotidine [Pepcid AC] 20 mg tablet 20 mg PO BID Qty: 14 0RF fluoxetine 20 mg capsule 20 mg PO DAILY hydroxyzine pamoate 25 mg capsule 25 mg PO BID cholecalciferol (vitamin D3) [Vitamin D3] 50 mcg (2,000 unit) capsule 50 mcg PO DAILY penicillin V potassium 500 mg tablet 500 mg PO 4X/DAY Qty: 40 0RF naproxen 500 mg tablet 500 mg PO BID PRN Qty: 20 0RF methylprednisolone 4 mg tablets,dose pack 4 mg PO DAILY Qty: 21 0RF prednisone 20 mg tablet 40 mg PO DAILY Qty: 8 0RF famotidine 20 mg tablet 20 mg PO BID Qty: 8 0RF prednisone 20 mg tablet 60 mg PO DAILY Qty: 12 0RF famotidine 20 mg tablet 20 mg PO BID Qty: 10 0RF Primary Care Provider: Iman Peace NP Referrals: Iman Peace NP, [facility] CLERK-C [Primary Care Provider] - As Needed Print Language: Kiswahili Disposition Disposition: Home, Self Care
[2024-09-03] MEDS: predniSONE 20 MG Tablet 40 MG PO (13:32)
[2024-09-03 13:33] VITALS: BP 112/68; PULSE 71; RESP 16; TEMP 36.3; O2SAT 99
== END 2024-09-03 13:33 | disposition home or self-care (01) ==
PROVIDERS: Emergency Provider Emergency Medicine; PCP Nurse Practitioner Family; Visit Provider Emergency Medicine
DX: L50.0 Allergic urticaria (principal); Z91.018 Allergy to other foods; Z87.891 Personal history of nicotine dependence
CPT/HCPCS: 99282

== ENCOUNTER 2025-01-10 22:19 | Emergency (ER) | payer MEDICAID, SELFPAY ==
[2025-01-10 22:20] VITALS: BP 144/99; PULSE 83; RESP 18; TEMP 36.7; O2SAT 97; BMI 19.8
[2025-01-10 22:42] VITALS: BP 144/99; PULSE 83; RESP 18; TEMP 36.7; O2SAT 97
--- NOTE | 2025-01-11 00:30 | EX.ED.DYSGE1 ---
HPI History of Present Illness Chief Complaint: Allergic Reaction Informant: patient Narrative Narrative: 34-year-old female with history of multiple allergies and hives presenting to the emergency room with hives on her legs. She states that yesterday she ingested some sesame seeds as well as peanuts in the form of [employer] peanut butter cup. The patient states that she has subsequently developed hives on her legs bilaterally. She denies any respiratory symptoms. No GI symptomology. She states that she has been on prednisone in the past and has done well with it. [facility] Medical History Anxiety Home Medications ?Medication ?Instructions ?Recorded ?Last Taken ?Type epinephrine 0.3 mg/0.3 mL 0.3 mg (0.3 mL) IM Q15M PRN 04/29/23 Unknown Rx injection, auto-injector (EpiPen) anaphylaxis #2 ea cholecalciferol (vitamin D3) 50 50 mcg PO DAILY 08/06/23 Unknown History mcg (2,000 unit) capsule (Vitamin D3) fluoxetine 20 mg capsule 20 mg PO DAILY 08/06/23 Unknown History hydroxyzine pamoate 25 mg capsule 25 mg PO BID 08/06/23 Unknown History albuterol sulfate 90 mcg/actuation 1 - 2 puff inhalation Q4H PRN PRN 11/09/23 Unknown History aerosol inhaler wheezing naproxen 500 mg tablet 500 mg PO BID PRN #20 tabs 01/14/24 Unknown Rx penicillin V potassium 500 mg 500 mg PO 4X/DAY #40 tabs 01/14/24 Unknown Rx tablet famotidine 20 mg tablet (Pepcid AC) 20 mg PO BID #14 tabs 02/26/24 Unknown Rx prednisone 20 mg tablet 40 mg (2 x 20 mg) PO DAILY #14 tabs 02/26/24 Unknown Rx methylprednisolone 4 mg tablets in 4 mg PO DAILY #21 tabs 04/10/24 Unknown Rx a dose pack famotidine 20 mg tablet 20 mg PO BID #8 TABLETS 05/31/24 Unknown Rx prednisone 20 mg tablet 40 mg (2 x 20 mg) PO DAILY #8 05/31/24 Unknown Rx TABLETS famotidine 20 mg tablet 20 mg PO BID #10 TABLETS 07/24/24 Unknown Rx prednisone 20 mg tablet 60 mg (3 x 20 mg) PO DAILY #12 07/24/24 Unknown Rx TABLETS prednisone 20 mg tablet 20 mg PO BID #6 tabs 09/03/24 Unknown Rx famotidine 20 mg tablet (Pepcid) 20 mg PO BID PRN hives 15 days #30 01/10/25 Unknown Rx tabs prednisone 20 mg tablet 60 mg (3 x 20 mg) PO DAILY #15 01/10/25 Unknown Rx TABLETS Allergy/AdvReac Type Severity Reaction Status Date / Time corn Allergy Severe Hives Verified 01/10/25 22:21 peanut (peanuts) Allergy Severe Hives Verified 01/10/25 22:21 sesame seed Allergy Severe Hives Verified 01/10/25 22:21 shellfish derived Allergy Severe Hives Verified 01/10/25 22:21 pseudoephedrine Allergy Mild Rash Verified 01/10/25 22:21 Family History no significant family his Social History household members: children Smoking Status: Former smoker ROS ROS ED Constitutional Constitutional ED: Denies chills, fever(s) or weight loss Eyes Eyes: Denies change in vision or diplopia ENT ENT ED: Denies ear pain, rhinorrhea or sore throat Cardiovascular Cardiovascular: Denies chest pain, orthopnea, palpitations or racing heartbeat Respiratory/Chest Respiratory/Chest: Denies cough, dyspnea or orthopnea Gastrointestinal Gastrointestinal: Denies abdominal pain, diarrhea, nausea or vomiting Genitourinary Genitourinary ED: Denies dysuria, hematuria or urinary frequency Musculoskeletal Musculoskeletal: Denies arthralgias or myalgias Integumentary Reports rash and other Details: Urticaria and pruritus ; Denies abscess Neurologic Neurologic: Denies headache(s) or weakness Psychiatric Psychiatric: Denies anxiety, depression, suicidal ideation or suicidal thoughts Endocrine Endocrinology: Denies polydipsia, polyphagia or polyuria Allergic/Immunologic Allergic/Immunologic ED: Denies mouth swelling, tongue swelling or urticaria EXAM Physical Exam Const Vital Signs: 01/10/25 22:20 01/10/25 22:42 Temperature 98.1 F 98.1 F Temperature Source Oral Pulse Rate 83 83 Respiratory Rate 18 18 Blood Pressure 144/99 H 144/99 H Blood Pressure Mean 114 114 Pulse Ox 97 97 Oxygen Delivery Method Room Air Positive well nourished and well developed General Appearance ED: well developed HEENT Reports normocephalic, head/scalp atraumatic and moist mucous membranes Eyes PERRL and EOMs intact bilaterally Neck no lymphadenopathy, supple and no JVD Resp normal respiratory effort and clear to auscultation bilaterally Cardio regular rate, regular rhythm and no murmurs GI normal to inspection, nondistended, normoactive bowel sounds and non-tender Palpation: soft Back/Spine no CVA tenderness and normal ROM Extremity normal to inspection General Extremety ED: Negative for edema General Extremity: Negative for edema Neuro oriented x3 and CN's II-XII intact bilaterally Sensorium / Orientation: alert Motor Exam: strength 5/5 throughout Psych mental status grossly normal Mood & Affect: Negative for depressed or tearful Skin no wounds Skin Narrative: There are hives noted on the bilateral lower legs as well as the right thigh. MDM MDM MDM Narrative Medical decision making narrative: Differential diagnosis includes allergic reaction anaphylaxis idiopathic urticaria viral syndrome Patient has been stable here in the department. She clinically looks well. She has urticaria on the legs. In her right for her to have prednisone as well as some Pepcid. Patient can utilize Benadryl as needed. Would recommend follow-up or return if worsening or concerns patient is comfortable with this plan. History & Record Review Discussion w/independent historian: Patient Additional record(s) reviewed:: Prior ED visit Discharge Plan Triage Chief Complaint: Allergic Reaction ED Provider: Lokesh Lopez Dx/Rx/DC Orders Clinical Impression: Allergic reaction, Urticaria Instructions: ED Food Allergy, ED Hives (Adult) Prescriptions: New prednisone 20 mg tablet 60 mg PO DAILY Qty: 15 0RF famotidine [Pepcid] 20 mg tablet 20 mg PO BID PRN (Reason: hives) 15 Days Qty: 30 0RF No Action epinephrine [EpiPen] 0.3 mg/0.3 mL auto-injector 0.3 mg IM Q15M PRN (Reason: anaphylaxis) Qty: 2 0RF albuterol sulfate 90 mcg/actuation HFA aerosol inhaler 1 - 2 puff inhalation Q4H PRN PRN (Reason: wheezing) prednisone 20 mg tablet 40 mg PO DAILY Qty: 14 0RF famotidine [Pepcid AC] 20 mg tablet 20 mg PO BID Qty: 14 0RF prednisone 20 mg tablet 20 mg PO BID Qty: 6 0RF fluoxetine 20 mg capsule 20 mg PO DAILY hydroxyzine pamoate 25 mg capsule 25 mg PO BID cholecalciferol (vitamin D3) [Vitamin D3] 50 mcg (2,000 unit) capsule 50 mcg PO DAILY penicillin V potassium 500 mg tablet 500 mg PO 4X/DAY Qty: 40 0RF naproxen 500 mg tablet 500 mg PO BID PRN Qty: 20 0RF methylprednisolone 4 mg tablets,dose pack 4 mg PO DAILY Qty: 21 0RF prednisone 20 mg tablet 40 mg PO DAILY Qty: 8 0RF famotidine 20 mg tablet 20 mg PO BID Qty: 8 0RF prednisone 20 mg tablet 60 mg PO DAILY Qty: 12 0RF famotidine 20 mg tablet 20 mg PO BID Qty: 10 0RF Primary Care Provider: [facility] Doctor,Out of Referrals: [facility] Doctor,Out of [Primary Care Provider, Medical] Print Language: Greek Disposition Disposition: Home, Self Care Discharge Date/Time: 01/10/25 22:48
== END 2025-01-10 22:48 | disposition home or self-care (01) ==
LOC: ED 22:43
PROVIDERS: Emergency Provider Emergency Medicine; Visit Provider Emergency Medicine
DX: L50.0 Allergic urticaria (principal); Z87.891 Personal history of nicotine dependence
CPT/HCPCS: 99282

== ENCOUNTER 2025-03-06 01:34 | Emergency (ER) | payer MEDICAID, SELFPAY ==
[2025-03-06 01:36] VITALS: BP 167/95; PULSE 75; RESP 16; TEMP 36.8; O2SAT 100; BMI 18.1
--- NOTE | 2025-03-06 01:46 | EDS_ITS ---
HPI History of Present Illness Chief Complaint: Allergic Reaction Narrative Narrative: Patient is a 34-year-old female with past medical history of anxiety as well as multiple food allergies. She states Tuesday evening she ate a [employer] sugar cookie. After doing so she started to notice that she was developing redness and itching over her legs and arms. She states that when she inquired about the cookie she was informed that the person admitted cookies had also created cookies that had peanut butter which she is allergic to. She states that she was not having difficulty breathing or swallowing and therefore did not take her EpiPen but simply used Benadryl and Pepcid. She states she has been doing this for the last day and a half or so but despite doing the [id number] treatment she has had slight progression of the rash. She still denies any trouble breathing or swallowing but states when the [id number] medication does not resolve the reaction she presents to the ER and typically requires prednisone. She denies any other exposure other than the recent food ingestion [facility] Medical History Anxiety Home Medications ?Medication ?Instructions ?Recorded ?Last Taken ?Type epinephrine 0.3 mg/0.3 mL 0.3 mg (0.3 mL) IM Q15M PRN 04/29/23 Unknown Rx injection, auto-injector (EpiPen) anaphylaxis #2 ea cholecalciferol (vitamin D3) 50 50 mcg PO DAILY Unknown History mcg (2,000 unit) capsule (Vitamin D3) fluoxetine 20 mg capsule 20 mg PO DAILY 08/06/23 Unkn own History albuterol sulfate 90 mcg/actuation 1 - 2 puff inhalati on Q4H PRN PRN 11/09/23 Unknown History aerosol inhaler wheezing prednisone 20 mg tablet 40 mg (2 x 20 mg) PO DAILY 7 days 03/06/25 Unknown Rx #14 tabs Allergy/AdvReac Type Severity Reaction Status Date / Time corn Allergy Severe Hives Verified 03/06/25 01:36 peanut (peanuts) Allergy Severe Hives Verified 03/06/25 01:36 sesame seed Allergy Severe Hives Verified 03/06/25 01:36 shellfish derived Allergy Severe Hives Verified 03/06/25 01:36 pseudoephedrine Allergy Mild Rash Verified 03/06/25 01:36 Family History no significant family his Social History household members: children Smoking Status: Former smoker ROS ROS ED Constitutional Constitutional ED: Denies chills or fever(s) ENT ENT ED: Denies rhinorrhea or sore throat Cardiovascular Cardiovascular: Denies chest pain Respiratory/Chest Respiratory/Chest: Denies cough, dyspnea or dyspnea on exertion Gastrointestinal Gastrointestinal: Denies abdominal pain, diarrhea, nausea or vomiting Integumentary Reports rash Neurologic Neurologic: Denies headache(s) Psychiatric Psychiatric: Reports anxiety Hematologic/Lymphatic Hematologic/Lymphatic: Denies easy bleeding or easy bruising Allergic/Immunologic Allergic/Immunologic ED: Reports urticaria; Denies mouth swelling or tongue swelling EXAM Physical Exam Const Vital Signs: 03/06/25 01:36 Temperature 98.3 F Temperature Source Oral Pulse Rate 75 Respiratory Rate 16 Blood Pressure 167/95 H Blood Pressure Mean 119 Pulse Ox 100 Oxygen Delivery Method Room Air Positive well nourished and well developed General Appearance ED: well developed HEENT Reports moist mucous membranes HEENT Narrative: Normocephalic atraumatic No tongue or lip swelling no oral lesions no airway edema or compromise Patient does have erythematous blanchable urticaria around the lateral aspects of the bilateral cheeks consistent with her report of allergic reaction Eyes PERRL and EOMs intact bilaterally General Eye ED: Negative for scleral icterus Neck supple Resp normal respiratory effort and clear to auscultation bilaterally Resp Narrative: No nasal flaring retractions tachypnea or accessory muscle use Cardio regular rate and regular rhythm Extremity normal to inspection Neuro oriented x3, CN's II-XII intact bilaterally and no sensory deficits noted Sensorium / Orientation: alert Motor Exam: strength 5/5 throughout Psych Mood & Affect: anxious Skin Skin Narrative: Patient has blanchable erythematous urticarial lesions to the bilateral anterior lower legs as well as the volar aspect of the bilateral forearm consistent with allergic reaction No vesicular or pustule changes No involvement of the palms or soles MDM MDM MDM Narrative Medical decision making narrative: Patient arrived to the ER mildly hypertensive otherwise with stable vitals. She reported food exposure roughly 36 to 48 hours ago which then led to allergic reaction. Patient states this has happened multiple times in the past as she has multiple food allergies. She states that symptoms have not made her feel short of breath or difficulty breathing or swallowing and therefore she did not feel the need for epinephrine. She states she did her normal home treatment of Benadryl and Pepcid. However this was not helping and she states when the [id number] treatment does not control her allergic reaction she typically requires multiple days of prednisone. I discussed with patient that we also have the option of placing an IV and giving Solu-Medrol Benadryl and Pepcid in [facility] ER through the IV route. She states that this is very similar to her past allergic reactions and the oral prednisone will help control the symptoms and therefore she does not see the necessity for an IV. She is not showing findings of anaphylaxis or angioedema and there are no secondary findings of infection associated with the rash/allergic reaction and therefore do not feel the need for imaging or laboratory studies. The patient was given 60 mg of prednisone in the ER and will be placed on 40 mg once a day for the next 7 days to completely resolve her allergic reaction. She does understand that if her symptoms progress or worsen despite the steroid that she will most likely need to take her EpiPen and then present to the ER for further evaluation and potentially IV treatment and/or admission. However at this time there are no signs of anaphylaxis angioedema or infection and vitals are stable and she is otherwise safe for discharge History & Record Review Discussion w/independent historian: Patient Discharge Plan Triage Chief Complaint: Allergic Reaction ED Provider: Grant Pretty Dx/Rx/DC Orders Clinical Impression: Allergic reaction, Urticaria, Anxiety Instructions: ED Food Allergy, ED Hives (Adult) Prescriptions: New prednisone 20 mg tablet 40 mg PO DAILY 7 Days Qty: 14 0RF No Action epinephrine [EpiPen] 0.3 mg/0.3 mL auto-injector 0.3 mg IM Q15M PRN (Reason: anaphylaxis) Qty: 2 0RF albuterol sulfate 90 mcg/actuation HFA aerosol inhaler 1 - 2 puff inhalation Q4H PRN PRN (Reason: wheezing) fluoxetine 20 mg capsule 20 mg PO DAILY cholecalciferol (vitamin D3) [Vitamin D3] 50 mcg (2,000 unit) capsule 50 mcg PO DAILY Primary Care Provider: Iman Peace NP Referrals: [facility],Out of [Non-Staff, Medical] Activity Restrictions/Additional Instructions: Please take the prednisone/steroid as directed to help resolve your allergic reaction. You can continue with [id number] Benadryl and Pepcid to help with symptom relief as well. If you develop any difficulty breathing or swallowing please take your EpiPen and then present to the ER for repeat evaluation. Print Language: [place] Disposition Disposition: Home, Self Care Discharge Date/Time: 03/06/25 01:52
[2025-03-06 01:52] VITALS: BP 167/95; PULSE 75; RESP 16; TEMP 36.8; O2SAT 100
--- OUTSIDE RECORDS SUMMARY | 2025-03-06 01:55 | XMS RPT_ITS | CCD ---
Author Organization [facility] Care Team Providers Care Mica Plate Layer Hand Name Role Phone PROVIDER, UNKNOWN Admitting Unavailable NOE VILLA Attending Unavailable PATIENT, SELF Referring Unavailable Queden SPACE SCHEDULER.COSMETOLOGIST APPRENTICE, Iman A Primary Care Provider Queden SPACE SCHEDULER.COSMETOLOGIST APPRENTICE Iman A Primary Care Provider QUEDEN, IMAN [...] Primary Care Unavailable DANIELA, RAJESH Referring Unavailable Queden FRONT END ENGINEER-C, Iman Primary Care Provider Dr. Collin Allen MD Attending Provider Dr. Collin Allen MD Referring Provider [phone] Collin Allen MD Emergency Provider Hansel Robledo MD Attending Provider Hansel Robledo MD Emergency Provider Dr. Raymond Anthony DO Attending Provider Dr. Raymond Anthony DO Emergency Provider Dr. Mor Urena DO Emergency Provider Queden FRONT END ENGINEER-C, Iman Primary Care Provider [phone] Dr. Mor Urena DO Attending Provider Alejandro MOORE, Dr. Polanco Attending Provider Alejandro MOORE, Dr. Polanco Referring Provider [phone] Alejandro MOORE, Dr. Polanco Emergency Provider [phone] Roberta WHITFIELD, Dr. Davis Emergency Provider Queden FRONT END ENGINEER-C, Iman Primary Care Provider Roberta WHITFIELD, Dr. Davis Attending Provider Betzaida WHITFIELD, Dr. [place] Emergency Provider Ryan Granados Attending Unavailable Queden FRONT END ENGINEER, Iman Primary Care Unavailable Allen, Collin Attending Unavailable Allen, Collin Referring Unavailable Queden FRONT END ENGINEER, Iman Primary Care Unavailable Queden FRONT END ENGINEER, Iman Primary Care Unavailable Mor Urena Attending UnavailRaymond Mao Attending Unavailable Queden FRONT END ENGINEER, Iman Primary Care Unavailable Hansel Robledo Attending Unavailable Queden FRONT END ENGINEER, Iman Primary Care Unavailable Alejandro, Collin Attending Unavailable Allen, Collin Referring Unavailable Queden FRONT END ENGINEER, Iman Primary Care Unavailable Town Doctor, Out of Primary Care Unavailable Lokesh Lopez Attending Unavailable Tre Huston Attending Unavailable Queden FRONT END ENGINEER, Iman Primary Care Unavailable Allergies Allergy Classification Reported Allergen(s) Allergy Type Date of Onset Reaction(s) Facility (1 source) Environmental allergy; Translations: [ENVIRONMENTAL] Propensity to adverse reactions (disorder) 02-01-20 15 [facility] (10 sources) Pseudoephedrine Drug Allergy 11-07-19 23 [facility] (2 sources) Environmental Allergies: Uncoded Allergy to substance 06-07-19 24 [facility] (20 sources) environmental [Other] Propensity to adverse reactions 10-24-19 05 [facility] Work Phone: (1 source) OTHER; Translations: [OTHER] Propensity to adverse reactions (disorder) 10-24-19 05 [facility] Repository (4 sources) corn allergenic extract Drug Allergy 05-24-19 [facility] (4 sources) peanut allergenic extract Drug Allergy 05-24-19 [facility] (4 sources) sesame seed extract Drug Allergy 05-24-19 [facility] (5 sources) Shellfish; Translations: [shellfish derived] Allergy to substance 05-24-19 [facility] (1 source) corn extract Drug Allergy 01-11-20 [facility] Repository (1 source) peanut allergenic extract Drug Allergy 01-11-20 [facility] Repository (1 source) Pseudoephedrine Drug Allergy 01-11-20 [facility] Repository (1 source) sesame seed extract Drug Allergy 01-11-20 [facility] Repository Medications Current Medications Medication Drug Class(es) Dates Sig (Normalized) Sig (Original) [id number] 200 actuat albuterol 0.09 mg/actuat metered dose inhaler (11 sources) beta2-Adrenergic Agonist Start: 11-09-2023 Albuterol Sulfate 90 mcg/actuation HFA aerosol inhaler Active 1 - 2 NMA INHALATION EVERY 4 HOURS NEEDED as needed for wheezing November 09, 2023 12:00am Start: 04-29-2023 End: 08-06-2023 Albuterol Sulfate (Ventolin Hfa) 90 mcg/actuation HFA aerosol inhaler Discontinued 1 - 2 NMA INHALATION EVERY 4 HOURS NEEDED as needed for Wheezing April 29, 2023 1:00am August 06, 2023 12:36pm Start: 04-29-2023 take 1 puff(s) by in halation every four hours as needed Albuterol Sulfate (Ventolin Hfa) 90 mcg/actuation HFA aerosol inhaler Active 1 - 2 PUFF INHALATION EVERY 4 HOURS NEEDED April 29, 2023 1:00am amoxicillin 500 mg oral capsule (2 sources) Penicillin-class Antibacterial Start: 05-24-2024 End: 06-03-2024 take 1 capsule by mouth every eight hours amoxicillin (AMOXIL) 500 mg capsule Take 1 capsule by mouth every 8 hours for 10 days. 30 capsule 05/24/2024 06/03/2024 Active cholecalciferol 0.05 mg oral capsule (20 sources) Vitamin D Start: 08-06-2023 Cholecalciferol (Vitamin D3) [Cholecalciferol (Vitamin D3) 50 Mcg (2,000 Unit) Capsule] (Cholecalciferol (Vitamin D3) 50 Mcg (2,000 Unit) ) 50 mcg (2,000 unit) capsule Active 50 ug PO DAILY August 06, 2023 12:00am Start: 06-29-20[address] [facility] once daily Cholecalciferol, Vitamin D3, (VITAMIN D-3) 50 mcg (2,000 unit) cap Indications: Vitamin D insufficiency Take 1 capsule by mouth once daily. 90 capsule 1 06/29/2023 Active Comment on above: Take [address] [facility] once daily. [id number] 0.3 ml EPINEPHrine 1 mg/ml auto-injector (7 sources) alpha-Adrenergic Agonist, beta-Adrenergic Agonist, Catecholamine Start: Epinephrine (Epipen) 0.3 mg/0.3 mL auto-injector Active 0.3 mg IM Q15M as needed for anaphylaxis April 29, 2023 1:00am famotidine 20 mg oral tablet (20 sources) Histamine-2 Receptor Antagonist Start: take 1 tablet by mouth twice daily Famotidine 20 mg tablet Active 20 mg PO TWICE A DAY July 24, 2024 12:00am Start: 04-29-2023 End: 01-14-2024 take 1 tablet by mouth twice daily Famotidine (Pepcid) 20 mg tablet Discontinued 20 mg PO TWICE A DAY August 06, 2023 12:00am January 14, 2024 3:49am Start: 11-06-2022 End: 08-06-2023 take 1 tablet by mouth once daily Famotidine (Pepcid) 40 mg tablet Discontinued 40 mg PO DAILY November 06, 2022 12:00am August 06, 2023 12:36pm Comment on above: Take 1 tablet by [facility] two times a day as needed. FLUoxetine 20 mg oral capsule (20 sources) Serotonin Reuptake Inhibitor Start: 2023 take 1 capsule by mouth once FLUoxetine (PROZAC) 20 mg capsule Take 1 capsule by mouth every afternoon. 05/21/2023 Active Comment on above: Take [address] [facility] every afternoon. hydrOXYzine pamoate 25 mg oral capsule (20 sources) Antihistamine Start: 2023 take 1 capsule by mouth twice daily hydrOXYzine pamoate (VISTARIL) 25 mg capsule Take 1 Capsule By Oral Route 2 times per day 05/30/2023 Active Comment on above: Take 1 Capsule By Or al Route 2 times per day methylPREDNISolone 4 mg oral tablet (4 sources) Corticosteroid Start: 2024 take 1 tablet by mouth once daily Methylprednisolone 4 mg tablets,dose pack Active 4 mg PO DAILY April 10, 2024 1:00am nitrofurantoin, macrocrystals 100 mg oral capsule (1 source) Nitrofuran Antibacterial Start: 2023 End: 2023 take 1 capsule by mouth twice daily nitrofurantoin macrocrystal (MACRODANTIN) 100 mg capsule 1 capsule by ORAL/FEEDING TUBE route two times a day for 5 days. 10 capsule 0 07/13/2023 07/18/2023 Active penicillin v potassium 500 mg oral tablet (8 sources) Start: 2023 take 1 tablet by mouth four times daily Penicillin V Potassium 500 mg tablet Active 500 mg PO 4 TIMES DAILY January 14, 2024 12:00am Start: 11-09-2023 End: 01-14-2024 Penicillin V Potassium 250 m g tablet Discontinued 500 mg PO 4 TIMES DAILY November 09, 2023 12:00am January 14, 2024 3:49am microencapsulated potassium chloride 20 meq extended release oral tablet (20 sources) Start: 06-29-2023 take 1 tablet by mouth once daily potassium chloride ER (KLOR-CON M20) 20 mEq tablet Indications: Hypokalemia Take 1 tablet by mouth once daily. 3 tablet 06/29/2023 Active Comment on above: Take 1 tablet by juliocesar th once daily. predniSONE 20 mg oral tablet (20 sources) Start: 10-01-2024 take 2 tablets by mouth once daily predniSONE (DELTASONE) 20 mg tablet Take 2 tablets by mouth once daily. 10 tablet 10/01/2024 Active Start: 09-03-2024 take 1 tablet by juliocesar th twice daily Prednisone 20 mg tablet Active 20 mg PO TWICE A DAY September 03, 2024 12:00am Start: 07-24-2024 take 3 tablets by mo [facility] once daily Prednisone 20 mg tablet Active 60 mg PO DAILY July 24, 2024 12:00am Start: 02-26-2024 take 2 tablets by mo [facility] once daily Prednisone 20 mg tablet Active 40 mg PO DAILY May 31, 2024 12:00am Start: 11-09-2023 End: 01-14-2024 take 2 tablets by mouth once daily Prednisone 20 mg tablet Discontinued 40 mg PO DAILY 10 January 04, 2024 12:00am January 14, 2024 3:49am Start: 11-06-2022 End: 01-14-2024 take 1 tablet by mouth once daily Prednisone 50 mg tablet Discontinued 50 mg PO DAILY October 05, 2023 12:00am January 14, 2024 3:48am Start: 10-01-2018 End: 08-06-2023 take 2 tablets by mouth once daily Prednisone 20 mg tablet Discontinued 40 mg PO DAILY June 07, 2023 12:00am August 06, 2023 12:36pm Start: 10-01-2018 take 40 mg by mouth once daily Prednisone Active 40 MG PO DAILY June 07, 2023 12:00am sulfamethoxazole 800 mg / trimethoprim 160 mg oral tablet (2 sources) Dihydrofolate Reductase Inhibitor Antibacterial, Sulfonamide Antimicrobial Start: 06-29-2023 End: 07-02-2023 take 1 tablet by mouth twice daily sulfamethoxazole-trimethoprim (BACTRIM DS) 800-160 mg per tablet Indications: Acute cystitis with hematuria Take 1 tablet by mouth two times a day for 3 days. 6 tablet 0 06/29/2023 07/02/2023 Active Comment on above: Take 1 tablet by juliocesar two times a day for 3 days. Completed/Discontinued Medications Medication Drug Class(es) Dates Sig (Normalized) Sig (Original) amoxicillin 875 mg / clavulanate 125 mg oral tablet (4 sources) Penicillin-class Antibacterial Start: 05-23-2024 End: 07-24-2024 Amoxicillin-Pot Clavulanate 875-125 mg tablet Discontinued 1 {tbl} PO TWICE A DAY 14 May 23, 2024 12:00am July 24, 2024 8:50pm cefdinir 300 mg oral capsule (4 sources) Cephalosporin Antibacterial Start: 01-14-2024 End: 07-24-2024 Cefdinir 300 mg capsule Discontinued 300 mg PO Q12 January 14, 2024 12:00am July 24, 2024 8:50pm diphenhydrAMINE hydrochloride 25 mg oral capsule (20 sources) Histamine-1 Receptor Antagonist Start: 05-31-2024 End: 07-24-2024 take 1 capsule by mouth every six hours Diphenhydramine Hcl (Benadryl) 25 mg capsule Discontinued 25 mg PO EVERY 6 HOURS May 31, 2024 12:00am July 24, 2024 8:50pm Start: 11-09-2023 End: 01-14-2024 take 1 capsule by mouth three times daily Diphenhydramine Hcl (Benadryl) 25 mg capsule Discontinued 25 mg PO THREE TIMES A DAY November 09, 2023 12:00am January 14, 2024 3:49am take 1 tablet by juliocesar th every six hours as needed diphenhydrAMINE (BENADRYL ALLERGY) 25 mg tablet Take 25 mg by mouth every 6 hours as needed. Active Comment on above: Take 25 mg by mouth every 6 hours as needed. doxycycline monohydrate 100 mg oral capsule (4 sources) Tetracycline-class Drug Start: 4 End: 5 take 1 capsule by mouth twice daily Doxycycline Monohydrate 100 mg capsule Discontinued 100 mg PO TWICE A DAY February 01, 2024 1:00am July 24, 2024 8:50pm naproxen 500 mg oral tablet (17 sources) Nonsteroidal Anti-inflammatory Drug Start: 3 End: take 1 tablet by mouth twice daily Naproxen 500 mg tablet Discontinued 500 mg PO TWICE A DAY November 09, 2023 12:00am January 14, 2024 3:49am Problems Active Problems Problem Classification Problem Date Documented Date Episodic/Chronic Abdominal pain (1 source) Flank pain; Translations: [Unspecified abdominal pain] 06-27-2023 Episodic Allergic reactions (20 sources) Acute urticaria; Translations: [Other urticaria] Onset: 04-26-2007 Resolved: 09-19-2008 11-06-2022 Episodic Anxiety disorders (4 sources) Anxiety; Translations: [Anxiety disorder, unspecified] 01-12-2024 Chronic Fluid and electrolyte disorders (1 source) Hypokalemia; Translations: [Hypokalemia] 06-29-2023 Episodic Genitourinary symptoms and ill-defined conditions (2 sources) Blood in urine; Translations: [Hematuria, unspecified] 06-27-2023 Episodic Immunizations and screening for infectious disease (2 sources) Anti-nuclear factor positive; Translations: [Other specified abnormal immunological findings in serum] Onset: 07-11-2023 07-11-2023 Episodic Influenza (10 sources) Influenza due to Influenza A virus; Translations: [Influenza due to other identified influenza virus with other respiratory manifestations] 03-04-2022 Episodic Malaise and fatigue (2 sources) Asthenia; Translations: [Weakness] Onset: 07-11-2023 07-11-2023 Episodic Nutritional deficiencies (3 sources) Vitamin D deficiency; Translations: [Vitamin D deficiency, unspecified] Onset: 01-18-2023 06-29-2023 Chronic Open wounds of extremities (4 sources) Laceration of left forearm; Translations: [Laceration without foreign body of left forearm, initial encounter] 11-04-2023 Episodic Other circulatory disease (3 sources) Elevated blood-pressure reading without diagnosis of hypertension; Translations: [Elevated blood-pressure reading, without diagnosis of hypertension] 05-31-2024 Episodic Other congenital anomalies (20 sources) Congenital anomaly of upper limb; 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), including shoulder girdle] Onset: 09-19-2008 03-09-2021 Chronic Other injuries and conditions due to external causes (6 sources) Allergic angioedema; Translations: [Angioneurotic edema, initial encounter] 06-07-2023 Episodic Other lower respiratory disease (5 sources) Dyspnea; Translations: [Shortness of breath] 07-25-2023 Episodic Other lower respiratory disease (1 source) Shortness of breath; Translations: [Shortness of breath] Onset: 07-29-2023 Episodic Other non-traumatic joint disorders (2 sources) Joint pain; Translations: [Pain in unspecified joint] 06-27-2023 Episodic Other upper respiratory infections (20 sources) Viral upper respiratory tract infection; Translations: [Acute upper respiratory infection, unspecified] 10-12-2017 Episodic Sprains and strains (18 sources) Strain of thoracic region; Translations: [Strain of muscle and tendon of unspecified wall of thorax, initial encounter] 10-22-2023 Episodic Systemic lupus erythematosus and connective tissue disorders (6 sources) Sjogren's syndrome; Translations: [Sicca syndrome, unspecified] Onset: 07-29-2023 07-25-2023 Chronic Urinary tract infections (1 source) Acute cystitis; Translations: [Acute cystitis with hematuria] 06-29-2023 Episodic Past or Other Problems Problem Classification Problem Date Documented Date Episodic/Chronic Administrative/social admission (20 sources) Support system deficit; Translations: [Other specified problems related to psychosocial circumstances] Onset: 10-23-2013 03-09-2021 Episodic Disorders of teeth and jaw (20 sources) Disorder of oral soft tissues; Translations: [Periodontal disease, unspecified] Onset: 06-01-2024 11-17-2023 Episodic Inflammatory diseases of female pelvic organs (20 sources) Bacterial vaginosis; Translations: [Acute vaginitis] Onset: 10-25-2013 Resolved: 06-20-2014 03-09-2021 Episodic Other aftercare (1 source) 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; Translations: [Encounter for long-term (current) drug use] Onset: 01-18-2023 Episodic Other and unspecified benign neoplasm (20 sources) Benign neoplasm of skin of trunk; Translations: [Other benign neoplasm of skin of trunk] Onset: 02-17-2006 Resolved: 07-08-2011 07-08-2011 Episodic Other complications of (20 sources) High risk ; Translations: [Supervision of high risk , unspecified, unspecified trimester] Onset: 06-09-2009 Resolved: 10-22-2009 10-22-2009 Episodic Other complications of (20 sources) Supervision of other high risk pregnancies, unspecified trimester; Translations: [Supervision of other high-risk ] Onset: 06-10-2011 Resolved: 08-30-2011 08-30-2011 Episodic Other complications of (20 sources) Group B Streptococcus carrier; Translations: [Streptococcus B carrier state complicating ] Onset: 07-12-2011 Resolved: 08-30-2011 08-30-2011 Episodic Other complications of (20 sources) Maternal tobacco use in ; Translations: [Smoking (tobacco) complicating , unspecified trimester] Onset: 10-23-2013 Resolved: 08-20-2014 03-09-2021 Episodic Other complications of (20 sources) Uterine size for dates discrepancy; Translations: [Uterine size-date discrepancy, unspecified trimester] Onset: 03-25-2014 Resolved: 06-20-2014 06-20-2014 Episodic Other and delivery including normal (20 sources) with uncertain dates; Translations: [Encounter for supervision of normal , unspecified, unspecified trimester] Onset: 10-23-2013 Resolved: 06-20-2014 03-09-2021 Episodic Other screening for suspected conditions (not mental disorders or infectious disease) (20 sources) Abnormal cervical Papanicolaou smear; Translations: [Unspecified abnormal cytological findings in specimens from cervix uteri] Onset: 11-02-2013 03-09-2021 Episodic Other skin disorders (20 sources) Disorder of skin pigmentation; Translations: [Disorder of pigmentation, unspecified] Onset: 02-17-2006 Resolved: 07-08-2011 07-08-2011 Episodic Other skin disorders (20 sources) Keloid scar; Translations: [Hypertrophic scar] Onset: 02-17-2006 Resolved: 07-08-2011 07-08-2011 Episodic Other skin disorders (20 sources) Scar conditions and fibrosis of skin; Translations: [Scar conditions and fibrosis of skin] Onset: 02-17-2006 Resolved: 07-08-2011 07-08-2011 Episodic Skin and subcutaneous tissue infections (9 sources) Abscess of skin and/or subcutaneous tissue; Translations: [Cutaneous abscess, unspecified] Onset: 02-29-2024 02-09-2024 Episodic Viral infection (20 sources) Acute viral disease; Translations: [Viral infection, unspecified] Onset: 03-23-2007 Resolved: 07-08-2011 04-29-2023 Episodic Results Test Name Value Interpretation Reference Range Facility Emergency Department Summary on 01-11-2025 Emergency Department Summary [facility] Medical Records Department [address] [place] [address] Emergency Department Summary 01/11/25 MR#: [id number] Acct: [id number] Name: TRACIE MELENDEZ Rep #: [id number] : 1990 34 From: Lokesh Loepz DO PCP: OUT OF TOWN DOCTOR Status:DEP ER Location: ED HPI History of Present Illness Chief Complaint: Allergic Reaction Informant: patient Narrative Narrative: 34-year-old female with history of multiple allergies and hives presenting to the emergency room with hives on her legs. She states that yesterday she ingested some sesame seeds as well as peanuts in the form of He[employer] peanut butter cup. The patient states that she has subsequently developed hives on her legs bilaterally. She denies any respiratory symptoms. No GI symptomology. She states that she has been on prednisone in the past and has done well with it. [facility] Medical History Anxiety Home Medications ???Medication ???Instructions ???Recorded ???Last Taken ???Type epinephrine 0.3 mg/0.3 mL 0.3 mg (0.3 mL) IM Q15M PRN Unknown Rx injection, auto-injector (EpiPen) anaphylaxis #2 ea cholecalciferol (vitamin D3) 50 50 mcg PO DAILY 08/06/23 Unknown H istory mcg (2,000 unit) capsule (Vitamin D3) fluoxetine 20 mg capsule 20 mg PO DAILY 08/06/23 Unknown Hi story hydroxyzine pamoate 25 mg capsule 25 mg PO BID 08/06/23 Unknown His tory albuterol sulfate 90 mcg/actuation 1 - 2 puff inhalation Q4H PRN MN N 11/09/23 Unknown History aerosol inhaler wheezing naproxen 500 mg tablet 500 mg PO BID PRN #20 tabs 4 Unknown Rx penicillin V potassium 500 mg 500 mg PO 4X/DAY #40 tabs 01/14/24 Unknown Rx tablet famotidine 20 mg tablet (Pepcid AC) 20 mg PO BID #14 tabs 02/26/24 Unknown Rx prednisone 20 mg tablet 40 mg (2 x 20 mg) PO DAILY #14 tab s 02/26/24 Unknown Rx methylprednisolone 4 mg tablets in 4 mg PO DAILY #21 tabs 04/10/24 Unknown Rx a dose pack famotidine 20 mg tablet 20 mg PO BID #8 TABLETS 05/31/24 U nknown Rx prednisone 20 mg tablet 40 mg (2 x 20 mg) PO DAILY #8 05/13 Unknown Rx TABLETS famotidine 20 mg tablet 20 mg PO BID #10 TABLETS 07/24/24 Unknown Rx prednisone 20 mg tablet 60 mg (3 x 20 mg) PO DAILY #12 Unknown Rx TABLETS prednisone 20 mg tablet 20 mg PO BID #6 tabs 09/03/24 Unkn own Rx famotidine 20 mg tablet (Pepcid) 20 mg PO BID PRN hives 15 days #30 01/10/25 Unknown Rx tabs prednisone 20 mg tablet 60 mg (3 x 20 mg) PO DAILY #15 Unknown Rx TABLETS Allergy/AdvReac Type Severity Reaction Status Date / Time corn Allergy Severe Hives Verified 01/10/25 22:21 peanut (peanuts) Allergy Severe Hives Verified 01/10/25 22:21 sesame seed Allergy Severe Hives Verified 01/10/25 22:21 shellfish derived Allergy Severe Hives Verified 01/10/25 22:21 pseudoephedrine Allergy Mild Rash Verified 01/10/25 22:21 Family History no significant family his Social History household members: children Smoking Status: Former smoker ROS ROS ED Constitutional Constitutional ED: Denies chills, fever(s) or weight loss Eyes Eyes: Denies change in vision or diplopia ENT ENT ED: Denies ear pain, rhinorrhea or sore throat Cardiovascular Cardiovascular: Denies chest pain, orthopnea, palpitations or racing heartbeat Respiratory/Chest Respiratory/Chest: Denies cough, dyspnea or orthopnea Gastrointestinal Gastrointestinal: Denies abdominal pain, diarrhea, nausea or vomiting Genitourinary Genitourinary ED: Denies dysuria, hematuria or urinary frequency Musculoskeletal Musculoskeletal: Denies arthralgias or myalgias Integumentary Reports rash and other Details: Urticaria and pruritus ; Denies abscess Neurologic Neurologic: Denies headache(s) or weakness Psychiatric Psychiatric: Denies anxiety, depression, suicidal ideation or suicidal thoughts Endocrine Endocrinology: Denies polydipsia, polyphagia or polyuria Allergic/Immunologic Allergic/Immunologic ED: Denies mouth swelling, tongue swelling or urticaria EXAM Physical Exam Const Vital Signs: 01/10/25 22:20 01/10/25 22:42 Temperature 98.1 F 98.1 F Temperature Source Oral Pulse Rate 83 83 Respiratory Rate 18 18 Blood Pressure 144/99 H 144/99 H Blood Pressure Mean 114 114 Pulse Ox 97 97 Oxygen Delivery Method Room Air Positive well nourished and well developed General Appearance ED: well developed HEENT Reports normocephalic, head/scalp atraumatic and moist mucous membranes Eyes PERRL and EOMs intact bilaterally Neck no lymphadenopathy, supple and no JVD Resp normal respiratory effort and clear to auscultation bilaterally Card (more content not included)... [facility] Emergency Department Summary on 09-03-2024 Emergency Department Summary [facility] Medical Records Department [address] [place] [address] Emergency Department Summary 09/03/24 MR#: [id number] Acct: [id number] Name: TRACIE MELENDEZ Rep #: [id number] : 1990 33 From: Tre Huston DO PCP: EMIL NuñezC Status:DEP ER Location: ED HPI History of Present Illness Chief Complaint: Allergic Reaction Detail of Chief Complaint: Hives/allergic reaction Informant: patient Narrative Narrative: Patient presents to the emergency department with an allergic reaction. She states she started with a rash yesterday. She ate some muffins that apparently were in a peanut free factory but then also noted that there was corn product potentially in the muffins which she is allergic to. Started with a low bit of a rash yesterday. The rash continues today and she describes some itching associated with it. She denies lip or tongue swelling or difficulty swallowing. She states she sometimes gets anxious and feels somewhat short of breath. She has an EpiPen at home but did not feel like she needed it. Patient does get seasonal allergy injections. [facility] Medical History Anxiety Home Medications ???Medication ???Instructions ???Recorded ???Last Taken ???Type epinephrine 0.3 mg/0.3 mL 0.3 mg (0.3 mL) IM Q15M PRN Unknown Rx injection, auto-injector (EpiPen) anaphylaxis #2 ea cholecalciferol (vitamin D3) 50 50 mcg PO DAILY 08/06/23 Unknown H istory mcg (2,000 unit) capsule (Vitamin D3) fluoxetine 20 mg capsule 20 mg PO DAILY 08/06/23 Unknown Hi story hydroxyzine pamoate 25 mg capsule 25 mg PO BID 08/06/23 Unknown His tory albuterol sulfate 90 mcg/actuation 1 - 2 puff inhalation Q4H PRN MN N 11/09/23 Unknown History aerosol inhaler wheezing naproxen 500 mg tablet 500 mg PO BID PRN #20 tabs 4 Unknown Rx penicillin V potassium 500 mg 500 mg PO 4X/DAY #40 tabs 01/14/24 Unknown Rx tablet famotidine 20 mg tablet (Pepcid AC) 20 mg PO BID #14 tabs 02/26/24 Unknown Rx prednisone 20 mg tablet 40 mg (2 x 20 mg) PO DAILY #14 tab s 02/26/24 Unknown Rx methylprednisolone 4 mg tablets in 4 mg PO DAILY #21 tabs 04/10/24 Unknown Rx a dose pack famotidine 20 mg tablet 20 mg PO BID #8 TABLETS 05/31/24 U nknown Rx prednisone 20 mg tablet 40 mg (2 x 20 mg) PO DAILY #8 05/13 Unknown Rx TABLETS famotidine 20 mg tablet 20 mg PO BID #10 TABLETS 07/24/24 Unknown Rx prednisone 20 mg tablet 60 mg (3 x 20 mg) PO DAILY #12 Unknown Rx TABLETS prednisone 20 mg tablet 20 mg PO BID #6 tabs 09/03/24 Unkn own Rx Allergy/AdvReac Type Severity Reaction Status Date / Time corn Allergy Severe Hives Verified 09/03/24 10:51 peanut (peanuts) Allergy Severe Hives Verified 09/03/24 10:51 sesame seed Allergy Severe Hives Verified 09/03/24 10:51 shellfish derived Allergy Severe Hives Verified 09/03/24 10:51 pseudoephedrine Allergy Mild Rash Verified 09/03/24 10:51 Social History household members: children Smoking Status: Former smoker ROS ROS ED Review of Systems ROS Unobtainable: other Constitutional Constitutional ED: Reports lethargy; Denies chills, fever(s), sweats or weight loss Eyes Eyes: Denies blurry vision, change in vision or diplopia ENT ENT ED: Denies rhinorrhea or sore throat Cardiovascular Cardiovascular: Denies chest pain, orthopnea or racing heartbeat Respiratory/Chest Respiratory/Chest: Denies cough, dyspnea, dyspnea on exertion, orthopnea or sputum Gastrointestinal Gastrointestinal: Denies abdominal pain, diarrhea, nausea or vomiting Genitourinary Genitourinary ED: Denies dysuria, hematuria or urinary frequency Musculoskeletal Musculoskeletal: Denies arthralgias, back pain, myalgias or neck pain Integumentary Reports rash; Denies abscess or Abrasions Neurologic Neurologic: Denies headache(s) or weakness Psychiatric Psychiatric: Denies anxiety, depression or suicidal thoughts Endocrine Endocrinology: Denies polydipsia, polyphagia or polyuria Hematologic/Lymphatic Hematologic/Lymphatic : Denies easy bleeding, easy bruising or lymphadenopathy Allergic/Immunologic Allergic/Immunologic ED: Denies mouth swelling, tongue swelling or urticaria EXAM Physical Exam Const Vital Signs: 09/03/24 10:49 09/03/24 13:15 Temperature 97.5 F L Temperature Source Oral Pulse Rate 75 72 Respiratory Rate 16 18 Blood Pressure 128/91 H 112/90 H Blood Pressure Mean 103 97 Pulse Ox 99 100 Oxygen Delivery Method Room Air Room Air Positive well nourished and well developed General Appearance ED: well developed and NAD HEENT Reports TM's clear and moist mucous membranes HEENT Narrative: No angioedema (more content not included)... [facility] Emergency Department Summary on 07-24-2024 Emergency Department Summary [facility] Medical Records Department [address] [place] [address] Emergency Department Summary 07/24/24 MR#: [id number] Acct: [id number] Name: TRACIE MELENDEZ Rep #: [id number] : 1990 33 From: Ryan Pederson PCP: JOHNSON Nuñez Status:DEP ER Location: ED HPI History of Present Illness Chief Complaint: Allergic Reaction Informant: patient Narrative Narrative: Presents concerns allergy after eating pork ribs yesterday at [employer] States after eating there is noted rash on her left leg this morning progressed to right hip right arm. Mild itching to the face. No lip or tongue swelling. She took Benadryl last evening. She has had allergies to foods including sesame seed peanuts and corn along with shellfish. She has been given epinephrine in the past. She is not a diabetic. She has an EpiPen at home. Did not use it. She states it could have been the gradients in the ribs that caused her symptoms. Prior similar symptoms: Yes PFSH PFSH Medical History Anxiety Home Medications ???Medication ???Instructions ???Recorded ???Last Taken ???Type epinephrine 0.3 mg/0.3 mL 0.3 mg (0.3 mL) IM Q15M PRN Unknown Rx injection, auto-injector (EpiPen) anaphylaxis #2 ea cholecalciferol (vitamin D3) 50 50 mcg PO DAILY 08/06/23 Unknown H istory mcg (2,000 unit) capsule (Vitamin D3) fluoxetine 20 mg capsule 20 mg PO DAILY 08/06/23 Unknown Hi story hydroxyzine pamoate 25 mg capsule 25 mg PO BID 08/06/23 Unknown His tory albuterol sulfate 90 mcg/actuation 1 - 2 puff inhalation Q4H PRN MN N 11/09/23 Unknown History aerosol inhaler wheezing naproxen 500 mg tablet 500 mg PO BID PRN #20 tabs 4 Unknown Rx penicillin V potassium 500 mg 500 mg PO 4X/DAY #40 tabs 01/14/24 Unknown Rx tablet famotidine 20 mg tablet (Pepcid AC) 20 mg PO BID #14 tabs 02/26/24 Unknown Rx prednisone 20 mg tablet 40 mg (2 x 20 mg) PO DAILY #14 tab s 02/26/24 Unknown Rx methylprednisolone 4 mg tablets in 4 mg PO DAILY #21 tabs 04/10/24 Unknown Rx a dose pack famotidine 20 mg tablet 20 mg PO BID #8 TABLETS 05/31/24 U nknown Rx prednisone 20 mg tablet 40 mg (2 x 20 mg) PO DAILY #8 05/13 Unknown Rx TABLETS famotidine 20 mg tablet 20 mg PO BID #10 TABLETS 07/24/24 Unknown Rx prednisone 20 mg tablet 60 mg (3 x 20 mg) PO DAILY #12 Unknown Rx TABLETS Allergy/AdvReac Type Severity Reaction Status Date / Time corn Allergy Severe Hives Verified 07/24/24 20:28 peanut (peanuts) Allergy Severe Hives Verified 07/24/24 20:28 sesame seed Allergy Severe Hives Verified 07/24/24 20:28 shellfish derived Allergy Severe Hives Verified 07/24/24 20:28 pseudoephedrine Allergy Mild Rash Verified 07/24/24 20:28 Social History household members: children Smoking Status: Former smoker ROS ROS ED Constitutional Constitutional ED: Denies fever(s) Cardiovascular Cardiovascular: Denies chest pain Respiratory/Chest Respiratory/Chest: Denies cough Gastrointestinal Gastrointestinal: Denies diarrhea or vomiting Musculoskeletal Musculoskeletal: Denies none Integumentary Reports rash; Denies wounds Neurologic Neurologic: Denies weakness EXAM Physical Exam Const Vital Signs: 07/24/24 20:26 07/24/24 21:01 Temperature 98.2 F 97.8 F Temperature Source Oral Pulse Rate 88 81 Respiratory Rate 18 16 Blood Pressure 143/95 H 167/86 H Blood Pressure Mean 111 113 Pulse Ox 98 99 Oxygen Delivery Method Room Air Positive well nourished and well developed General Appearance ED: well developed and NAD HEENT Reports moist mucous membranes HEENT Narrative: No lip or tongue swelling airway patent no stridor. normocephalic and atraumatic Eyes General Eye ED: Yes normal appearance of both eyes Neck full ROM Chest Wall Chest: Negative for tenderness Resp normal respiratory effort and normal air movement Effort and Inspection: symmetric chest movement; Negative for respiratory distress Cardio regular rate, regular rhythm and no murmurs Peripheral Pulses: pulses 2+ throughout GI normal to inspection, nondistended, normoactive bowel sounds and non-tender Palpation: Negative for guarding or rebound tenderness present Extremity normal to inspection Extremity Narrative: Rash to left calf, nontender, slightly raise. Small patch of rash on right hip. General Extremety ED: Negative for edema or tenderness General Extremity: Negative for edema Neuro oriented x3 and no sensory deficits noted Sensorium / Orientation: awake and alert Skin Skin Narrative: See above. Ischial erythema left maxillary. MDM MDM MDM Narrative Medical decision making carl (more content not included)... [facility] Emergency Department Summary on 05-31-2024 Emergency Department Summary [facility] Medical Records Department [address] [place] [address] Emergency Department Summary 05/31/24 MR#: [id number] Acct: [id number] Name: TRACIE MELENDEZ Rep #: [id number] : 1990 33 From: Collin Allen MD PCP: Iman Queden, FRONT END ENGINEER-C Status:REG ER Location: ED HPI History of Present Illness Chief Complaint: Allergic Reaction Detail of Chief Complaint: Patient presents with allergic reaction started yesterday after allergen Informant: patient Onset/Context/Timing Onset: Yesterday Context: Sudden Onset Timing: Continuous Quality: Hives that started on the ankle and now is generalized Location: Generalized Current Severity: Moderate Maximum Severity: Moderate Worsened by: Concern cell address and may have had sesame seed oil which she is allergic Relieved by: Nothing Associated Symptoms Associated Symptoms: No cardiovascular, respiratory or GI symptoms Narrative Narrative: Patient is a 33-year-old woman. She presents with rash. She had salad at restaurant. She states about 23 minutes after the salad she began to have itching of her ankles. Rash developed. She took a Benadryl capsule, 50 mg, last evening at 10 PM. She is taken nothing since. The hives have spread. She denies respiratory symptoms. She denies cardiac symptoms. She denies orthostatic symptoms. She denies GI symptoms. She denies swelling of her lips, tongue or throat. She denies change in voice. Prior similar symptoms: Yes Recent Illness/Hospitalizati on: No PFSH PFS Medical History Anxiety Home Medications ???Medication ???Instructions ???Recorded ???Last Taken ???Type epinephrine 0.3 mg/0.3 mL 0.3 mg (0.3 mL) IM Q15M PRN Unknown Rx injection, auto-injector (EpiPen) anaphylaxis #2 ea cholecalciferol (vitamin D3) 50 50 mcg PO DAILY 08/06/23 Unknown H istory mcg (2,000 unit) capsule (Vitamin D3) fluoxetine 20 mg capsule 20 mg PO DAILY 08/06/23 Unknown Hi story hydroxyzine pamoate 25 mg capsule 25 mg PO BID 08/06/23 Unknown His tory albuterol sulfate 90 mcg/actuation 1 - 2 puff inhalation Q4H PRN MN N 11/09/23 Unknown History aerosol inhaler wheezing cefdinir 300 mg capsule 300 mg PO Q12.TCU 01/14/24 Unknown History naproxen 500 mg tablet 500 mg PO BID PRN #20 tabs 4 Unknown Rx penicillin V potassium 500 mg 500 mg PO 4X/DAY #40 tabs 01/14/24 Unknown Rx tablet doxycycline monohydrate 100 mg 100 mg PO BID #14 CAPSULES 4 Unknown Rx capsule famotidine 20 mg tablet (Pepcid AC) 20 mg PO BID #14 tabs 02/26/24 Unknown Rx prednisone 20 mg tablet 40 mg (2 x 20 mg) PO DAILY #14 tab s 02/26/24 Unknown Rx methylprednisolone 4 mg tablets in 4 mg PO DAILY #21 tabs 04/10/24 Unknown Rx a dose pack amoxicillin 875 mg-potassium 1 tab PO BID 7 days #14 tabs 05/23 Unknown Rx clavulanate 125 mg tablet diphenhydramine HCl 25 mg capsule 25 mg PO Q6H #14 caps 05/31/24 Un known Rx (Benadryl) famotidine 20 mg tablet 20 mg PO BID #8 TABLETS 05/31/24 U nknown Rx prednisone 20 mg tablet 40 mg (2 x 20 mg) PO DAILY #8 05/13 Unknown Rx TABLETS Allergy/AdvReac Type Severity Reaction Status Date / Time corn Allergy Severe Hives Verified 05/31/24 20:32 peanut (peanuts) Allergy Severe Hives Verified 05/31/24 20:32 sesame seed Allergy Severe Hives Verified 05/31/24 20:32 shellfish derived Allergy Severe Hives Verified 05/31/24 20:32 pseudoephedrine Allergy Mild Rash Verified 05/31/24 20:32 Social History household members: children Smoking Status: Former smoker ROS ROS ED Constitutional Constitutional ED: Denies chills or fever(s) Eyes Eyes: Denies blurry vision or change in vision ENT ENT ED: Denies rhinorrhea or sore throat Cardiovascular Cardiovascular: Denies chest pain or palpitations Respiratory/Chest Respiratory/Chest: Denies cough, dyspnea or dyspnea on exertion Gastrointestinal Gastrointestinal: Denies abdominal pain, diarrhea, nausea or vomiting Integumentary Reports rash Hematologic/Lymphatic Hematologic/Lymphatic : Reports systems reviewed and no addt'l complaints, except as documented Allergic/Immunologic Allergic/Immunologic ED: Denies mouth swelling, tongue swelling or urticaria EXAM Physical Exam Const Vital Signs: 05/31/24 20:32 Temperature 97.6 F L Temperature Source Temporal Pulse Rate 78 Respiratory Rate 18 Blood Pressure 144/94 H Blood Pressure Mean 110 Pulse Ox 97 Oxygen Delivery Method Room Air Positive well nourished and well developed General Appearance ED: well developed and NAD; Negative for pallor HEENT Reports moist mucous membranes HEENT Narrative: Head is atraumatic normoceph (more content not included)... [facility]24[facility]20[facility] RAYTRACIE Solis ([id number]) 1990 F Date Time Provider Department 05/24/24 IMAN PEACE During your visit today, we recorded the following information about you: Marissa Doran MA 05/24/2024 10:08 AM Signed Patient lm on requesting antibiotic for abscess tooth. Cannot get into dentist for 2 weeks. Please advise. FANNY Caraballo Kristin C, APRN.[facility] 05/24/2024 11:44 AM Signed Amoxicillin sent to [facility]. Nelson Navas APRN.COSMETOLOGIST APPRENTICE Nelson Navas APRN.[facility] 05/24/2024 11:44 AM Signed Addended by: NELSON NAVAS on: 05/24/2024 11:44 AM Modules accepted: Orders Marissa Doran MA 05/24/2024 11:53 AM Signed Lm on rx sent. Marissa Doran MA Allergies As of Date: 05/24/2024 Noted Allergy Reaction environmental [Other] 10/23/2004 Date Reviewed: 07/11/2023 Reviewed by: Trudy Dasilva MA - Fully Assessed Reason for Visit: Patient Question [1007] Order(s):amoxicillin (AMOXIL) 500 mg capsuleTake 1 capsule by mouth every 8 hours for 10 days.Disp: 30 capsuleRfl: 0 Prescriptions as of 05/24/2024 - amoxicillin (AMOXIL) 500 mg capsule Take 1 capsule by mouth every 8 hours for 10 days. 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 Encounter Status:Closed by MARISSA DORAN on 05/24/24 [facility] Emergency Department Summary on 05-23-2024 Emergency Department Summary [facility] Medical Records Department [address] [facility] [place] [address] Emergency Department Summary 05/23/24 MR#: [id number] Acct: [id number] Name: TRACIE MELENDEZ Rep #: [id number] : 1990 33 From: Mor Urena DO PCP: JOHNSON Nuñez Status:PRE ER Location: ED HPI History of Present Illness Chief Complaint: Dental Narrative Narrative: Chief complaint and HPI: Dental infection. 33-year-old female presents for evaluation of dental infection. Patient has known poor dentition. She follows with a dentist. She states that she has multiple damaged teeth that are scheduled for a root canal. Some have already received root canals. Patient states 4 days ago she developed pain in the left central incisor. She states this is one of the teeth that are scheduled to be repaired. She denies any fever, shortness of breath, chest pain, difficulty speaking or swallowing. Patient has been taking Tylenol. She denies history of diabetes or IV drug abuse. Patient states she is scheduled to see her dentist. Review of systems: See HPI Medications: As listed on the chart Allergies: As listed on the chart PFSH: Per chart Vital signs: As listed on the chart. Reviewed. Physical exam: Gen: A O x3, NAD Head: Normocephalic, atraumatic Eyes: No sclera icterus, conjunctiva clear, PERRL, EOMI ENT: Moist mucous membranes, posterior oropharynx unremarkable, uvula midline, no Justen angina, patient has poor dentition with multiple broken and rotten teeth. Patient has some mild gingival irritation around the left central incisor-mildly tender to palpation. No dental abscess. Normal phonation. Tolerating secretions. No facial swelling. Neck: Trachea midline, No JVD, Full ROM, No meningismus, no swelling CV: RRR, no murmurs, no peripheral edema, no stridor Resp: Lungs CTA BL, no w/r/c Skin: Warm, dry, no rash Neuro: Alert, oriented, grossly intact, sensation intact Psych: Cooperative, appropriate mood and affect [facility] Medical History Anxiety Home Medications ???Medication ???Instructions ???Recorded ???Last Taken ???Type epinephrine 0.3 mg/0.3 mL 0.3 mg (0.3 mL) IM Q15M PRN Unknown Rx injection, auto-injector (EpiPen) anaphylaxis #2 ea cholecalciferol (vitamin D3) 50 50 mcg PO DAILY 08/06/23 Unknown H istory mcg (2,000 unit) capsule (Vitamin D3) fluoxetine 20 mg capsule 20 mg PO DAILY 08/06/23 Unknown Hi story hydroxyzine pamoate 25 mg capsule 25 mg PO BID 08/06/23 Unknown His tory albuterol sulfate 90 mcg/actuation 1 - 2 puff inhalation Q4H PRN MN N 11/09/23 Unknown History aerosol inhaler wheezing cefdinir 300 mg capsule 300 mg PO Q12.TCU 01/14/24 Unknown History naproxen 500 mg tablet 500 mg PO BID PRN #20 tabs 4 Unknown Rx penicillin V potassium 500 mg 500 mg PO 4X/DAY #40 tabs 01/14/24 Unknown Rx tablet doxycycline monohydrate 100 mg 100 mg PO BID #14 CAPSULES 4 Unknown Rx capsule famotidine 20 mg tablet (Pepcid AC) 20 mg PO BID #14 tabs 02/26/24 Unknown Rx prednisone 20 mg tablet 40 mg (2 x 20 mg) PO DAILY #14 tab s 02/26/24 Unknown Rx methylprednisolone 4 mg tablets in 4 mg PO DAILY #21 tabs 04/10/24 Unknown Rx a dose pack Allergy/AdvReac Type Severity Reaction Status Date / Time corn Allergy Severe Hives Verified 05/23/24 09:36 peanut (peanuts) Allergy Severe Hives Verified 05/23/24 09:36 sesame seed Allergy Severe Hives Verified 05/23/24 09:36 shellfish derived Allergy Severe Hives Verified 05/23/24 09:36 pseudoephedrine Allergy Mild Rash Verified 05/23/24 09:36 Social History household members: children Smoking Status: Former smoker EXAM Physical Exam Const Vital Signs: 05/23/24 09:34 Temperature 97.2 F L Temperature Source Temporal Pulse Rate 67 Respiratory Rate 15 Blood Pressure 137/88 H Blood Pressure Mean 104 Pulse Ox 99 Oxygen Delivery Method Room Air MDM MDM MDM Narrative Medical decision making narrative: 33-year-old female presents for evaluation of dental infection. Patient has known poor dentition. See physical exam findings. Differential diagnosis includes was not limited to dental abscess, dental infection. Patient does not have a dental abscess on physical exam. Concern is for a dental infection. Patient will be placed on Augmentin. Educated on Tylenol as needed for pain. Follow-up with dentist. She confirmed understand the plan. Return precautions explained. Impression: 1. Dental infection 2. Poor dentition Discharge Plan Triage Chief Complaint: Dental ED Provider: Mor Urena Dx/Rx/DC Orders Prescriptions: No Action epinephrine [EpiPen] 0.3 (more content not included)... [facility] Emergency Department Summary on 04-10-2024 Emergency Department Summary [facility] Medical Records Department [address] [place] [address] Emergency Department Summary 04/10/24 MR#: [id number] Acct: [id number] Name: TRACIE MELENDEZ Rep #: [id number] : 1990 33 From: Raymond Anthony DO PCP: JOHNSON Nuñez Status:REG ER Location: ED HPI History of Present Illness Chief Complaint: Allergic Reaction Narrative Narrative: Patient is a 33-year-old female with past medical anxiety, multiple food allergies who presents with a concern for a allergic reaction to the food she ate yesterday. She states that yesterday she ate chocolate chip muffins as well as beef jerky. States that after eating the beef jerky she noted that she had a feeling of flushness. States that she took Benadryl and went to bed. States that when she woke up she had a rash noted near her right ankle and her right inner thigh. States that typically this is how the rashes will present with her food allergies. States that she has seen an signal apprentice in the past. Patient notes that usually she is put on prednisone and this helps her symptoms. Patient did complain of sore throats but states that she has been eating and drinking and swallowing okay without any difficulty [facility] Medical History Anxiety Home Medications ???Medication ???Instructions ???Recorded ???Last Taken ???Type epinephrine 0.3 mg/0.3 mL 0.3 mg (0.3 mL) IM Q15M PRN 04/29/23 Unknown Rx injection, auto-injector (EpiPen) anaphylaxis #2 ea cholecalciferol (vitamin D3) 50 50 mcg PO DAILY 08/06/23 Unknown History mcg (2,000 unit) capsule (Vitamin D3) fluoxetine 20 mg capsule 20 mg PO DAILY 08/06/23 Unknown History hydroxyzine pamoate 25 mg capsule 25 mg PO BID 08/06/23 Unknown History albuterol sulfate 90 mcg/actuation 1 - 2 puff inhalation Q4H PRN PRN 11/09/23 Unknown History aerosol inhaler wheezing cefdinir 300 mg capsule 300 mg PO Q12.TCU 01/14/24 Unknown History naproxen 500 mg tablet 500 mg PO BID PRN #20 tabs 01/14/24 Unknown Rx penicillin V potassium 500 mg 500 mg PO 4X/DAY #40 tabs 01/14/24 Unknown Rx tablet doxycycline monohydrate 100 mg 100 mg PO BID #14 CAPSULES 02/01/24 Unknown Rx capsule famotidine 20 mg tablet (Pepcid AC) 20 mg PO BID #14 tabs 02/26/24 Unknown Rx prednisone 20 mg tablet 40 mg (2 x 20 mg) PO DAILY #14 tabs 02/26/24 Unknown Rx methylprednisolone 4 mg tablets in 4 mg PO DAILY #21 tabs 04/10/24 Unknown Rx a dose pack Allergy/AdvReac Type Severity Reaction Status Date / Time corn Allergy Severe Hives Verified 04/10/24 10:38 peanut (peanuts) Allergy Severe Hives Verified 04/10/24 10:38 sesame seed Allergy Severe Hives Verified 04/10/24 10:38 shellfish derived Allergy Severe Hives Verified 04/10/24 10:38 pseudoephedrine Allergy Mild Rash Verified 04/10/24 10:38 Social History household members: children Smoking Status: Former smoker ROS ROS ED ROS Narrative Constitutional: Denies any fevers, chills, headaches Eyes: Denies changes vision double vision blurry vision Cardiovascular: Denies chest pain Respiratory: Denies coughing wheezing shortness of breath Abdomen: Denies abdominal pain nausea vomit diarrhea Neurological: Denies numbness, weakness, tingling Skin: Complains of rash as noted above EXAM Physical Exam Narrative Exam Narrative: General: Patient is lying in bed rest comfortably did not appear to be in acute distress Head: Atraumatic, normocephalic Eyes: PERRL bilaterally, EOMI bilaterally, no conjunctival injection noted Neck: Soft, supple, trachea midline Cardiovascular: Regular rate and rhythm no murmurs gallops rubs noted Respiratory: Clear to auscultation bilaterally Abdomen: No tenderness palpation Extremities: +5/5 strength noted in the bilateral upper and lower extremities Neurological: Patient following commands knew that she was at [facility] year is 2024 Musculoskeletal: Patient is full range of motion of all her joints and has no pain specifically in her right ankle with the rash noted Skin: Patient has blanching rash noted to the medial aspect of her right ankle as well as the right inner thigh and some areas on her back. No petechia no purpura no sloughing of the skin Const Vital Signs: 04/10/24 10:36 Temperature 97.2 F L Temperature Source Temporal Pulse Rate 66 Respiratory Rate 20 H Blood Pressure 128/99 H Blood Pressure Mean 108 Pulse Ox 100 Oxygen Delivery Method Room Air MDM MDM MDM Narrative Medical decision making narrative: Patient is a 33-year-old female who presents to the emerged part with a chief complaint of allergic reaction to a food she ate yesterday. On the differential diagnose includes but not limited to (more content not included)... [facility] Emergency Department Summary on 02-26-2024 Emergency Department Summary [facility] Medical Records Department [address] [place] [address] Emergency Department Summary 02/26/24 MR#: [id number] Acct: [id number] Name: TRACIE MELENDEZ Rep #: [id number] : 1990 33 From: Hansel Robledo MD PCP: JOHNSON Nuñez Status:DEP ER Location: ED HPI History of Present Illness Chief Complaint: Allergic Reaction Narrative Narrative: 33-year-old female with past medical history of multiple food allergies, especially corn and tree nuts, presents with hives that started on her legs, and now spread to her ears and to her arms as well. She has had previous reactions to food. Yesterday, she ate dinner at her mother's house. She states that she had a little bit of everything, but may have been subject to something with corn and it, or something that was processed with tree nuts. She denies any throat closing or difficulty breathing, and states that she had hives that started on her legs that have stayed there, but once again now she has itchiness of her ears along with redness, and hives that are spreading to her upper body. The last time that she had a reaction was a few months ago. She had to come to the emergency department then and was prescribed Pepcid, Benadryl, and a steroid. [facility] Medical History Anxiety Home Medications ???Medication ???Instructions ???Recorded ???Last Taken ???Type epinephrine 0.3 mg/0.3 mL 0.3 mg (0.3 mL) IM Q15M PRN 04/29/23 Unknown Rx injection, auto-injector (EpiPen) anaphylaxis #2 ea cholecalciferol (vitamin D3) 50 50 mcg PO DAILY 08/06/23 Unknown History mcg (2,000 unit) capsule (Vitamin D3) fluoxetine 20 mg capsule 20 mg PO DAILY 08/06/23 Unknown History hydroxyzine pamoate 25 mg capsule 25 mg PO BID 08/06/23 Unknown History albuterol sulfate 90 mcg/actuation 1 - 2 puff inhalation Q4H PRN PRN 11/09/23 Unknown History aerosol inhaler wheezing cefdinir 300 mg capsule 300 mg PO Q12.TCU 01/14/24 Unknown History naproxen 500 mg tablet 500 mg PO BID PRN #20 tabs 01/14/24 Unknown Rx penicillin V potassium 500 mg 500 mg PO 4X/DAY #40 tabs 01/14/24 Unknown Rx tablet doxycycline monohydrate 100 mg 100 mg PO BID #14 CAPSULES 02/01/24 Unknown Rx capsule famotidine 20 mg tablet (Pepcid AC) 20 mg PO BID #14 tabs 02/26/24 Unknown Rx prednisone 20 mg tablet 40 mg (2 x 20 mg) PO DAILY #14 tabs 02/26/24 Unknown Rx Allergy/AdvReac Type Severity Reaction Status Date / Time corn Allergy Severe Hives Verified 02/26/24 14:15 peanut (peanuts) Allergy Severe Hives Verified 02/26/24 14:15 sesame seed Allergy Severe Hives Verified 02/26/24 14:15 shellfish derived Allergy Severe Hives Verified 02/26/24 14:15 pseudoephedrine Allergy Mild Rash Verified 02/26/24 14:15 Social History household members: children Smoking Status: Former smoker ROS ROS ED ROS Narrative Review of systems positive for hives mainly on the legs. No throat closing, no dyspnea or difficulty breathing, no chest tightness. No exacerbating or alleviating factors. EXAM Physical Exam Narrative Exam Narrative: Afebrile. Vital signs noted. Nontoxic-appearing. Blanchable hives noted on bilateral lower extremities with areas of convalescence. Airway patent. No drooling or trismus. Neck without stridor. Cardiovascular examination reveals a regular rate and rhythm. Lungs are clear to auscultation bilaterally. Abdomen soft with positive bowel sounds. Const Vital Signs: 02/26/24 14:13 Temperature 97.4 F L Temperature Source Oral Pulse Rate 91 Respiratory Rate 16 Blood Pressure 121/94 H Blood Pressure Mean 103 Pulse Ox 100 Oxygen Delivery Method Room Air MDM MDM MDM Narrative Medical decision making narrative: I reviewed the patient's prior records, she has received Pepcid, Benadryl, and steroids in the past. Her symptoms have been ongoing since last evening. I do not feel that she needs an epinephrine pen. Differential diagnosis does include hives from food allergy versus anaphylaxis versus idiopathic hives.. As patient drove herself here, I will not give her Benadryl as an antihistamine. I do not feel she requires monitoring or epinephrine at this time. Her pulse ox is 100% on room air and she is not tachycardic or hypotensive. She was given a loading dose of prednisone 60 mg orally here and a dose of Pepcid. I wrote her prescriptions for Pepcid 20 mg to take twice daily for a week along with a prednisone burst for the remaining 7 days. I feel can be discharged to follow-up with her primary care provider. Return instructions to the emergency department were reviewed. Patient comfortable with the plan of oral medications, prescriptions, and discharge. Disposition is discharg (more content not included)... [facility] Emergency Department Summary on 02-01-2024 Emergency Department Summary [facility] Medical Records Department [address] [place] [address] Emergency Department Summary 02/01/24 MR#: [id number] Acct: [id number] Name: TRACIE MELENDEZ Rep #: [id number] : 1990 33 From: Collin Allen MD PCP: JOHNSON Nuñez Status:PRE ER Location: ED HPI History of Present Illness Chief Complaint: Cellulitis Detail of Chief Complaint: Concern for cellulitis left thumb stump site Informant: patient Onset/Context/Timing Onset: Weeks (Redness for 1 week with drainage from the center of the stump.) Context: Sudden Onset Timing: Continuous Quality: Redness Location: Left thumb stump Current Severity: Mild Maximum Severity: Mild Worsened by: Nothing Relieved by: Nothing Associated Symptoms Associated Symptoms: None Narrative Narrative: Patient is a 33-year-old [id number] woman who presents because of concern for cellulitis left thumb stump region. She is present on no antibiotics. She has no allergies to antibiotics. She denies fever, chills night sweats. Denies history medic fever, heart murmur, mitral prolapse or SBE. She is on no immunosuppressive meds. She has not noted a rash going up her arm or streak up her arm. She denies elbow tenderness. She was concerned that something may have bit her. She does not recall anything biting her. Prior similar symptoms: No Recent Illness/Hospitalizati on: No PFSH PFS Medical History Anxiety Home Medications ???Medication ???Instructions ???Recorded ???Last Taken ???Type epinephrine 0.3 mg/0.3 mL 0.3 mg (0.3 mL) IM Q15M PRN 04/29/23 Unknown Rx injection, auto-injector (EpiPen) anaphylaxis #2 ea cholecalciferol (vitamin D3) 50 50 mcg PO DAILY 08/06/23 Unknown History mcg (2,000 unit) capsule (Vitamin D3) fluoxetine 20 mg capsule 20 mg PO DAILY 08/06/23 Unknown History hydroxyzine pamoate 25 mg capsule 25 mg PO BID 08/06/23 Unknown History albuterol sulfate 90 mcg/actuation 1 - 2 puff inhalation Q4H PRN PRN 11/09/23 Unknown History aerosol inhaler wheezing cefdinir 300 mg capsule 300 mg PO Q12.TCU 01/14/24 Unknown History naproxen 500 mg tablet 500 mg PO BID PRN #20 tabs 01/14/24 Unknown Rx penicillin V potassium 500 mg 500 mg PO 4X/DAY #40 tabs 01/14/24 Unknown Rx tablet doxycycline monohydrate 100 mg 100 mg PO BID #14 CAPSULES 02/01/24 Unknown Rx capsule Allergy/AdvReac Type Severity Reaction Status Date / Time corn Allergy Severe Hives Verified 02/01/24 14:27 peanut (peanuts) Allergy Severe Hives Verified 02/01/24 14:27 sesame seed Allergy Severe Hives Verified 02/01/24 14:27 shellfish derived Allergy Severe Hives Verified 02/01/24 14:27 pseudoephedrine Allergy Mild Rash Verified 02/01/24 14:27 Social History household members: children Smoking Status: Former smoker ROS ROS ED Constitutional Constitutional ED: Denies chills, fever(s), subjective or sweats Cardiovascular Cardiovascular: Denies chest pain, palpitations or racing heartbeat Respiratory/Chest Respiratory/Chest: Denies cough Gastrointestinal Gastrointestinal: Denies nausea or vomiting Hematologic/Lymphatic Hematologic/Lymphatic : Denies easy bleeding or easy bruising EXAM Physical Exam Const Vital Signs: 02/01/24 14:26 Temperature 98.6 F Temperature Source Oral Pulse Rate 76 Respiratory Rate 16 Blood Pressure 118/83 H Blood Pressure Mean 94 Pulse Ox 100 Oxygen Delivery Method Room Air Positive well nourished and well developed General Appearance ED: well developed and NAD HEENT Reports moist mucous membranes HEENT Narrative: Head is atraumatic normocephalic. 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 Patient has a stump where her thumb should be. There is what appears to be a small abscess blister in the center. There is an area of erythema t hat is approximate the size of a nickel. There is no lymphangitis. There is no epitrochlear lymphadenopathy. I was able to express some slightly cloudy fluid from the center portion. Patient has a remanent of the nail on the dorsal surface of the stump. Neuro oriented x3 and CN's II-XII intact bilaterally Sensorium / Orientation: alert Psych mental status grossly normal Skin Skin Narrative: Described under the extremity portion of the EMR MDM MDM MDM Narrative Medical decision making (more content not included)... [facility] XR CHEST 2V FRONTAL/LATon XR CHEST 2V FRONTAL/LAT * * *Final Repor t* * * DATE OF EXAM: Jul 29 [...] tissues: Unremarkable. IMPRESSION: No acute radiographic abnormality. Horizontal Resaw Operator: ERIC Transcribe Date/Time: Jul 29 2023 9:18A Dictated by : KUNAL CLINTON MD This examination was interpreted and the report reviewed and electronically signed by: KUNAL CLINTON MD on Jul 29 2023 9:18AM EST [id number] [facility] XR Chest PA and Lateralon IMPRESSION: No acute radiographic abnormality. Horizontal Resaw Operator: PSCB Transcribe Date/Time: Jul 29 2023 9:18A Dictated [...] soft tissues: Unremarkable. DIVISION OF RADIOLOGY Provider, [facility] - 07/29/2023 * * *Final Report* * [...] Unremarkable. IMPRESSION IMPRESSION: No acute radiographic abnormality. Horizontal Resaw Operator: ERIC Transcribe Date/Time: Jul 29 2023 9:18A Dictated by : KUNAL CLINTON MD This examination was interpreted and the report reviewed and electronically signed by: KUNAL CLINTON MD on Jul 29 2023 9:18AM EST [facility] Radiology Study observation (narrative) Charissa funez [facility] XR Chest PA and LateralOrder ed By: Ccf Provider on 07-29-2023 [facility] CNPNon 07-21-2023 CNPN Telephone (RHEUMN) TRACIE MELENDEZ ([id number]) 1990 F Date Time Provider Department 07/21/23 RAJESH SUAREZ During your visit today, we recorded the following information about you: Kayli Sims Ma 07/21/2023 9:11 AM Signed Patients mother called. Patient saw nephrology yesterday. She had a few lab tests done. The SSA came back normal but the SSB antibody came back abnormal. The leaflet or newspaper deliverer told her to see rheumatology for this abnormal result. Please call her mother Maryann at [phone] Meena Kaufman RN 07/21/2023 9:33 AM Signed Called [...] 07/21/2023 2:[address] This is Dr Suarez patient Meena Kaufman RN 07/21/2023 2:48 PM Signed Patient scheduled with Dr. Suarez at 330PM on 07/24. Meena Kaufman RN Allergies As of Date: 07/21/2023 [...] discrepancy [O26.849] 03/25/2014 06/20/2014 Encounter Status:Closed by MEENA KAUFMAN on 07/21/23 [facility] ALDOLASE BLDon 07-11-2023 Aldolase [Catalytic activity/Vol] 3.3 mU/mL 1.5 - 8.1 U/L [facility] Comment on above: This test was devterenceo ped and its performance characteristics determined by [facility] [place] ([facility]). It has not been cleared or approved by the FDA. -[facility] is regulated under CLIA as qualified to perform high-complexity testing. This test is used for clinical purposes. It should not be regarded as investigational or for research. Aldolase SerPl-cCncon 2023 Aldolase [Catalytic activity/Vol] 3.3 mU/mL Normal 1.5-8.1 [facility] Comment on above: Order Comment: Speci men Type: URINE SPECIMEN Ordering Facility: [facility] Address: [address] [place] [address] Result Comment: This test was developed and its performance characteristics determined by [facility] [place] ([facility]). It has not been cleared or approved by the FDA. [facility] is regulated under CLIA as qualified to perform high-complexity testing. This test is used for clinical purposes. It should not be regarded as investigational or for research. Performed By: #### 2 4356-8 #### [facility] CLIA [id number] [address] [place] [address] [place] Aldolase [Catalytic activity /Vol]on 07-11-2023 Interpretation and review of laboratory results Normal [facility] C3 COMPLEMENTon 07-11-2023 Complement C3 [Mass/Vol] 95 mg/dL 86 - 166 mg/dL [facility] C3 SerPl-mCncon 07-11-2023 Complement C3 [Mass/Vol] 95 mg/dL Normal 86-166 [facility] Comment on above: Order Comment: Speci men Type: BLOOD SPECIMEN Ordering Facility: [facility] Address: [address] [place] [address] Performed By: #### 2 4323-8, 3016-3, 29302-5 #### [facility] CLIA [id number] [address] [place] [address] [place] C4 COMPLEMENTon 07-11-2023 Complement C4 [Mass/Vol] 16 mg/dL 13 - 46 mg/dL [facility] C4 SerPl-mCncon 07-11-2023 Complement C4 [Mass/Vol] 16 mg/dL Normal 13-46 [facility] Comment on above: Order Comment: Speci men Type: BLOOD SPECIMEN Ordering Facility: [facility] Address: [address] [place] [address] Performed By: #### 2 4323-8, 3016-3, 93819-1 #### [facility] CLIA [id number] [address] [place] [address] [place] CK SerPl-cCncon 07-11-2023 CK [Catalytic activity/Vol] 57 U/L Normal 42-196 [facility] Comment on above: Order Comment: Speci men Type: BLOOD SPECIMEN Ordering Facility: [facility] Address: [address] [place] [address] Performed By: #### 2 4323-8, 3016-3, 83599-5 #### [facility] CLIA [id number] [address] [place] [address] [place] [facility] CNOVon 07-11-2023 CNOV Office Visit (RHEUMN ) TRACIE MELENDEZ ([id number]) 1990 F Date Time Provider Department 07/11/23 8:00 AM RAJESH SUAREZ During your visit today, we recorded the following information about you: Temperature Pulse Blood pressure Weight 98.6 degrees 81/minute 126/87 54.9 kg Rajesh Suarez MD 07/11/2023 7:01 PM Signed Rheumatology CONSULTATION Date of Service: 07/11/2023 Patient: Tracie Melendez Primary Care Physician: Iman Peace APRN.[facility] Last Rheumatology visit: None at [facility] Referring Provider: Iman Peace [address] [place] [id number] Tracie Melendez is here today at request of Dr. Peace specifically for consultation of my opinion in regards to the chief complaint listed below. Correspondence will be shared today via the [facility] electronic health record or through regular mail, where applicable. History of Present Illness Tracie Melendez is a 32 year old White female who presents on 07/11/2023 for an in-person visit for evaluation of Abnormal Lab (+LEONOR). Tracie is RF negative - 9 (06/27/2023). Her [...] She to allergy 4-5 years ago in [place] and was told she is not allergic [...] Smokeless tobacc (more content not included)... [facility] CREATINE KINASE/CKon 024 CK [Catalytic activity/Vol] 57 U/L 42 - 196 U/L [facility] Centromere Ab IF Ql (S)on Centromere Ab Qn (S) <0.2 [facility].0 [facility] Comment on above: Order Comment: Specmihaela mariee Type: BLOOD SPECIMEN Ordering Facility: [facility] Address: [address] [place] [address] Result Comment: Anti -centromere antibody is used as in aid in diagnosis of systemic sclerosis. Clinical correlation is required. Test Methodology: Multiplex flow immunoassay. Performed By: #### 5 1775-5, 52071-9, 39164-0, 55782-9, 94670-1, 41770-0, 12906-5, 41912-1 #### [facility] CLIA [id number] [address] [place] [address] [place] CENTROMERE AB QUAL Negative Normal Negative [facility] Comment on above: Order Comment: Ingrid mariee Type: BLOOD SPECIMEN Ordering Facility: [facility] Address: [address] [place] [address] Performed By: #### 5 1775-5, 52552-7, 41603-8, 67415-7, 31020-2, 72004-4, 41791-4, 37072-4 #### [facility] CLIA [id number] [address] [place] [address] [place] Chromatin Ab Qnon 07-11-2023 CHROMATIN AB QUAL Negative Normal Negative [facility] Comment on above: Order Comment: Speci men Type: BLOOD SPECIMEN Ordering Facility: [facility] Address: [address] [place] [address] Performed By: #### 5 1775-5, 23361-0, 99506-7, 80222-5, 03987-5, 36062-6, 82057-1, 99519-0 #### [facility] CLIA [id number] [address] [place] [address] [place] Chromatin Ab SerPl-aCncon Chromatin Ab Qn <0.2 Normal <1.0 [facility] Comment on above: Order Comment: Speci men Type: BLOOD SPECIMEN Ordering Facility: [facility] Address: [address] [place] [address] Result Comment: Test Methodology: Multiplex flow immunoassay. Performed By: #### 5 1775-5, 25454-7, 65552-4, 65183-1, 30755-9, 56223-5, 25239-0, 10316-8 #### [facility] CLIA [id number] [address] [place] [address] [place] LAUREN Jo1 Ab Ser-aCncon 2023 Sita-1 extractable nuclear Ab Qn (S) <0.2 Normal <1.0 [facility] Comment on above: Order Comment: Speci men Type: URINE SPECIMEN Ordering Facility: [facility] Address: [address] [place] [address] Performed By: #### 2 4356-8 #### [facility] CLIA [id number] [address] [place] [address] [place] LAUREN CLINICAL APPEALS AUDITOR Ab Ser-aCncon 2023 Ribonucleoprotein extractable nuclear Ab Qn (S) <0.2 Normal <1.0 [facility] Comment on above: Order Comment: Speci men Type: BLOOD SPECIMEN Ordering Facility: [facility] Address: [address] [place] [address] Performed By: #### 5 1775-5, 51634-3, 26979-6, 86905-8, 82157-9, 72915-1, 96765-7, 56042-8 #### [facility] CLIA [id number] [address] [place] [address] [place] Order Comment: Speci men Type: URINE SPECIMEN Ordering Facility: [facility] Address: [address] [place] [address] Performed By: #### 2 4356-8 #### [facility] CLIA [id number] [address] [place] [address] [place] LAUREN SM IgG Ser-aCncon 2023 Chappell extractable nuclear IgG Qn (S) <0.2 Normal <1.0 [facility] Comment on above: Order Comment: Speci men Type: BLOOD SPECIMEN Ordering Facility: [facility] Address: [address] [place] [address] Performed By: #### 5 1775-5, 79870-6, 08287-6, 64923-2, 87555-1, 88114-2, 38938-9, 03693-5 #### [facility] CLIA [id number] [address] [place] [address] [place] LAUREN SS-A Ab Ser-aCncon 07-10 Sjogrens syndrome-A extractable nuclear Ab Qn (S) <0.2 Normal <1.0 [facility] Comment on above: Order Comment: Speci men Type: URINE SPECIMEN Ordering Facility: [facility] Address: [address] [place] [address] Result Comment: Test Methodology: Multiplex flow immunoassay. Performed By: #### 2 4356-8 #### [facility] CLIA [id number] [address] [place] [address] [place] LAUREN SS-B Ab Ser-aCncon 07-10 Sjogrens syndrome-B extractable nuclear Ab Qn (S) 6.0 AI High <1.0 [facility] Comment on above: Order Comment: Speci men Type: BLOOD SPECIMEN Ordering Facility: [facility] Address: [address] [place] [address] Result Comment: Anti -SSB (anti-La) antibody is used as an aid in diagnosis of a variety of systemic autoimmune diseases, especially for Sjogren's syndrome and systemic lupus erythematosus. Clinical correlation is required. Test Methodology: Multiplex flow immunoassay. Performed By: #### 5 1775-5, 23643-9, 16985-8, 67328-3, 05122-4, 57462-0, 92609-0, 76688-8 #### [facility] CLIA [id number] [address] [place] [address] [place] Sita-1 extractable nuclear Ab Qn (S)on 07-11-2023 SITA 1 ANTIBODY QUAL Negative Normal Negative [facility] Comment on above: Order Comment: Speci men Type: URINE SPECIMEN Ordering Facility: [facility] Address: [address] [place] [address] Result Comment: Anti -SITA-1 antibody is used as an aid in diagnosis of polymyositis and dermatomyositis especially with pulmonary involvement. A negative result cannot rule out polymyositis or dermatomyositis. Clinical correlation is required. Test Methodology: Multiplex flow immunoassay. Performed By: #### 2 4356-8 #### [facility] CLIA [id number] [address] [place] [address] [place] No Panel Informationon 07-10 Interpretation and review of laboratory results Normal [facility] PROTEIN / CREATININE RATIOon 07-11-2023 Protein/Creatinine (U) [Mass ratio] 0.07 mg/mg [facility] - 0.15 mg/mg [facility] Comment on above: Adult Proteinuria Ca [...] (U) [Mass ratio] 0.07 mg/mg Normal <0.15 [facility] Comment on above: Order Comment: Speci men Type: URINE SPECIMEN Ordering Facility: [facility] Address: [address] [place] [address] Result Comment: Adul t Proteinuria Categories: <0.15 mg/mg is considered normal to mildly increased 0.15 - 0.50 mg/mg is considered moderately increased >0.50 mg/mg is considered severely increased KDIGO. (2013). KDIGO 2012 Clinical Practice Guideline for the Evaluation and Management of Chronic Kidney Disease. Official Journal of the International Society of Nephrology, 3(1), 1-150. Performed By: #### 2 890-2 #### [facility] CLIA [id number] [address] [place] [address] [place] Protein/Creatinine (U) [Mass ratio]on 07-11-2023 Creatinine (U) [Mass/Vol] 145.2 mg/dL 20 .0 - 300.0 mg/dL [facility] Interpretation and review of laboratory results Normal [facility] Protein (U) [Mass/Vol] 10 mg/dL 0 - 20 mg/dL [facility] Creatinine (U) [Mass/Vol] 145.2 mg/dL Normal 20.0-300. 0 [facility] Comment on above: Order Comment: Speci men Type: URINE SPECIMEN Ordering Facility: [facility] Address: [address] [place], [place] [address] Performed By: #### 2 890-2 #### [facility] CLIA [id number] [address] [place] [address] [place] Protein (U) [Mass/Vol] 10 mg/dL Normal 0-20 [facility] Comment on above: Order Comment: Speci men Type: URINE SPECIMEN Ordering Facility: [facility] Address: [address] [place] [address] Performed By: #### 2 890-2 #### [facility] CLIA [id number] [address] [place] [address] [place] Ribonucleoprotein extractabl e nuclear Ab Qn (S)on 07-11-2023 ANTI-CLINICAL APPEALS AUDITOR QUAL Negative Normal Negative [facility] Comment on above: Order Comment: Speci men Type: URINE SPECIMEN Ordering Facility: [facility] Address: [address] [place] [address] Performed By: #### 2 4356-8 #### [facility] CLIA [id number] [address] [place] [address] [place] RIBOSOMAL CLINICAL APPEALS AUDITOR QUAL Negative Normal Negative [facility] Comment on above: Order Comment: Speci men Type: BLOOD SPECIMEN Ordering Facility: [facility] Address: [address] [place] [address] Result Comment: Anti -Ribosomal RNA (Ribosomal P) antibody is used as an aid in diagnosis of systemic autoimmune diseases especially systemic lupus erythematosus and mixed connective tissue disease. Cross-reactivity with Anti-chappell antibody is not uncommon. Clinical correlation is required. Test Methodology: Multiplex flow immunoassay. Performed By: #### 5 1775-5, 23443-6, 80492-8, 61179-0, 44451-8, 14289-5, 29202-0, 60156-7 #### [facility] CLIA [id number] [address] [place] [address] [place] SCL-70 extractable nuclear I gG IA Qn (S)on 07-11-2023 SCLERODERMA AB QUAL Negative Normal Negative [facility] Comment on above: Order Comment: Speci men Type: URINE SPECIMEN Ordering Facility: [facility] Address: [address] [place] [address] Performed By: #### 2 4356-8 #### [facility] CLIA [id number] [address] [place] [address] [place] SCLERODERMA IGG AB <0.2 Normal <1.0 [facility] Comment on above: Order Comment: Speci men Type: URINE SPECIMEN Ordering Facility: [facility] Address: [address] [place] [address] Result Comment: Scl- 70/Scleroderma antibody test is used as an aid in diagnosis of systemic sclerosis especially the diffuse cutaneous form. A negative result cannot rule out systemic sclerosis. The final interpretation should consider clinical picture and other test results such as anti-centromere antibody. Test Methodology: Multiplex flow immunoassay. Performed By: #### 2 4356-8 #### [facility] CLIA [id number] [address] [place] [address] [place] Sjogrens syndrome-A extracta ble nuclear Ab Qn (S)on 07-11-2023 SSA ANTIBODY QUAL Negative Normal Negative [facility] Comment on above: Order Comment: Speci men Type: URINE SPECIMEN Ordering Facility: [facility] Address: [address] [place] [address] Performed By: #### 2 4356-8 #### [facility] CLIA [id number] [address] [place] [address] [place] Sjogrens syndrome-B extracta ble nuclear Ab Qn (S)on 07-11-2023 SSB ANTIBODY QUAL Positive Abnormal Negative [facility] Comment on above: Order Comment: Speci men Type: BLOOD SPECIMEN Ordering Facility: [facility] Address: [address] [place] [address] Performed By: #### 5 1775-5, 23241-8, 22227-0, 76041-9, 33450-5, 22070-7, 95868-9, 52672-2 #### [facility] CLIA [id number] [address] [place] [address] [place] Chappell extractable nuclear Ig G Qn (S)on 07-11-2023 SM ANTIBODY QUAL Negative Normal Negative [facility] Comment on above: Order Comment: Speci men Type: BLOOD SPECIMEN Ordering Facility: [facility] Address: [address] [place] [address] Result Comment: Anti -Sm (Chappell) antibody is used as an aid in diagnosis of systemic lupus erythematosus and its presence is associated with renal disease. A negative result cannot rule out systemic lupus erythematosus. Clinical correlation is required. Test Methodology: Multiplex flow immunoassay. Performed By: #### 5 1775-5, 76741-3, 03641-8, 20602-7, 31532-2, 20729-3, 70532-5, 56360-8 #### [facility] CLIA [id number] [address] [place], [place] [address] [place] [address] [place] Urinalysis complete panel (U )on 07-11-2023 Bacteria uL 1375.9 uL High Negative [facility] Bilirubin Ql (U) Negative Negative [facility] Clarity (Unsp spec) Clear Clear [facility] Color (U) Yellow Yellow [facility] Epithelial cells LM.HPF (Urine sed) [#/Area] Moderate /HPF [facility] Glucose Test strip (U) [Mass/Vol] Negative Negative [facility] Hemoglobin Ql (U) 3+ Abnormal Negative [facility] Hyaline casts (Urine sed) [#/Area] 0 /[LPF] 0 /LPF [facility] Interpretation and review of laboratory results Abnormal [facility] Ketones Ql (U) Negative Negative [facility] Leukocyte esterase Test strip Ql (U) 1+ Abnormal Negative [facility] Nitrite Ql (U) Negative Negative [facility] pH (U) 5.5 [pH] NINF - 8.5 [facility] Protein (U) [Mass/Vol] Negative Negative [facility] RBC LM.HPF (Urine sed) [#/Area] 3-5 /HPF Abnormal 0-2 /HPF [facility] Specific gravity (U) [Rel density] 1.019 1.005 - 1.030 [facility] Urobilinogen Ql (U) 0.2 EU/dL 0.2-1.0 EU/dL [facility] WBC LM.HPF (Urine sed) [#/Area] 6-10 /HPF Abnormal 0-5 /HPF [facility] This test was developed and its performance characteristics determined by [facility] [place] ([facility]). It has not been cleared or approved by the FDA. [facility] is regulated under CLIA as qualified to perform high-complexity testing. This test is used for clinical purposes. It should not be regarded as investigational or for research. [facility] BACTERIA UL 1375.9 uL High Negative [facility] Comment on above: Order Comment: Speci men Type: URINE SPECIMEN Ordering Facility: [facility] Address: [address] [place] [address] Performed By: #### 2 4356-8 #### [facility] CLIA [id number] [address] [place] [address] [place] Bilirubin Ql (U) Negative Normal Negative [facility] Comment on above: Order Comment: Speci men Type: URINE SPECIMEN Ordering Facility: [facility] Address: [address] [place] [address] Performed By: #### 2 4356-8 #### [facility] CLIA [id number] [address] [place] [address] [place] Clarity (Unsp spec) Clear Normal Clear [facility] Comment on above: Order Comment: Speci men Type: URINE SPECIMEN Ordering Facility: [facility] Address: [address] [place] [address] Performed By: #### 2 4356-8 #### [facility] CLIA [id number] [address] [place] [address] [place] Color (U) Yellow Normal Yellow [facility] Comment on above: Order Comment: Speci men Type: URINE SPECIMEN Ordering Facility: [facility] Address: [address] [place] [address] Performed By: #### 2 4356-8 #### [facility] CLIA [id number] [address] [place] [address] [place] Epithelial cells LM.HPF (Urine sed) [#/Area] Moderate Normal [facility] Comment on above: Order Comment: Speci men Type: URINE SPECIMEN Ordering Facility: [facility] Address: [address] [place] [address] Performed By: #### 2 4356-8 #### [facility] CLIA [id number] [address] [place] [address] [place] Glucose Test strip (U) [Mass/Vol] Negative Normal Negative [facility] Comment on above: Order Comment: Speci men Type: URINE SPECIMEN Ordering Facility: [facility] Address: [address] [place] [address] Performed By: #### 2 4356-8 #### [facility] CLIA [id number] [address] [place] [address] [place] Hemoglobin Ql (U) 3+ Abnormal Negative [facility] Comment on above: Order Comment: Speci men Type: URINE SPECIMEN Ordering Facility: [facility] Address: [address] [place] [address] Performed By: #### 2 4356-8 #### [facility] CLIA [id number] [address] [place] [address] [place] Hyaline casts (Urine sed) [#/Area] 0 /[LPF] Normal 0 /LPF [facility] Comment on above: Order Comment: Speci men Type: URINE SPECIMEN Ordering Facility: [facility] Address: [address] [place] [address] Performed By: #### 2 4356-8 #### [facility] CLIA [id number] [address] [place] [address] [place] Ketones Ql (U) Negative Normal Negative [facility] Comment on above: Order Comment: Speci men Type: URINE SPECIMEN Ordering Facility: [facility] Address: [address] [place] [address] Performed By: #### 2 4356-8 #### [facility] CLIA [id number] [address] [place], [place] [address] [place] Leukocyte esterase Test strip Ql (U) 1+ Abnormal Negative [facility] Comment on above: Order Comment: Speci men Type: URINE SPECIMEN Ordering Facility: [facility] Address: [address] [place] [address] Performed By: #### 2 4356-8 #### [facility] CLIA [id number] [address] [place] [address] [place] Nitrite Ql (U) Negative Normal Negative [facility] Comment on above: Order Comment: Speci men Type: URINE SPECIMEN Ordering Facility: [facility] Address: [address] [place] [address] Performed By: #### 2 4356-8 #### [facility] CLIA [id number] [address] [place] [address] [place] pH (U) 5.5 [pH] Normal <8.5 [facility] Comment on above: Order Comment: Speci men Type: URINE SPECIMEN Ordering Facility: [facility] Address: [address] [place] [address] Performed By: #### 2 4356-8 #### [facility] CLIA [id number] [address] [place] [address] [place] Protein (U) [Mass/Vol] Negative Normal Negative [facility] Comment on above: Order Comment: Speci men Type: URINE SPECIMEN Ordering Facility: [facility] Address: [address] [place] [address] Performed By: #### 2 4356-8 #### [facility] CLIA [id number] [address] [place] [address] [place] RBC LM.HPF (Urine sed) [#/Area] 3-5 /HPF Abnormal 0-2 /HPF [facility] Comment on above: Order Comment: Speci men Type: URINE SPECIMEN Ordering Facility: [facility] Address: [address] [place] [address] Performed By: #### 2 4356-8 #### [facility] CLIA [id number] [address] [place] [address] [place] Specific gravity (U) [Rel density] 1.019 Normal 1.005-1.030 [facility] Comment on above: Order Comment: Speci men Type: URINE SPECIMEN Ordering Facility: [facility] Address: [address] [place] [address] Performed By: #### 2 4356-8 #### [facility] CLIA [id number] [address] [place] [address] [place] Urobilinogen Ql (U) 0.2 EU/dL Normal 0.2-1.0 EU/dL [facility] Comment on above: Order Comment: Speci men Type: URINE SPECIMEN Ordering Facility: [facility] Address: [address] [place] [address] Performed By: #### 2 4356-8 #### [facility] CLIA [id number] [address] [place] [address] [place] WBC LM.HPF (Urine sed) [#/Area] 6-10 /HPF Abnormal 0-5 /HPF [facility] Comment on above: Order Comment: Speci men Type: URINE SPECIMEN Ordering Facility: [facility] Address: [address] [place] [address] Performed By: #### 2 4356-8 #### [facility] IA [id number] [address] [place] [address] [place] LEONOR BY IFA SCREENon 06-29-19 24 Nuclear Ab pattern (S) [Interp] Nuclear homogeneous [facility] Nuclear Ab Ql (S) Positive Abnormal Negative [facility] Nuclear Ab Ql (S) 1:640 [facility] RHEUMATOID FACTORon 06-28-19 24 Rheumatoid factor Qn <16 IU/mL [facility] THYROID PEROXIDASE ANTIBODYo n 06-28-2023 TPO Ab Qn <5.6 IU/mL [facility] C-REACTIVE PROTEINon 024 CRP [Mass/Vol] <0.9 mg/dL [facility] CBC W Auto Differential pane l (Bld)on 06-27-2023 Basophils (Bld) [#/Vol] <0.11 k/uL C [facility] Basophils/100 WBC (Bld) 0.2 % C [facility] Differential cell count method Nom (Bld) Auto [facility] Eosinophils (Bld) [#/Vol] 0.35 10*3/uL <0.46 k/ uL [facility] Eosinophils/100 WBC (Bld) 5.4 % [facility] Erythrocyte distribution width (RBC) [Ratio] 13.4 % 11.5 - 15.0 % [facility] Hematocrit (Bld) [Volume fraction] 42.2 % 36.0 - 46.0 % [facility] Hemoglobin (Bld) [Mass/Vol] 13.8 g/dL 11.5 - 15.5 g/dL [facility] Immature granulocytes (Bld) [#/Vol] <0.10 k/uL [facility] Immature granulocytes/100 WBC (Bld) 0.2 % [facility] Lymphocytes (Bld) [#/Vol] 1.56 10*3/uL 1. 00 - 4.00 k/uL [facility] Lymphocytes/100 WBC (Bld) 24.2 % [facility] MCH (RBC) [Entitic mass] 29.1 pg 26. 0 - 34.0 pg [facility] MCHC (RBC) [Mass/Vol] 32.7 g/dL 30.5 - 36.0 g/dL [facility] MCV (RBC) [Entitic vol] 89.0 fL 80.0 - 100.0 fL [facility] Monocytes (Bld) [#/Vol] 0.36 10*3/uL <0.87 k/uL [facility] Monocytes/100 WBC (Bld) 5.6 % [facility] [#/Vol] 4.15 10*3/uL 1. 45 - 7.50 k/uL [facility] Neutrophils/100 WBC (Bld) 64.4 % [facility] Nucleated RBC (Bld) [#/Vol] [facility] Nucleated RBC/100 WBC (Bld) [Ratio] [facility] Platelet mean volume (Bld) [Entitic vol] 9.0 fL 9.0 - 12.7 fL [facility] Platelets (Bld) [#/Vol] 310 10*3/uL 150 - 400 k/uL [facility] RBC (Bld) [#/Vol] 4.74 10*6/uL 3.90 - 5.2 0 m/uL [facility] WBC (Bld) [#/Vol] 6.44 10*3/uL 3.70 - 11. 00 k/uL [facility] Comprehensive metabolic 2000 panelon 06-27-2023 Albumin [Mass/Vol] 4.0 g/dL 3.9 - 4.9 g/dL [facility] ALP [Catalytic activity/Vol] 53 U/L 34 - 123 U/L [facility] ALT With P-5'-P [Catalytic activity/Vol] 12 U/L 7 - 38 U/L [facility] Anion gap [Moles/Vol] 11 mmol/L 9 - 18 mmol/L [facility] AST With P-5'-P [Catalytic activity/Vol] 17 U/L 13 - 35 U/L [facility] Bilirubin [Mass/Vol] 0.4 mg/dL 0.2 - 1 .3 mg/dL [facility] Calcium [Mass/Vol] 9.0 mg/dL 8.5 - 10. 2 mg/dL [facility] Chloride [Moles/Vol] 103 mmol/L 97 - 10 5 mmol/L [facility] CO2 [Moles/Vol] 25 mmol/L 22 - 30 mmol/L [facility] Creatinine [Mass/Vol] 0.90 mg/dL 0.58 - 0.96 mg/dL [facility] Estimated Glomerular Filtration Rate 87 mL/min/1.73m >=60 mL/min/1.73m [facility] Glucose [Mass/Vol] 72 mg/dL Low 74 - 99 mg/dL [facility] Potassium [Moles/Vol] 3.5 mmol/L Low 3.7 - 5.1 mmol/L [facility] Protein [Mass/Vol] 7.1 g/dL 6.3 - 8.0 g/dL [facility] Sodium [Moles/Vol] 139 mmol/L 136 - 144 mmol/L [facility] Urea nitrogen [Mass/Vol] 10 mg/dL 7 - 21 mg/d L [facility] ESR Westergren method (Bld) [Velocity]on 06-27-2023 ESR (Bld) [Velocity] 6 mm/h 0 - 20 mm/hr [facility] THYROID STIMULATING HORMONEo n 06-27-2023 TSH Qn 2.100 m[IU]/L 0.270 - 4.200 mIU/L [facility] Urinalysis complete panel (U )on 06-27-2023 Bacteria LM.HPF (Urine sed) [#/Area] Moderate Abnormal None Seen /HPF [facility] Bilirubin Ql (U) Negative Negative [facility] Clarity (Unsp spec) Slightly Cloudy Abnormal Clear [facility] Color (U) Yellow Yellow [facility] Epithelial cells LM.HPF (Urine sed) [#/Area] Few Abnormal None Seen /HPF [facility] Glucose Test strip (U) [Mass/Vol] Negative Negative [facility] Hemoglobin Ql (U) 2+ Abnormal Negative [facility] Ketones Ql (U) Negative Negative [facility] Leukocyte esterase Test strip Ql (U) Negative Negative [facility] Nitrite Ql (U) Negative Negative [facility] pH (U) 5.5 [pH] 5.0 - 8.0 [facility] Protein (U) [Mass/Vol] Negative Negative Cl [facility] RBC LM.HPF (Urine sed) [#/Area] 3-5 /HPF Abnormal 0-3 /HPF [facility] Specific gravity (U) [Rel density] High 1.005 - 1.030 [facility] Urobilinogen Ql (U) 0.2 EU/dL 0.2-1.0 EU/dL [facility] WBC LM.HPF (Urine sed) [#/Area] 0-5 /HPF 0-5 /HPF [facility] VITAMIN D 25 HYDROXYon 06-26 25-hydroxyvitamin D3 [Mass/Vol] 26.6 ng/mL Low >=30.0 ng/mL [facility] Laboratory - Microbiology an d Antimicrobial susceptibilityOrdered By: Raysa Garcia on 04-29-2023 SARS-CoV-2 (COVID-19) RNA TOAN+probe Ql (Unsp spec) [facility] SARS-CoV-2 (COVID-19) RNA TOAN+probe Ql (Unsp spec) [facility] 25(OH)D3 SerPl-mCncon 2022 25-hydroxyvitamin D3 [Mass/Vol] 10.8 ng/mL Low 31.0-80.0 [facility] Comment on above: Order Comment: Speci men Type: BLOOD SPECIMEN Ordering Facility: [facility] Address: [address] [place] [address] Performed By: #### 2 4323-8, 3015-3, 67268-5 #### [facility] CLIA [id number] [address] [place] [id number] [place] CBC panel Auto (Bld)on 01-18 Erythrocyte distribution width (RBC) [Ratio] 12.9 % Normal 11.5-15.0 [facility] Comment on above: Order Comment: Speci men Type: BLOOD SPECIMEN Ordering Facility: [facility] Address: [address] [place] [address] Performed By: #### 2 4323-8, 3, 96578-8 #### [facility] CLIA [id number] [address] [place], [place] [address] [place] Hematocrit (Bld) [Volume fraction] 44.0 % Normal 36.0-46.0 [facility] Comment on above: Order Comment: Speci men Type: BLOOD SPECIMEN Ordering Facility: [facility] Address: [address] [place] [address] Performed By: #### 2 4323-8, 3, 74608-5 #### [facility] CLIA [id number] [address] [place], [place] [address] [place] Hemoglobin (Bld) [Mass/Vol] 14.2 g/dL Normal 11.5-15.5 [facility] Comment on above: Order Comment: Speci men Type: BLOOD SPECIMEN Ordering Facility: [facility] Address: [address] [place], [place] [address] Performed By: #### 2 4323-8, 3015-3, 02513-8 #### [facility] CLIA [id number] [address] [place] [address] [place] MCH (RBC) [Entitic mass] 29.8 pg Normal 26.0-34.0 [facility] Comment on above: Order Comment: Speci men Type: BLOOD SPECIMEN Ordering Facility: [facility] Address: [address] [place] [address] Performed By: #### 2 4323-8, 6-3, 67516-8 #### [facility] CLIA [id number] [address] [place] [address] [place] MCHC (RBC) [Mass/Vol] 32.3 g/dL Normal 30.5-36.0 [facility] Comment on above: Order Comment: Speci men Type: BLOOD SPECIMEN Ordering Facility: [facility] Address: [address] [place] [address] Performed By: #### 2 4323-8, 3015-3, 42390-7 #### [facility] CLIA [id number] [address] [place] [address] [place] MCV (RBC) [Entitic vol] 92.2 fL Normal 80.0-100.0 [facility] Comment on above: Order Comment: Speci men Type: BLOOD SPECIMEN Ordering Facility: [facility] Address: [address] [place] [address] Performed By: #### 2 4323-8, 3015-3, 69403-1 #### [facility] CLIA [id number] [address] [place], [place] [address] [place] Nucleated RBC (Bld) [#/Vol] 10*3/uL Normal <0.01 [facility] Comment on above: Order Comment: Speci men Type: BLOOD SPECIMEN Ordering Facility: [facility] Address: [address] [place] [address] Performed By: #### 2 4323-8, 3015-3, 06499-5 #### [facility] CLIA [id number] [address] [address] [place] Platelet mean volume (Bld) [Entitic vol] 11.0 fL Normal 9.0-12.7 [facility] Comment on above: Order Comment: Speci men Type: BLOOD SPECIMEN Ordering Facility: [facility] Address: [address] [place] [address] Performed By: #### 2 4323-8, 3016-3, 53951-5 #### [facility] CLIA [id number] [address] [place], [place] [address] [place] Platelets (Bld) [#/Vol] 284 10*3/uL Normal 150-400 [facility] Comment on above: Order Comment: Speci men Type: BLOOD SPECIMEN Ordering Facility: [facility] Address: [address] [place] [address] Performed By: #### 2 4323-8, 3016-3, 14349-9 #### [facility] CLIA [id number] [address] [place], [place] [address] [place] RBC (Bld) [#/Vol] 4.77 10*6/uL Normal 3.90-5.20 [facility] Comment on above: Order Comment: Speci men Type: BLOOD SPECIMEN Ordering Facility: [facility] Address: [address] [place] [address] Performed By: #### 2 4323-8, 3016-3, 44313-1 #### [facility] CLIA [id number] [address] [place] [address] [place] WBC (Bld) [#/Vol] 5.10 10*3/uL Normal 3.70-11.00 [facility] Comment on above: Order Comment: Speci men Type: BLOOD SPECIMEN Ordering Facility: [facility] Address: [address] [place] [address] Performed By: #### 2 4323-8, 3016-3, 83742-6 #### [facility] CLIA [id number] [address] [place], [place] [address] [place] Comprehensive metabolic 2000 panelon 01-18-2023 Albumin [Mass/Vol] 4.1 g/dL Normal 3.9-4.9 [facility] Comment on above: Order Comment: Speci men Type: BLOOD SPECIMEN [facility]ing Facility: [facility] Address: [address] [place] [address] Performed By: #### 2 4323-8, 3016-3, 70990-1 #### [facility] CLIA [id number] [address] [place] [address] [place] ALP [Catalytic activity/Vol] 49 U/L Normal 34-123 [facility] Comment on above: Order Comment: Speci men Type: BLOOD SPECIMEN Ordering Facility: [facility] Address: [address] [place] [address] Performed By: #### 2 4323-8, 3016-3, 59403-5 #### [facility] CLIA [id number] [address] [place] [address] [place] ALT [Catalytic activity/Vol] 9 U/L Normal 7-38 [facility] Comment on above: Order Comment: Speci men Type: BLOOD SPECIMEN Ordering Facility: [facility] Address: [address] [place] [address] Performed By: #### 2 4323-8, 3016-3, 89013-6 #### [facility] CLIA [id number] [address] [place], [place] [address] [place] Anion gap [Moles/Vol] 12 mmol/L Normal 9-18 [facility] Comment on above: Order Comment: Speci men Type: BLOOD SPECIMEN Ordering Facility: [facility] Address: [address] [place], [place] [address] Performed By: #### 2 4323-8, 3016-3, 19928-9 #### [facility] CLIA [id number] [address] [place] [address] [place] AST [Catalytic activity/Vol] 15 U/L Normal 13-35 [facility] Comment on above: Order Comment: Speci men Type: BLOOD SPECIMEN Ordering Facility: [facility] Address: [address] [place] [address] Performed By: #### 2 4323-8, 3016-3, 91462-1 #### [facility] CLIA [id number] [address] [place] [address] [place] Bilirubin [Mass/Vol] 0.4 mg/dL Normal 0.2-1.3 [facility] Comment on above: Order Comment: Speci men Type: BLOOD SPECIMEN Ordering Facility: [facility] Address: [address] [place] [address] Performed By: #### 2 4323-8, 3016-3, 14733-3 #### [facility] CLIA [id number] [address] [place] [address] [place] Calcium [Mass/Vol] 9.2 mg/dL Normal 8.5-10.2 [facility] Comment on above: Order Comment: Speci men Type: BLOOD SPECIMEN Ordering Facility: [facility] Address: [address] [place] [address] Performed By: #### 2 4323-8, 3016-3, 52731-1 #### [facility] CLIA [id number] [address] [place] [address] [place] Chloride [Moles/Vol] 103 mmol/L Normal 97-105 [facility] Comment on above: Order Comment: Speci men Type: BLOOD SPECIMEN Ordering Facility: [facility] Address: [address] [place] [address] Performed By: #### 2 4323-8, 6-3, 64470-3 #### [facility] CLIA [id number] [address] [place] [address] [place] CO2 [Moles/Vol] 21 mmol/L Low 22-30 [facility] Comment on above: Order Comment: Speci men Type: BLOOD SPECIMEN Ordering Facility: [facility] Address: [address] [place] [address] Performed By: #### 2 4323-8, 3015-3, 31318-8 #### [facility] CLIA [id number] [address] [place] [address] [place] Creatinine [Mass/Vol] 0.89 mg/dL Normal 0.58-0.96 [facility] Comment on above: Order Comment: Speci men Type: BLOOD SPECIMEN Ordering Facility: [facility] Address: [address] [place] [address] Performed By: #### 2 4323-8, 3, 86656-9 #### [facility] CLIA [id number] [address] [place] [address] [place] Creatinine and Glomerular filtration rate.predicted panel (S/P/Bld) 88 mL/min/1.73m??? Normal >=60 [facility] Comment on above: Order Comment: Speci men Type: BLOOD SPECIMEN Ordering Facility: [facility] Address: [address] [place] [address] Result Comment: Areli mated Glomerular Filtration Rate [...] actual GFR. Performed By: #### 2 4323-8, 3015-3, 25736-4 #### [facility] CLIA [id number] [address] [id number] [place] Glucose [Mass/Vol] 63 mg/dL Low 74-99 [facility] Comment on above: Order Comment: Speci men Type: BLOOD SPECIMEN Ordering Facility: [facility] Address: [address] [place] [address] Result Comment: The [place] Diabetes Association (ADA) provides guidance for cutoff [...] Standards of Medical Care in Diabetes 2016, [place] [employer]. Diabetes Care. 2016.39(Suppl 1). Performed By: #### 2 4323-8, 3016-3, 83307-2 #### [facility] CLIA [id number] [address] [place], [place] [address] [place] Potassium [Moles/Vol] 4.5 mmol/L Normal 3.7-5.1 [facility] Comment on above: Order Comment: Speci men Type: BLOOD SPECIMEN Ordering Facility: [facility] Address: [address] [place] [address] Performed By: #### 2 4323-8, 3016-3, 20869-2 #### [facility] CLIA [id number] [address] [place], [place] [address] [place] Protein [Mass/Vol] 6.9 g/dL Normal 6.3-8.0 [facility] Comment on above: Order Comment: Speci men Type: BLOOD SPECIMEN [facility] Address: [address] [place] [address] Performed By: #### 2 4323-8, 3015-3, 55949-8 #### [facility] CLIA [id number] [address] [place] [address] [place] Sodium [Moles/Vol] 136 mmol/L Normal 136-144 [facility] Comment on above: Order Comment: Speci men Type: BLOOD SPECIMEN Ordering Facility: [facility] Address: [address] [place], [place] [id number] Performed By: #### 2 4323-8, 3015-3, #### [facility] CLIA [id number] [address] [place], [place] [address] [place] Urea nitrogen [Mass/Vol] 10 mg/dL Normal 7-21 [facility] Comment on above: Order Comment: Speci men Type: BLOOD SPECIMEN Ordering Facility: [facility] Address: [address] [place] [address] Performed By: #### 2 4323-8, 3, #### [facility] CLIA [id number] [address] [place] [address] [place] HbA1c (Bld)on 01-18-2023 Average glucose Estimated from glycated hemoglobin (Bld) [Mass/Vol] 82 mg/dL Normal [facility] Comment on above: Order Comment: Speci men Type: BLOOD SPECIMEN Ordering Facility: [facility] Address: [address] [place] [address] Result Comment: eAG: (Estimated average glucose) is a calculated value from HgbA1c and is senior sales representative of the average blood glucose level in the last 2-3 month period. Performed By: #### 2 4323-8, 3015-3, 06496-4 #### [facility] CLIA [id number] [address] [place] [address] [place] HbA1c (Bld) [Mass fraction] 4.5 % Normal 4.3-5.6 [facility] Comment on above: Order Comment: Speci men Type: BLOOD SPECIMEN Ordering Facility: [facility] Address: [address] [place] [address] Result Comment: [place] Diabetes Association guidelines indicate that patients with HgbA1c in the range 5.7-6.4% are at increased risk for development of diabetes, and intervention by lifestyle modification may be beneficial. HgbA1c greater or equal to 6.5% is considered diagnostic of diabetes. Performed By: #### 2 4323-8, 3016-3, 65102-9 #### [facility] CLIA [id number] [address] [place] [address] [place] Iron and Iron binding capaci ty panel 01-18-2023 Iron [Mass/Vol] 79 ug/dL Normal 41-186 [facility] Comment on above: Order Comment: Speci men Type: BLOOD SPECIMEN Ordering Facility: [facility] Address: [address] [place] [address] Performed By: #### 2 4323-8, 3016-3, 89044-8 #### [facility] CLIA [id number] [address] [place] [address] [place] Iron binding capacity [Mass/Vol] 286 ug/dL Normal 232-386 [facility] Comment on above: Order Comment: Speci men Type: BLOOD SPECIMEN Ordering Facility: [facility] Address: [address] [place] [address] Performed By: #### 2 4323-8, 3016-3, 75460-3 #### [facility] CLIA [id number] [address] [place] [address] [place] Iron/TIBC [Molar ratio] 27.6 % Normal 15.0-57.0 [facility] Comment on above: Order Comment: Speci men Type: BLOOD SPECIMEN Ordering Facility: [facility] Address: [address] [place] [address] Performed By: #### 2 4323-8, 3016-3, 11720-5 #### [facility] CLIA [id number] [address] [place], [place] [address] [place] TSH SerPl-aCncon 01-18-2023 TSH Qn 1.290 m[IU]/L Normal 0.270-4.200 [facility] Comment on above: Order Comment: Speci men Type: BLOOD SPECIMEN Ordering Facility: [facility] Address: [address] [place] [address] Result Comment: If t he patient is , TSH reference range varies by gestational period: First Trimester (weeks 9-12): 0.180-2.990 mIU/L Second Trimester: 0.110-3.980 mIU/L Third Trimester: 0.480-4.710 mIU/L Grupo Perez et al. A Practical Approach for the Verifications and Determination of Site- and Trimester-Specific Reference Intervals for Thyroid Function tests in . Thyroid, 2019:29:3:412-420. Xu E, et al. 2017 Guidelines of the [place] Thyroid Association for the Diagnosis and Management of Thyroid Disease during and the . Thyroid, 2017:27:3:315-389. Performed By: #### 2 4323-8, 3016-3, 54203-6 #### [facility] CLIA [id number] [address] [place], [place] [address] [place] Vital Signs Date Time Vital Sign Value Performing Clinician Alanna snow 09-03-2024 13:33-0400 Body temperature 97.4 [degF] Iman Peace FRONT END ENGINEER-C Work Phone: [facility] 09-03-2024 13:33-0400 Diastolic blood pressure 68 mm[Hg] Iman Peace FRONT END ENGINEER-C Work Phone: [facility] 09-03-2024 13:33-0400 Heart rate 71 /min Iman Peace FRONT END ENGINEER-C Work Phone: [facility] 09-03-2024 13:33-0400 Respiratory rate 16 /min Iman Queden FRONT END ENGINEER-C Work Phone: [facility] 09-03-2024 13:33-0400 SaO2% (BldA) [Mass fraction] 99 % Iman Queden FRONT END ENGINEER-C Work Phone: [facility] 09-03-2024 13:33-0400 Systolic blood pressure 112 mm[Hg] Iman Queden FRONT END ENGINEER-C Work Phone: [facility] 09-03-2024 10:49-0400 Body height 170.18 cm Iman Queden FRONT END ENGINEER-C Work Phone: [facility] 09-03-2024 10:49-0400 Body mass index (BMI) [Ratio] 19.9 kg/m2 Iman Queden FRONT END ENGINEER-C Work Phone: [facility] 09-03-2024 10:49-0400 Body weight 57.65 kg Iman Queden FRONT END ENGINEER-C Work Phone: [facility] 07-24-2024 21:01-0400 Body temperature 97.8 [degF] Iman Queden FRONT END ENGINEER-C Work Phone: [facility] 07-24-2024 21:01-0400 Diastolic blood pressure 86 mm[Hg] Iman Queden FRONT END ENGINEER-C Work Phone: [facility] 07-24-2024 21:01-0400 Heart rate 81 /min Iman Queden FRONT END ENGINEER-C Work Phone: [facility] 07-24-2024 21:01-0400 Respiratory rate 16 /min Iman Queden FRONT END ENGINEER-C Work Phone: [facility] 07-24-2024 21:01-0400 SaO2% (BldA) [Mass fraction] 99 % Iman Queden FRONT END ENGINEER-C Work Phone: [facility] 07-24-2024 21:01-0400 Systolic blood pressure 167 mm[Hg] Iman Queden FRONT END ENGINEER-C Work Phone: [facility] 07-24-2024 20:26-0400 Body height 170.18 cm Iman Queden FRONT END ENGINEER-C Work Phone: [facility] 07-24-2024 20:26-0400 Body mass index (BMI) [Ratio] 20.4 kg/m2 Iman Queden FRONT END ENGINEER-C Work Phone: [facility] 07-24-2024 20:26-0400 Body weight 59.23 kg Iman Queden FRONT END ENGINEER-C Work Phone: [facility] 05-31-2024 22:18-0400 Body temperature 97.9 [degF] Iman Queden FRONT END ENGINEER-C Work Phone: [facility] 05-31-2024 22:18-0400 Diastolic blood pressure 84 mm[Hg] Iman Queden FRONT END ENGINEER-C Work Phone: [facility] 05-31-2024 22:18-0400 Heart rate 85 /min Iman Queden FRONT END ENGINEER-C Work Phone: [facility] 05-31-2024 22:18-0400 Respiratory rate 14 /min Iman Queden FRONT END ENGINEER-C Work Phone: [facility] 05-31-2024 22:18-0400 SaO2% (BldA) [Mass fraction] 99 % Iman Queden FRONT END ENGINEER-C Work Phone: [facility] 05-31-2024 22:18-0400 Systolic blood pressure 128 mm[Hg] Iman Queden FRONT END ENGINEER-C Work Phone: [facility] 05-31-2024 20:32-0400 Body height 170.18 cm Iman Queden FRONT END ENGINEER-C Work Phone: [facility] 05-31-2024 20:32-0400 Body mass index (BMI) [Ratio] 20.2 kg/m2 Iman Queden FRONT END ENGINEER-C Work Phone: [facility] 05-31-2024 20:32-0400 Body weight 58.69 kg Iman Queden FRONT END ENGINEER-C Work Phone: [facility] 05-23-2024 10:14-0400 Body temperature 98 [degF] Iman Queden FRONT END ENGINEER-C Work Phone: [facility] 05-23-2024 10:14-0400 Diastolic blood pressure 76 mm[Hg] Iman Queden FRONT END ENGINEER-C Work Phone: [facility] 05-23-2024 10:14-0400 Heart rate 81 /min Iman Queden FRONT END ENGINEER-C Work Phone: [facility] 05-23-2024 10:14-0400 Respiratory rate 14 /min Iman Queden FRONT END ENGINEER-C Work Phone: [facility] 05-23-2024 10:14-0400 SaO2% (BldA) [Mass fraction] 99 % Iman Queden FRONT END ENGINEER-C Work Phone: [facility] 05-23-2024 10:14-0400 Systolic blood pressure 141 mm[Hg] Iman Queden FRONT END ENGINEER-C Work Phone: [facility] 05-23-2024 09:34-0400 Body height 170.18 cm Iman Queden FRONT END ENGINEER-C Work Phone: [facility] 05-23-2024 09:34-0400 Body mass index (BMI) [Ratio] 18.8 kg/m2 Iman Queden FRONT END ENGINEER-C Work Phone: [facility] 05-23-2024 09:34-0400 Body weight 54.43 kg Iman Queden FRONT END ENGINEER-C Work Phone: [facility] 04-10-2024 10:36-0500 Body temperature 97.2 [degF] Iman Queden FRONT END ENGINEER-C Work Phone: [facility] 04-10-2024 10:36-0500 Diastolic blood pressure 99 mm[Hg] Iman Queden FRONT END ENGINEER-C Work Phone: [facility] 04-10-2024 10:36-0500 Heart rate 66 /min Iman Queden FRONT END ENGINEER-C Work Phone: [facility] 04-10-2024 10:36-0500 Respiratory rate 20 /min Iman Queden FRONT END ENGINEER-C Work Phone: [facility] 04-10-2024 10:36-0500 SaO2% (BldA) [Mass fraction] 100 % Iman Queden FRONT END ENGINEER-C Work Phone: [facility] 04-10-2024 10:36-0500 Systolic blood pressure 128 mm[Hg] Iman Queden FRONT END ENGINEER-C Work Phone: [facility] 02-26-2024 14:13-0500 Body mass index (BMI) [Ratio] 20.2 kg/m2 Iman Queden FRONT END ENGINEER-C Work Phone: [facility] 02-26-2024 14:13-0500 Body temperature 97.4 [degF] Iman Queden FRONT END ENGINEER-C Work Phone: [facility] 02-26-2024 14:13-0500 Body weight 58.54 kg Iman Queden FRONT END ENGINEER-C Work Phone: [facility] 02-26-2024 14:13-0500 Diastolic blood pressure 94 mm[Hg] Iman Queden FRONT END ENGINEER-C Work Phone: [facility] 02-26-2024 14:13-0500 Heart rate 91 /min Iman Queden FRONT END ENGINEER-C Work Phone: [facility] 02-26-2024 14:13-0500 Respiratory rate 16 /min Iman Queden FRONT END ENGINEER-C Work Phone: [facility] 02-26-2024 14:13-0500 SaO2% (BldA) [Mass fraction] 100 % Iman Queden FRONT END ENGINEER-C Work Phone: [facility] 02-26-2024 14:13-0500 Systolic blood pressure 121 mm[Hg] Iman Queden FRONT END ENGINEER-C Work Phone: [facility] 02-01-2024 14:52-0500 Body temperature 97.9 [degF] Iman Queden FRONT END ENGINEER-C Work Phone: [facility] 02-01-2024 14:52-0500 Diastolic blood pressure 78 mm[Hg] Iman Queden FRONT END ENGINEER-C Work Phone: [facility] 02-01-2024 14:52-0500 Heart rate 78 /min Iman Queden FRONT END ENGINEER-C Work Phone: [facility] 02-01-2024 14:52-0500 Respiratory rate 18 /min Iman Queden FRONT END ENGINEER-C Work Phone: [facility] 02-01-2024 14:52-0500 SaO2% (BldA) [Mass fraction] 99 % Iman Queden FRONT END ENGINEER-C Work Phone: [facility] 02-01-2024 14:52-0500 Systolic blood pressure 101 mm[Hg] Iman Queden FRONT END ENGINEER-C Work Phone: [facility] 02-01-2024 14:26-0500 Body mass index (BMI) [Ratio] 20.3 kg/m2 Iman Queden FRONT END ENGINEER-C Work Phone: [facility] 02-01-2024 14:26-0500 Body weight 58.96 kg Iman Queden FRONT END ENGINEER-C Work Phone: [facility] 07-29-2023 08:58-0400 Body height 171 cm Pul Wstr Work Phone: [facility] 07-29-2023 08:58-0400 Body mass index (BMI) [Ratio] 18.61 kg/m2 Pulm Wstr Work Phone: [facility] 07-29-2023 08:58-0400 Body weight 54.43 kg Pulm Wstr Work Phone: [facility] 07-29-2023 08:58-0400 Heart rate 83 /min Pulm Wstr Work Phone: [facility] 07-29-2023 08:58-0400 Respiratory rate 14 /min Pulm Wstr Work Phone: [facility] 07-29-2023 08:58-0400 SaO2% (BldA) [Mass fraction] 97 % Pulm Wstr Work Phone: [facility] 07-11-2023 07:56-0400 Body mass index (BMI) [Ratio] 18.82 kg/m2 Rajesh Suarez MD Work Phone: [facility] 07-11-2023 07:56-0400 Body temperature 98.6 [degF] Rajesh Suarez MD Work Phone: [facility] 07-11-2023 07:56-0400 Body weight 54.9 kg Rajesh Suarez MD Work Phone: [facility] 07-11-2023 07:56-0400 Diastolic blood pressure 87 mm[Hg] Rajesh Suarez MD Work Phone: [facility] 07-11-2023 07:56-0400 Heart rate 81 /min Rajesh Suarez MD Work Phone: [facility] 07-11-2023 07:56-0400 Systolic blood pressure 126 mm[Hg] Rajesh Suarez MD Work Phone: [facility] 06-27-2023 10:43-0400 Body height 170.8 cm Iman Peace SPACE SCHEDULER.COSMETOLOGIST APPRENTICE Work Phone: [facility] 06-27-2023 10:43-0400 Body temperature 98.1 [degF] Iman Peace SPACE SCHEDULER.COSMETOLOGIST APPRENTICE Work Phone: [facility] 06-27-2023 10:43-0400 Body weight 53.52 kg Iman Queden SPACE SCHEDULER.COSMETOLOGIST APPRENTICE Work Phone: [facility] 06-27-2023 10:43-0400 Diastolic blood pressure 70 mm[Hg] Iman Queden SPACE SCHEDULER.COSMETOLOGIST APPRENTICE Work Phone: [facility] 06-27-2023 10:43-0400 Heart rate 83 /min Iman Queden SPACE SCHEDULER.COSMETOLOGIST APPRENTICE Work Phone: [facility] 06-27-2023 10:43-0400 Respiratory rate 16 /min Iman Queden SPACE SCHEDULER.COSMETOLOGIST APPRENTICE Work Phone: [facility] 06-27-2023 10:43-0400 SaO2% (BldA) [Mass fraction] 98 % Iman Queden SPACE SCHEDULER.COSMETOLOGIST APPRENTICE Work Phone: [facility] 06-27-2023 10:43-0400 Systolic blood pressure 118 mm[Hg] Iman Queden SPACE SCHEDULER.COSMETOLOGIST APPRENTICE Work Phone: [facility] 06-07-2023 22:39-0400 Body temperature 98.2 [degF] [facility] 06-07-2023 22:39-0400 Diastolic blood pressure 78 mm[Hg] [facility] 06-07-2023 22:39-0400 Heart rate 77 /min [facility] 06-07-2023 22:39-0400 Respiratory rate 19 /min [facility] 06-07-2023 22:39-0400 SaO2% (BldA) [Mass fraction] 98 % [facility] 06-07-2023 22:39-0400 Systolic blood pressure 115 mm[Hg] [facility] 06-07-2023 18:43-0400 Body height 170.18 cm [facility] 06-07-2023 18:43-0400 Body mass index (BMI) [Ratio] 18 kg/m2 [facility] 06-07-2023 18:43-0400 Body weight 52.24 kg [facility] 04-29-2023 15:41-0500 Body temperature 98 [degF] [facility] 04-29-2023 15:41-0500 Diastolic blood pressure 87 mm[Hg] [facility] 04-29-2023 15:41-0500 Heart rate 60 /min [facility] 04-29-2023 15:41-0500 Respiratory rate 16 /min [facility] 04-29-2023 15:41-0500 SaO2% (BldA) [Mass fraction] 98 % [facility] 04-29-2023 15:41-0500 Systolic blood pressure 139 mm[Hg] [facility] 04-29-2023 11:43-0500 Body height 170.18 cm [facility] 04-29-2023 11:43-0500 Body mass index (BMI) [Ratio] 17.7 kg/m2 [facility] 04-29-2023 11:43-0500 Body weight 51.42 kg [facility] 02-09-2023 13:33-0500 Body height 170.18 cm [facility] 02-09-2023 13:33-0500 Body mass index (BMI) [Ratio] 18.1 kg/m2 [facility] 02-09-2023 13:33-0500 Body temperature 97.4 [degF] [facility] 02-09-2023 13:33-0500 Body weight 52.33 kg [facility] 02-09-2023 13:33-0500 Diastolic blood pressure 99 mm[Hg] [facility] 02-09-2023 13:33-0500 Heart rate 90 /min [facility] 02-09-2023 13:33-0500 Respiratory rate 16 /min [facility] 02-09-2023 13:33-0500 SaO2% (BldA) [Mass fraction] 98 % [facility] 02-09-2023 13:33-0500 Systolic blood pressure 133 mm[Hg] [facility] 01-02-2023 13:16-0400 Body height 170.18 cm [facility] 01-02-2023 13:16-0400 Body mass index (BMI) [Ratio] 18 kg/m2 [facility] 01-02-2023 13:16-0400 Body temperature 96 [degF] [facility] 01-02-2023 13:16-0400 Body weight 52.16 kg [facility] 01-02-2023 13:16-0400 Diastolic blood pressure 60 mm[Hg] [facility] 01-02-2023 13:16-0400 Heart rate 77 /min [facility] 01-02-2023 13:16-0400 Respiratory rate 18 /min [facility] 01-02-2023 13:16-0400 SaO2% (BldA) [Mass fraction] 99 % [facility] 01-02-2023 13:16-0400 Systolic blood pressure 120 mm[Hg] [facility] 11-06-2022 18:22-0400 Heart rate 95 /min [facility] 11-06-2022 18:22-0400 SaO2% (BldA) [Mass fraction] 95 % [facility] 11-06-2022 17:59-0400 Body height 170.18 cm [facility] 11-06-2022 17:59-0400 Body mass index (BMI) [Ratio] 18 kg/m2 [facility] 11-06-2022 17:59-0400 Body temperature 98 [degF] [facility] 11-06-2022 17:59-0400 Body weight 52.16 kg [facility] 11-06-2022 17:59-0400 Diastolic blood pressure 99 mm[Hg] [facility] 11-06-2022 17:59-0400 Respiratory rate 14 /min [facility] 11-06-2022 17:59-0400 Systolic blood pressure 113 mm[Hg] [facility] Encounters Encounter Date Encounter Type Care Provider Facility Start: 01-10-2025 End: 01-10-2025 Emergency department patient visit Out of Town Doctor Facility:[facility] Start: 10-01-2024 End: 10-01-2024 ambulatory Iman Peace APRN.COSMETOLOGIST APPRENTICE Work Phone: [facility] Comment on above: Question Start: 09-06-2024 End: 09-06-2024 ambulatory Iman A Queden SPACE SCHEDULER.COSMETOLOGIST APPRENTICE Work Phone: [facility] Start: 09-06-2024 End: 09-06-2024 Follow-up encounter Iman A Queden SPACE SCHEDULER.COSMETOLOGIST APPRENTICE Work Phone: [facility] Comment on above: ED Follow-up ([facility] ED 09/03/2024) Start: 09-03-2024 End: 09-03-2024 Emergency department patient visit Iman Queden FRONT END ENGINEER-C Work Phone: -Emergency Department Work Phone: Start: 07-30-2024 End: 07-30-2024 ambulatory Iman A Queden SPACE SCHEDULER.COSMETOLOGIST APPRENTICE Work Phone: [facility] Start: 07-30-2024 End: 07-30-2024 Follow-up encounter Iman A Queden SPACE SCHEDULER.COSMETOLOGIST APPRENTICE Work Phone: [facility] Comment on above: ED Follow-up ([facility] 07/24/24) Start: 07-24-2024 End: 07-24-2024 Emergency department patient visit Iman Queden FRONT END ENGINEER-C Work Phone: -Emergency Department Work Phone: Start: 06-08-2024 End: 06-08-2024 ambulatory Iman A Queden SPACE SCHEDULER.COSMETOLOGIST APPRENTICE Work Phone: [facility] Start: 06-08-2024 End: 06-08-2024 Follow-up encounter Iman A Queden SPACE SCHEDULER.COSMETOLOGIST APPRENTICE Work Phone: [facility] Comment on above: ED Follow Up ([facility] 05/31/2024) Start: 05-31-2024 End: 05-31-2024 Emergency department patient visit Iman Queden FRONT END ENGINEER-C Work Phone: -Emergency Department Work Phone: Start: 05-24-2024 End: 05-24-2024 ambulatory Iman A Queden SPACE SCHEDULER.COSMETOLOGIST APPRENTICE Work Phone: [facility] Start: 05-24-2024 End: 05-24-2024 Follow-up encounter Iman A Queden SPACE SCHEDULER.COSMETOLOGIST APPRENTICE Work Phone: [facility] Comment on above: ED Follow-up ([facility] 05/23/2024) Start: 05-24-2024 End: 05-24-2024 Telephone encounter Iman A Queden SPACE SCHEDULER.COSMETOLOGIST APPRENTICE Work Phone: [facility] Comment on above: Patient Question Start: 05-23-2024 End: 05-23-2024 Emergency department patient visit Iman Quesoiris FRONT END ENGINEER-C Work Phone: -Emergency Department Work Phone: Start: 04-12-2024 End: 04-12-2024 ambulatory Iman A Queden SPACE SCHEDULER.COSMETOLOGIST APPRENTICE Work Phone: [facility] Start: 04-12-2024 End: 04-12-2024 Follow-up encounter Iman A Queden SPACE SCHEDULER.COSMETOLOGIST APPRENTICE Work Phone: [facility] Comment on above: ED Follow-up ([facility] 04/10/2024) Start: 04-10-2024 End: 04-10-2024 Emergency department patient visit Dr. Raymond Anthony DO -Emergency Department Work Phone: Start: 02-27-2024 End: 02-27-2024 ambulatory Iman A Queden SPACE SCHEDULER.COSMETOLOGIST APPRENTICE Work Phone: [facility] Start: 02-27-2024 End: 02-27-2024 Follow-up encounter Iman A Queden SPACE SCHEDULER.COSMETOLOGIST APPRENTICE Work Phone: [facility] Comment on above: ED Follow-up ([facility] 02/26/2024) Start: 02-26-2024 End: 02-26-2024 Emergency department patient visit Dr. Hansel Robledo MD -Emergency Department Work Phone: Start: 02-02-2024 End: 02-02-2024 ambulatory Iman Peace SPACE SCHEDULER.COSMETOLOGIST APPRENTICE Work Phone: [facility] Comment on above: Population Health Na vigation Outreach Start: 02-01-2024 End: 02-01-2024 Emergency department patient visit Dr. Collin Allen MD -Emergency Department Work Phone: Start: 01-16-2024 End: 01-16-2024 ambulatory Capri Elizabeth 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 [facility] Start: 01-05-2024 End: 01-05-2024 ambulatory Capri Elizabeth 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 [facility] Start: 11-11-2023 End: 11-11-2023 ambulatory Capri Elizabeth 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 [facility] Start: 10-28-2023 ambulatory Capri Elizabeth 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 [facility] Start: 10-06-2023 ambulatory Capri Elizabeth 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 [facility] Start: 07-29-2023 End: 07-29-2023 ambulatory IMAN PEACE Facility:[facility] Start: 07-29-2023 End: 07-29-2023 ambulatory Pulm Lab [facility] Work Phone: PULM LAB [facility] Comment on above: Spirometry Start: 07-29-2023 End: 07-29-2023 Patient encounter procedure [facility] Work Phone: PULM LAB [facility] Start: 07-29-2023 End: 07-29-2023 Subsequent hospital visit by physician Xr [facility] Work Phone: Radiology Comment on above: Sjogren's syndrome, with unspecified organ involvement (HCC) [M35.00] Start: 07-25-2023 End: 07-26-2023 ambulatory IMAN PEACE Facility:[facility] Start: 07-25-2023 End: 07-25-2023 ambulatory Rajesh Suarez MD Work Phone: Rheumatology Comment on above: Sjogren's syndrome, with unspecified organ involvement (HCC) (Primary Dx); Shortness of breath Start: 07-25-2023 End: 07-25-2023 Telemedicine consultation with patient Rajesh Suarez MD Work Phone: Rheumatology Start: 07-21-2023 Telephone encounter Rajesh Funez Work Phone: Rheumatology Comment on above: Patient Update Start: 07-13-2023 End: 07-13-2023 Orders Only Rajesh Suarez MD Work Phone: Rheumatology Comment on above: Hematuria, unspecifi ed type (Primary Dx) Start: 07-13-2023 End: 07-13-2023 Patient encounter procedure [facility] Work Phone: Start: 07-11-2023 End: 07-12-2023 ambulatory IMAN PEACE Facility:[facility] Start: 07-11-2023 End: 07-11-2023 Office outpatient new 60 minutes Rajesh Suarez MD Work Phone: Rheumatology Comment on above: Urticaria (Primary D x); Positive LEONOR (antinuclear antibody); Hypermobility arthralgia; Weakness Start: 06-29-2023 Telephone encounter Iman Peace SPACE SCHEDULER.COSMETOLOGIST APPRENTICE Work Phone: [facility] Comment on above: Patient Question; Re sults Results Start: 06-28-2023 Telephone encounter Iman Peace SPACE SCHEDULER.COSMETOLOGIST APPRENTICE Work Phone: [facility] Comment on above: Refill Request Start: 06-27-2023 End: 06-27-2023 Patient encounter procedure Iman Peace SPACE SCHEDULER.COSMETOLOGIST APPRENTICE Work Phone: [facility] Comment on above: Urticaria (Primary D x); Arthralgia, unspecified joint; Vitamin D deficiency; Hematuria, unspecified type; Flank pain; Screening for thyroid disorder Start: 06-07-2023 End: 06-07-2023 Emergency department patient visit [facility] Work Phone: Start: 04-29-2023 End: 04-29-2023 Emergency department patient visit [facility] Work Phone: Start: 02-09-2023 End: 02-09-2023 Emergency department patient visit [facility] Work Phone: Start: 01-18-2023 End: 01-19-2023 ambulatory CAROLE A LUAN PRA Facility:[facility] Start: 01-02-2023 End: 01-02-2023 Emergency department patient visit [facility] Work Phone: Start: 11-06-2022 End: 11-06-2022 Emergency department patient visit [facility] Work Phone: Start: 06-20-2015 Patient encounter procedure UNKNOWN PROVIDER Facility:[facility] Procedures Date Procedure Procedure Detail Performing Clinician Start: 07-29-2023 Brncdilat rspse spmt ry pre&post-brncdilat admn Rajesh Suarez MD Work Phone: Start: 07-29-2023 Radiologic exam ches t 2 views Rajesh Suarez MD Work Phone: Start: 04-29-2023 SARS-CoV-2, Influenz a & RSV (PCR) Start: 06-20-2015 Extraction erupted tooth/exr UNKNOWN PROVIDER Plan of Treatment Date Care Activity Detail Author Start: 10-26-2033 Urine microalbumin profile DTaP,Tdap,Td Vaccine (9 - Td or Tdap) [facility] Start: 10-21-2025 Screening for malign ant neoplasm of cervix [facility] Start: 11-12-2024 Influenza vaccination C [facility] Start: 09-03-2024 [facility] Start: 07-24-2024 [facility] Start: 06-26-2024 Covid-19 Vaccine ( season) Covid-19 Vaccine () [facility] Comment on above: Postponed from 11/12 (Declined at this time) Start: 05-31-2024 [facility] Start: 05-23-2024 [facility] Start: 04-10-2024 [facility] Start: 03-11-2024 Urine microalbumin profile DTaP,Tdap,Td Vaccine (8 - Td or Tdap) [facility] Start: 02-26-2024 [facility] Start: 02-01-2024 [facility] Start: 11-13-2023 Covid-19 Vaccine ( season) Covid-19 Vaccine ( season) [facility] Start: 11-13-2023 Influenza vaccination C [facility] Start: 07-25-2023 End: 07-25-2023 Follow-up encounter 07/25/2023 3:30 PM EDT [facility] Rheumatology [address] [address] Rajesh Suarez MD [address] [id number] Follow up Rheumatology Comment on above: Follow up Start: 07-13-2023 Procedure [facility] Start: 07-13-2023 [facility] Start: 07-11-2023 End: 10-10-2023 Extractable nuclear Ab panel - [facility] Work Phone: Comment on above: Expected: 07/11/2023 , Expires: 10/10/2023 Start: 06-07-2023 [facility] Start: 04-29-2023 [facility] Start: 04-29-2023 [facility] Start: 03-14-2023 Behavioral Health Screening Behavioral Health Screening [facility] Start: 02-09-2023 [facility] Start: 01-02-2023 [facility] Start: 2020 Screening for malign ant neoplasm of cervix HPV Testing [facility] Start: 2008 Anxiety Screening Anxiety Screening [facility] Start: 2008 Depression Screening Depression Scre ening [facility] Clam IgE Ab [Units/volume] in [facility] Codfish IgE Ab [Units/volume] in [facility] [place] IgE Ab [Units/volume] in [facility] Cow milk IgE Ab [Units/volume] in [facility] Egg white IgE Ab [Units/volume] in [facility] End: 08-23-2024 LUNG DIFFUSION CAPACITY (DLCO) LUNG DIFFUSION CAPACITY (DLCO) PFT Routine Sjogren's syndrome, with unspecified organ involvement (HCC) Shortness of breath 1 Occurrences starting 07/25/2023 until 08/23/2024 [facility] Comment on above: 1 Occurrences starti ng 07/25/2023 until 08/23/2024 LUNG DIFFUSION CAPAC ITY (DLCO) LUNG DIFFUSION CAPACITY (DLCO) PFT Routine Sjogren's syndrome, with unspecified organ involvement (HCC) Shortness of breath 07/29/2023 8:18 AM EDT [facility] Work Phone: End: 08-23-2024 LUNG VOLUMES LUNG VOLUMES PFT Routine Sjogren's syndrome, with unspecified organ involvement (HCC) Shortness of breath 1 Occurrences starting 07/25/2023 until 08/23/2024 [facility] Work Phone: Comment on above: 1 Occurrences starti ng 07/25/2023 until 08/23/2024 LUNG VOLUMES LUNG VOLUMES PFT Routine Sjogren's syndrome, with unspecified organ involvement (HCC) Shortness of breath 07/29/2023 8:18 AM EDT [facility] Work Phone: Patient Education [facility] Work Phone: Patient referral [facility] Work Phone: Peanut IgE Ab [Units/volume] in [facility] Scallop [facility] Sesame seed [facility] Shrimp IgE Ab [Units/volume] in [facility] Soybean IgE Ab [Units/volume] in [facility] End: 08-23-2024 SPIROMETRY - BASELINE AND POST DILATOR SPIROMETRY - BASELINE AND POST DILATOR PFT Routine Sjogren's syndrome, with unspecified organ involvement (HCC) Shortness of breath 1 Occurrences starting 07/25/2023 until 08/23/2024 [facility] Comment on above: 1 Occurrences starti ng 07/25/2023 until 08/23/2024 SPIROMETRY - BASELIN E AND POST DILATOR SPIROMETRY - BASELINE AND POST DILATOR PFT Routine Sjogren's syndrome, with unspecified organ involvement (HCC) Shortness of breath 07/29/2023 8:18 AM EDT [facility] Work Phone: [place] IgE Ab [Units/volume] in [facility] [place] [facility] Wheat IgE Ab [Units/volume] in [facility] End: 08-23-2024 XR Chest PA and Lateral XR CHEST 2V FRONTAL/LAT Radiology Routine Sjogren's syndrome, with unspecified organ involvement (HCC) Shortness of breath 1 Occurrences starting 07/25/2023 until 08/23/2024 [facility] Comment on above: 1 Occurrences starti ng 07/25/2023 until 08/23/2024 Immunizations Immunization Date Immunization Notes Care Provider Hardik shepherd 10-27-2023 tetanus toxoid, redu alfonso diphtheria toxoid, and acellular pertussis vaccine, adsorbed Iman Queden FRONT END ENGINEER-C Work Phone: [facility] 01-10-2018 influenza, injectabl e, quadrivalent, preservative free Iman Queden SPACE SCHEDULER.COSMETOLOGIST APPRENTICE Work Phone: [facility] 01-10-2018 influenza virus vaccine, unspecified formulation Iman Queden SPACE SCHEDULER.COSMETOLOGIST APPRENTICE Work Phone: [facility] 01-22-2016 influenza, injectabl e, quadrivalent, contains preservative Iman Queden SPACE SCHEDULER.COSMETOLOGIST APPRENTICE Work Phone: [facility] 03-11-2014 tetanus toxoid, redu alfonso diphtheria toxoid, and acellular pertussis vaccine, adsorbed Iman Queden SPACE SCHEDULER.COSMETOLOGIST APPRENTICE Work Phone: [facility] 12-20-2013 influenza, seasonal, injectable Iman Queden SPACE SCHEDULER.COSMETOLOGIST APPRENTICE Work Phone: [facility] 01-24-2013 influenza, injectabl e, quadrivalent, preservative free Iman Queden SPACE SCHEDULER.COSMETOLOGIST APPRENTICE Work Phone: [facility] 01-22-2012 influenza virus vaccine, unspecified formulation Iman Queden SPACE SCHEDULER.[facility] Work Phone: [facility] 01-22-2010 influenza virus vaccine, unspecified formulation Iman Queden SPACE SCHEDULER.[facility] Work Phone: [facility] 12-31-2008 influenza virus vaccine, live, attenuated, for intranasal use Iman Queden SPACE SCHEDULER.[facility] Work Phone: [facility] Work Phone: 03-20-2008 human papilloma viru s vaccine, quadrivalent Iman Queden SPACE SCHEDULER.[facility] Work Phone: [facility] Work Phone: 01-19-2008 influenza virus vaccine, unspecified formulation Iman Queden SPACE SCHEDULER.[facility] Work Phone: [facility] Work Phone: 11-17-2007 human papilloma viru s vaccine, quadrivalent Iman Queden SPACE SCHEDULER.[facility] Work Phone: [facility] Work Phone: 09-16-2007 human papilloma viru s vaccine, quadrivalent Iman Queden SPACE SCHEDULER.[facility] Work Phone: [facility] Work Phone: 04-24-2007 hepatitis A vaccine, unspecified formulation Iman Queden SPACE SCHEDULER.[facility] Work Phone: [facility] Work Phone: 01-17-2007 influenza virus vaccine, unspecified formulation Iman Queden SPACE SCHEDULER.[facility] Work Phone: [facility] 10-10-2006 hepatitis A vaccine, unspecified formulation Iman Queden SPACE SCHEDULER.[facility] Work Phone: [facility] 10-10-2006 Meningococcal, MCV4, unspecified conjugate formulation(groups A, C, Y and W-135) Iman Queden SPACE SCHEDULER.[facility] Work Phone: [facility] 10-10-2006 tetanus toxoid, redu alfonso diphtheria toxoid, and acellular pertussis vaccine, adsorbed Iman Queden SPACE SCHEDULER.COSMETOLOGIST APPRENTICE Work Phone: [facility] 01-18-2003 influenza, seasonal, injectable Iman Queden SPACE SCHEDULER.COSMETOLOGIST APPRENTICE Work Phone: [facility] 01-25-2002 influenza virus vaccine, unspecified formulation Iman Queden SPACE SCHEDULER.[facility] Work Phone: [facility] 04-01-2001 tuberculin skin test ; purified protein derivative solution, intradermal Capri Elizabeth 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 [facility] 03-08-2001 hepatitis B vaccine, pediatric or pediatric/adolescent dosage Iman Queden SPACE SCHEDULER.[facility] Work Phone: [facility] 02-06-2001 influenza virus vaccine, unspecified formulation Iman Queden SPACE SCHEDULER.[facility] Work Phone: [facility] 09-22-2000 hepatitis B vaccine, pediatric or pediatric/adolescent dosage Iman Queden SPACE SCHEDULER.[facility] Work Phone: [facility] 08-12-2000 hepatitis B vaccine, pediatric or pediatric/adolescent dosage Iman Queden SPACE SCHEDULER.COSMETOLOGIST APPRENTICE Work Phone: [facility] 08-12-2000 measles, mumps and rubella virus vaccine Iman Queden SPACE SCHEDULER.[facility] Work Phone: [facility] 02-08-1996 diphtheria, tetanus toxoids and acellular pertussis vaccine Iman Queden SPACE SCHEDULER.COSMETOLOGIST APPRENTICE Work Phone: [facility] 02-08-1996 trivalent poliovirus vaccine, live, oral Iman Queden SPACE SCHEDULER.COSMETOLOGIST APPRENTICE Work Phone: [facility] Work Phone: 05-30-1995 tuberculin skin test ; purified protein derivative solution, intradermal Capri Elizabeth 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 [facility] 03-25-1993 diphtheria, tetanus toxoids and pertussis vaccine Iman Queden SPACE SCHEDULER.COSMETOLOGIST APPRENTICE Work Phone: [facility] Work Phone: 03-25-1993 trivalent poliovirus vaccine, live, oral Imna Queden SPACE SCHEDULER.[facility] Work Phone: [facility] Work Phone: 03-26-1992 haemophilus influenz ae type b vaccine, HbOC conjugate Iman Queden SPACE SCHEDULER.COSMETOLOGIST APPRENTICE Work Phone: [facility] 03-26-1992 measles, mumps and rubella virus vaccine Iman Queden SPACE SCHEDULER.COSMETOLOGIST APPRENTICE Work Phone: [facility] 03-14-1992 chicken pox (disease) Brittn y Queden SPACE SCHEDULER.COSMETOLOGIST APPRENTICE Work Phone: [facility] Work Phone: 07-16-1991 diphtheria, tetanus toxoids and pertussis vaccine Iman Queden SPACE SCHEDULER.[facility] Work Phone: [facility] Work Phone: 07-16-1991 haemophilus influenz ae type b vaccine, HbOC conjugate Iman Queden SPACE SCHEDULER.COSMETOLOGIST APPRENTICE Work Phone: [facility] 04-17-1991 diphtheria, tetanus toxoids and pertussis vaccine Iman Queden SPACE SCHEDULER.[facility] Work Phone: [facility] Work Phone: 04-17-1991 haemophilus influenz ae type b vaccine, HbOC conjugate Iman Queden SPACE SCHEDULER.COSMETOLOGIST APPRENTICE Work Phone: [facility] 04-17-1991 trivalent poliovirus vaccine, live, oral Iman Queden SPACE SCHEDULER.COSMETOLOGIST APPRENTICE Work Phone: [facility] Work Phone: 02-13-1991 diphtheria, tetanus toxoids and pertussis vaccine Iman Queden SPACE SCHEDULER.[facility] Work Phone: [facility] Work Phone: 02-13-1991 haemophilus influenz ae type b vaccine, HbOC conjugate Iman Queden SPACE SCHEDULER.COSMETOLOGIST APPRENTICE Work Phone: [facility] 02-13-1991 trivalent poliovirus vaccine, live, oral Iman Queden SPACE SCHEDULER.COSMETOLOGIST APPRENTICE Work Phone: [facility] Work Phone: Payers Date Payer Category Payer Self-pay [id number] 2022 Medicaid [id number] 2013 Unknown [id number] 2013 Unknown [id number] 1990 Unknown [id number] Unknown [id number] 2.16.8 [id number] Unknown [id number] 2.16.8 [id number] Unknown [id number] 2.16.8 [id number] Unknown [id number] 2.16.8 [id number] Unknown [id number] 2.16.8 [id number] Unknown [id number] 2.16.8 [id number] Unknown [id number] 2.16.8 [id number] Unknown [id number] 2.16.8 [id number] Social History Date Type Detail Facility Start: 11-06-2022 End: 06-07-2023 Tobacco smoking status RIIS Unknown if ever smoked [facility] Start: 10-12-2017 None [facility] Start: 1990 Sex Assigned At Female W [facility] Start: 06-27-2023 End: 09-03-2024 Tobacco smoking status RIIS Ex-smoker [facility] History of tobacco use Current smoker [facility] History of tobacco use Cigarette Smoker [facility] Start: 06-27-2023 End: 07-25-2023 Cigarette pack-years [facility] Start: 06-27-2023 Tobacco use and exposure Smokeless tobacco non-user [facility] Start: 06-27-2023 End: 07-29-2023 Alcohol intake Current drinker of alcohol (finding) [facility] Start: 06-27-2023 End: 07-25-2023 Tobacco use panel [facility] National Score (1-100), lower number is lower risk 89 [facility] Start: 06-27-2023 Tobacco Comment 5-6 CIGARETTES A DAY for 4 years [facility] Start: 06-27-2023 [facility] Start: 1990 Sex Assigned At Not on file C [facility] Start: 05-23-2024 End: 05-31-2024 Sex Female (finding) [facility] NEGATED: Highlighted row [facility] Functional Status Date Assessment Result Facility 08-20-2014 Are you deaf, or do you have serious difficulty hearing No 08/20/2014 4:13 PM EDT Bailey Hugo Ma [facility] 08-20-2014 Are you blind, or do you have serious difficulty seeing, even when wearing glasses No 08/20/2014 4:13 PM Bailey Díaz Ma [facility] 08-20-2014 Do you have serious difficulty walking or climbing stairs No 08/20/2014 4:13 PM Bailey Díaz Ma [facility] 08-20-2014 Do you have difficul ty dressing or bathing No 08/20/2014 4:13 PM Bailey Díaz Ma [facility] 08-20-2014 Because of a physica l, mental, or emotional condition, do you have difficulty doing errands alone such as visiting a physician's office or shopping No 08/20/2014 4:13 PM Bailey Díaz Ma [facility] Mental Status Date Assessment Result Facility 04-29-2023 Cognitive function Level Of Cons ciousness Awake;Alert;Appropriate;Fol lows Commands [facility] Work Phone: 08-20-2014 Because of a physica l, mental, or emotional condition, do you have serious difficulty concentrating, remembering, or making decisions No 08/20/2014 4:13 PM EDT Masters Bailey Cowan [facility] Clinical Notes 03-25-2014 to 01-15-2025 Capri Castle LPN - 09/06/2024 10:29 AM Venancio Landaverde MA - 07/30/2024 2:49 PM Capri Cardoso LPN - 06/08/2024 10:52 AM EDT Note Date & Type Note Facility 01-15-2025 Note HNO ID: [id number] Author: CAPRI CASTLE LPN Service: ? Author Type: Licensed Nurse Type: Progress Notes Filed: 01/15/2025 09:56 Note Text: ED Follow-Up Note Provider Action / FYI: Call completed by: MAGAN Patient seen in ED: Out of Network ED Contact made with Patient: No, left message. Capri Castle LPN January 15, 2025 9:56 AM [facility] 01-14-2025 Note HNO ID: [id number] Author: CAPRI CASTLE LPN Service: ? Author Type: Licensed Nurse Type: Progress Notes Filed: 01/14/2025 16:02 Note Text: ED Follow-Up Note Provider Action / FYI: Call completed by: MAGAN Patient seen in ED: Out of Network ED Contact made with Patient: No, left message. Capri Castle LPN January 14, 2025 4:01 PM [facility] 01-14-2025 Note Patient Outreach (AG FAMPLE) TRACIE MELENDEZ ([id number]) 1990 F Date Time Provider Department 01/14/25 IMAN PEACE During your visit today, we recorded the following information about you: Capri Castle LPN 01/14/2025 4:02 PM Signed ED Follow-Up Note Provider Action / FYI: Call completed by: MAGAN Patient seen in ED: Out of Network ED Contact made with Patient: No, left message. Capir Castle LPN January 14, 2025 4:01 PM Capri Castle LPN 01/15/2025 9:56 AM Signed ED Follow-Up Note Provider Action / FYI: Call completed by: MAGAN Patient seen in ED: Out of Network ED Contact made with Patient: No, left message. Capri Castle LPN January 15, 2025 9:56 AM Allergies As of Date: 01/14/2025 Noted Allergy Reaction environmental [Other] 10/23/2004 Date Reviewed: 07/11/2023 Reviewed by: Trudy Dasilva MA - Fully Assessed Reason for Visit: ED Follow-up [821] Cmt: [facility] 01/10/2025 Prescriptions as of 01/15/2025 - predniSONE (DELTASONE) 20 mg tablet Take 2 tablets by mouth once daily. - potassium chloride ER (KLOR-CON M20) 20 [...] of 11/04/2010: Problem List As Of Date 01/14/2025 Noted Resolved SOLAR LENGINES///DYSCHROMIA OTHER [L81.9] 02/17/2006 [...] [O26.849] 03/25/2014 06/20/2014 Encounter Status:Closed by CAPRI ACSTLE on 01/14/25 [facility] 09-07-2024 Note HNO ID: [id number] Author: CAPRI CASTLE LPN Service: ? Author Type: LICENSED NURSE Type: Progress Notes Filed: 09/07/2024 10:16 Note Text: ED Follow-Up Note Provider Action / FYI: Call completed by: MAGAN Patient seen in ED: Out of Network ED Contact made with Patient: No, left message. Capri Castle LPN September 07, 2024 10:16 AM [facility] 09-06-2024 Note HNO ID: [id number] Author: CAPRI CASTLE LPN Service: ? Author Type: LICENSED NURSE Type: Progress Notes Filed: 09/06/2024 10:35 Note Text: ED Follow-Up Note Provider Action / FYI: Call completed by: MAGAN Patient seen in ED: Out of Network ED Contact made with Patient: No, left message. Capri Castle LPN September 06, 2024 10:35 AM [facility] 09-06-2024 History of Present illness Narrative ED Follow-Up Note Provider Action / FYI: Call completed by: MAGAN Patient seen in ED: Out of Network ED Contact made with Patient: No, left message. Capri Castle LPN September 06, 2024 10:35 AM documented in this encounter [facility] 09-06-2024 Note Patient Outreach (AG FAMPLE) TRACIE MELENDEZ ([id number]) 1990 F Date Time Provider Department 09/06/24 IMAN PEACE During your visit today, we recorded the following information about you: Capri Castle LPN 09/06/2024 10:35 AM Signed ED Follow-Up Note Provider Action / FYI: Call completed by: MAGAN Patient seen in ED: Out of Network ED Contact made with Patient: No, left message. Capri Castle LPN September 06, 2024 10:35 AM Capri Castle LPN 09/07/2024 10:16 AM Signed ED Follow-Up Note Provider Action / FYI: Call completed by: MAGAN Patient seen in ED: Out of Network ED Contact made with Patient: No, left message. Capri Castle LPN September 07, 2024 10:16 AM Allergies As of Date: 09/06/2024 Noted Allergy Reaction environmental [Other] 10/23/2004 Date Reviewed: 07/11/2023 Reviewed by: Trudy Dasilva MA - Fully Assessed Reason for Visit: ED Follow-up [821] Cmt: [facility] 09/03/2024 Prescriptions as of 09/07/2024 - potassium chloride ER (KLOR-CON M20) 20 [...] of 11/04/2010: Problem List As Of Date 09/06/2024 Noted Resolved SOLAR LENGINES///DYSCHROMIA OTHER [L81.9] 02/17/2006 [...] 06/20/2014 Encounter Status:Closed by CAPRI CASTLE on 09/06/24 [facility] 07-31-2024 Note HNO ID: [id number] Author: WILLA RODRIGUEZ MA Service: ? Author Type: Sprinkler Truck Driver Type: Progress Notes Filed: 07/31/2024 10:49 Note Text: Still no answer Willa Rodriguez MA [facility] [facility] 07-30-2024 Note HNO ID: [id number] Author: VENANCIO HINTON MA Service: ? Author Type: Sprinkler Truck Driver Type: Progress Notes Filed: 07/30/2024 14:55 Note Text: ED Follow Up: Patient discharged from [facility] ED on 07/24/24. 1. How are you feeling since your ED visit? Left message inquiring how patient is doing and recommended calling back if she needs anything. Have your symptoms improved or resolved? Left message 2. Were you prescribed any medications while in the ED or advised to stop any medication? Left message - If yes, were you able to fill your prescriptions? Left message -if stopped medication, what was the medication? Left message 3. Were you advised to schedule a follow up appointment with your provider? Left message - If no, Do you feel like you need an appointment scheduled? Left message - If yes, Do you need this scheduled now or has this already been scheduled? Left message 4. Were you able to contact the office or biodiesel plant operations engineer provider prior to your ED visit? left message 5. Is there anything else I can do for you today? Left message Venancio Hinton MA [facility] 07-30-2024 History of Present illness Narrative ED Follow Up: Patient discharged from [facility] ED on 07/24/24. 1. How are you feeling since your ED visit? Left message inquiring how patient is doing and recommended calling back if she needs anything. Have your symptoms improved or resolved? Left message 2. Were you prescribed any medications while in the ED or advised to stop any medication? Left message - If yes, were you able to fill your prescriptions? Left message -if stopped medication, what was the medication? Left message 3. Were you advised to schedule a follow up appointment with your provider? Left message - If no, Do you feel like you need an appointment scheduled? Left message - If yes, Do you need this scheduled now or has this already been scheduled? Left message 4. Were you able to contact the office or biodiesel plant operations engineer provider prior to your ED visit? left message 5. Is there anything else I can do for you today? Left message Venancio Hinton MA documented in this encounter [facility] 07-30-2024 Note Patient Outreach (AG FAMPLE) TRACIE MELENDEZ ([id number]) 1990 F Date Time Provider Department 07/30/24 IMAN PEACE During your visit today, we recorded the following information about you: Venancio Hinton MA 07/30/2024 2:55 PM Signed ED Follow Up: Patient discharged from [facility] ED on 07/24/24. 1. How are you feeling since your ED visit? Left message inquiring how patient is doing and recommended calling back if she needs anything. Have your symptoms improved or resolved? Left message 2. Were you prescribed any medications while in the ED or advised to stop any medication? Left message - If yes, were you able to fill your prescriptions? Left message -if stopped medication, what was the medication? Left message 3. Were you advised to schedule a follow up appointment with your provider? Left message - If no, Do you feel like you need an appointment scheduled? Left message - If yes, Do you need this scheduled now or has this already been scheduled? Left message 4. Were you able to contact the office or biodiesel plant operations engineer provider prior to your ED visit? left message 5. Is there anything else I can do for you today? Left message FANNY Sullivan Julie, MA 07/31/2024 10:49 AM Signed Still no answer Willa Rodriguez MA Allergies As of Date: 07/30/2024 Noted Allergy Reaction environmental [Other] 10/23/2004 Date Reviewed: 07/11/2023 Reviewed by: Trudy Dasilva MA - Fully Assessed Reason for Visit: ED Follow-up [821] Cmt: [facility] 07/24/24 Prescriptions as of 07/31/2024 - potassium chloride ER (KLOR-CON M20) 20 [...] of 11/04/2010: Problem List As Of Date 07/30/2024 Noted Resolved SOLAR LENGINES///DYSCHROMIA OTHER [L81.9] 02/17/2006 [...] discrepancy [O26.849] 03/25/2014 06/20/2014 Encounter Status:Closed by VENANCIO HINTON on 07/30/24 [facility] 06-11-2024 Note HNO ID: [id number] Author: CAPRI CASTLE LPN Service: ? Author Type: LICENSED NURSE Type: Progress Notes Filed: 06/11/2024 16:49 Note Text: ED Follow-Up Note Provider Action / FYI: Call completed by: MAGAN Patient seen in ED: Out of Network ED Contact made with Patient: No, left message. Capri Castle LPN June 11, 2024 4:49 PM [facility] 06-08-2024 Note HNO ID: [id number] Author: CAPRI CASTLE LPN Service: ? Author Type: LICENSED NURSE Type: Progress Notes Filed: 06/08/2024 10:54 Note Text: ED Follow-Up Note Provider Action / FYI: Call completed by: 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 Patient seen in ED: Out of Network ED Contact made with Patient: No, left message. Capri Castle LPN June 08, 2024 10:54 AM [facility] 06-08-2024 History of Present illness Narrative ED Follow-Up Note Provider Action / FYI: Call completed by: MAGAN Patient seen in ED: Out of Network ED Contact made with Patient: No, left message. Capri Castle LPN June 08, 2024 10:54 AM documented in this encounter [facility] 06-08-2024 Note Patient Outreach (AG INTMLW) RAYTRACIE Solis ([id number]) 1990 F Date Time Provider Department 06/08/24 IMAN PEACE AGINTMLW During your visit today, we recorded the following information about you: Capri Castle LPN 06/08/2024 10:54 AM Signed ED Follow-Up Note Provider Action / FYI: Call completed by: MAGAN Patient seen in ED: Out of Network ED Contact made with Patient: No, left message. Capri Castle LPN June 08, 2024 10:54 AM Capri Castle LPN 06/11/2024 4:49 PM Signed ED Follow-Up Note Provider Action / FYI: Call completed by: MAGAN Patient seen in ED: Out of Network ED Contact made with Patient: No, left message. Capri Castle LPN June 11, 2024 4:49 PM Allergies As of Date: 06/08/2024 Noted Allergy Reaction environmental [Other] 10/23/2004 Date Reviewed: 07/11/2023 Reviewed by: Trudy Dasilva MA - Fully Assessed Reason for Visit: ED Follow Up [973] Cmt: [facility] 05/31/2024 Prescriptions as of 06/11/2024 - potassium chloride ER (KLOR-CON M20) 20 [...] of 11/04/2010: Problem List As Of Date 06/08/2024 Noted Resolved SOLAR LENGINES///DYSCHROMIA OTHER [L81.9] 02/17/2006 [...] 06/20/2014 Encounter Status:Closed by CAPRI CASTLE on 06/08/24 [facility] 05-31-2024 Discharge summary [facility] 05-31-2024 Discharge summary Note Date/Time May 31, 2024 10:15pm [facility] Medical Records Department [address] [place] [address] Emergency Department Summary 05/31/24 MR#: [id number] Acct: [id number] Name: TRACIE MELENDEZ Rep #:[id number] : 1990 33 From: Collin Allen MD PCP: JOHNSON Nuñez Status:REG E R Location: ED HPI History of Present Illness Chief Complaint: Allergic Reaction Detail of Chief Complaint: Patient presents with allergic reaction started yesterday after allergen Informant: patient Onset/Context/Timing Onset: Yesterday Context: Sudden Onset Timing: Continuous Quality: Hives that started on the ankle and now is generalized Location: Generalized Current Severity: Moderate Maximum Severity: Moderate Worsened by: Concern cell address and may have had sesame seed oil which she is allergic Relieved by: Nothing Associated Symptoms Associated Symptoms: No cardiovascular, respiratory or GI symptoms Narrative Narrative: Patient is a 33-year-old woman. She presents with rash. She had salad at restaurant. She states about 23 minutes after the salad she began to have itching of her ankles. Rash developed. She took a Benadryl capsule, 50 mg, last evening at 10 PM. She is taken nothing since. The hives have spread. Shedenies respiratory symptoms. She denies cardiac symptoms. She denies orthostatic symptoms. She denies GI symptoms. She denies swelling of her lips,tongue or throat. She denies change in voice. Prior similar symptoms: Yes Recent Illness/Hospitalization: No PFSH PFS Medical History Anxiety Home Medications ?Medication ?Instructions ?Recorded ?Last Taken ?Type epinephrine 0.3 mg/0.3 mL 0.3 mg (0.3 mL) IM Q15M PRN 04/29/23 Unknown Rx injection, auto-injector (EpiPen) anaphylaxis #2 ea cholecalciferol (vitamin D3) 50 50 mcg PO DAILY Unknown History mcg (2,000 unit) capsule (Vitamin D3) fluoxetine 20 mg capsule 20 mg PO DAILY 08/06/23 Unkn own History hydroxyzine pamoate 25 mg capsule 25 mg PO BID 4 Unknown History albuterol sulfate 90 mcg/actuation 1 - 2 puff inhalati on Q4H PRN PRN 11/09/23 Unknown History aerosol inhaler wheezing cefdinir 300 mg capsule 300 mg PO Q12.TCU 01/14/24 U nknown History naproxen 500 mg tablet 500 mg PO BID PRN #20 tabs 1 03/15/23 Unknown Rx penicillin V potassium 500 mg 500 mg PO 4X/DAY #40 tab s 01/14/24 Unknown Rx tablet doxycycline monohydrate 100 mg 100 mg PO BID #14 CAPSU LES 02/01/24 Unknown Rx capsule famotidine 20 mg tablet (Pepcid AC) 20 mg PO BID #14 t abs 02/26/24 Unknown Rx prednisone 20 mg tablet 40 mg (2 x 20 mg) PO DAILY # 14 tabs 02/26/24 Unknown Rx methylprednisolone 4 mg tablets in 4 mg PO DAILY #21 t abs 04/10/24 Unknown Rx a dose pack amoxicillin 875 mg-potassium 1 tab PO BID 7 days #14 t abs 05/23/24 Unknown Rx clavulanate 125 mg tablet diphenhydramine HCl 25 mg capsule 25 mg PO Q6H #14 cap s 05/31/24 Unknown Rx (Benadryl) famotidine 20 mg tablet 20 mg PO BID #8 TABLETS 03 Unknown Rx prednisone 20 mg tablet 40 mg (2 x 20 mg) PO DAILY # 8 05/31/24 Unknown Rx TABLETS Allergy/AdvReac Type Severity Reaction Status Date / Time corn Allergy Severe Hives Verified 05/31/24 20:32 peanut (peanuts) Allergy Severe Hives Verified 05/31/24 20:32 sesame seed Allergy Severe Hives Verified 05/31/24 20:32 shellfish derived Allergy Severe Hives Verified 05/31/24 20:32 pseudoephedrine Allergy Mild Rash Verified 05/31/24 20:32 Social History household members: children Smoking Status: Former smoker ROS ROS ED Constitutional Constitutional ED: Denies chills or fever(s) Eyes Eyes: Denies blurry vision or change in vision ENT ENT ED: Denies rhinorrhea or sore throat Cardiovascular Cardiovascular: Denies chest pain or palpitations Respiratory/Chest Respiratory/Chest: Denies cough, dyspnea or dyspnea on exertion Gastrointestinal Gastrointestinal: Denies abdominal pain, diarrhea, nausea or vomiting Integumentary Reports rash Hematologic/Lymphatic Hematologic/Lymphatic: Reports systems reviewed and no addt'l complaints, exceptas documented Allergic/Immunologic Allergic/Immunologic ED: Denies mouth swelling, tongue swelling or urticaria EXAM Physical Exam Const Vital Signs: 05/31/24 20:32 Temperature 97.6 F L Temperature Source Temporal Pulse Rate 78 Respiratory Rate 18 Blood Pressure 144/94 H Blood Pressure Mean 110 Pulse Ox 97 Oxygen Delivery Method Room Air Positive well nourished and well developed General Appearance ED: well developed and NAD; Negative for pallor HEENT Reports moist mucous membranes HEENT Narrative: Head is atraumatic normocephalic. Patient has multiple piercings of her lip andnose. Posterior pharynx normal. There is no evidence of angioedema. Eyes PERRL and EOMs intact bilaterally General Eye ED: Negative for pale conjunctiva or scleral icterus Neck no lymphadenopathy, supple and no JVD Resp normal respiratory effort and clear to auscultation bilaterally Cardio regular rate, regular rhythm, S1 normal heart sound, S2 normal heart sound and no murmurs GI normal to inspection, nondistended, normoactive bowel sounds, non-tender, non-distended and no masses; Negative for hepatosplenomegaly Extremity normal to inspection General Extremety ED: Negative for edema or tenderness General Extremity: Negative for edema Neuro oriented x3 and CN's II-XII intact bilaterally Sensorium / Orientation: alert Psych mental status grossly normal Skin no wounds and skin turgor normal Skin Narrative: Patient has generalized urticaria. General Skin Exam: elasticity normal; Negative for jaundice or pallor MDM MDM MDM Narrative Medical decision making narrative: Patient presents with urticaria. Suspect food allergen as the cause. Patient did take Benadryl with no improvement. Since she has no cardiovascular, hemodynamic stability or angioedema she was treated with H1 and H2 kamron and prednisone. Will reassess in 30 to 60 minutes. History & Record Review Additional record(s) reviewed:: Prior ED visit (She was seen earlier this month for dental infection. She had an allergic reaction March due to food and in February.) and Prior labs Treatment and Re-Evaluation :: Patient was reassessed at 2210. She had to be awakened. Her rash has improved 50 to 75%. Since she has no other symptoms will discharge on H1 H2 kamron and prednisone. Discharge Plan Triage Chief Complaint: Allergic Reaction ED Provider: Collin Allen Dx/Rx/DC Orders Clinical Impression: Urticaria due to food allergy, Elevated blood-pressure reading without diagnosis of hypertension Instructions: ED General Allergic Reactions, ED Hypertension, To Be Confirmed Prescriptions: New prednisone 20 mg tablet 40 mg PO DAILY Qty: 8 0RF famotidine 20 mg tablet 20 mg PO BID Qty: 8 0RF diphenhydramine HCl [Benadryl] 25 mg capsule 25 mg PO Q6H Qty: 14 0RF No Action epinephrine [EpiPen] 0.3 mg/0.3 mL auto-injector 0.3 mg IM Q15M PRN (Reason: anaphylaxis) Qty: 2 0RF albuterol sulfate 90 mcg/actuation HFA aerosol inhaler 1 - 2 puff inhalation Q4H PRN PRN (Reason: wheezing) prednisone 20 mg tablet 40 mg PO DAILY Qty: 14 0RF famotidine [Pepcid AC] 20 mg tablet 20 mg PO BID Qty: 14 0RF amoxicillin-pot clavulanate 875-125 mg tablet 1 tab PO BID 7 Days Qty: 14 0RF fluoxetine 20 mg capsule 20 mg PO DAILY hydroxyzine pamoate 25 mg capsule 25 mg PO BID cholecalciferol (vitamin D3) [Vitamin D3] 50 mcg (2,000 unit) capsule 50 mcg PO DAILY cefdinir 300 mg capsule 300 mg PO Q12.TCU penicillin V potassium 500 mg tablet 500 mg PO 4X/DAY Qty: 40 0RF naproxen 500 mg tablet 500 mg PO BID PRN Qty: 20 0RF doxycycline monohydrate 100 mg capsule 100 mg PO BID Qty: 14 0RF methylprednisolone 4 mg tablets,dose pack 4 mg PO DAILY Qty: 21 0RF Primary Care Provider: Iman Peace NP Referrals: Iman Peace NP, FRONT END ENGINEER-C [Primary Care Provider] - As Needed Print Language: [place] Disposition Disposition: Home, Self Care What to do if you have Problems For any increased pain, shortness of breath, bleeding, nausea or vomiting, chestpain, or any unexpected problems, contact your Primary Care Provider. Call [facility] ([phone]) or report to the closest Emergency Room. Call 911 if necessary. 05/31/24 1317 <Electronically signed by Collin Allen MD> Cosigner Signature (if applicable): CC: JOHNSON Peace ~ Signed [facility] Work Phone: [phone] 204-669603-17-2025 NoteHNO ID: [id number] Author: CAPRI CASTLE LPN Service: ? Author Type: LICENSED NURSE Type: Progress Notes Filed: 05/28/2024 10:00 Note Text: ED Follow-Up Note Provider Action / FYI: Call completed by: MAGAN Patient seen in ED: Out of Network ED Contact made with Patient: No, left message. Capri Castle LPN May 28, 2024 10:00 [facility]03-13-2025 NoteHNO ID: [id number] Author: CAPRI CASTLE LPN Service: ? Author Type: LICENSED NURSE Type: Progress Notes Filed: 05/24/2024 12:03 Note Text: ED Follow-Up Note Provider Action / FYI: Call completed by: MAGAN Patient seen in ED: Out of Network ED Contact made with Patient: No, left message. Capri Castle LPN May 24, 2024 12:03 [facility]03-13-2025 History of Present illness Narrative* Capri Castle LPN - 05/24/2024 12:01 PM EDT ED Follow-Up Note Provider Action / FYI: Call completed by: MAGAN Patient seen in ED: Out of Network ED Contact made with Patient: No, left message. Capri Castle LPN May 24, 2024 12:03 PM [facility] Telephone encounter Note * Telephone Encounter - Marissa Doran MA - 05/24/2024 11:53 AM EDT Lm on vm rx sent. Marissa Doran MA [facility]03-13-2025 Miscellaneous Notes* Telephone Encounter - Marissa Doran MA - 05/24/2024 11:53 AM EDT Lm on vm rx sent. Marissa Doran MA * Addendum Note - Nelson Navas APRN.CNP - 05/24/2024 11:44 AM EDTAddended by: NELSON NAVAS on: 05/24/2024 11:44 AM Modules accepted: Orders * Telephone Encounter - Nelson Navas APRN.CNP - 05/24/2024 11:44 AM EDT Amoxicillin sent to Terrance Navas APRN.CNP * Telephone Encounter - Marissa Doran MA - 05/24/2024 10:06 AM EDT Patient lm on requesting antibiotic for abscess tooth. Cannot get into dentist for 2 weeks. Please advise. Marissa Doran MA [facility] Note* Addendum Note - Nelson Navas APRN.CNP - 05/24/2024 11:44 AM EDTAddended by: NELSON NAVAS on: 05/24/2024 11:44 AM Modules accepted: Orders [facility]03-13-2025 Telephone encounter Note* Telephone Encounter - Nelson Navas APRN.CNP - 05/24/2024 11:44 AM EDT Amoxicillin sent to Terrance Navas APRN.CNP [facility]03-13-2025 Telephone encounter Note* Telephone Encounter - Marissa Doran MA - 05/24/2024 10:06 AM EDT Patient lm on vm requesting antibiotic for abscess tooth. Cannot get into dentist for 2 weeks. Please advise. Marissa Doran MA [facility]03-13-2025 NotePatient Outreach (AGFAMPLE) TRACIE MELENDEZ ([id number]) 1990 F Date Time Provider Department 05/24/24 IMAN PEACE During your visit today, we recorded the following information about you: Capri Castle LPN 05/24/2024 12:03 PM Signed ED Follow-Up Note Provider Action / FYI: Call completed by: MAGAN Patient seen in ED: Out of Network ED Contact made with Patient: No, left message. Capri Castle LPN May 24, 2024 12:03 PM Capri Castle LPN 05/28/2024 10:00 AM Signed ED Follow-Up Note Provider Action / FYI: Call completed by: MAGAN Patient seen in ED: Out of Network ED Contact made with Patient: No, left message. Capri Castle LPN May 28, 2024 10:00 AM Allergies As of Date: 05/24/2024 Noted Allergy Reaction environmental [Other] 10/23/2004 Date Reviewed: 07/11/2023 Reviewed by: Trudy Dasilva MA - Fully Assessed Reason for Visit: ED Follow-up [821] Cmt: [facility] 05/23/2024 Prescriptions as of 05/28/2024 - amoxicillin (AMOXIL) 500 mg capsule Take 1 capsule by mouth every 8 hours for 10 days. 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 05-23-2024 Discharge summary [facility] Medical Records Department [address] [place] [address] Emergency Department Summary 05/23/24 MR#: [id number] Acct: [id number] Name: TRACIE MELENDEZ Rep #:[id number] : 1990 33 From: Mor benitez DO PCP: JOHNSON Nuñez Status:PRE E R Location: ED HPI History of Present Illness Chief Complaint: Dental Narrative Narrative: Chief complaint and HPI: Dental infection. 33-year-old female presents for evaluation of dental infection. Patient has known poor dentition. She follows with a dentist. She states that she has multiple damaged teeth that are scheduled for a root canal. Some have already received root canals. Patient states 4 days ago she developed pain in the left central incisor. She states this is one of the teeth that are scheduled to be repaired. She denies any fever, shortness of breath, chest pain, difficulty speaking or swallowing. Patient has been taking Tylenol. She denies history of diabetes or IV drug abuse. Patient states she is scheduled to see her dentist. Review of systems: See HPI Medications: As listed on the chart Allergies: As listed on the chart PFSH: Per chart Vital signs: As listed on the chart. Reviewed. Physical exam: Gen: A&O x3, NAD Head: Normocephalic, atraumatic Eyes: No sclera icterus, conjunctiva clear, PERRL, EOMI ENT: Moist mucous membranes, posterior oropharynx unremarkable, uvula midline, no Justen angina, patient has poor dentition with multiple broken and rotten teeth. Patient has some mild gingival irritation around the left central incisor-mildly tender to palpation. No dental abscess. Normal phonation. Tolerating secretions. No facial swelling. Neck: Trachea midline, No JVD, Full ROM, No meningismus, no swelling CV: RRR, no murmurs, no peripheral edema, no stridor Resp: Lungs CTA BL, no w/r/c Skin: Warm, dry, no rash Neuro: Alert, oriented, grossly intact, sensation intact Psych: Cooperative, appropriate mood and affect [facility] Medical History Anxiety Home Medications ?Medication ?Instructions ?Recorded ?Last Taken ?Type epinephrine 0.3 mg/0.3 mL 0.3 mg (0.3 mL) IM Q15M PRN 04/29/23 Unknown Rx injection, auto-injector (EpiPen) anaphylaxis #2 ea cholecalciferol (vitamin D3) 50 50 mcg PO DAILY Unknown History mcg (2,000 unit) capsule (Vitamin D3) fluoxetine 20 mg capsule 20 mg PO DAILY 08/06/23 Unkn own History hydroxyzine pamoate 25 mg capsule 25 mg PO BID 4 Unknown History albuterol sulfate 90 mcg/actuation 1 - 2 puff inhalati on Q4H PRN PRN 11/09/23 Unknown History aerosol inhaler wheezing cefdinir 300 mg capsule 300 mg PO Q12.TCU 01/14/24 U nknown History naproxen 500 mg tablet 500 mg PO BID PRN #20 tabs 1 03/15/23 Unknown Rx penicillin V potassium 500 mg 500 mg PO 4X/DAY #40 tab s 01/14/24 Unknown Rx tablet doxycycline monohydrate 100 mg 100 mg PO BID #14 CAPSU LES 02/01/24 Unknown Rx capsule famotidine 20 mg tablet (Pepcid AC) 20 mg PO BID #14 t abs 02/26/24 Unknown Rx prednisone 20 mg tablet 40 mg (2 x 20 mg) PO DAILY # 14 tabs 02/26/24 Unknown Rx methylprednisolone 4 mg tablets in 4 mg PO DAILY #21 t abs 04/10/24 Unknown Rx a dose pack Allergy/AdvReac Type Severity Reaction Status Date / Time corn Allergy Severe Hives Verified 05/23/24 09:36 peanut (peanuts) Allergy Severe Hives Verified 05/23/24 09:36 sesame seed Allergy Severe Hives Verified 05/23/24 09:36 shellfish derived Allergy Severe Hives Verified 05/23/24 09:36 pseudoephedrine Allergy Mild Rash Verified 05/23/24 09:36 Social History household members: children Smoking Status: Former smoker EXAM Physical Exam Const Vital Signs: 05/23/24 09:34 Temperature 97.2 F L Temperature Source Temporal Pulse Rate 67 Respiratory Rate 15 Blood Pressure 137/88 H Blood Pressure Mean 104 Pulse Ox 99 Oxygen Delivery Method Room Air MDM MDM MDM Narrative Medical decision making narrative: 33-year-old female presents for evaluation of dental infection. Patient has known poor dentition. See physical exam findings. Differential diagnosis includes was not limited to dental abscess, dentalinfection. Patient does not have a dental abscess on physical exam. Concern is for a dental infection. Patient will be placed on Augmentin. Educated on Tylenol as needed for pain. Follow-up with dentist. She confirmed understand the plan. Return precautions explained. Impression: 1. Dental infection 2. Poor dentition Discharge Plan Triage Chief Complaint: Dental ED Provider: Mor Urena Dx/Rx/DC Orders Prescriptions: No Action epinephrine [EpiPen] 0.3 mg/0.3 mL auto-injector 0.3 mg IM Q15M PRN (Reason: anaphylaxis) Qty: 2 0RF albuterol sulfate 90 mcg/actuation HFA aerosol inhaler 1 - 2 puff inhalation Q4H PRN PRN (Reason: wheezing) prednisone 20 mg tablet 40 mg PO DAILY Qty: 14 0RF famotidine [Pepcid AC] 20 mg tablet 20 mg PO BID Qty: 14 0RF fluoxetine 20 mg capsule 20 mg PO DAILY hydroxyzine pamoate 25 mg capsule 25 mg PO BID cholecalciferol (vitamin D3) [Vitamin D3] 50 mcg (2,000 unit) capsule 50 mcg PO DAILY cefdinir 300 mg capsule 300 mg PO Q12.TCU penicillin V potassium 500 mg tablet 500 mg PO 4X/DAY Qty: 40 0RF naproxen 500 mg tablet 500 mg PO BID PRN Qty: 20 0RF doxycycline monohydrate 100 mg capsule 100 mg PO BID Qty: 14 0RF methylprednisolone 4 mg tablets,dose pack 4 mg PO DAILY Qty: 21 0RF Primary Care Provider: Iman Peace NP Referrals: Iman Peace FRONT END ENGINEER, FRONT END ENGINEER-C [Primary Care Provider] - Print Language: [place] What to do if you have Problems For any increased pain, shortness of breath, bleeding, nausea or vomiting, chestpain, or any unexpected problems, contact your Primary Care Provider. Call [facility] ([phone]) or report tothe closest Emergency Room. Call 911 if necessary. 05/23/24 1008 Cosigner Signature (if applicable): CC: JOHNSON Peace ~ [facility]igned [facility]01-31-2025 NoteHNO ID: [id number] Author: CAPRI CASTLE LPN Service: ? Author Type: LICENSED NURSE Type: Progress Notes Filed: 04/13/2024 10:08 Note Text: ED Follow-Up Note Provider Action / FYI: Call completed by: MAGAN Patient seen in ED: Out of Network ED Contact made with Patient: No, left message. Capri Castle LPN April 13, 2024 10:08 [facility]01-30-2025 NoteHNO ID: [id number] Author: CAPRI CASTLE LPN Service: ? Author Type: LICENSED NURSE Type: Progress Notes Filed: 04/12/2024 15:57 Note Text: ED Follow-Up Note Provider Action / FYI: Call completed by: MAGAN Patient seen in ED: Out of Network ED Contact made with Patient: No, left message. Capri Castle LPN April 12, 2024 3:57 [facility]01-30-2025 History of Present illness Narrative* Capri Castle LPN - 04/12/2024 3:55 PM EST ED Follow-Up Note Provider Action / FYI: Call completed by: MAGAN Patient seen in ED: Out of Network ED Contact made with Patient: No, left message. Capri Castle LPN April 12, 2024 3:57 PM documented in this encounterDayton Children'S Hospital01-30-2025 NotePatient Outreach (AGFAMPLE) TRACIE MELENDEZ ([id number]) 1990 F Date Time Provider Department 04/12/24 IMAN PEACE During your visit today, we recorded the following information about you: Capri Castle LPN 04/12/2024 3:57 PM Signed ED Follow-Up Note Provider Action / FYI: Call completed by: MAGAN Patient seen in ED: Out of Network ED Contact made with Patient: No, left message. Capri Castle LPN April 12, 2024 3:57 PM Capri Castle LPN 04/13/2024 10:08 AM Signed ED Follow-Up Note Provider Action / FYI: Call completed by: MAGAN Patient seen in ED: Out of Network ED Contact made with Patient: No, left message. 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 02-28-2024 NoteHNO ID: [id number] Author: CAPRI CASTLE LPN Service: ? Author Type: LICENSED NURSE Type: Progress Notes Filed: 02/28/2024 10:07 Note Text: ED Follow-Up Note Provider Action / FYI: Call completed by: MAGAN Patient seen in ED: Out of Network ED Contact made with Patient: No, left message. Capri Castle LPN February 28, 2024 10:07 [facility]12-16-2024 NoteHNO ID: [id number] Author: CAPRI CASTLE LPN Service: ? Author Type: LICENSED NURSE Type: Progress Notes Filed: 02/27/2024 15:15 Note Text: ED Follow-Up Note Provider Action / FYI: Call completed by: MAGAN Patient seen in ED: Out of Network ED Contact made with Patient: No, left message. Capri Castle LPN February 27, 2024 3:15 [facility]12-16-2024 History of Present illness Narrative* Capri Castle LPN - 02/27/2024 3:13 PM EST ED Follow-Up Note Provider Action / FYI: Call completed by: MAGAN Patient seen in ED: Out of Network ED Contact made with Patient: No, left message. Capri Castle LPN February 27, 2024 3:15 PM documented in this encounterDayton Children'S Hospital12-16-2024 NotePatient Outreach (AGFAMPLE) TRACIE MELENDEZ ([id number]) 1990 F Date Time Provider Department 02/27/24 IMAN PEACE During your visit today, we recorded the following information about you: Capri Castle LPN 02/27/2024 3:15 PM Signed ED Follow-Up Note Provider Action / FYI: Call completed by: MAGAN Patient seen in ED: Out of Network ED Contact made with Patient: No, left message. Capri Castle LPN February 27, 2024 3:15 PM Capri Castle LPN 02/28/2024 10:07 AM Signed ED Follow-Up Note Provider Action / FYI: Call completed by: MAGAN Patient seen in ED: Out of Network ED Contact made with Patient: No, left message. 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 02-02-2024 NoteHNO ID: [id number] Author: CAPRI CASTLE LPN Service: ? Author Type: LICENSED NURSE Type: Progress Notes Filed: 02/02/2024 13:22 Note Text: ED Follow Up: [facility] ED on 02/01/2024. 1. How are you feeling since your [...] you able to contact the office or biodiesel plant operations engineer provider prior to your ED visit? Left message for pt to call office. 5. Is there anything else I can do for you today? Left message for pt to call office.[facility]11-21-2024 History of Present illness Narrative* Capri Castle LPN - 02/02/2024 1:17 PM EST ED Follow Up: Patient discharged from [facility] ED on 02/01/2024. 1. How are you feeling since your [...] already been scheduled? Left message for pt tocall office. 4. Were you able to contact the office or biodiesel plant operations engineer provider prior to your ED visit? Left message forpt to call office. 5. Is there anything else I can do for you today? Left message for pt to call office. documented in this encounterDayton Children'S Hospital11-21-2024 NotePatient Outreach (AGINTMLW) TRACIE MELENDEZ ([id number]) 1990 F Date Time Provider Department 02/02/24 IMAN PEACE AGINTMLVeena During your visit today, we recorded the following information about you: Capri Castle LPN 02/02/2024 1:22 PM Signed ED Follow Up: Patient discharged from [facility] ED on 02/01/2024. 1. How are you feeling since your [...] you able to contact the office or biodiesel plant operations engineer provider prior to your ED visit? Left message for pt to call office. 5. Is there anything else I can do for you today? Left message for pt to call office. 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 01-16-2024 History of Present illness Narrative* Capri Castle LPN - 01/16/2024 1:30 PM EST ED Follow Up: Patient discharged from [facility] ED on 01/14/2024. 1. How are you feeling since your ED visit? Attempted to contact pt, received message that the wireless user is not accepting calls at this time. Have your symptoms improved or resolved? Attempted to contact pt, received message that the wireless user is not accepting calls at this time. 2. Were you prescribed any medications while in the ED or advised to stop any medication? Attemptedto contact pt, received message that the wireless user is not accepting calls at this time. - If yes, were you able to fill your prescriptions? Attempted to contact pt, received message that the wireless user is not accepting calls at this time. -if stopped medication, what was the medication? Attempted to contact pt, received message that thewireless user is not accepting calls at this time. 3. Were you advised to schedule a follow up appointment with your provider? Attempted to contact pt, received message that the wireless user is not accepting calls at this time. - If no, Do you feel like you need an appointment scheduled? Attempted to contact pt, received message that the wireless user is not accepting calls at this time. - If yes, Do you need this scheduled now or has this already been scheduled? Attempted to contact pt, received message that the wireless user is not accepting calls at this time. 4. Were you able to contact the office or biodiesel plant operations engineer provider prior to your ED visit? Attempted to contact pt, received message that the wireless user is not accepting calls at this time. 5. Is there anything else I can do for you today? Attempted to contact pt, received message that the wireless user is not accepting calls at this time. documented in this encounterDayton Children'S Hospital10-24-2024 History of Present illness Narrative* Capri Castle LPN - 01/05/2024 1:55 PM EDT ED Follow Up: Patient discharged from [facility] ED on 01/03/2024. 1. How are you feeling since your [...] already been scheduled? Left message for pt tocall office. 4. Were you able to contact the office or biodiesel plant operations engineer provider prior to your ED visit? Left message forpt to call office. 5. Is there anything else I can do for you today? Left message for pt to call office. documented in this encounterDayton Children'S Hospital08-30-2024 History of Present illness Narrative* Capri Castle LPN - 11/11/2023 10:50 AM EDT ED Follow Up: Patient discharged from [facility] ED on 11/09/2023. 1. How are [...] already been scheduled? Left message for pt tocall office. 4. Were you able to contact the office or biodiesel plant operations engineer provider prior to your ED visit? Left message forpt to call office. 5. Is there anything else I can do for you today? Left message for pt to call office. documented in this encounterDayton Children'S Hospital08-16-2024 History of Present illness Narrative* Capri Castle LPN - 10/28/2023 3:09 PM EDT ED Follow Up: Patient discharged from [facility] ED on 10/27/2023. 1. How are [...] already been scheduled? Left message for pt tocall office. 4. Were you able to contact the office or biodiesel plant operations engineer provider prior to your ED visit? Left message forpt to call office. 5. Is there anything else I can do for you today? Left message for pt to call office. documented in this encounterDayton Children'S Hospital07-25-2024 History of Present illness Narrative* Capri Castle LPN - 10/06/2023 3:48 PM EDT ED Follow Up: Patient discharged from [facility] ED on 10/06/2023. 1. How are [...] already been scheduled? Left message for pt tocall office. 4. Were you able to contact the office or biodiesel plant operations engineer provider prior to your ED visit? Left message forpt to call office. 5. Is there anything else I can do for you today? Left message for pt to call office. documented in this encounterDayton Children'S Hospital05-17-2024 NoteHNO ID: [id number] Author: KRUNAL LOWRY RPFT Service: ? Author Type: Respiratory Therapist Type: Progress Notes Filed: 07/29/2023 09:00 Note Text: PULM FUNCTION SMARTBLOCK: Provider: Rajesh Suarez MD Assisting Tech: Krunal Lowry RPFT Spirometry w/BD: 1 DLCO: 1 LV - Box: [address] [place], [place] [address]5-17-2024 NoteHNO ID: [id number] Author: SUZANNE COTTRELL RT(R) Service: ? Author Type: Cake Batter Mixer Type: Progress Notes Filed: 07/29/2023 08:15 Note Text: Radiology Service Progress Note PATIENT NAME: Tracie Melendez DATE OF SERVICE: July 29, 2023 [...] PATIENT PRESENTS WITH AN IMPLANTABLE OR ATTACHED HEALTH INFORMATION ADMINISTRATOR: No RADIOLOGY DEPARTMENT: General X-ray: Exam(s) Completed: Chest X-Ray PERIPHERAL IV DATA: Not applicable SIGNED BY: RT Vinnie(R) July 29, 2023 8:04 [facility]05-17-2024 History of Present illness Narrative* Krunal Lowry RPFT - 07/29/2023 8:58 AM EDT PULM FUNCTION SMARTBLOCK: Provider: Rajesh Suarez MD Assisting Tech: Krunal Lowry RPFT Spirometry w/BD: 1 DLCO: 1 LV - Box: 1 documented in this encounterDayton Children'S Hospital05-17-2024 History of Present illness Narrative* Suzanne Cottrell RT(R) - 07/29/2023 8:00 AM EDT Radiology Service Progress Note PATIENT NAME: Tracie Melendez DATE OF SERVICE: July 29, 2023 TIME: 8:04 AM PATIENT IDENTITY VERIFICATION COMPLETED USING TWO (2) IDENTIFIERS: Name and Date of confirmedby patient verbally. FALL SCREENING: Has the patient had 2 falls in the last year or 1 fall with injury or currently using an Ambulatory Assistive Device (Walker, Cane, Wheelchair, Crutches, etc.)? No PATIENT GENDER DATA: Female. status: : No status: NO. PATIENT RELEVANT IMPLANT DATA REVIEWED: Yes PATIENT PRESENTS WITH AN IMPLANTABLE OR ATTACHED HEALTH INFORMATION ADMINISTRATOR: No RADIOLOGY DEPARTMENT: General X-ray: Exam(s) Completed: Chest X-Ray PERIPHERAL IV DATA: Not applicable SIGNED BY: RT Vinnie(R) July 29, 2023 8:04 AM documented in this encounterDayton Children'S Hospital05-13-2024 NoteHNO ID: [id number] Author: RAJESH SUAREZ MD Service: ? Author Type: Physician Type: [...] visit. Either the patient or their legal senior sales representative has been informed of the risks and benefits of -- and alternatives to -- treatment through a remote evaluation and consents to proceed with the evaluation remotely. Tracie Melendez is a 32 year old female seen for Abnormal Lab (+SSB). No specialty comments available. Bone Density: None on file Please see 07/11/2023 HANDP for full details In brief - >10 [...] PAST MEDICAL HISTORY OF left hand deformity PM - PAST MEDICAL HISTORY OF 01-12-97 normal [...] Blood Pressure Systolic 126 (more content not included)...[facility]05-13-2024 History of Present illness Narrative* Rajesh Suarez MD - 07/25/2023 7:48 AM EDT Images from the original note were not included. VIRTUAL VISIT PROGRESS NOTE This is a virtual visit using Audio Only Visit. It required patient-provider interaction for the medical decision making as documented below. I have communicated my name and active licensure. The patient's identity and physical location wereverified at the time of this visit. Either the patient or their legal senior sales representative has been informed of the risks and benefits of -- and alternatives to -- treatment through a remote evaluation andconsents to proceed with the evaluation remotely. Tracie Melendez is a 32 year old female [...] PAST MEDICAL HISTORY OF left hand deformity PM - PAST MEDICAL HISTORY OF 11-01-97 normal color vision Unspecified and jaundice PAST [...] have +LEONOR. In work up of +LEONOR foundto have +SSB and microscopic hematuria again (though [...] have been on the tail end of herperiod). Lower suspicion for urticarial vasculitis with hives and +LEONOR but normal markers of inflammation, no known eye inflammation (uveitis/episcleritis), glomerulonephritis, nor abdominal pain andnormal complement - Discussed that Sjogren's is tx symptomatically and based on sx manifestations. Currently sicca sxnot bothersome enough to require secretogogues. - PFTs, [...] was sent and no notification to pick itup - Encourage her to take. Repeat as scheduled with nephrology. # Hives with throat swelling/angioedema with reported eye and lip swelling: concerned for allergies/angioedema/urticarial rash. Pictures of her rash that she shows appear to be consistent with hives.Favor that her current symptoms are related to [...] development of hypermobility arthralgias/DJD Orders this visit: [facility] on 07/25/23 XR CHEST 2V FRONTAL/LAT LUNG VOLUMES LUNG DIFFUSION CAPACITY (DLCO) SPIROMETRY - BASELINE AND POST DILATOR No follow-ups on file.after nephrology visit/PFTs/CXR or next time she is in town for allergy appt I spent a total of 26 minutes on the date of the service which included counseling and educating the patient/family/caregiver and communicating results to the patient/family/caregiver Rajesh Suarez MD documented in this encounterDayton Children'S Hospital05-09-2024 Telephone encounter Note * Telephone Encounter - Meena Kaufman RN - 07/21/2023 2:48 PM EDT Patient scheduled with Dr. Suarez at 330PM on 07/24. Meena Kaufman RN [facility]05-09-[facility] Miscellaneous Notes* Telephone Encounter - Meena Kaufman RN - 07/21/2023 2:48 PM EDT Patient scheduled with Dr. Suarez at 330PM on 07/24. Meena Kaufman RN * Telephone Encounter - Didi Spicer MD - 07/21/2023 2:[address] is [address] Suarez patient * Telephone Encounter - Meena Kaufman RN - 07/21/2023 11:01 AM EDT Spoke with patients mother. Patient scheduled for phone visit 07/24 to discuss further. Meena Kaufman RN * Telephone Encounter - Meena Kaufman RN - 07/21/2023 9:32 AM EDT Called patients mother. Can schedule virtual visit to discuss further, Dr. Spicer aware of this result per result note under lab tab. No answer, left message for her to return the call. Meena Kaufman RN * Telephone Encounter - Kayli Sims Ma - 07/21/2023 9:05 AM EDT Patients mother called. Patient saw nephrology yesterday. She had a few lab tests done. The SSA came back normal but the SSB antibody came back abnormal. The leaflet or newspaper deliverer told her to see rheumatology for this abnormal result. Please call her mother Maryann at [phone] documented in this encounterDayton Children'S Hospital05-09-2024 Telephone encounter Note * Telephone Encounter - Didi Spicer MD - 07/21/2023 2:[address] is Dr Suarez patient [facility] Work Phone: 1(231) 458-730505-09-2024 Telephone encounter Note* Telephone Encounter - Meena Kaufman RN - 07/21/2023 11:01 AM EDT Spoke with patients mother. Patient scheduled for phone visit 07/24 to discuss further. Meena Kaufman RN [facility]05-09-20[facility] Telephone encounter Note* Telephone Encounter - Meena Kaufman RN - 07/21/2023 9:32 AM EDT Called patients mother. Can schedule virtual visit to discuss further, Dr. Spicer aware of this result per result note under lab tab. No answer, left message for her to return the call. Meena Kaufman RN [facility]05-09-2024 Telephone encounter Note* Telephone Encounter - Kayli Sims Ma - 07/21/2023 9:05 AM EDT Patients mother called. Patient saw nephrology yesterday. She had a few lab tests done. The SSA came back normal but the SSB antibody came back abnormal. The leaflet or newspaper deliverer told her to see rheumatology for this abnormal result. Please call her mother Maryann at [phone] [facility]05-01-2024 NoteHNO ID: [id number] Author: RAJESH SUAREZ MD Service: ? Author Type: Physician Type: Progress Notes Filed: 07/13/2023 13:45 Note Text: Probable Sjogren's. Persistent hematuria. Referral to nephrology for hematuria Try nitrofurantoinC[facility]05-01[facility] History of Present illness Narrative* Rajesh Suarez MD - 07/13/2023 1:41 PM EDT Probable Sjogren's. Persistent hematuria. Referral to nephrology for hematuria Try nitrofurantoin documented in this encounterDayton Children'S Hospital04-29-2024 NoteHNO ID: [id number] Author: RAJESH SUAREZ MD Service: ? Author Type: Physician Type: Progress Notes Filed: 07/11/2023 19:01 Note Text: Rheumatology CONSULTATION Date of Service: 07/11/2023 Patient: Tracie Melendez Primary Care Physician: Iman Peace APRN.COSMETOLOGIST APPRENTICE Last Rheumatology visit: [facility] Referring Provider: Iman Peace [address] [facility] [address] Tracie Melendez is here today at request of Dr. Peace specifically for consultation of my opinion in regards to the chief complaint listed below. Correspondence will be shared today via the [facility] electronic health record or through regular mail, where applicable. History of Present Illness Tracie Melendez is a 32 year old White female who presents on 07/11/2023 for an in-person visit for evaluation of Abnormal Lab (+LEONOR). Tracie is RF negative - 9 (06/27/2023). Her [...] She to allergy 4-5 years ago in [place] and was told she is not allergic [...] Current Outpatient Medications [facility] (more content not included)...[facility]04-29-2024 History of Present illness Narrative* Rajesh Suarez MD - 07/11/2023 8:00 AM EDT Images from the original note were not included. Rheumatology CONSULTATION Date of Service: 07/11/2023 Patient: Tracie Melendez Primary Care Physician: Iman Peace APRN.COSMETOLOGIST APPRENTICE Last Rheumatology visit: None at [facility] Referring Provider: Iman Peace [address] [place] [id number] Tracie Melendez is here today at request of Dr. Peace specifically for consultation of my opinion in regards to the chief complaint listed below. Correspondence will be shared today via the [facility] electronic health record or through regular mail, where applicable. History of Present Illness Tracie Melendez is a 32 year old White female who presents on 07/11/2023 for an in-person visit for evaluation of Abnormal Lab (+LEONOR). Tracie is RF negative - 9 (06/27/2023). Her [...] She to allergy 4-5 years ago in [place] and was told she is not allergic [...] Impression: IMPRESSION: Hyperinflated lungs. No focal consolidation. Horizontal Resaw Operator: ERIC ... Health Maintenance Current Immunizations Reviewed [...] the homunculus. Go to the Rheumatology activity andcomplete the homunculus joint exam. Joint Exam 07/11/2023 [...] that her current symptoms are related to allerg ies/hives as she does not have joint pain nor weakness when she does not have urticarial rash. Currently lower suspicion for SLE/CTD as her only specific symptoms on labs and ROS would be microscopichematuria (while she might have been at the [...] which included preparing to see the patient, [id number] patient care, completing clinical documentation, obtaining and/or reviewing separately obtained history, performing a medically appropriate examination, counseling and educating the pat ient/family/caregiver, and communicating results to the patient/family/caregiver. Rajesh Suarez MD PhD Rheumatology documented in this encounterDayton Children'S Hospital04-17-2024 Miscellaneous Notes* Telephone Encounter - Marissa Doran MA - 06/29/2023 5:06 PM EDT Pt. Received my chart message. Marissa Doran MA * Addendum Note - Iman Peace APRN.CNP - 06/29/2023 1:24 PM EDTAddended by: IMAN PEACE on: 06/29/2023 01:24 PM Modules accepted: Orders * Telephone Encounter - Iman Peace APRN.CNP - 06/29/2023 1:17 PM EDT LEONOR is still pending. Her potassium was on low end of normal- will send in 3 day replacement. Vitamin D was low- will need daily replacement of 2,000 international unit(s) daily. BS was 72 on CMP but this is not concerningly low. Will monitor periodically. Make sure she is eating regularly. Remaining labs were normal. Inflammatory markers and Rheumatoid factor was negative. * Telephone Encounter - Marissa Doran MA - 06/29/2023 12:56 PM EDT Patients mother lm on requesting lab results. Please advise. Marissa Doran MA documented in this encounterDayton Children'S Hospital04-17-2024 Miscellaneous Notes* Telephone Encounter - Marissa Doran MA - 06/29/2023 12:56 PM EDT Patients mother notified. Marissa Doran MA * Telephone Encounter - Reny Loya DO - 06/29/2023 12:25 PM EDT I will send in Rx for antibiotic Reny Loya DO * Telephone Encounter - Venancio Hinton MA - 06/29/2023 12:22 PM EDT Patient's mother left message stating they saw patient's results on MyChart and she is worried she needs an antibiotic due to her UA results. Please advise. Venancio Hinton MA documented in this encounterDayton Children'S Hospital04-16-2024 Miscellaneous Notes* Telephone Encounter - Willa Rodriguez MA - 06/28/2023 11:49 AM EDT Patient's mother is informed Willa Rodriguez MA * Addendum Note - Iman Peace APRN.CNP - 06/28/2023 11:48 AM EDTAddended by: IMAN PEACE on: 06/28/2023 11:48 AM Modules accepted: Orders * Telephone Encounter - Iman Peace APRN.CNP - 06/28/2023 11:47 AM EDT Rx sent in. * Telephone Encounter - Willa Rodriguez MA - 06/28/2023 11:09 AM EDT Patient called requesting another script of Pepcid sent to [facility] because she is having another flare up of her hives Willa Rodriguez MA documented in this encounterDayton [facility] History of Present illness Narrative* Iman Peace APRN.CNP - 06/27/2023 11:29 AM EDT Images from the original note were not included. [facility] Iman Peace SPACE SCHEDULER-COSMETOLOGIST APPRENTICE [address] [place] [address] Dept Dept. Visit Date: June 27, 2023 Ms.Sarah Irma Melendez Date of : 1990 MRN/E #: [id number] Chief Complaint: Patient presents with: New Patient: Establish care previous pcp was Dr. Terry. Would like to discuss allergies hives/swelling on legs, arms, face last time she was in the ER she was told her throat was swollen and they gave he an Epi pen injection. Worried it is an immune issue. History of Present Illness Tracie Melendez is a 32 year old female presents today as a new patient. Her mother is with her today. I reviewed past medical, surgical, social, and family histories today and updated chart. Allergies, chronic medications, and supplements were also reviewed. Their main concern today is recurrent hives. Urticaria- unknown etiology Angioedema with throat [facility] in May for urticaria and angioedema Has [...] Take 1 tablet by mouth two times aday for 3 days. potassium chloride ER (KLOR-CON [...] for will follow up after labs. Iman Peace APRN.CNP, signed on June 27, 2023 11:29 AM documented in this encounterDayton [facility]03-26-2024 Discharge summary Author [facility] June 07, 2023 10:33pm Note Date/Time June 07, 2023 6:5 6pm [facility] Medical Records Department [address] [place] [id number] Emergency Department Summary 06/07/23 MR#: [id number] Acct: [id number] Name: TRACIE MELENDEZ Rep #:[id number] : 1990 32 From: Collin Allen MD PCP: Care Physician,No Primary Status :REG ER Location: ED HPI History of Present Illness Chief Complaint: Allergic Reaction Detail of Chief Complaint: Allergic reaction with hives and change in voice Informant: patient Onset/Context/Timing Onset: Yesterday Context: Sudden Onset Timing: Continuous Quality: Hives and change in voice Location: Generalized Current Severity: Moderate Maximum Severity: Moderate Worsened by: Unknown Relieved by: Nothing Associated Symptoms Associated Symptoms: Complains of shortness of breath as well Narrative Narrative: Patient is at 32-year-old woman with history of allergies. She is seeing by ENT. She is getting allergy shots. The cause of her urticaria per patient is unknown. Yesterday she noted to have a rash. She also had a change in voice. She has some difficulty swallowing. She denies fever, chills night sweats. She denies headache, visual, ocular auditory symptoms. She denies neck pain, drooling or inability to swallow. She denies chest pain, shortness of breath, dyspnea on exertion. She denies abdominal pain, nausea, vomiting or diarrhea. She states she contacted ENT with and not be able to see until later the week. Prior similar symptoms: Yes Recent Illness/Hospitalization: No [facility] Medical History (Updated 06/07/23 @ 22:[address] Collin Allen MD) Anxiety Home Medications prednisone 20 mg tablet 40 mg (2 x 20 mg) PO DAILY #10 tabs 10/01/18 [Rx Last Taken Unknown] famotidine 40 mg tablet (Pepcid) 40 mg PO DAILY #14 tabs 11/06/22 [Rx Last Taken Unknown] prednisone 50 mg tablet 50 mg PO DAILY #5 tabs 11/06/22 [Rx Last Taken Unknown] naproxen 500 mg tablet (Naprosyn) 500 mg PO BID PRN pain #20 tabs 01/02/23 [Rx Last Taken Unknown] prednisone 20 mg tablet 40 mg (2 x 20 mg) PO DAILY 7 days #14 tabs 02/09/23 [Rx Last Taken Unknown] albuterol sulfate 90 mcg/actuation aerosol inhaler (Ventolin HFA) 1 - 2 puff inhalation Q4H PRN PRN Wheezing #1 inh 04/29/23 [Rx Last Taken Unknown] epinephrine 0.3 mg/0.3 mL injection, auto-injector (EpiPen) 0.3 mg (0.3 mL) IM Q15M PRN anaphylaxis #2 ea 04/29/23 [Rx Last Taken Unknown] famotidine 20 mg tablet (Pepcid) 20 mg PO BID #14 tabs 04/29/23 [Rx Last Taken Unknown] prednisone 20 mg tablet 40 mg (2 x 20 mg) PO DAILY #8 TABLETS 04/29/23 [Rx Last Taken Unknown] famotidine 20 mg tablet (Pepcid) 20 mg PO BID #8 tabs 06/07/23 [Rx Last Taken Unknown] prednisone 20 mg tablet 40 mg (2 x 20 mg) PO DAILY #8 TABLETS 06/07/23 [Rx Last Taken Unknown] Allergy/AdvReac Type Severity Reaction Status Date / Time pseudoephedrine Allergy Mild Rash Verified 06/07/23 18:45 Environmental Allergies: Allergy Hives Verified 06/07/23 18:45 Uncoded Social History Smoking Status: Former smoker ROS ROS ED Constitutional Constitutional ED: Denies chills, fever(s), subjective, sweats or weight loss Eyes Eyes: Denies blurry vision, change in vision or diplopia ENT ENT ED: Reports other Details: Change in voice ; Denies ear pain, rhinorrhea or sore throat Cardiovascular Cardiovascular: Denies chest pain, orthopnea, palpitations or paroxysmal nocturnal dyspnea Respiratory/Chest Respiratory/Chest: Reports dyspnea; Denies cough, dyspnea on exertion, orthopneaor paroxysmal nocturnal dyspnea Gastrointestinal Gastrointestinal: Denies abdominal pain, constipation, diarrhea, nausea or vomiting Genitourinary Genitourinary ED: Denies dysuria or hematuria Musculoskeletal Musculoskeletal: Denies back pain or neck pain Integumentary Reports rash Neurologic Neurologic: Denies headache(s) Endocrine Endocrinology: Denies cold intolerance or heat intolerance Hematologic/Lymphatic Hematologic/Lymphatic: Reports systems reviewed and no addt'l complaints, exceptas documented Allergic/Immunologic Allergic/Immunologic ED: Reports mouth swelling and urticaria; Denies tongue swelling EXAM Physical Exam Const Vital Signs: 06/07/23 18:43 06/07/23 19:00 06/07/23 19:30 Temperature 97.2 F L Temperature Source Temporal Pulse Rate 76 112 H 104 H Respiratory Rate 16 17 15 Blood Pressure 118/102 H 146/99 H 135/88 H Blood Pressure Mean 107 114 103 Pulse Ox 97 Oxygen Delivery Method Room Air 06/07/23 20:00 06/07/23 20:30 06/07/23 21:00 Temperature Temperature Source Pulse Rate 93 79 Respiratory Rate 19 H 19 H Blood Pressure 90/43 L 116/83 H 134/119 H Blood Pressure Mean 53 94 125 Pulse Ox Oxygen Delivery Method 06/07/23 21:30 06/07/23 22:00 Temperature Temperature Source Pulse Rate 77 79 Respiratory Rate 12 18 Blood Pressure 122/85 H 115/78 Blood Pressure Mean 97 89 Pulse Ox Oxygen Delivery Method Positive well nourished and well developed Constitutional Narrative: Vital signs are noted. She is not hypoxic. Patient has a muffled voice. General Appearance ED: well developed and NAD; Negative for pallor HEENT Reports moist mucous membranes HEENT Narrative: There is swelling of the uvula and soft palate. There is no trismus. There is no swelling of the tongue or lips. There is no erythema or exudate of the posterior pharynx. Eyes PERRL and EOMs intact bilaterally General Eye ED: Negative for pale conjunctiva or scleral icterus Neck no lymphadenopathy, supple and no JVD Neck Narrative: Trachea is midline. There is no inspiratory expiratory stridor. 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 Neuro oriented x3, CN's II-XII intact bilaterally and no sensory deficits noted Sensorium / Orientation: alert Motor Exam: strength 5/5 throughout Psych mental status grossly normal Skin No no rashes or lesions noted, no wounds and skin turgor normal Skin Narrative: Patient has generalized urticaria. General Skin Exam: elasticity normal; Negative for jaundice or pallor MDM MDM MDM Narrative Medical decision making narrative: Patient with known allergies seen ENT. She has evidence of angioedema with urticaria. She has a left allergic angioedema. Will treat with epinephrine, Benadryl, Solu-Medrol and IV Pepcid. Will reevaluate as needed. Treatment and Re-Evaluation :: Patient was reassessed at 1926. Rash has improved slightly. The angioedema hasimproved by at minimum of 50%. Her voice is no longer muffled. Patient was reassessed at 2000. Angioedema has resolved. Rash has improved markedly. Spoke to patient. She is getting allergy shots for dust and mold etc. She has environmental allergies not to any medications. Patient was assessed at 2104. Her rash is improved by 75 to 90%. Her voice is normal. There is no angioedema. Patient was able to eat without difficulty. Patient was reassessed at 2140. She has faint rash noted on her right and left leg anteriorly. Will reassess in 30 minutes. Patient was reassessed at 2228. There is no angioedema. There is no hoarse voice. There is no stridor. Lungs are clear to auscultation. Heart is regularwithout murmur, gallop or rub. Rate is normal. Patient has a couple of faint hives noted on the upper extremity. Plan is to discharge with prescription for prednisone and Pepcid. She is to call Dr. Jered Brady who she sees for environmental allergies and allergy shots. Critical Care Time Critical Care Time: Yes Critical care time (excluding procedures): 30-74 minutes (31), Including time spent: (History, physical, documentation, treatment for allergic angioedema withepinephrine and other IV meds, review of prior records), Discussing w/Patient &/or Family/Structural Welder and Performing Direct Patient Care at Bedside Discharge Plan Triage Chief Complaint: Allergic Reaction ED Provider: Collin Allen Dx/Rx/DC Orders Clinical Impression: Allergic angioedema, Urticaria Instructions: ED General Allergic Reactions, ED Angioedema Prescriptions: New famotidine [Pepcid] 20 mg tablet 20 mg PO BID Qty: 8 0RF prednisone 20 mg tablet 40 mg PO DAILY Qty: 8 0RF No Action prednisone 20 MG tablet 40 mg PO DAILY Qty: 10 0RF Rx Instructions: With food prednisone 50 mg tablet 50 mg PO DAILY Qty: 5 0RF famotidine [Pepcid] 40 mg tablet 40 mg PO DAILY Qty: 14 0RF prednisone 20 mg tablet 40 mg PO DAILY 7 Days Qty: 14 0RF naproxen [Naprosyn] 500 mg tablet 500 mg PO BID PRN (Reason: pain) Qty: 20 0RF albuterol sulfate [Ventolin HFA] 90 mcg/actuation HFA aerosol inhaler 1 - 2 puff inhalation Q4H PRN PRN (Reason: Wheezing) Qty: 1 0RF prednisone 20 mg tablet 40 mg PO DAILY Qty: 8 0RF famotidine [Pepcid] 20 mg tablet 20 mg PO BID Qty: 14 0RF epinephrine [EpiPen] 0.3 mg/0.3 mL auto-injector 0.3 mg IM Q15M PRN (Reason: anaphylaxis) Qty: 2 0RF Primary Care Provider: Care Physician,No Primary Referrals: Jered Brady MD [Med Staff - Active Staff] - 3-5 Days Care Physician,No Primary [Primary Care Provider] - Activity Restrictions/Additional Instructions: Take 1 Benadryl tablet/capsule every 6 hours for the next 4 days Disposition Disposition: Home, Self Care What to do if you have Problems For any increased pain, shortness of breath, bleeding, nausea or vomiting, chestpain, or any unexpected problems, contact your Primary Care Provider. Call [facility] ([phone]) or report to the closest Emergency Room. Call 911 if necessary. 06/07/232232 <Electronically signed by Collin Allen MD> Cosigner Signature (if applicable): CC: No Primary Care Physician ~ Signed [facility] Work Phone: 1(127) 335-556711-29-2023 Discharge summary Author [facility] February 09, 2023 2:13pm Note Date/Time February 09, 2023 2:13pm [facility] Medical Records Department [address] [place] [address] Emergency Department Summary 02/09/23 MR#: [id number] Acct: [id number] Name: TRACIE MELENDEZ Rep #:[id number] : 1990 32 From: Jamison Jordan MD PCP: Care Physician,No Primary Status :PRE ER Location: ED HPI History of Present Illness Chief Complaint: Allergic Reaction Detail of Chief Complaint: Generalized hives. Informant: patient Onset/Context/Timing Onset: Days Context: Gradual Onset Timing: Continuous Current Severity: Mild Maximum Severity: Mild Narrative Narrative: 32-year-old female history of generalized allergic reactions in which she gets hives. Thinks she may have ate some several days ago that she had allergic reaction to. She has hives on her back and upper and lower extremities. She has been using Benadryl but is not resolved. She has needed steroids before dueto resolve this. Currently no trouble breathing or swallowing. Prior similar symptoms: Yes Recent Illness/Hospitalization: No PFSH PFSH Home Medications prednisone 20 mg tablet 40 mg (2 x 20 mg) PO DAILY #10 tabs 10/01/18 [Rx Last Taken Unknown] famotidine 40 mg tablet (Pepcid) 40 mg PO DAILY #14 tabs 11/06/22 [Rx Last Taken Unknown] prednisone 50 mg tablet 50 mg PO DAILY #5 tabs 11/06/22 [Rx Last Taken Unknown] naproxen 500 mg tablet (Naprosyn) 500 mg PO BID PRN pain #20 tabs 01/02/23 [Rx Last Taken Unknown] prednisone 20 mg tablet 40 mg (2 x 20 mg) PO DAILY 7 days #14 tabs 02/09/23 [Rx Last Taken Unknown] Allergy/AdvReac Type Severity Reaction Status Date / Time pseudoephedrine Allergy Mild Rash Verified 02/09/23 13:35 Social History Smoking Status: Former smoker ROS ROS ED ROS Narrative No recent illness. Itching and hives. Review of Systems ROS Unobtainable: Denies due to encephalopathy Constitutional Constitutional ED: Denies chills or fever(s) Eyes Eyes: Denies blurry vision ENT ENT ED: Denies ear pain Cardiovascular Cardiovascular: Denies chest pain Respiratory/Chest Respiratory/Chest: Denies cough or dyspnea Gastrointestinal Gastrointestinal: Denies abdominal pain Genitourinary Genitourinary ED: Denies dysuria or hematuria Musculoskeletal Musculoskeletal: Denies arthralgias, back pain, myalgias or neck pain Integumentary Reports rash and other Details: Hives. ; Denies abscess or Abrasions Neurologic Neurologic: Denies headache(s) Psychiatric Psychiatric: Denies anxiety Endocrine Endocrinology: Denies cold intolerance Hematologic/Lymphatic Hematologic/Lymphatic: Reports none Allergic/Immunologic Allergic/Immunologic ED: Denies mouth swelling, tongue swelling or urticaria EXAM Physical Exam Narrative Exam Narrative: Wearing 32-year-old female. Vital signs are stable afebrile. Pulse ox is 98% on room air. No hypoxia. No respiratory distress. H EENT exam unremarkable. She will neck nontender. Lungs are clear equal and symmetrical bilaterally. Nowheezing. Heart regular rhythm no murmur rate about 85. Abdomen soft nontender. Moving all 4 extremities. 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 Back nontender. Skin diffuse hives on lower extremities and back. No petechiae or purpura. She is awake and alert. Const Vital Signs: 02/09/23 13:33 Temperature 97.4 F L Temperature Source Temporal Pulse Rate 90 Respiratory Rate 16 Blood Pressure 133/99 H Blood Pressure Mean 110 Pulse Ox 98 Oxygen Delivery Method Room Air Positive well nourished and well developed; Negative for obese, cachectic, contractures or unkempt General Appearance ED: well developed and NAD; Negative for unkempt, cachectic, contractures, cyanotic, diaphoretic or pallor Nutritional Appearance: Negative for cachectic or obese HEENT Reports moist mucous membranes; Denies dry mucous membranes Negative for trauma or tenderness Mouth ED: No dry mucous membranes Mouth: No dry mucous membranes Eyes PERRL and EOMs intact bilaterally General Eye ED: Negative for pale conjunctiva, scleral icterus or other Neck no lymphadenopathy, supple and no JVD General: Negative for tenderness Lymph Lymphatic: Negative for other Chest Wall inspection of chest normal and palpation of chest normal Chest: Negative for other Resp normal respiratory effort and clear to auscultation bilaterally Effort and Inspection: Negative for retractions Auscultation: Negative for rales, rhonchi or wheezes Cardio regular rate, regular rhythm, S1 normal heart sound, S2 normal heart sound and no murmurs Rhythm: Negative for abnormal rhythm GI normal to inspection, nondistended, normoactive bowel sounds, non-tender, non-distended and no masses Inspection: Negative for abdominal distention Auscultation: normoactive bowel sounds Palpation: soft; Negative for tender or guarding Back/Spine no CVA tenderness General Back: Negative for CVA tenderness Cervical Spine: Negative for cervical spine tenderness Thoracic Spine / Upper Back: Negative for thoracic spinal tenderness Lumbar Spine / Lower Back: Negative for lumbar spinal tenderness Extremity normal to inspection Extremity Narrative: Hives. General Extremety ED: Negative for edema or tenderness General Extremity: Negative for edema Neuro oriented x3 and CN's II-XII intact bilaterally Sensorium / Orientation: alert; Negative for orientation impaired Motor Exam: strength 5/5 throughout Psych mental status grossly normal Appearance: Negative for unkempt Attitude: No agitated Mood & Affect: Negative for depressed, anxious or tearful Skin No no rashes or lesions noted, no wounds and skin turgor normal Skin Narrative: Hives. General Skin Exam: elasticity normal; Negative for jaundice or pallor Lesions: No lesion noted Rashes: rashes noted Trauma: Negative for abrasion Wounds: Negative for wounds noted MDM MDM MDM Narrative Medical decision making narrative: 32-year-old female history of food allergies with prior allergic reactions. Shehas gotten hives before in the past. She has had this for 3 days. She been taking Benadryl. She will be started on prednisone given first dose here in 40 mg a day for a week but she may we will stop it early. Patient is comfortable with the plan. Discharge Plan Triage Chief Complaint: Allergic Reaction ED Provider: Jamison Jordan Dx/Rx/DC Orders Clinical Impression: Hives, Allergic reaction Instructions: ED General Allergic Reactions, ED Hives (Adult) Prescriptions: New prednisone 20 mg tablet 40 mg PO DAILY 7 Days Qty: 14 0RF No Action prednisone 20 MG tablet 40 mg PO DAILY Qty: 10 0RF Rx Instructions: With food prednisone 50 mg tablet 50 mg PO DAILY Qty: 5 0RF famotidine [Pepcid] 40 mg tablet 40 mg PO DAILY Qty: 14 0RF naproxen [Naprosyn] 500 mg tablet 500 mg PO BID PRN (Reason: pain) Qty: 20 0RF Primary Care Provider: Care Physician,No Primary Referrals: Parvin Joshi MD [Med Staff - Active Staff] - As Needed Care Physician,No Primary [Primary Care Provider] - Activity Restrictions/Additional Instructions: Prednisone 40 mg a day until the hives are gone. Continue to use your Benadryl. Follow-up with your doctor as needed. Return if feeling worse. Disposition Disposition: Home, Self Care What to do if you have Problems For any increased pain, shortness of breath, bleeding, nausea or vomiting, chestpain, or any unexpected problems, contact your Primary Care Provider. Call [facility] ([phone]) or report to the closest Emergency Room. Call 911 if necessary. 02/09/23 1413 <Electronically signed by Jamison Jordan MD> Cosigner Signature (if applicable): CC: No Primary Care Physician ~ Signed [facility] Work Phone: 1(692) 361-284510-22-2023 Discharge summary Author [facility] January 02, 2023 1:46pm Note Date/Time January 02, 2023 1 :34pm [facility] Medical Records Department [address] [place] [address] Emergency Department Summary 01/02/23 MR#: [id number] Acct: [id number] Name: TRACIE MELENDEZ Rep #:[id number] : 1990 32 From: Vamshi Caruso FRONT END ENGINEERAnder PCP: Care Physician,No Primary Status :PRE ER Location: ED <Statement entered by Aislinn Guadalupe MD - 01/02/23 13:46> I have personally performed a face to face assessment of the patient and have reviewed the HUBER Note. Patient presents secondary to left upper back pain. About a week ago she was carrying a laundry basket down some steps when she slipped and twisted. She hadpain to the left upper back and around her left axilla since that time. Pain isworse with movement of her left arm and deep breathing. Patient sitting in bedside chair in no acute distress. Head and neck examination feels no external sign of trauma. Heart is regular rate and rhythm. Lung sounds are clear with good air movement bilaterally. Abdomen is soft and nontender. Back examination reveals reproducible muscular tenderness in the left upper chest and over the lateral upper chest wall. Full range of motion of the arms. I do not feel imaging is needed at this time. Patient be treated with anti-inflammatories. Return instructions given. HPI History of Present Illness Chief Complaint: Back Narrative Narrative: Patient is a 32-year-old female with history of anxiety presents to the emergency department with complaints of left upper back pain. Patient states 1 week ago she was carrying down her laundry basket when she tripped down the stairs, turning while carrying a basket. Since then, she had pain in her armpitarea on the left as well as the right with worsening pain on rotation. PFSH PFSH Home Medications prednisone 20 mg tablet 40 mg (2 x 20 mg) PO DAILY #10 tabs 10/01/18 [Rx Last Taken Unknown] famotidine 40 mg tablet (Pepcid) 40 mg PO DAILY #14 tabs 11/06/22 [Rx Last Taken Unknown] prednisone 50 mg tablet 50 mg PO DAILY #5 tabs 11/06/22 [Rx Last Taken Unknown] naproxen 500 mg tablet (Naprosyn) 500 mg PO BID PRN pain #20 tabs 10/22/23 [Rx Last Taken Unknown] Allergy/AdvReac Type Severity Reaction Status Date / Time pseudoephedrine Allergy Mild Rash Verified 01/02/23 13:17 Social History Smoking Status: Former smoker ROS ROS ED ROS Narrative Constitutional: Negative for fever, chills, weight loss, weakness Eyes: Negative for vision loss, vision change, double vision ENT: Negative for any sore throat, ear pain, congestion Cardiovascular: Negative for any chest pain, tightness, palpitations Respiratory: Negative for any cough, sputum production, hemoptysis, dyspnea, dyspnea on exertion, orthopnea Gastrointestinal: Negative for any abdominal pain, nausea, vomiting, diarrhea, constipation, blood in stool, blood in vomit : Negative for any urinary frequency, dysuria, retention, blood in urine Muscle skeletal: Negative for any muscle joint pain, stiffness, myalgias, arthralgias, neck pain. Positive for left upper back pain, left anterior chest pain. Neurological: Negative for any headache, syncope, numbness or tingling, dizziness Skin: Negative for any rashes, lumps, itching, abrasions, lacerations Psychiatric: Negative for any depression, anxiety, stress, suicidal ideation, homicidal ideation Hematologic: Negative for any easy bruising, excessive bruising, easy bleeding Allergies: Negative for any eczema, hives, rash EXAM Physical Exam Narrative Exam Narrative: Vital signs reviewed. HEET: Head normocephalic atraumatic, TMs clear bilaterally. Posterior pharynx is clear, moist mucous membranes. Nares clear bilaterally. Neck: Supple with no lymphadenopathy or tenderness. No signs of meningismus, negative jolt sign. Cardiac: Regular rate and rhythm no murmurs gallops or rubs, equal peripheral pulses bilaterally. Respiratory: Lungs clear to auscultation bilaterally. Patient is worsening painon palpation to the anterior chest to the lateral and anterior chest. Just below the axilla. Equal breath sounds in all quadrants. Worsening pain with moving her arms and rotation. Abdomen: Soft, nontender, nondistended. No abdominal bruit or pulsatile masses. No hepatosplenomegaly Extremities: No peripheral edema, no signs of gross trauma or deformity. Activefull range of motion of all extremities. Neuro: Cranial nerves II through XII intact, no focal neurological deficits. Skin: Clean dry and intact with no rash, purpura, petechiae, vesicles or pustules. Backs/flank: No CVA tenderness, no midline spinal tenderness, no deformity. Psych: Normal mood and affect. No SI, HI or acute psychosis. Const Vital Signs: 01/02/23 13:16 Temperature 96 F L Temperature Source Temporal Pulse Rate 77 Respiratory Rate 18 Blood Pressure 120/60 Blood Pressure Mean 80 Pulse Ox 99 Oxygen Delivery Method Room Air [facility] Treatment and Re-Evaluation :: Patient appears generally well, patient appears nontoxic, vital signs are stable. Presents the emergency department with upper back pain after a slip while carrying a laundry basket 1 week ago. Physical examination consistent with muscle skeletal pain. Initial diagnosis include pneumonia, thoracic strain, chest wall strain. Patient be treated with naproxen, there is no indication for any advanced imaging. She denies any shortness of breath, fever or chills. Patient will continue to perform gentle stretching, ice and heat as well as giving a prescription for naproxen. Stable for discharge. Discharge Plan Triage Chief Complaint: Back ED Midlevel Provider: Vamshi Caruso ED Provider: Aislinn Guadalupe Dx/Rx/DC Orders Clinical Impression: Acute thoracic myofascial strain, Chest wall muscle strain Instructions: ED Back Sprain/Strain, ED Chest Wall Strain Prescriptions: New naproxen [Naprosyn] 500 mg tablet 500 mg PO BID PRN (Reason: pain) Qty: 20 0RF No Action prednisone 20 MG tablet 40 mg PO DAILY Qty: 10 0RF Rx Instructions: With food prednisone 50 mg tablet 50 mg PO DAILY Qty: 5 0RF famotidine [Pepcid] 40 mg tablet 40 mg PO DAILY Qty: 14 0RF Primary Care Provider: Care Physician,No Primary Referrals: Care Physician,No Primary [Primary Care Provider] - Activity Restrictions/Additional Instructions: Please follow-up outpatient. Disposition Disposition: Home, Self Care What to do if you have Problems For any increased pain, shortness of breath, bleeding, nausea or vomiting, chestpain, or any unexpected problems, contact your Primary Care Provider. Call [facility] [facility] ([phone]) or report to the closest Emergency Room. Call 911 if necessary. 01/02/23 8187 <Electronically signed by Vamshi ORNELAS> Cosigner Signature (if applicable): 01/02/23 1346 <Electronically signed by Aislinn Guadalupe MD> CC: No Primary Care Physician ~ Signed [facility] Work Phone: 1(193) 460-184908-26-2023 Discharge summary Author Aislinn Guadalupe [facility] November 06, 2022 6:51pm Note Date/Time November 06, 2022 6: 11pm [facility] Medical Records Department [address] [place] [address] Emergency Department Summary 11/06/22 MR#: [id number] Acct: [id number] Name: TRACIE MELENDEZ Rep #:[id number] : 1990 31 From: Aislinn Guadalupe MD PCP: Care Physician,No Primary Status :REG ER Location: ED <Statement entered by Aislinn Guadalupe MD - 11/06/22 18:51> I have personally performed a face to face assessment of the patient and have reviewed the HUBER Note. Patient presents secondary to urticaria. She has a history of multiple allergies and is currently undergoing allergy injections. Due to some head congestion and sinus pressure recently she took 3 doses of Sudafed yesterday. She thinks her last dose was at 4 AM this morning. She noted generalized hives and itching. She is taking Benadryl. She states she knows when she gets hives as bad she usually requires a course of steroids. Head neck examination unremarkable. Patient speaks with a strong voice and is tolerating secretions well. Heart is tachycardic and regular. Lung sounds are clear. Abdomen is soft and nontender. Skin examination reveals urticarial lesions diffusely on her face, trunk, extremities. No evidence of infection. Patient treated with p.o. prednisone and Pepcid. Prescription sent to the pharmacy for her. She will also continue Benadryl. Return instructions provided. HPI History of Present Illness Chief Complaint: Rash Narrative Narrative: Patient is a 31-year-old female with history of seasonal allergies who presents to the emergency department for hives. Patient states that she has been having some congestion, runny nose and she took a Sudafed 2 doses yesterday. Patient today woke up with significant hives on her face, upper and lower extremity as well as her trunk. Patient denies any shortness of breath, denies any rash in her mouth. [facility] Medical History no medical history Home Medications prednisone 20 mg tablet 40 mg (2 x 20 mg) PO DAILY #10 tabs 10/01/18 [Rx Last Taken Unknown] famotidine 40 mg tablet (Pepcid) 40 mg PO DAILY #14 tabs 11/06/22 [Rx Last Taken Unknown] prednisone 50 mg tablet 50 mg PO DAILY #5 tabs 11/06/22 [Rx Last Taken Unknown] Allergy/AdvReac Type Severity Reaction Status Date / Time pseudoephedrine Allergy Mild Rash Verified 11/06/22 18:25 Social History Smoking Status: Former smoker ROS ROS ED ROS Narrative Constitutional: Negative for fever, chills, weight loss, weakness Eyes: Negative for vision loss, vision change, double vision ENT: Negative for any sore throat, ear pain, congestion Cardiovascular: Negative for any chest pain, tightness, palpitations Respiratory: Negative for any cough, sputum production, hemoptysis, dyspnea, dyspnea on exertion, orthopnea Gastrointestinal: Negative for any abdominal pain, nausea, vomiting, diarrhea, constipation, blood in stool, blood in vomit : Negative for any urinary frequency, dysuria, retention, blood in urine Muscle skeletal: Negative for any muscle joint pain, stiffness, myalgias, arthralgias, neck pain, back pain Neurological: Negative for any headache, syncope, numbness or tingling, dizziness Skin: Negative for any lumps, itching, abrasions, lacerations. Positive for rash full body, hives Psychiatric: Negative for any depression, anxiety, stress, suicidal ideation, homicidal ideation Hematologic: Negative for any easy bruising, excessive bruising, easy bleeding Allergies: Negative for any eczema, hives, rash EXAM Physical Exam Narrative Exam Narrative: Vital signs reviewed. Patient appears generally well, patient is in no respiratory distress. HEET: Head normocephalic atraumatic, TMs clear bilaterally. Posterior pharynx is clear, moist mucous membranes. Nares clear bilaterally. Patient does have hives over the left eyebrow, slight redness to the neck. Posterior pharynx clear, no stridor. No oral lesions Neck: Supple with no lymphadenopathy or tenderness. No signs of meningismus, negative jolt sign. Cardiac: Regular rate and rhythm no murmurs gallops or rubs, equal peripheral pulses bilaterally. Respiratory: Lungs clear to auscultation bilaterally. No chest tenderness. Abdomen: Soft, nontender, nondistended. No abdominal bruit or pulsatile masses. No hepatosplenomegaly Extremities: No peripheral edema, no signs of gross trauma or deformity. Activefull range of motion of all extremities. Hives to both arms, legs. Neuro: Cranial nerves II through XII intact, no focal neurological deficits. Skin: Clean dry and intact with no rash, purpura, petechiae, vesicles or pustules. Backs/flank: No CVA tenderness, no midline spinal tenderness, no deformity. Psych: Normal mood and affect. No SI, HI or acute psychosis. Const Vital Signs: 11/06/22 17:59 11/06/22 18:22 Temperature 98.0 F Temperature Source Temporal Pulse Rate 130 H 95 Respiratory Rate 14 Blood Pressure 113/99 H Blood Pressure Mean 103 Pulse Ox 94 95 Oxygen Delivery Method Room Air Room Air Positive well nourished and well developed General Appearance ED: well developed MDM MDM Treatment and Re-Evaluation :: Patient appears generally well, patient appears nontoxic, vital signs are stable. Patient presents to the emergency department for hives following takingSudafed yesterday. Patient has been taking Benadryl however she think she needssteroids. Patient does have history of this and has had hives this severe in the past. Patient will be given Pepcid, Benadryl, prednisone 60 mg here. She begin a prescription for Pepcid as well as prednisone. The prednisone to be for5 days. All questions answered, patient stable for discharge. At this time, isno evidence of anaphylaxis, cellulitis. Discharge Plan Triage Chief Complaint: Rash ED Midlevel Provider: Vamshi Caruso ED Provider: Aislinn Guadalupe Dx/Rx/DC Orders Clinical Impression: Acute urticaria Instructions: ED Hives (Adult) Prescriptions: New prednisone 50 mg tablet 50 mg PO DAILY Qty: 5 0RF famotidine [Pepcid] 40 mg tablet 40 mg PO DAILY Qty: 14 0RF No Action prednisone 20 MG tablet 40 mg PO DAILY Qty: 10 0RF Rx Instructions: With food Primary Care Provider: Syed Terry Referrals: Syed Terry MD [Primary Care Provider] - Activity Restrictions/Additional Instructions: Please take prednisone until finished. May use the Pepcid. Continue take Benadryl. Cool showers may help. Disposition Disposition: Home, Self Care What to do if you have Problems For any increased pain, shortness of breath, bleeding, nausea or vomiting, chestpain, or any unexpected problems, contact your Primary Care Provider. Call [facility] ([phone]) or report to the closest Emergency Room. Call 911 if necessary. 11/06/22 1851 <Electronically signed by Aislinn Guadalupe MD> Cosigner Signature (if applicable): 11/06/22 1839 <Electronically signed by Vamshi ORNELAS> CC: No Primary Care Physician ~ Signed [facility] Work Phone: 1(424) 482-876401-12-2015 History of Past illness Narrative* Problem Noted [...] smoking during . Advised pt to quit. [place] tobacco quit line information given to patient. [...] Coleman. TKRN GBS (group B Streptococcus c errol), +RV culture, currently 07/12/2011 08/30/2011 SUPRF HIGH [...] of this encounter (statuses as of 06/29/2023) [facility]01-[facility] History of Past illness Narrative* Problem [...] smoking during . Advised pt to quit. [place] tobacco quit line information given to patient. [...] Coleman. TKRN GBS (group B Streptococcus c errol), +RV culture, currently 07/12/2011 08/30/2011 SUPRF HIGH [...] of this encounter (statuses as of 06/30/2023) [facility] History of Past illness Narrative* Problem [...] smoking during . Advised pt to quit. [place] tobacco quit line information given to patient. [...] Coleman. TKRN GBS (group B Streptococcus c errol), +RV culture, currently 07/12/2011 08/30/2011 SUPRF HIGH [...] of this encounter (statuses as of 06/30/2023) [facility] History of Past illness Narrative* Problem [...] smoking during . Advised pt to quit. [place] tobacco quit line information given to patient. [...] Coleman. TKRN GBS (group B Streptococcus c errol), +RV culture, currently 07/12/2011 08/30/2011 SUPRF HIGH [...] of this encounter (statuses as of 07/01/2023) [facility] Note Date/Time May 23, 2024 10: 08am [facility] Medical Records Department [address] [place] [address] Emergency Department Summary 05/23/24 MR#: [id number] Acct: [id number] Name: TRACIE MELENDEZ Rep #:[id number] : 1990 33 From: Mor benitez DO PCP: JOHNSON Nuñez Status:PRE E R Location: ED HPI History of Present Illness Chief Complaint: Dental Narrative Narrative: Chief complaint and HPI: Dental infection. 33-year-old female presents for evaluation of dental infection. Patient has known poor dentition. She follows with a dentist. She states that she has multiple damaged teeth that are scheduled for a root canal. Some have already received root canals. Patient states 4 days ago she developed pain in the left central incisor. She states this is one of the teeth that are scheduled to be repaired. She denies any fever, shortness of breath, chest pain, difficulty speaking or swallowing. Patient has been taking Tylenol. She denies history of diabetes or IV drug abuse. Patient states she is scheduled to see her dentist. Review of systems: See HPI Medications: As listed on the chart Allergies: As listed on the chart PFSH: Per chart Vital signs: As listed on the chart. Reviewed. Physical exam: Gen: A&O x3, NAD Head: Normocephalic, atraumatic Eyes: No sclera icterus, conjunctiva clear, PERRL, EOMI ENT: Moist mucous membranes, posterior oropharynx unremarkable, uvula midline, no Justen angina, patient has poor dentition with multiple broken and rotten teeth. Patient has some mild gingival irritation around the left central incisor-mildly tender to palpation. No dental abscess. Normal phonation. Tolerating secretions. No facial swelling. Neck: Trachea midline, No JVD, Full ROM, No meningismus, no swelling CV: RRR, no murmurs, no peripheral edema, no stridor Resp: Lungs CTA BL, no w/r/c Skin: Warm, dry, no rash Neuro: Alert, oriented, grossly intact, sensation intact Psych: Cooperative, appropriate mood and affect [facility] Medical History Anxiety Home Medications ?Medication ?Instructions ?Recorded ?Last Taken ?Type epinephrine 0.3 mg/0.3 mL 0.3 mg (0.3 mL) IM Q15M PRN 04/29/23 Unknown Rx injection, auto-injector (EpiPen) anaphylaxis #2 ea cholecalciferol (vitamin D3) 50 50 mcg PO DAILY Unknown History mcg (2,000 unit) capsule (Vitamin D3) fluoxetine 20 mg capsule 20 mg PO DAILY 08/06/23 Unkn own History hydroxyzine pamoate 25 mg capsule 25 mg PO BID 4 Unknown History albuterol sulfate 90 mcg/actuation 1 - 2 puff inhalati on Q4H PRN PRN 11/09/23 Unknown History aerosol inhaler wheezing cefdinir 300 mg capsule 300 mg PO Q12.TCU 01/14/24 U nknown History naproxen 500 mg tablet 500 mg PO BID PRN #20 tabs 1 03/15/23 Unknown Rx penicillin V potassium 500 mg 500 mg PO 4X/DAY #40 tab s 01/14/24 Unknown Rx tablet doxycycline monohydrate 100 mg 100 mg PO BID #14 CAPSU LES 02/01/24 Unknown Rx capsule famotidine 20 mg tablet (Pepcid AC) 20 mg PO BID #14 t abs 02/26/24 Unknown Rx prednisone 20 mg tablet 40 mg (2 x 20 mg) PO DAILY # 14 tabs 02/26/24 Unknown Rx methylprednisolone 4 mg tablets in 4 mg PO DAILY #21 t abs 04/10/24 Unknown Rx a dose pack Allergy/AdvReac Type Severity Reaction Status Date / Time corn Allergy Severe Hives Verified 05/23/24 09:36 peanut (peanuts) Allergy Severe Hives Verified 05/23/24 09:36 sesame seed Allergy Severe Hives Verified 05/23/24 09:36 shellfish derived Allergy Severe Hives Verified 05/23/24 09:36 pseudoephedrine Allergy Mild Rash Verified 05/23/24 09:36 Social History household members: children Smoking Status: Former smoker EXAM Physical Exam Const Vital Signs: 05/23/24 09:34 Temperature 97.2 F L Temperature Source Temporal Pulse Rate 67 Respiratory Rate 15 Blood Pressure 137/88 H Blood Pressure Mean 104 Pulse Ox 99 Oxygen Delivery Method Room Air MDM MDM MDM Narrative Medical decision making narrative: 33-year-old female presents for evaluation of dental infection. Patient has known poor dentition. See physical exam findings. Differential diagnosis includes was not limited to dental abscess, dental infection. Patient does not have a dental abscess on physical exam. Concern is for a dental infection. Patient will be placed on Augmentin. Educated on Tylenol as needed for pain. Follow-up with dentist. She confirmed understand the plan. Return precautions explained. Impression: 1. Dental infection 2. Poor dentition Discharge Plan Triage Chief Complaint: Dental ED Provider: Mor Urena Dx/Rx/DC Orders Prescriptions: No Action epinephrine [EpiPen] 0.3 mg/0.3 mL auto-injector 0.3 mg IM Q15M PRN (Reason: anaphylaxis) Qty: 2 0RF albuterol sulfate 90 mcg/actuation HFA aerosol inhaler 1 - 2 puff inhalation Q4H PRN PRN (Reason: wheezing) prednisone 20 mg tablet 40 mg PO DAILY Qty: 14 0RF famotidine [Pepcid AC] 20 mg tablet 20 mg PO BID Qty: 14 0RF fluoxetine 20 mg capsule 20 mg PO DAILY hydroxyzine pamoate 25 mg capsule 25 mg PO BID cholecalciferol (vitamin D3) [Vitamin D3] 50 mcg (2,000 unit) capsule 50 mcg PO DAILY cefdinir 300 mg capsule 300 mg PO Q12.TCU penicillin V potassium 500 mg tablet 500 mg PO 4X/DAY Qty: 40 0RF naproxen 500 mg tablet 500 mg PO BID PRN Qty: 20 0RF doxycycline monohydrate 100 mg capsule 100 mg PO BID Qty: 14 0RF methylprednisolone 4 mg tablets,dose pack 4 mg PO DAILY Qty: 21 0RF Primary Care Provider: Iman Peace NP Referrals: Iman Peace FRONT END ENGINEER, FRONT END ENGINEER-C [Primary Care Provider] - Print Language: [place] What to do if you have Problems For any increased pain, shortness of breath, bleeding, nausea or vomiting, chestpain, or any unexpected problems, contact your Primary Care Provider. Call [facility] ([phone]) or report to the closest Emergency Room. Call 911 if necessary. 05/23/24 1008 <Electronically signed by Mor Urena DO> Cosigner Signature (if applicable): CC: JOHNSON Peace ~ Signed [facility] Work Phone: Evaluation noteNo assessment information available [facility] Work Phone: Evaluation note* Diagnosis Urticaria- Primary Urticaria, unspecified [facility] Diagnosis Acute cystitis with hematuria- Primary Acute cystitis [facility]* Diagnosis Hypokalemia- Primary Hypopotassemia Vitamin D insufficiency Unspecified vitamin D deficiency documented in this encounter [facility] note* Diagnosis Urticaria- Primary Urticaria, unspecified Arthralgia, unspecified joint Vitamin D deficiency Unspecified vitamin D deficiency Hematuria, unspecified type Flank pain Abdominal pain, unspecified site Screening for thyroid disorder documented in this encounter [facility] note* Diagnosis Urticaria- Primary Urticaria, unspecified Positive LEONOR (antinuclear antibody) Other and unspecified nonspecific immunological findings Hypermobility arthralgia Pain in joint, site unspecified Weakness Other malaise and fatigue [facility]* Diagnosis Hematuria, unspecified type- Primary [facility]* Diagnosis Sjogren's syndrome, with unspecified organ involvement (HCC)- Primary Shortness of breath documented in this encounter [facility] note* Diagnosis Sjogren's syndrome, with unspecified organ involvement (HCC) Shortness of breath documented in this encounter [facility] note* Diagnosis Sjogren's syndrome, with unspecified organ involvement (HCC) Shortness of breath [facility] Additional Instructions Please take prednisone until finished. May use the Pepcid. Continue take Benadryl. Cool showers may help.[facility] Work Phone: Hospital Discharge instructions Additional Instructions Please follow-up outpatient.[facility] Work Phone: Hospital Discharge instructions Additional Instructions Prednisone 40 mg a day until the hives are gone. Continue to use your Benadryl. Follow-up with your doctor as needed. Return if feeling worse.[facility] Work Phone: Hospital Discharge instructions Additional Instructions Take 1 Benadryl tablet/capsule every 6 hours for the next 4 daysW[facility] Work Phone: Hospital Discharge instructions Additional Instructions Follow-up with your dentist. Ibuprofen as needed for pain. Take your antibiotics. Return back to the ED if symptoms change or worsenWOhioHealth [facility] Work Phone: Hospital Discharge instructions Additional Instructions Allergy likely food. No anaphylaxis signs. Finish prednisone and Pepcid use Benadryl as needed. You have epinephrine pen at home. Follow-up with your doctor. If you develop worsening symptoms not improve with medications, return to the ED for reevaluation.[facility] Work Phone: Reason for referral (narrative)* Outpatient Procedure (Routine) - Pending Review Specialty Diagnoses / Procedures Referred By Kylie alexis [facility] To [facility] Diagnoses Sjogren's syndrome, with unspecified organ involvement (HCC) Shortness of breath Procedures SPIROMETRY - BASELINE AND POST DILATOR BRNCDILAT RSPSE SPMTRY PRE&POST-BRNCDILAT ADMN Rajesh Suarez MD [address] [place] [address] [address] Referral ID Status Reason Start Date Expiration Date Visits Requested Visits Authorized [id number] Pending Review Auto-Generat ed Referral 07/25/2023 08/23/2024 1 1 * Outpatient Procedure (Routine) - Pending Review Specialty Diagnoses / Procedures Referred By Contac t Referred To [facility] Diagnoses Sjogren's syndrome, with unspecified organ involvement (HCC) Shortness of breath Procedures LUNG DIFFUSION CAPACITY (DLCO) DIFFUSING CAPACITY Rajesh Suarez MD [address] [place] [address] [place] [address] Referral ID Status Reason Start Date Expiration Date Visits Requested Visits Authorized [id number] Pending Review Auto-Generat ed Referral 07/25/2023 08/23/2024 1 1 * Outpatient Procedure (Routine) - Pending Review Specialty Diagnoses / Procedures Referred By Contduane t Referred To [facility] Diagnoses Sjogren's syndrome, with unspecified organ involvement (HCC) Shortness of breath Procedures LUNG VOLUMES Rajesh Suarez MD [address] [place] [address] [place] [address] Referral ID Status Reason Start Date Expiration Date Visits Requested Visits Authorized [id number] Pending Review Auto-Generat ed Referral 07/25/2023 08/23/2024 1 1 [facility] for referral (narrative)No reason for referral information availableWOhioHealth [facility] Work Phone: Summary Purpose Family History No Family History Records FoundNo Family History Records FoundNo Family History Records FoundNo Family History Records Found Advance Directives No Advanced Directives Records Found Advance Directive Response Recorded Date/ Time Advance Directives No April 21, 2016 7:04pm Living Will No November 06 6:23pm Power of Photographer Apprentice No November 06, 2 023 6:23pm Advance Directive Response Recorded Date/ Time Advance Directives No April 21, 2016 7:04pm Living Will No January 02 1:47pm Power of Photographer Apprentice No January 02, 2023 1:47pm Advance Directive Response Recorded Date/ Time Advance Directives No April 21, 2016 6:04pm Living Will No February 09, 2 023 2:12pm Power of Photographer Apprentice No February 09, 2023 2:12pm Advance Directive Response Recorded Date/ Time Advance Directives No April 21, 2016 6:04pm Living Will No April 29, 2 024 12:05pm Power of Photographer Apprentice No April 29, 2023 12:05pm Advance Directive Response Recorded Date/ Time Advance Directives No April 21, 2016 7:04pm Living Will No June 07, 2023 7:01pm Power of Photographer Apprentice No June 06 7:01pm Advance Directive Response Recorded Date/ Time Living Will No February 25, 2 024 3:26pm Power of Photographer Apprentice No February 26, 2024 3:26pm Living Will No May 23, 2024 9:42am Power of Photographer Apprentice No May 23 9:42am Living Will No January 31, 2 024 3:42pm Power of Photographer Apprentice No February 01, 2024 3:42pm Living Will No April 10 11:42am Power of Photographer Apprentice No April 10, 2024 11:42am Advance Directives No April 21, 2016 7:04pm Advance Directive Response Recorded Date/ Time Living Will No February 25, 2 024 3:26pm Do you have a Healthcare Power of Photographer Apprentice? No February 26, 2024 3:26pm Living Will No May 23, 2024 9:42am Do you have a Healthcare Power of Photographer Apprentice? No May 23, 2024 9:42am Living Will No January 31, 2 024 3:42pm Do you have a Healthcare Power of Photographer Apprentice? No February 01, 2024 3:42pm Living Will No April 10 11:42am Do you have a Healthcare Power of Photographer Apprentice? No April 10, 2024 11:42am Living Will No May 31, 2024 8:44pm Do you have a Healthcare Power of Photographer Apprentice? No May 31, 2024 8:44pm Advance Directives No April 21, 2016 7:04pm Advance Directive Response Recorded Date/ Time Living Will No May 23, 2024 9:42am Do you have a Healthcare Power of Photographer Apprentice? No May 23, 2024 9:42am Living Will No April 10 11:42am Do you have a Healthcare Power of Photographer Apprentice? No April 10, 2024 11:42am Living Will No May 31, 2024 8:44pm Do you have a Healthcare Power of Photographer Apprentice? No May 31, 2024 8:44pm Do you have a Healthcare Power of Photographer Apprentice? No July 24, 2024 8:49pm Advance Directives No April 21, 2016 7:04pm Advance Directive Response Recorded Date/ Time Living Will No May 23, 2024 9:42am Do you have a Healthcare Power of Photographer Apprentice? No May 23, 2024 9:42am Do you have a Healthcare Power of Photographer Apprentice? No September 03, 2024 1:15pm Living Will No May 31, 2024 8:44pm Do you have a Healthcare Power of Photographer Apprentice? No May 31, 2024 8:44pm Do you have a Healthcare Power of Photographer Apprentice? No July 24, 2024 8:49pm Advance Directives No April 21, 2016 7:04pm Chief Complaint and Reason for Visit Chief Complaint HIVES Chief Complaint HIVES BACK Chief Complaint HIVES BACK ALLERGIC REACTION Chief Complaint BACK ALLERGIC REACTION GENERAL ILLENESS, RASH Chief Complaint ALLERGIC REACTION GENERAL ILLENESS, RASH ALLERGIC REACTION Chief Complaint GENERAL ILLENESS, RA SH ALLERGIC REACTION Chief Complaint Admit Date CELLULITIS February 01, 2024 2:25pm ALLERGIC REACTION February 26, 2024 2:12pm ALLERGIC REACTION April 10, 2024 1 0:36am DENTAL May 23, 2024 9:3 3am Chief Complaint Admit Date CELLULITIS February 01, 2024 2:25pm ALLERGIC REACTION February 26, 2024 2:12pm ALLERGIC REACTION April 10, 2024 1 0:36am DENTAL May 23, 2024 9:3 3am allergic reaction May 31, 2024 8:3 0pm Chief Complaint Admit Date ALLERGIC REACTION April 10, 2024 1 0:36am DENTAL May 23, 2024 9:3 3am allergic reaction May 31, 2024 8:3 0pm allergic July 24, 2024 8:25p m Chief Complaint Admit Date DENTAL May 23, 2024 9:3 3am allergic reaction May 31, 2024 8:3 0pm allergic July 24, 2024 8:25p m ALLERGIC REACTION September 03, 2024 10:4 9am Reason for Referral Specialty Diagnoses / Procedures Referred By Contac t Referred To Contact Diagnoses Urticaria Procedures CONSULT TO ALLERGY/IMMUNOLOGY OFFICE/OUTPATIENT [facility] [facility] 60 MINUTES Iman Peace, SPACE SCHEDULER.[facility] [address] [place] [address] Levi Bustillos MD [address] [address] Referral ID Status Reason Start Date Expiration Date Visits Requested Visits Authorized [id number] Authorized PCP Requested Referral 06/27/2023 06/26/2024 1 1 Specialty Diagnoses / Procedures Referred By Contac t Referred To Contact [facility] Diagnoses Hypermobility arthralgia Procedures CONSULT TO PHYSICAL THERAPY PHYSICAL THERAPY EVALUATION HIGH COMPLEX 45 MINS Rajesh Suarez MD [address] [address] [facility] [address] [address] Referral ID Status Reason Start Date Expiration Date Visits Requested Visits Authorized [id number] Pending Review Auto-Generat ed Referral 07/11/2023 07/10/2024 1 1 Specialty Diagnoses / Procedures Referred By Contac t Referred To Contact Nephrology Diagnoses Hematuria, unspecified type Procedures CONSULT TO NEPHROLOGY OFFICE/OUTPATIENT [facility] [place] 60 MINUTES Rajesh Suarez MD [address] [address] Referral ID Status Reason Start Date Expiration Date Visits Requested Visits Authorized [id number] Authorized PCP Requested Referral 07/13/2023 07/12/2024 1 1 Additional Source Comments INFORMATION SOURCE (unrecogn ized section and content) DATE CREATED AUTHOR 04/06/2020 [facility] DATE CREATED AUTHOR AUTHOR'S ORGANIZ ATION 07/31/2023 [facility] DATE CREATED AUTHOR AUTHOR'S ORGANIZ ATION 01/15/2025 [facility] DATE CREATED AUTHOR AUTHOR'S ORGANIZ ATION [facility]/20[facility] Teams (unrecognized sec tion and content) Team Status: Active Member Role Status Dates Dr. Syed Terry MD Family Provider Active No Primary Care Physician Primary Care Provider Active Team Status: Inactive Member Role Status Dates Dr. Aislinn Guadalupe MD Emergency Provider Active No Primary Care Physician Primary Care Provider Active Team Status: Inactive Member Role Status Dates Dr. Aislinn Guadalupe MD Attending Provider, Emergency Provider Active No Primary Care Physician Primary Care Provider Active Team Status: Inactive Member Role Status Dates No Primary Care Physician Primary Care Provider Active Dr. Aislinn Guadalupe MD Emergency Provider Active Team Status: Inactive Member Role Status Dates No Primary Care Physician Primary Care Provider Active Dr. Jamison Jordan MD Emergency Provider Active Team Status: Inactive Member Role Status Dates No Primary Care Physician Primary Care Provider Active Dr. Aislinn Guadalupe MD Attending Provider, Emergency Provider Active Team Status: Inactive Member Role Status Dates No Primary Care Physician Primary Care Provider Active Dr. Jamison Jordan MD Attending Provider, Emergency Pro vider Active Team Status: Inactive Member Role Status Dates No Primary Care Physician Primary Care Provider Active Dr. Raysa Garcia DO Emergency Provider Active Team Status: Inactive Member Role Status Dates No Primary Care Physician Primary Care Provider Active Dr. Raysa Garcia DO Attending Provider, Emergency P isaac Active Team Status: Inactive Member Role Status Dates No Primary Care Physician Primary Care Provider Active Dr. Collin Allen MD Emergency Provider Active Mica Plate Layer Hand Relationship Specialty Start Date End Date Iman Peace APRN.COSMETOLOGIST APPRENTICE [address] [place] [address] PCP - General Family Medicine 06/27/23 Mica Plate Layer Hand Relationship Specialty Start Date End Date Iman Peace APRN.COSMETOLOGIST APPRENTICE [address] [place] [address] PCP - General Family Medicine 06/27/23 Mica Plate Layer Hand Relationship Specialty Start Date End Date Iman Peace, SPACE SCHEDULER.COSMETOLOGIST APPRENTICE [address] [facility] [address] PCP - General Family Medicine 06/27/23 Mica Plate Layer Hand Relationship Specialty Start Date End Date Iman Peace, SPACE SCHEDULER.COSMETOLOGIST APPRENTICE [address] [facility], [place] [id number] PCP - General Family Medicine 06/27/23 Mica Plate Layer Hand Relationship Specialty Start Date End Date Iman Peace, SPACE SCHEDULER.COSMETOLOGIST APPRENTICE [address] [facility], [place] [id number] PCP - General Family Medicine 06/27/23 Team Status: Active Member Role Status Dates Dr. Syed Terry MD Family Provider Active Iman Peace FRONT END ENGINEER, FRONT END ENGINEER-C Primary Care Provider Active Team Status: Inactive Member Role Status Dates No Primary Care Physician Primary Care Provider Active Dr. Collin Allen MD Attending Provider, Emergency Provi chrissy Active Team Status: Inactive Member Role Status Dates Iman Peace FRONT END ENGINEER, FRONT END ENGINEER-C Primary Care Provider Active Dr. Aries Brady MD Attending Provider, Referring P isaac Active Mica Plate Layer Hand Relationship Specialty Start Date End Date Iman Peace, SPACE SCHEDULER.COSMETOLOGIST APPRENTICE [address] [facility], [place] [id number] PCP - General Family Medicine 06/27/23 Mica Plate Layer Hand Relationship Specialty Start Date End Date Iman Peace, SPACE SCHEDULER.COSMETOLOGIST APPRENTICE [address] [facility] [place] [address] PCP - General Family Medicine 06/27/23 Mica Plate Layer Hand Relationship Specialty Start Date End Date Iman Peace, SPACE SCHEDULER.COSMETOLOGIST APPRENTICE [address] [place] [address] PCP - General Family Medicine 06/27/23 Mica Plate Layer Hand Relationship Specialty Start Date End Date Iman Peace SPACE SCHEDULER.COSMETOLOGIST APPRENTICE [address] [place] [address] PCP - General Family Medicine 06/27/23 Team Status: Active Member Role Status Dates Iman Peace FRONT END ENGINEER, FRONT END ENGINEER-C Primary Care Provider Active Team Status: Inactive Member Role Status Dates Iman Peace FRONT END ENGINEER, FRONT END ENGINEER-C Primary Care Provider Active Start: February 01, 2024 End: February 01, 2024 Dr. Collin Allen MD Attending Provider Active Sta rt: February 01, 2024 End: February 01, 2024 Dr. Collin Allen MD Referring Provider Active Sta rt: February 01, 2024 End: February 01, 2024 Dr. Collin Allen MD Emergency Provider Active Sta rt: February 01, 2024 End: February 01, 2024 Team Status: Inactive Member Role Status Dates Iman Peace FRONT END ENGINEER, FRONT END ENGINEER-C Primary Care Provider Active Start: February 26, 2024 End: February 26, 2024 Hansel Robledo MD Attending Provider Active Star t: February 26, 2024 End: February 26, 2024 Hansel Robledo MD Emergency Provider Active Star t: February 26, 2024 End: February 26, 2024 Team Status: Inactive Member Role Status Dates Iman Peace FRONT END ENGINEER, FRONT END ENGINEER-C Primary Care Provider Active Start: April 10, 2024 End: April 10, 2024 Dr. Raymond Anthony DO Attending Provider Active Start: April 10, 2024 End: April 10, 2024 Dr. Raymond Anthony DO Emergency Provider Active Start: April 10, 2024 End: April 10, 2024 Team Status: Inactive Member Role Status Dates Iman Peace FRONT END ENGINEER, FRONT END ENGINEER-C Primary Care Provider Active Start: May 23, 2024 End: May 23, 2024 Dr. Mor Klusty-Amy , DO Emergency Provider Activ e Start: May 23, 2024 End: May 23, 2024 Team Status: Inactive Member Role Status Dates Iman Peace FRONT END ENGINEER, FRONT END ENGINEER-C Primary Care Provider Active Start: May 31, 2024 End: May 31, 2024 Dr. Collin Allen MD Referring Provider Active Sta rt: May 31, 2024 End: May 31, 2024 Dr. Collin Allen MD Emergency Provider Active Sta rt: May 31, 2024 End: May 31, 2024 Team Status: Inactive Member Role Status Dates Imanrandy Peace FRONT END ENGINEER, FRONT END ENGINEER-C Primary Care Provider Active Start: May 23, 2024 End: May 23, 2024 Dr. Mor Urena , DO Attending Provider Activ e Start: May 23, 2024 End: May 23, 2024 Dr. Mor Urena , DO Emergency Provider Activ e Start: May 23, 2024 End: May 23, 2024 Team Status: Inactive Member Role Status Dates Iman Peace FRONT END ENGINEER, FRONT END ENGINEER-C Primary Care Provider Active Start: May 31, 2024 End: May 31, 2024 Dr. Collin Allen MD Attending Provider Active Sta rt: May 31, 2024 End: May 31, 2024 Dr. Collin Allen MD Referring Provider Active Sta rt: May 31, 2024 End: May 31, 2024 Dr. Collin Allen MD Emergency Provider Active Sta rt: May 31, 2024 End: May 31, 2024 Team Status: Inactive Member Role Status Dates Iman Peace FRONT END ENGINEER, FRONT END ENGINEER-C Primary Care Provider Active Start: July 24, 2024 End: July 24, 2024 Dr. Ryan Granados , Emergency Provider Active Start : July 24, 2024 End: July 24, 2024 Team Status: Inactive Member Role Status Dates Iman Peace FRONT END ENGINEER, FRONT END ENGINEER-C Primary Care Provider Active Start: July 24, 2024 End: July 24, 2024 Dr. Ryan Granados DO Attending Provider Active Start : July 24, 2024 End: July 24, 2024 Dr. Ryan Granados DO Emergency Provider Active Start : July 24, 2024 End: July 24, 2024 Team Status: Inactive Member Role Status Dates Imanrandy Peace FRONT END ENGINEER, FRONT END ENGINEER-C Primary Care Provider Active Start: September 03, 2024 End: September 03, 2024 Dr. Tre Huston , DO Emergency Provider Active S tart: September 03, 2024 End: September 03, 2024 Mica Plate Layer Hand Relationship Specialty Start Date End Date Iman Peace APRN.COSMETOLOGIST APPRENTICE [address] [facility] [place] [address] PCP - General Family Medicine 06/27/23 Goals (unrecognized section and content) Goals may be documented in a n alternate sectionGoals may be documented in an alternate sectionGoals may be documented in an alternate sectionGoals may be documented in an alternate sectionGoals may be documented in an alternate sectionGoals may be documented in an alternate sectionGoals may be documented in an alternate sectionGoals may be documented in an alternate sectionGoals may be documented in an alternate sectionGoals may be documented in an alternate section Source Comments (unrecognize d section and content) In the event this informatio n is protected by the Federal Confidentiality of Alcohol and Drug Abuse Patient Records regulations: The Federal rules restrict any use of the information to criminally investigate or prosecute any alcohol or drug abuse patient.[facility] the event this information is protected by the Federal Confidentiality of Alcohol and Drug Abuse Patient Records regulations: The Federal rules restrict any use of the information to criminally investigate or prosecute any alcohol or drug abuse patient.[facility] HospitalIn the event this information is protected by the Federal Confidentiality of Alcohol and Drug Abuse Patient Records regulations: The Federal rules restrict any use of the information to criminally investigate or prosecute any alcohol or drug abuse patient.[facility]In the event this information is protected by the Federal Confidentiality of Alcohol and Drug Abuse Patient Records regulations: The Federal rules restrict any use of the information to criminally investigate or prosecute any alcohol or drug abuse patient.[facility] HospitalIn the event this information is protected by the Federal Confidentiality of Alcohol and Drug Abuse Patient Records regulations: The Federal rules restrict any use of the information to criminally investigate or prosecute any alcohol or drug abuse patient.[facility] Hospital[facility] the event this information is protected by the Federal Confidentiality of Alcohol and Drug Abuse Patient Records regulations: The Federal rules restrict any use of the information to criminally investigate or prosecute any alcohol or drug abuse patient.[facility] HospitalIn the event this information is protected by the Federal Confidentiality of Alcohol and Drug Abuse Patient Records regulations: The Federal rules restrict any use of the information to criminally investigate or prosecute any alcohol or drug abuse patient.[facility] HospitalIn the event this information is protected by the Federal Confidentiality of Alcohol and Drug Abuse Patient Records regulations: The Federal rules restrict any use of the information to criminally investigate or prosecute any alcohol or drug abuse patient.[facility] HospitalIn the event this information is protected by the Federal Confidentiality of Alcohol and Drug Abuse Patient Records regulations: The Federal rules restrict any use of the information to criminally investigate or prosecute any alcohol or drug abuse patient.[facility] HospitalIn the event this information is protected by the Federal Confidentiality of Alcohol and Drug Abuse Patient Records regulations: The Federal rules restrict any use of the information to criminally investigate or prosecute any alcohol or drug abuse patient.[facility] HospitalIn the event this information is protected by the Federal Confidentiality of Alcohol and Drug Abuse Patient Records regulations: The Federal rules restrict any use of the information to criminally investigate or prosecute any alcohol or drug abuse patient.[facility] HospitalIn the event this information is protected by the Federal Confidentiality of Alcohol and Drug Abuse Patient Records regulations: The Federal rules restrict any use of the information to criminally investigate or prosecute any alcohol or drug abuse patient.[facility] HospitalIn the event this information is protected by the Federal Confidentiality of Alcohol and Drug Abuse Patient Records regulations: The Federal rules restrict any use of the information to criminally investigate or prosecute any alcohol or drug abuse patient.[facility] HospitalIn the event this information is protected by the Federal Confidentiality of Alcohol and Drug Abuse Patient Records regulations: The Federal rules restrict any use of the information to criminally investigate or prosecute any alcohol or drug abuse patient.[facility] HospitalIn the event this information is protected by the Federal Confidentiality of Alcohol and Drug Abuse Patient Records regulations: The Federal rules restrict any use of the information to criminally investigate or prosecute any alcohol or drug abuse patient.[facility] HospitalIn the event this information is protected by the Federal Confidentiality of Alcohol and Drug Abuse Patient Records regulations: The Federal rules restrict any use of the information to criminally investigate or prosecute any alcohol or drug abuse patient.[facility] HospitalIn the event this information is protected by the Federal Confidentiality of Alcohol and Drug Abuse Patient Records regulations: The Federal rules restrict any use of the information to criminally investigate or prosecute any alcohol or drug abuse patient.[facility] HospitalIn the event this information is protected by the Federal Confidentiality of Alcohol and Drug Abuse Patient Records regulations: The Federal rules restrict any use of the information to criminally investigate or prosecute any alcohol or drug abuse patient.[facility] HospitalIn the event this information is protected by the Federal Confidentiality of Alcohol and Drug Abuse Patient Records regulations: The Federal rules restrict any use of the information to criminally investigate or prosecute any alcohol or drug abuse patient.[facility] HospitalIn the event this information is protected by the Federal Confidentiality of Alcohol and Drug Abuse Patient Records regulations: The Federal rules restrict any use of the information to criminally investigate or prosecute any alcohol or drug abuse patient.[facility] HospitalIn the event this information is protected by the Federal Confidentiality of Alcohol and Drug Abuse Patient Records regulations: The Federal rules restrict any use of the information to criminally investigate or prosecute any alcohol or drug abuse patient.[facility] HospitalIn the event this information is protected by the Federal Confidentiality of Alcohol and Drug Abuse Patient Records regulations: The Federal rules restrict any use of the information to criminally investigate or prosecute any alcohol or drug abuse patient.[facility] HospitalIn the event this information is protected by the Federal Confidentiality of Alcohol and Drug Abuse Patient Records regulations: The Federal rules restrict any use of the information to criminally investigate or prosecute any alcohol or drug abuse patient.[facility] HospitalIn the event this information is protected by the Federal Confidentiality of Alcohol and Drug Abuse Patient Records regulations: The Federal rules restrict any use of the information to criminally investigate or prosecute any alcohol or drug abuse patient.[facility] HospitalIn the event this information is protected by the Federal Confidentiality of Alcohol and Drug Abuse Patient Records regulations: The Federal rules restrict any use of the information to criminally investigate or prosecute any alcohol or drug abuse patient.[facility] HospitalIn the event this information is protected by the Federal Confidentiality of Alcohol and Drug Abuse Patient Records regulations: The Federal rules restrict any use of the information to criminally investigate or prosecute any alcohol or drug abuse patient.[facility] Reason for Visit (unrecogniz ed section [...] +LEONOR Specialty Diagnoses / Procedures Referred By Contac t Referred To Contact Rheumatology Diagnoses Positive LEONOR (antinuclear antibody) Procedures CONSULT TO RHEUM/IMMUN DISEASE OFFICE/OUTPATIENT NEW HIGH MDM 60 MINUTES Iman Peace, SPACE SCHEDULER.COSMETOLOGIST APPRENTICE [address] [place] [address] Referral ID Status Reason Start Date Expiration Date V isits Requested Visits Authorized [id number] Closed PCP Requested Referral 06/30/2023 06/29/2024 1 1 Reason Comments Patient Update Reason Comments Abnormal Lab +SSB Reason Comments Spirometry Specialty Diagnoses / Procedures Referred By Contac t Referred To Contact [facility] Diagnoses Sjogren's syndrome, with unspecified organ involvement (HCC) Shortness of breath Procedures SPIROMETRY - BASELINE AND POST DILATOR BRNCDILAT RSPSE SPMTRY PRE&POST-BRNCDILAT ADMRajesh Michel MD [address] [address] [facility] [place] [address] [place] [id number] Referral ID Status Reason Start Date Expiration Date V isits Requested Visits Authorized [id number] Closed Auto-Generate d Referral 07/25/2023 08/23/2024 1 1 Specialty Diagnoses / Procedures Referred By Contac t Referred To Contact [facility] Diagnoses Sjogren's syndrome, with unspecified organ involvement (HCC) Shortness of breath Procedures LUNG VOLUMES PLETHYSMOGRAPHY LUNG VOLUMES W/WO AIRWAY RESIST Rajesh Suarez MD [address] [address] Referral ID Status Reason Start Date Expiration Date V isits Requested Visits Authorized [id number] Closed Auto-Generate d Referral 07/26/2023 03/13/2024 1 1 Specialty Diagnoses / Procedures Referred By Contac t [facility]erred To [facility] Diagnoses Sjogren's syndrome, with unspecified organ involvement (HCC) Shortness of breath Procedures LUNG DIFFUSION CAPACITY (DLCO) DIFFUSING CAPACITY Rajesh Suarez MD [address] [address] Referral ID Status Reason Start Date Expiration Date V isits Requested Visits Authorized [id number] Closed Auto-Generate d Referral 07/25/2023 08/23/2024 1 1 Reason Onset Date Comments [facility] 02/02/2024 Reason Onset Date Comments ED Follow-up 02/26/2024 [facility] 02/25 Reason Onset Date Comments ED Follow-up 04/10/2024 [facility] 2024 Reason Comments Patient Question Reason Onset Date Comments ED Follow-up 05/23/2024 [facility] 2024 Reason Onset Date Comments ED Follow Up 05/31/2024 [facility] 2024 Reason Onset Date Comments ED Follow-up 07/30/2024 [facility] 07/24/24 Reason Onset Date Comments ED Follow-up 09/03/2024 [facility] 2024 FOR RECORDS PERTAINING TO PATIENTS WHO ARE [...] BE BASED ON THE PRIMARY CLINICAL RECORDS. [facility]. provides no warranty or guarantee of the accuracy or completeness of information in this document.
== END 2025-03-06 01:52 | disposition home or self-care (01) ==
LOC: ED 01:51
PROVIDERS: Emergency Provider Emergency Medicine; PCP Nurse Practitioner Family; Visit Provider Emergency Medicine
DX: L50.0 Allergic urticaria (principal); F41.9 Anxiety disorder, unspecified; Z79.899 Other long term (current) drug therapy; Z87.891 Personal history of nicotine dependence
CPT/HCPCS: 99282